=== PATIENT | male | born 1990 | race Caucasian/White ===

== ENCOUNTER 2016-12-23 21:04 | Inpatient (IN) | payer MEDICARE, MEDICAID ==
--- NOTE | 2016-12-23 21:34 | ED ---
General Adult HPI - General Chief complaint: Psychiatric Symptoms Stated complaint: Petition-Mental Health Time Seen by Provider: 12/23/16 21:05 Source: patient, RN notes reviewed Mode of arrival: ambulatory Limitations: no limitations - History of Present Illness Initial comments: Is a 26-year-old male with past medical history significant for schizophrenia. Today he was threatening to kill a distribution center assistant so he was petition to come into the emergency department. The ballet teacher brought him in thought the patient was 29 seen in another facility earlier today and did receive a shot. He is not sure what facility is not sure what kind of medication the patient received. Patient states he is not trying to kill anybody and does not want Any pain. Patient states he denies saying any of that. Patient denies wanting to harm himself. Patient denies any drinking or drug use. Patient denies any physical complaints today. Patient denies headache patient denies numbness weakness. Patient denies chest pain palpitations difficulty breathing or shortness of breath. Patient denies any abdominal pain patient denies nausea vomiting or diarrhea. Patient denies any recent injury or trauma. - Related Data Home Medications Medication Instructions Recorded Confirmed Paliperidone IM [Invega Sustenna] 234 mg IM Q30D 12/23/16 12/23/16 cloNIDine HCL [Clonidine HCl] 0.1 mg PO DIRECTED 12/23/16 12/23/16 Allergies Allergy/AdvReac Type Severity Reaction Status Date / Time No Known Allergies Allergy Unverified 12/23/16 21:43 Review of Systems ROS Statement: Those systems with pertinent positive or pertinent negative responses have been documented in the HPI. ROS Other: All systems not noted in ROS Statement are negative. Past Medical History Past Medical History: No Reported History History of Any Multi-Drug Resistant Organisms: None Reported Past Surgical History: No Surgical Hx Reported Past Psychological History: Schizophrenia Smoking Status: Current every day smoker Past Alcohol Use History: None Reported Past Drug Use History: None Reported General Exam - General Exam Comments Initial Comments: GENERAL: Patient is well-developed and well-nourished. Patient is nontoxic and well- hydrated and is in no acute distress. ENT: Neck is soft and supple. No significant lymphadenopathy is noted. Oropharynx is clear. Moist mucous membranes. EYES: The sclera were anicteric and conjunctiva were pink and moist. Extraocular movements were intact and pupils were equal round and reactive to light. Eyelids were unremarkable. PULMONARY: Unlabored respirations. Good breath sounds bilaterally. No audible rales rhonchi or wheezing was noted. CARDIOVASCULAR: There is a regular rate and rhythm without any murmurs gallops or rubs. ABDOMEN: Soft and nontender with normal bowel sounds. No palpable organomegaly was noted. There is no palpable pulsatile mass. SKIN: Skin is clear with no lesions or rashes and otherwise unremarkable. NEUROLOGIC: Patient is alert and oriented x3. Cranial nerves II through XII are grossly intact. Motor and sensory are also intact. Normal speech, volume and content. Symmetrical smile. MUSCULOSKELETAL: Normal extremities with adequate strength and full range of motion. No lower extremity swelling or edema. No calf tenderness. LYMPHATICS: No significant lymphadenopathy is noted PSYCHIATRIC: Patient denies homicidal or suicidal ideations. Limitations: no limitations Course Vital Signs 12/23/16 21:11 Temperature 97.7 F Pulse Rate 78 Respiratory 20 Rate Blood Pressure 122/68 O2 Sat by Pulse 98 Oximetry Medical Decision Making - Medical Decision Making [facility] came and evaluated the patient determined that he needed to be admitted. I filled out a clinical certification - Lab Data Lab Results 12/23/16 Range/Units 22:07 Urine Opiates Screen Not Detected (NotDetected) Ur Oxycodone Screen Not Detected (NotDetected) Urine Methadone Screen Not Detected (NotDetected) Ur Propoxyphene Screen Not Detected (NotDetected) Ur Barbiturates Screen Not Detected (NotDetected) U Tricyclic Antidepress Not Detected (NotDetected) Ur Phencyclidine Scrn Not Detected (NotDetected) Ur Amphetamines Screen Not Detected (NotDetected) U Methamphetamines Scrn Not Detected (NotDetected) U Benzodiazepines Scrn Not Detected (NotDetected) Urine Cocaine Screen Not Detected (NotDetected) U Marijuana (THC) Screen Not Detected (NotDetected) Disposition Clinical Impression: Psychosis Disposition: ADMITTED IP TO THIS [facility] Time of Disposition: 23:20
[2016-12-24] MEDS ORDERED: ZIPRASIDONE 20 MG VIAL IM PRN (03:45)
[2016-12-24] MEDS ORDERED: ACETAMINOPHEN TAB 325 MG TAB PO PRN (03:45)
[2016-12-24] MEDS ORDERED: MAGNESIUM HYDROXIDE 2,400 MG/10 ML CUP PO PRN (03:45)
[2016-12-24] MEDS ORDERED: MAG HYDROX/AL HYDROX/SIMETH 30 ML CUP PO PRN (03:45)
[2016-12-24] MEDS ORDERED: LORazepam 1 MG TAB PO PRN (03:56)
[2016-12-24 04:31] VITALS: BMI 27.3
[2016-12-24] MEDS: NICOTINE 14MG/24HR PATCH TRANSDERM SCH (08:57)
--- NOTE | 2016-12-24 11:32 | P.HP ---
Psychiatric H&P - . H&P Date: 12/24/16 History & Physical: IDENTIFYING DATA: Mr. Marmolejo is a 26-year-old male who has a history of a schizophrenia.. HISTORY OF PRESENT ILLNESS: He presented to the psychiatric unit involuntarily. One of the staff from [facility] completed a Petition for Mental health Treatment. The Petition red: When he presented to group he was disheveled and unkempt, with dirty clothes and wet/ greasy hair. ... "I'm going to kill the china and silverware salesperson, he is fucking crazy". Staff said "no one will get hurt." "Yes they will, I'm going to kill you now and everyone at your office." I reviewed information from the [facility] agency and interviewed Mr. Marmolejo. I left a message to speak with his mother Sakina Maromlejo. Benoit minimize the circumstances that led to this admission. He denied having threatened the china and silverware salesperson or staff at [facility]. He alleged that staff misinterpreted his words. He talked about being angry at the china and silverware salesperson because of demands placed on him by "mental health court". He alleged that he meets with china and silverware salesperson every 2 weeks and "has to" attend group therapy at [facility]. He does not like attending the group therapy sessions. He also talked about transportation to the [facility]. I had difficulty understanding his meaning but he appeared to be allege that he does not require transportation and could walk to the [facility]. She denied having thoughts of harm towards a the mental health court china and silverware salesperson of staff at [facility]. He denied feeling frightened or suspicious of the staff at [facility] or at this hospital. He denied experiencing auditory or visual hallucinations. He denied experiencing thought disturbances such as ideas reference, thought broadcasting, thought insertion or thought withdrawal. PAST PSYCHIATRIC HISTORY: He denied prior psychiatric hospitalizations. He understands that he is receiving treatment at [facility] for schizophrenia. He contests the diagnosis. He began some receiving mental treatment when he was14 years old while living in [place]. I reviewed the progress note from his 12/20/2016 medication review appointment. The clinician noted that he is not attending group therapy regularly. He was "heard by some of the other participants talking under his breath in a threatening way making other people feel uncomfortable. ... The last time he was in court, he left before seeing the china and silverware salesperson. He paces in court and seems to have difficulty staying in the room." The clinician recommended clonidine 0.1 mg before groups and mental health court to reduce anxiety and restlessness. His diagnoses include schizophrenia and cannabis use disorder. His current psychotropic medications include Invega Sustenna 234 mg monthly and clonidine 0.1 mg once a day before groups and mental health court. PAST MEDICAL HISTORY: He denied history of major medical problems. ALLERGIES: No known ALLERGIES. SUBSTANCE USE HISTORY: He denied use of drugs or alcohol. His urine drug screen was negative for drugs of abuse and his BAT result was 0.0. Tobacco use: He smokes approximately 1 pack cigarettes per day FAMILY PSYCHIATRIC/SUBSTANCE USE HISTORY: He is unaware of family history of illness. LEGAL HISTORY: He has been on probation since February 2016 for attempted motor vehicle-unlawful use-joyriding and malicious destruction of personal property. According to the information from [facility] court docket his sentence of 365 days at the [facility] was suspended upon completion of [address] health court. The terms and conditions of his probation included attendance of all [facility] hearings, maintain contact with [facility] campus security officer/catalytic case operator, residing in housing approved by [facility], no violent, assaultive or disorderly behavior, take all medications as prescribed, compliant with the [facility] treatment plan, etc. SOCIAL HISTORY: His born in [place] to an intact family. His family moved to [place] when he was 4 years old. He has 2 siblings. He stated both his sister and brother are in the and stationed overseas. His father in 2010. He and his mother return to [place] in 2011. He graduated high school. He has not held gainful employment. He receives Social Security disability. He lives with his mother in [facility]. MENTAL STATUS EXAM: He presented as a disheveled appearing 26-year-old Filipino male who appeared suspicious and angry. He made eye contact and appeared to attend to interview. He had no distinguishing features or prominent physical abnormalities. He had an angry facial expression. He was alert and oriented to person, place and time. He showed no abnormality of psychomotor activity. He had no abnormal movements. His gait was slow but steady. His speech was spontaneous with decreased rate, rhythm and volume. He had no articulation difficulties. His affect was angry but he displayed no episodes of emotional dyscontrol. He denied suicidal ideation or wishes. He denied thoughts of harm towards the china and silverware salesperson or staff at the [facility] agency. He is angry with the china and silverware salesperson and [facility] staff because the mandates of his probation. He denied depressive cognitions such as hopelessness, helplessness and worthlessness. He ruminated about probation and demands placed by [facility] health Court. He appears suspicious and guarded but did not express ideas reference or clear paranoid ideation. His thinking was very concrete. His associations were coherent. He did not demonstrate clang associations, perseveration, neologisms or blocking. He denied hallucinations but appeared to be internally preoccupied. Global impression of intellect is average to below. He has no insight or understanding of his mental illness or need for mental health treatment. STRENGTHS: Good physical health, supportive family, stable housing, stable income. WEAKNESSES: Severe and persistent mental illness, poor insight or understanding of need for mental health treatment. IMPRESSION: He is his 26-year-old male who has a history of schizophrenia. He presented to unit involuntarily after threatening the china and silverware salesperson at mental health court and staff at [facility]. He is denying that he made the threats and alleging that staff at [facility] misinterpreted his words. He is angry and suspicious. He is denied psychotic symptoms but at times appears to be internally preoccupied as though he is responding to internal stimuli. He should best be treated on an inpatient basis with a combination of psychopharmacology and multimodal therapy. PRINCIPLE DIAGNOSIS: Schizophrenia chronic paranoid type subacute, legal problems RECOMMENDATION: Continue inpatient psychiatric hospitalization due to the homicidal threats, paranoia and poor self-care. Completed the second clinical certificate and proceed with involuntary hospitalization. Suicide precautions with 15 minute checks. Consult medicine service for initial physical exam and medical history. Continue Invega 234 mg every 4 weeks. Augment the Invega injections with oral Invega beginning with 3 mg daily and titrating according to clinical effect and tolerance. His level of paranoia does not decrease with the oral dose of Invega, consider augmentation with a due to antipsychotic such as haloperidol or a mood stabilizer such as Depakote or Lamictal. Encourage participation in therapeutic groups and activities as tolerated. Evaluate clinical status and response to treatment on a daily basis. Allergies Allergy/AdvReac Type Severity Reaction Status Date / Time No Known Allergies Allergy Unverified 12/24/16 04:32 Vital Signs Temp 97.4 F L 12/24/16 04:23 Pulse 66 12/24/16 04:23 Resp 15 12/24/16 04:23 BP 119/78 12/24/16 04:23 Pulse Ox 100 12/24/16 00:03 Intake & Output 12/23/16 12/24/16 12/24/16 18:59 06:59 18:59 Weight 86.6 kg Laboratory Last Values Urine Opiates Screen Not Detected (NotDetected) 12/23/16 22:07 Ur Oxycodone Screen Not Detected (NotDetected) 12/23/16 22:07 Urine Methadone Screen Not Detected (NotDetected) 12/23/16 22:07 Ur Propoxyphene Screen Not Detected (NotDetected) 12/23/16 22:07 Ur Barbiturates Screen Not Detected (NotDetected) 12/23/16 22:07 U Tricyclic Antidepress Not Detected (NotDetected) 12/23/16 22:07 Ur Phencyclidine Scrn Not Detected (NotDetected) 12/23/16 22:07 Ur Amphetamines Screen Not Detected (NotDetected) 12/23/16 22:07 U Methamphetamines Scrn Not Detected (NotDetected) 12/23/16 22:07 U Benzodiazepines Scrn Not Detected (NotDetected) 12/23/16 22:07 Urine Cocaine Screen Not Detected (NotDetected) 12/23/16 22:07 U Marijuana (THC) Screen Not Detected (NotDetected) 12/23/16 22:07 12/24/16 07:56 12/24/16 08:52 12/24/16 11:14
--- NOTE | 2016-12-24 13:01 | P.CONS ---
History of Present Illness - Reason for Consult Consult date: 12/24/16 Medical management - History of Present Illness This is a 26-year-old male. He does not have a primary care physician. He has a past medical history for schizophrenia and tobacco use and dependence. Patient denies making any threats. He does admit to history of schizophrenia and was recently placed on clonidine a couple days ago. He follows with Kaitlynn Dunne every 3 weeks and also attends group therapy. He states he does not have a counselor. He apparently was threatening to kill a district loss prevention manager so he was petitioned to come into [facility] emergency center by police for evaluation. Patient has been admitted to the mental health unit. Urine drug screen was negative. Review of Systems All systems: negative Constitutional: Denies chills, Denies fever Eyes: denies blurred vision, denies pain Ears, nose, mouth and throat: Denies headache, Denies sore throat Cardiovascular: Denies chest pain, Denies shortness of breath Respiratory: Denies cough Gastrointestinal: Denies abdominal pain, Denies diarrhea, Denies nausea, Denies vomiting Musculoskeletal: Denies myalgias Integumentary: Denies pruritus, Denies rash Neurological: Denies numbness, Denies weakness Psychiatric: Reports irritability, Denies anxiety, Denies depression Endocrine: Denies fatigue, Denies weight change Past Medical History Past Medical History: No Reported History History of Any Multi-Drug Resistant Organisms: None Reported Past Surgical History: No Surgical Hx Reported Past Psychological History: Schizophrenia Smoking Status: Current every day smoker Past Alcohol Use History: None Reported Additional Past Alcohol Use History / Comment(s): Patient is a smoker of one pack per day for greater than 10 years. He denies any medical marijuana, marijuana, street drug use. He denies any alcohol use. He is single and does not have any children. Past Drug Use History: None Reported - Past Family History Father Additional Family Medical History / Comment(s): Father at age 53 from emphysema. Mother Additional Family Medical History / Comment(s): Mother is alive in her 50s with no major medical problems. Brother(s) Additional Family Medical History / Comment(s): Patient has 1 brother and 1 sister with no major medical problems. Medications and Allergies Home Medications Medication Instructions Recorded Confirmed Type Paliperidone IM [Invega Sustenna] 234 mg IM Q30D 12/23/16 12/24/16 History cloNIDine HCL [Clonidine HCl] 0.1 mg PO DIRECTED 12/23/16 12/24/16 History Allergies Allergy/AdvReac Type Severity Reaction Status Date / Time No Known Allergies Allergy Unverified 12/24/16 04:32 Physical Exam Vitals: Vital Signs Temp Pulse Pulse Resp BP BP Pulse Ox 12/24/16 04:23 97.4 F L 66 15 119/78 12/24/16 01:09 97.4 F L 66 16 119/78 12/24/16 00:03 84 18 117/69 100 Intake and Output 12/23/16 12/24/16 12/24/16 22:59 06:59 14:59 Other: Weight 86.6 kg Gen: This is a 26-year-old male. He is cooperative and appears to be in no acute distress. HEENT: Head is atraumatic, normocephalic. Pupils equal, round. Sclerae is anicteric. NECK: Supple. No JVD. No lymphadenopathy. No thyromegaly. LUNGS: Clear to auscultation. No wheezes or rhonchi. No intercostal retractions. HEART: Regular rate and rhythm. No murmur. ABDOMEN: Soft. Bowel sounds are present. No masses. No tenderness. EXTREMITIES: No pedal edema. No calf tenderness. NEUROLOGICAL: Patient is awake, alert and oriented x3. Cranial nerves 2 through 12 are grossly intact. Assessment and Plan Plan: 1. Schizophrenia. Patient admitted to the mental health unit. Continue current plan of care. 2. Tobacco use and dependence. Continue nicotine patch. Impression and plan of care have been directed as dictated by the signing physician. Faustina Ragsdale nurse practitioner acting as scribe for signing physician. Time with Patient: Greater than 30
[2016-12-24 15:54] LABS: Appearance,Urine Cloudy (Clear); Bilirubin,Urine Negative (Negative); Calcium Oxalate Crystals,Urine Many /hpf; Glucose,Urine (UA) Negative (Negative); Ketones,Urine Negative (Negative); Leukocyte Esterase,Urine Negative (Negative); Mucus,Urine Occasional /hpf; Nitrite,Urine Negative (Negative); Particle Count 16800; Protein,Urine Negative (Negative); RBC,Urine 1 /hpf (0-5); Specific Gravity,Urine 1.011 (1.001-1.035); UA Billing (MACRO vs. MICRO) MICRO
[2016-12-25 08:32] LABS: Basophils % (A) 1 %; CH 30.8; CHCM 32.3; Eosinophils # (A) 0.2 k/uL (0-0.7); Eosinophils % (A) 4 %; HCT 52.6 % (39.0-53.0); HDW 2.17; HGB 17.2 gm/dL (13.0-17.5); Luc # (Auto) 0.19; Luc % (Auto) 3; Lymphocytes % (A) 32 %; MCH 31.2 pg (25.0-35.0); MCHC 32.6 g/dL (31.0-37.0); MCV 95.8 fL (80.0-100.0); Mean Platelet Volume 7.1; Monocytes # (A) 0.5 k/uL (0-1.0); Monocytes % (A) 7 %; Neutrophils # (A) 3.5 k/uL (1.3-7.7); Neutrophils % (A) 54 %; RBC 5.49 m/uL (4.30-5.90); RDW 12.6 % (11.5-15.5); WBC 6.5 k/uL (3.8-10.6); WBC (Perox) 6.78
[2016-12-25 08:48] LABS: ALT 23 U/L (21-72); AST 15 U/L (17-59); Alkaline Phosphatase 90 U/L (38-126); Anion Gap 13 mmol/L; Blood Urea Nitrogen 14 mg/dL (9-20); Calcium 9.9 mg/dL (8.4-10.2); Carbon Dioxide 27 mmol/L (22-30); Chloride 106 mmol/L (98-107); Glucose 85 mg/dL (74-99); Non-African American GFR(MDRD) >60 (>60 ml/min/1.73 sqM); Potassium 4.5 mmol/L (3.5-5.1); Sodium 146 mmol/L (137-145); Total Bilirubin 1.2 mg/dL (0.2-1.3); Total Protein 7.9 g/dL (6.3-8.2)
[2016-12-25] MEDS: PALIPERIDONE 3 MG TAB.ER.24 PO SCH (08:53)
[2016-12-25] MEDS: NICOTINE 14MG/24HR PATCH TRANSDERM SCH (08:54)
--- NOTE | 2016-12-25 15:58 | P.PN ---
Progress Note - Text Interval history: The patient's is found in his room he follows me to an interview room. I did review Dr. Adorno's psychiatric evaluation. The patient has a known history of schizophrenia. He was brought in after making threatening statements of violence towards others. The patient denies any recollection of making those statements. He states he wants to be discharged. He has been isolating in his room area he has been compliant with medication so far. He has been on and [employer] and this has been supplemented with an oral dose of invega. Mental status exam: The patient is alert he is disheveled he is dressed in a T- shirt and sweatpants. He has a staring eye contact with no change in affect which appears flat. He initiates no conversation he provides brief answers to questions asked. He is cooperative but not particularly pleasant. He seated calmly without any agitated behavior there is no verbal or physical aggressiveness demonstrated. Insight and judgment impaired. It's fairly evident that he is minimizing symptoms to facilitate a discharge. He is oriented to person place month day and year. No evidence of abnormal involuntary movements. Plan: The patient will continue on his current medications we will consider titrating the Invega further. He is encouraged to participate in the milieu. We will monitor for safety. Vital signs reviewed.
[2016-12-26] MEDS: PALIPERIDONE 3 MG TAB.ER.24 PO SCH (10:18)
[2016-12-26] MEDS: NICOTINE 14MG/24HR PATCH TRANSDERM SCH (10:23)
--- NOTE | 2016-12-26 12:55 | P.PN ---
Progress Note - Text Interval history: The patient is found in his room he follows me to an interview room. He reports that he slept last night. Staff report that he eats approximately every other meal. He did eat breakfast this morning. He does tend to isolate in his room. He reports more recently a feeling of dizziness. Vital signs reviewed. He does continue to ask when he'll be discharged. No reports of any aggressive behavior. He has no questions or concerns regarding his medications. Mental status exam: The patient is alert he has a disheveled appearance he is dressed in the same clothing is yesterday. He offers no spontaneous speech. He provides brief answers. He is not particularly engaged in the interview. In fact he verbalizes he would rather go brush his teeth then continue speaking. He reports no auditory or visual hallucinations he is reporting no specific delusions. Obviously he could be underreporting to facilitate a discharge. Insight and judgment limited. He demonstrates no verbal or physical aggressiveness in session. Upon ending the session he does demonstrate odd smiling and laughter. No observed abnormal involuntary movements. Plan: The patient will continue on his current psychotropic medications. We will continue to monitor for safety he is encouraged to more fully participate in the milieu. Dr. Adorno will resume care of this patient starting tomorrow.
[2016-12-27] MEDS: NICOTINE 14MG/24HR PATCH TRANSDERM SCH (09:20)
[2016-12-27] MEDS: PALIPERIDONE 3 MG TAB.ER.24 PO SCH (09:20)
--- NOTE | 2016-12-27 15:27 | P.PN ---
Progress Note - Text SUBJECTIVE: I reviewed the medical record, interviewed Mr. Marmolejo and discussed his treatment and treatment plan during team meeting. He was preoccupied about discharge. He asked when he would be discharged and how long to be in the hospital. He denied the need for hospitalization and minimizes circumstances that led to this hospitalization. I explained that he came to the hospital involuntary because [facility] completed a Petition. He initially alleged that he was unaware of the court hearing regarding this hospitalization but later admitted that he has an appointment with an commercial real estate attorney tomorrow. He denied psychotic symptoms such as auditory or visual hallucinations, ideas reference, thought insertion, thought broadcasting or thought control. He denied feeling paranoid or suspicious and did not express and organize paranoid or delusional belief during our interview. He denied side effects to the current dose of Invega. OBJECTIVE: He presented as a disheveled and unkempt 26-year-old male. He was pleasant on approach but did not maintain eye contact. He had a flat angry facial expression. He showed slight psychomotor retardation but no abnormal movements. His speech was not spontaneous and had decreased rate, rhythm and volume. His affect was blunted but irritable. He denied suicidal ideation or wishes. He denied homicidal ideation. He appeared suspicious and guarded. His thinking was concrete and associations were not fully coherent and logical. He denied hallucinations but appeared to be responding to internal stimuli. ASSESSMENT: He appears to be severely mentally ill and minimally change from admission. He continues to require inpatient psychiatric treatment due to the severity of his psychosis, paranoia and lack of insight or understanding of her psychiatric illness. He would be a candidate for the treatment with antipsychotic clozapine except for the history of noncompliance and the need for long-acting injectable antipsychotic medications. He will probably require treatment with 2 antipsychotics due to the severity and persistence of his psychotic symptoms. PLAN: Continue Invega 3 mg daily (in addition to Invega Sustenna 234 mg monthly) , begin a second antipsychotic after his probate hearing, assault precautions pns with 15 minute checks, continue lorazepam 1 mg by mouth every 8 hours when necessary for agitation in addition to ziprasidone 20 mg IM twice a day when necessary for psychosis. Probate hearing is scheduled for December 31 at 9 AM. Encourage participation in therapeutic groups and activities as tolerated. Evaluate clinical status response to treatment on a daily basis.
[2016-12-28 06:15] VITALS: RESP 16
[2016-12-28] MEDS: PALIPERIDONE 3 MG TAB.ER.24 PO SCH (09:00)
[2016-12-28] MEDS: NICOTINE 14MG/24HR PATCH TRANSDERM SCH (09:00)
--- NOTE | 2016-12-28 14:11 | P.PN ---
Progress Note - Text SUBJECTIVE: I reviewed the medical record, interviewed Mr. Marmolejo and discuss his treatment and treatment plan during team meeting. He remains preoccupied with discharge and repeatedly asked me when he would be discharged. We talked about the Petition and involuntary hospitalization process. I encouraged him to agree to a deferral explaining that an alternate treatment order would not change his treatment plan since he is already mandated for outpatient mental health treatment by the mental health court. He denied other problems or concerns. He continues denied experiencing psychotic symptoms such as auditory or visual hallucinations, ideas reference, thought insertion, thought broadcasting or thought control. He denies side effects to current dose of Invega. OBJECTIVE: He presented as a restless syndrome disheveled appearing 26-year- old male. He would not sit still for the interview but paced hallway. He made intermittent eye contact and attended to her. To attend to interview. He had a distressed and angry facial expression. He was restless but showed no abnormal movements. His speech was not spontaneous. His affect affect was blunted and irritable. He denied suicidal ideation or wishes. He denied homicidal ideation. He continues denied that he had threatened the mental health court corrections counselor and treatment providers at [facility]. He did not express ideas reference. He appears guarded and suspicious but did not express paranoid ideation or delusional beliefs. His thinking is very concrete but his associations were coherent. His social worker clinical spoke with his aunt who described his home life. He lives with his mother who is also chronically and severely mentally ill. He is not interested and placement and plans to return to live with his mother. He is attending some of the therapeutic groups and activities. Therapy staff reported that he appears more engaged and has demonstrated more affective expression. ASSESSMENT: He is severely mentally ill and appears mildly improve from admission. He appears to have some benefit from the 3 mg dose of Invega and may not require the addition of a second antipsychotic at this time. PLAN: Continue inpatient psychiatric hospitalization pending the probate hearing. Continue Invega 3 mg daily as well as Invega Sustenna 234 mg every 4 weeks. Encourage participation in therapeutic groups and activities. Evaluate clinical status response to treatment daily basis. If he defers the probate hearing then consider discharge later this week.
[2016-12-29 06:44] VITALS: BP 106/60; PULSE 83; TEMP 97.7
[2016-12-29] MEDS: NICOTINE 14MG/24HR PATCH TRANSDERM SCH (08:11)
[2016-12-29] MEDS: PALIPERIDONE 3 MG TAB.ER.24 PO SCH (08:14)
--- NOTE | 2016-12-29 13:52 | P.PN ---
Progress Note - Text SUBJECTIVE: I reviewed the medical record, interviewed Mr. Marmolejo and discuss treatment and treatment plan during team meeting. As usual, his only concern was discharge. He still remains concerned about "mental court" and demands that he had attend a weekly group at [facility]. OBJECTIVE: He presented as a somewhat disheveled unkept 26-year-old male with a flat affect. He made intermittent eye contact. He had psychomotor retardation but no abnormal movements. His speech was not spontaneous. It had decreased rate, rhythm and volume. His affect was flat. He denied suicidal ideation or homicidal ideation. He denied psychotic symptoms such as auditory or visual hallucinations, ideas reference, thought insertion, thought broadcasting or thought control. He appears guarded and suspicious but did not express paranoid thoughts or ideation. He did not appear to responding to internal stimuli during our interview. He met with his collections attorney yesterday, deferred the probate hearing and stipulated to the involuntary treatment order. Social work spoke with his mother. His mother initially thought she could arrange for a friend to drive him home when she could not make the necessary arrangements she requested we discharge him up and take the bus. ASSESSMENT: He appears moderately mentally and is moderately improved from admission. He is less irritable and guarded but continued show prominent negative symptoms. PLAN: Discharge home today with [facility] follow-up. Continue InvegaSustenna 234 mg IM monthly and Invega oral 3 mg daily.
--- NOTE | 2016-12-29 13:54 | P.DS ---
Providers Date of admission: 12/23/16 23:56 Attending physician: Zaire Adorno MD Consults: 12/24/16 03:45 Consult Physician Routine Consulting Provider: Zaire Bain Reason/Comments: medical management Do you want consulting provider notified?: Yes, Notify in am Primary care physician: Stated None - Discharge Diagnosis(es) (1) Paranoid type schizophrenia, chronic state with acute exacerbation Current Visit: Yes Status: Chronic Priority: High (2) Homicidal ideation Current Visit: Yes Status: Acute Priority: Medium Hospital Course: Mr. Marmolejo is a 26-year-old male who has a history of a schizophrenia. He presented to the psychiatric unit involuntarily. One of the staff from [facility] completed a Petition for Mental health Treatment. The Petition red: "When he presented to group he was disheveled and unkempt, with dirty clothes and wet/greasy hair. ... "I'm going to kill the garbage worker, he is fucking crazy". Staff said "no one will get hurt." "Yes they will, I'm going to kill you now and everyone at your office." I reviewed information from the [facility] agency and interviewed Mr. Marmolejo. I left a message to speak with his mother Sakina Marmolejo. Benoit minimize the circumstances that led to this admission. He denied having threatened the garbage worker or staff at [facility]. He alleged that staff misinterpreted his words. He talked about being angry at the garbage worker because of demands placed on him by "mental health court". He alleged that he meets with garbage worker every 2 weeks and "has to" attend group therapy at [facility]. He does not like attending the group therapy sessions. He also talked about transportation to the [facility]. I had difficulty understanding his meaning but he appeared to be allege that he does not require transportation and could walk to the [facility]. She denied having thoughts of harm towards a the mental health court garbage worker of staff at [facility]. He denied feeling frightened or suspicious of the staff at [facility] or at this hospital. He denied experiencing auditory or visual hallucinations. He denied experiencing thought disturbances such as ideas reference, thought broadcasting, thought insertion or thought withdrawal. He denied prior psychiatric hospitalizations. He understands that he is receiving treatment at [facility] for schizophrenia. He contests the diagnosis. He began some receiving mental treatment when he was14 years old while living in [place]. I reviewed the progress note from his 12/20/2016 medication review appointment. The clinician noted that he is not attending group therapy regularly. He was "heard by some of the other participants talking under his breath in a threatening way making other people feel uncomfortable. ... The last time he was in court, he left before seeing the garbage worker. He paces in court and seems to have difficulty staying in the room." The clinician recommended clonidine 0.1 mg before groups and mental health court to reduce anxiety and restlessness. His diagnoses include schizophrenia and cannabis use disorder. His current psychotropic medications include Invega Sustenna 234 mg monthly and clonidine 0.1 mg once a day before groups and mental health court. We admitted him to the psychiatric unit under care of this chief writer. We provided a biopsychosocial assessment. The [employer] consultant completed the initial physical exam and medical history. The [employer] consultant diagnosed schizophrenia tobacco use and dependence. We prescribed Invega 3 mg daily in addition to the monthly injections of Invega Sustenna 234 mg. He considered the prescription of a second antipsychotic given his suboptimal response to the normal dose of Invega Sustenna. However, he became less paranoid and more engaged in therapeutic groups to activities with the 3 mg dose of Invega. shell worker spoke with his aunt who confirmed that his mother has a history of a severe and chronic mental illness in addition to a substance use problem. We would have consider him a candidate for clozapine with the exception of history of poor compliance. We submitted a Petition and supporting documents to probate court for involuntary hospitalization. He met with his staff attorney and deferred the court hearing and stipulated to the involuntary treatment order. He is compliant with oral dose of Invega. He posed no management problem and required no use of by mouth or IM medications for behavioral dyscontrol. He continued to maintain that he did not threaten to garbage worker or treatment staff at [facility]. At the time of discharge she was less paranoid and continued to show signs and symptoms of chronic schizophrenia including marked negative symptoms. Patient Condition at Discharge: Stable Plan - Discharge Summary New Discharge Prescriptions: Nicotine 14Mg/24Hr Patch [Habitrol] 1 patch TRANSDERM DAILY #14 patch Paliperidone [Invega] 3 mg PO DAILY 30 Days Discharge Medication List Paliperidone IM [Invega Sustenna] 234 mg IM Q30D 12/23/16 [History] cloNIDine HCL [Clonidine HCl] 0.1 mg PO DIRECTED 12/23/16 [History] Nicotine 14Mg/24Hr Patch [Habitrol] 1 patch TRANSDERM DAILY #14 patch 12/29/16 [ Rx] Paliperidone [Invega] 3 mg PO DAILY 30 Days 12/29/16 [Rx] Follow up Appointment(s)/Referral(s): [facility] [Outside] - 01/03/17 2:00 pm (01/03 @ 2:00 Kaela 01/17 @ 1:30 Kaitlynn Dunne 01/20 @ 11:30 injection) None,Stated [Primary Care Provider] - 1-2 days Patient Instructions/Handouts: How to Stop Smoking (DC), Brief Psychotic Disorder (DC) Activity/Diet/Wound Care/Special Instructions: No alcohol or street drugs. Take medications as prescribed. Notify the crisis line or your care provider if symtpoms worsen. Crisis line no. . Regular diet. Activity as tolerated. Discharge Disposition: HOME SELF-CARE
== END 2016-12-29 14:39 | disposition home or self-care (01) | DRG 885 ==
LOC: EC 21:04 → 3MHU 23:56
PROVIDERS: ADMIT Psychiatry & Neurology Psychiatry; ATTEND Psychiatry & Neurology Psychiatry
DX: F20.0 Paranoid schizophrenia (principal); R45.850 Homicidal ideations; F12.90 Cannabis use, unspecified, uncomplicated; R42 Dizziness and giddiness; F41.9 Anxiety disorder, unspecified; F17.210 Nicotine dependence, cigarettes, uncomplicated; Z79.899 Other long term (current) drug therapy; Z82.5 Family history of asthma and other chronic lower respiratory diseases; Z81.8 Family history of other mental and behavioral disorders; Z91.19 Patient's noncompliance with other medical treatment and regimen; Z81.4 Family history of other substance abuse and dependence; Z65.3 Problems related to other legal circumstances
CPT/HCPCS: 80053; 80306; 81001; 82075; 84443; 85025; 99285

== ENCOUNTER 2019-10-12 12:49 | Inpatient (IN) | payer MEDICARE, MEDICAID ==
--- NOTE | 2019-10-12 13:03 | ED ---
General Adult HPI - General Stated complaint: EPS eval Time Seen by Provider: 10/12/19 12:49 Source: patient, police, EMS, RN notes reviewed, old records reviewed Limitations: altered mental status - History of Present Illness Initial comments: This is a 29-year-old male who has a legal guardian. According to the police that escorted into the emergency department he made some statements that he wanted to harm somebody and he was elected to kill somebody. Patient currently denies this patient also told police he wanted to hurt himself however patient currently denies this as well. Patient is very poor historian however when you asked the patient in any given question he often doesn't answers and just babbles about unrelated topics and sometimes doesn't make any sense at all. Patient denies any physical complaints today. I am told that the patient's guardian is petitioning him. Patient has a history of schizophrenia according to the police. - Related Data Home Medications Medication Instructions Recorded Confirmed fluPHENAZine DECANOATE [Prolixin 37.5 mg IM Q21D 10/12/19 10/12/19 Decanoate] Allergies Allergy/AdvReac Type Severity Reaction Status Date / Time No Known Allergies Allergy Verified 11/25/17 16:12 Review of Systems ROS Statement: Those systems with pertinent positive or pertinent negative responses have been documented in the HPI. ROS Other: All systems not noted in ROS Statement are negative. Past Medical History Past Medical History: No Reported History History of Any Multi-Drug Resistant Organisms: None Reported Past Surgical History: No Surgical Hx Reported Past Anesthesia/Blood Transfusion Reactions: No Reported Reaction Past Psychological History: Schizophrenia Smoking Status: Current every day smoker Past Alcohol Use History: None Reported Additional Past Alcohol Use History / Comment(s): Patient is a smoker of one pack per day for greater than 10 years. He denies any medical marijuana, marijuana, street drug use. He denies any alcohol use. He is single and does not have any children. Past Drug Use History: None Reported - Past Family History Father Additional Family Medical History / Comment(s): Father at age 53 from emphysema. Mother Additional Family Medical History / Comment(s): Mother is alive in her 50s with no major medical problems. Brother(s) Additional Family Medical History / Comment(s): Patient has 1 brother and 1 sister with no major medical problems. General Exam - General Exam Comments Initial Comments: GENERAL: Patient is well-developed and well-nourished. Patient is nontoxic and well- hydrated and is in no acute distress. ENT: Neck is soft and supple. No significant lymphadenopathy is noted. Oropharynx is clear. Moist mucous membranes. Neck has full range of motion without eliciting any pain. EYES: The sclera were anicteric and conjunctiva were pink and moist. Extraocular movements were intact and pupils were equal round and reactive to light. Eyelids were unremarkable. PULMONARY: Unlabored respirations. Good breath sounds bilaterally. No audible rales rhonchi or wheezing was noted. CARDIOVASCULAR: There is a regular rate and rhythm without any murmurs gallops or rubs. ABDOMEN: Soft and nontender with normal bowel sounds. SKIN: Skin is clear with no lesions or rashes and otherwise unremarkable. NEUROLOGIC: Patient is alert and oriented 2. Cranial nerves II through XII are grossly intact. Motor and sensory are also intact. Normal speech, volume and content. Symmetrical smile. MUSCULOSKELETAL: Normal extremities with adequate strength and full range of motion. LYMPHATICS: No significant lymphadenopathy is noted PSYCHIATRIC: Patient often is not making sense that is babbling nonsense but occasionally does answer questions accurately especially. Repeat them multiple times. Patient denies any suicidal homicidal ideations currently Course Vital Signs 10/12/19 12:54 Temperature 98.3 F Pulse Rate 83 Respiratory 16 Rate Blood Pressure 142/75 O2 Sat by Pulse 95 Oximetry Medical Decision Making - Lab Data Lab Results 10/12/19 Range/Units 14:36 Urine Opiates Screen Not Detected (NotDetected) Ur Oxycodone Screen Not Detected (NotDetected) Urine Methadone Screen Not Detected (NotDetected) Ur Propoxyphene Screen Not Detected (NotDetected) Ur Barbiturates Screen Not Detected (NotDetected) U Tricyclic Antidepress Not Detected (NotDetected) Ur Phencyclidine Scrn Not Detected (NotDetected) Ur Amphetamines Screen Not Detected (NotDetected) U Methamphetamines Scrn Not Detected (NotDetected) U Benzodiazepines Scrn Not Detected (NotDetected) Urine Cocaine Screen Not Detected (NotDetected) U Marijuana (THC) Screen Not Detected (NotDetected) Disposition Clinical Impression: Acute psychosis, Schizophrenia Disposition: ADMITTED IP TO THIS HOSP Referrals: Roverto Corona MD [Primary Care Provider] - 1-2 days Time of Disposition: 15:40
[2019-10-12 15:12] LABS: Phencyclidine Screen,Urine Not Detected (NotDetected); Urn Cannabinoid Scrn Not Detected (NotDetected)
[2019-10-12 15:13] LABS: Amphetamine Screen,Urine Not Detected (NotDetected); Barbiturate Screen,Urine Not Detected (NotDetected); Benzodiazepines Screen,Urine Not Detected (NotDetected); Cocaine Screen,Urine Not Detected (NotDetected); Methadone Screen, Urine Not Detected (NotDetected); Opiate Screen,Urine Not Detected (NotDetected); Oxycodone Screen, Urine Not Detected (NotDetected); Tricyclic Antidepressant,Urine Not Detected (NotDetected)
[2019-10-12] MEDS ORDERED: MAGNESIUM HYDROXIDE 2,400 MG/10 ML CUP PO PRN (16:06)
[2019-10-12] MEDS ORDERED: MAG HYDROX/AL HYDROX/SIMETH 30 ML CUP PO PRN (16:06)
[2019-10-12] MEDS ORDERED: ACETAMINOPHEN TAB 325 MG TAB PO PRN (16:06)
--- NOTE | 2019-10-12 21:15 | P.CONS ---
History of Present Illness - Reason for Consult Consult date: 10/12/19 - History of Present Illness Patient is a 29-year-old male with a PMH of schizophrenia who presented to the ED with homicidal ideation. The patient was subsequently admitted to the mental health unit where he was seen at the bedside. The patient noted that he feels "okay" and gave one-word answers to most questions. The patient denied any active homicidal or suicidal ideation. He denied any active complaints as well. He denied chest pain, shortness of breath, nausea, vomiting, abdominal pain, fever, chills, or cough. The patient denied any illicit substance use. Review of Systems Pertinent positives and negatives as discussed in HPI, a complete review of systems was performed and all other systems are negative. Past Medical History Past Medical History: No Reported History History of Any Multi-Drug Resistant Organisms: None Reported Past Surgical History: No Surgical Hx Reported Past Anesthesia/Blood Transfusion Reactions: No Reported Reaction Past Psychological History: Schizophrenia Smoking Status: Current every day smoker Past Alcohol Use History: None Reported Additional Past Alcohol Use History / Comment(s): Patient is a smoker of one pack per day for greater than 10 years. He denies any medical marijuana, marijuana, street drug use. He denies any alcohol use. He is single and does not have any children. Past Drug Use History: None Reported - Past Family History Father Additional Family Medical History / Comment(s): Father at age 53 from emphysema. Mother Additional Family Medical History / Comment(s): Mother is alive in her 50s with no major medical problems. Brother(s) Additional Family Medical History / Comment(s): Patient has 1 brother and 1 sister with no major medical problems. Medications and Allergies Home Medications Medication Instructions Recorded Confirmed Type fluPHENAZine DECANOATE [Prolixin 37.5 mg IM Q21D 10/12/19 10/12/19 History Decanoate] Allergies Allergy/AdvReac Type Severity Reaction Status Date / Time No Known Allergies Allergy Verified 10/12/19 17:57 Physical Exam Vitals: Vital Signs Temp Pulse Pulse Resp BP BP Pulse Ox 10/12/19 16:46 98.0 F 66 16 116/68 100 10/12/19 16:22 98.3 F 83 16 142/75 95 10/12/19 12:54 98.3 F 83 16 142/75 95 Intake and Output 10/12/19 10/12/19 10/12/19 06:59 14:59 22:59 Other: Weight 104.326 kg 86.353 kg General: Disheveled male, non toxic, no distress, appears at stated age, normal weight Derm: no unusual rashes/lesions no unusual ecchymoses, warm, dry Head: atraumatic, normocephalic, symmetric Eyes: EOMI, no lid lag, anicteric sclera, pupils equal round reactive to light ENT: Nose and ears atraumatic, no thrush, no pharyngeal erythema Neck: No thyromegaly, no cervical lymphadenopathy, trachea midline, supple Mouth: no lip lesion, mucus membranes moist Cardiovascular: S1S2 reg, no murmur, positive posterior tibial pulse bilateral, no edema, capillary refill less than 2 seconds Lungs: CTA bilateral, no rhonchi, no rales , no accessory muscle use Abdominal: soft, nontender to palpation, no guarding, no appreciable organomegaly, normal bowel sounds Ext: no gross muscle atrophy, muscle strength 5 out of 5 in all 4 extremities grossly, no contractures, Neuro: CN II-XI grossly intact, light touch intact all 4 extremities, finger to nose within normal limits, Psych: Alert, oriented, flat affect Assessment and Plan Plan: Schizophrenia, homicidal ideation -As per psychiatry -Currently denying any active homicidal or suicidal ideation Thank you for allowing us to participate in the care of this patient. We will follow peripherally. Do not hesitate to contact us with questions. Someone can be reached from the [facility] hospitalist group at all hours of the day at [phone].
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
[2019-10-13] MEDS: DIVALPROEX ER 250 MG TAB.ER.24H PO SCH ×2 (13:24→20:01)
[2019-10-13] MEDS: LORazepam 1 MG TAB PO PRN (20:01)
[2019-10-14 09:20] LABS: ALT 10 U/L (4-49); AST 18 U/L (17-59); African American GFR (CKD) >90 (>60 ml/min/1.73 sqM); Albumin 4.2 g/dL (3.5-5.0); Alkaline Phosphatase 104 U/L (38-126); Anion Gap 7 mmol/L; Blood Urea Nitrogen 14 mg/dL (9-20); Calcium 9.4 mg/dL (8.4-10.2); Carbon Dioxide 27 mmol/L (22-30); Chloride 109 mmol/L (98-107); Cholesterol 173 mg/dL (<200); Glucose 97 mg/dL (74-99); HDL Cholesterol 35 mg/dL (40-60); LDL Cholesterol,Calculated 113 mg/dL (0-99); Non-African American GFR(CKD) >90 (>60 ml/min/1.73 sqM); Potassium 4.4 mmol/L (3.5-5.1); Sodium 143 mmol/L (137-145); Total Bilirubin 0.8 mg/dL (0.2-1.3); Total Protein 7.2 g/dL (6.3-8.2); Triglycerides 127 mg/dL (<150)
[2019-10-14] MEDS: DIVALPROEX ER 250 MG TAB.ER.24H PO SCH ×2 (10:32→19:44)
--- NOTE | 2019-10-14 12:24 | P.PN ---
Progress Note - Text Progress Note Date: 10/14/19 Subjective: The patient has been seen today as follow-up, chart reviewed, case discussed with the treatment team. Patient slept about 6 hours last night. Patient has not been going to groups and other unit activities. Patient reports fair appetite. Patient was seen in his room, he's been isolating and has minimal interaction with others. Patient sounds tense when he speaks but he denies feeling depressed, hopeless, or suicidal. He denies feeling agitated or anger problem but he presented angry. He reported his mood is "good". The patient is compliant with his medications and denies any adverse reactions. The patient denies any manic symptoms including sustained period of time with elevated or irritable mood, impulsive or irrational behavior, inflated self- esteem, or absence need to sleep due to increases goal-directed activities. The patient denies any auditory or visual hallucinations. Also the patient denies any paranoid ideation. Objective: Vitals has been reviewed. Mental status examination; Appearance: Appears stated age, partially disheveled, not-well groomed, average body built, and no specific features. Gait/ posture: Patient was lying in bed. Attitude and Behavior: guarded, not fully cooperative, intermittent eye contact during course of interview. Motor Activity: Normal psychomotor activity. Speech: Not spontaneous, delayed response, decreased rate, rhythm, and articulation. normal volume. not pressured. Mood: "irritable" Affect: Flat. Thought process: Impoverished. Association: Not circumstantial, not tangential. Thought content: denies delusions, presented guarded, denies suicidal thoughts, denies homicidal thoughts, denies intentions, or plans. Perception: Denies auditory or visual hallucinations, but appears internally preoccupied. Alertness: No impairment. Concentration: Impaired Orientation: Fully oriented to time, person, place, and situation Insight regarding psychiatric condition: fair, understands need for further treatmetn and medication adjustment. Judgment regarding daily activities and social situation: fair Impulse control: Limited Assessment: Schizophrenia. Plan: Continue the patient inpatient for safety. Patient is still meets criteria for inpatient hospitalization as he continued to present paranoid and needs further stabilization on medications Continue the patient under 15 minutes safe check for safety. The patient will also be provided with individual therapy, group therapy, substance abuse counseling, gain insight, and coping skills. Consider medical consultation if any acute medical issue arise. Medications: Continue Prolixin injection 37.5 mg IM every 21 days with the next injection on 10/16/19. Continue Depakote 250 mg twice daily to help with the mood stabilization and agitation. Discussed with nursing to notify the guardian about patient signed voluntary papers, and to obtain guardian consent for psychiatric medications. Labs: Obtain CMP, TSH. Reviewed liver function within normal limits, no CBC obtained Keep monitoring Depakote level. The patient will be assessed on daily basis for his depression, suicidal ideation, and will be discharged back to his outpatient mental health provider upon stabilization. EXPECTED LENGTH OF STAY: 4-6 days.
[2019-10-14 15:34] LABS: Basophils % (A) 1 %; Eosinophils # (A) 0.3 k/uL (0-0.7); Eosinophils % (A) 4 %; HCT 52.1 % (39.0-53.0); HGB 16.9 gm/dL (13.0-17.5); Lymphocytes # (A) 2.9 k/uL (1.0-4.8); Lymphocytes % (A) 38 %; MCH 31.1 pg (25.0-35.0); MCHC 32.5 g/dL (31.0-37.0); MCV 95.8 fL (80.0-100.0); Monocytes # (A) 0.4 k/uL (0-1.0); Monocytes % (A) 5 %; Neutrophils # (A) 3.8 k/uL (1.3-7.7); Neutrophils % (A) 50 %; Platelet Count 225 k/uL (150-450); RBC 5.44 m/uL (4.30-5.90); RDW 12.6 % (11.5-15.5); WBC 7.6 k/uL (3.8-10.6)
[2019-10-14] MEDS: LORazepam 1 MG TAB PO PRN (19:44)
[2019-10-15] MEDS: ZIPRASIDONE 20 MG VIAL IM PRN (00:36)
[2019-10-15] MEDS: DIVALPROEX ER 250 MG TAB.ER.24H PO SCH (10:06)
--- NOTE | 2019-10-15 12:48 | P.PN ---
Progress Note - Text Progress Note Date: 10/15/19 Interval History: Patient was seen wandering the halls and was anxious to talk to the script writer and directable and agreeable to speak in the office. Patient explained some of the circumstances behind him being admitted to the hospital. Patient claims that he did not threaten anybody and spoke about a particular female who lives at his nursing home. Patient was disorganized and tangential/circumstantial in his thought process. Patient has marginal hygiene and grooming is wearing street clothing. Patient was preoccupied with discharge and continues to have poor insight. He spoke about his guardian who is a public guardian and claims that he wants his guardianship switch to his mother. Patient states that he had poor sleep last night and received Ativan and Geodon however does not describe what the reason for his agitation was yesterday. Patient was somewhat cooperative and agreeable to take Seroquel at night for paranoia. Patient described believing that the TV at night was sending him messages and also spoke about "bad vibes" from the [employer] tree on the unit. At this time patient denies any suicidal or homical ideations, intent or plan. Patient denies any auditory, visual hallucinations. Patient denies any side effects from the medications and has been compliant with meds. Patient was noted by staff to be sexually inappropriate yesterday with women on the unit with some remarks that he said. Mental Status Exam: General Appearance: Patient appears to be stated age is alert, attempts to cooperate and somewhat directable. Marginal hygiene and grooming, intense eye contact. Behavior: Patient is calmly seated without any agitated behavior. Speech: Patient's speech is fluent and nonpressured. Mood/Affect: Mood is improving mildly, affect is congruent and wanted. Suicidality/Homicidality: Patient denies having any suicidal or homicidal ideation intent or plan. Perceptions: Patient denies any auditory or visual hallucinations. Though content/process: Patient is disorganized and tangential/circumstantial in his thought processes. Significant paranoia especially at night time. Memory and concentration: AOX3, grossly intact for the purposes of this session Judgment and insight: Poor Assessment Schizophrenia Plan: -Patient continues to meet criteria for inpatient psychiatric admission for symptom stabilization and safety. Patient has signed adult voluntary form and medication consent and was placed in patient's chart. -Medications: Switch Depakote ER to 500 mg daily for mood stabilization and agitation. Added Seroquel 100 mg daily at bedtime for paranoia/insomnia. Continue with Prolixin injection 37.5 mg IM every 21 days with next injection dose due on 10/16/2019. -When necessary Geodon and Ativan for agitation/aggression. -NRT - not need this patient does not smoke. -Encouraged group participation. -SW on board for discharge planning. Patient has a public guardian and resides at a nursing home.
[2019-10-15] MEDS ORDERED: QUEtiapine 100 MG TAB PO SCH (21:00)
[2019-10-15] MEDS: LORazepam 1 MG TAB PO PRN (21:26)
[2019-10-16] MEDS ORDERED: DIVALPROEX ER 500 MG TAB.ER.24H PO SCH (09:00)
[2019-10-16] MEDS ORDERED: fluPHENAZine DECANOATE 25 MG/ML 5ML MDV IM SCH (12:00)
[2019-10-16] MEDS ORDERED: fluPHENAZine DECANOATE 25 MG/ML 5ML MDV IM ONE (12:02)
--- NOTE | 2019-10-16 12:12 | P.PN ---
Progress Note - Text Progress Note Date: 10/16/19 Interval History: Patient was seen sleeping in his bed and was directable and agreeable to speak in the office. Patient was initially calm and cooperative and had poverty of content/speech. Patient denied any overnight complaints and stated that he slept through the night. He also states that he took the medications last night which make him feel sleepy. Patient denied going to groups and participating. As the conversation progressed patient became more tangential/illogical and rambled about his guardian. Patient had disorganized thoughts and accused his guardian of wanting to "kill people" and "she can get her way she wants to". Patient became more aggressive and irritable when speaking about his guardian and rephrase questions back to filing writer asking him what he would do. Patient claims that he did not threaten anybody and was demanding discharge. Patient was preoccupied with discharge during the conversation however was agreeable to stay until his medications are corrected. Patient is agreeable to take the long-acting Prolixin shot today. At this time patient denies any suicidal or homical ideations, intent or plan. Patient denies any auditory, visual hallucinations. Patient denies any side effects from the medications and has been compliant with meds. Mental Status Exam: General Appearance: Patient appears to be stated age is alert, attempts to cooperate however becomes hostile/irritable. Marginal hygiene and grooming, intense eye contact. Behavior: Patient is seated without any agitated behavior. Irritable/hostile. Speech: Patient's speech is fluent and nonpressured. Mood/Affect: Mood is improving mildly, affect is congruent and irritable at times. Suicidality/Homicidality: Patient denies having any suicidal or homicidal ideation intent or plan. Perceptions: Patient denies any auditory or visual hallucinations. Though content/process: Patient is disorganized and tangential/circumstantial in his thought processes. Significant paranoia and was preoccupied with his guardian and discharge. Memory and concentration: AOX3, grossly intact for the purposes of this session Judgment and insight: Poor Assessment Schizophrenia Plan: -Patient continues to meet criteria for inpatient psychiatric admission for symptom stabilization and safety. Patient has signed adult voluntary form and medication consent and was placed in patient's chart. -Medications: Increased Depakote ER to 750 mg nightly for mood stabilization and agitation. Decreased Seroquel 75 mg daily at bedtime for paranoia/insomnia. Continue with Prolixin injection 37.5 mg IM every 21 days with next injection dose to be given today. -When necessary Geodon and Ativan for agitation/aggression. -NRT - not need this patient does not smoke. -Encouraged group participation. -SW on board for discharge planning. Patient has a public guardian and resides at a room and board and according to guardian, patient is allowed back when he is clinically stable.
[2019-10-16] MEDS ORDERED: QUEtiapine 25 MG TAB PO SCH (21:00)
[2019-10-16] MEDS ORDERED: DIVALPROEX ER 250 MG TAB.ER.24H PO SCH (21:00)
[2019-10-16] MEDS ORDERED: WATER FOR INJECTION, STERILE 10 ML IV ONE (23:47)
[2019-10-16] MEDS ORDERED: ZIPRASIDONE 20 MG VIAL IM ONE (23:47)
[2019-10-16] MEDS: ZIPRASIDONE 20 MG VIAL IM PRN (23:48)
--- NOTE | 2019-10-17 12:32 | P.PN ---
Progress Note - Text Progress Note Date: 10/17/19 Interval History: Patient was seen participating in group and was agreeable to speak in the offi ce. Patient was calm and cooperative today and was more engaged with software writer during conversation. Patient denied any overnight complaints. He stated that he needed a Geodon injection last night to "fall asleep" however nursing report claimed that patient was agitated last night however patient denies this. Patient claims that he did not fall asleep until late in the night. Patient states that he has been trying to go to some groups "only the ones I like". As the conversation progressed patient became more tangential/illogical and rambled about his guardian and about him being "schizo". Patient continues to be disorganized in his thoughts and was illogical and bizarre at times. He spoke about "everybody having a mental illness" and asked software writer several questions about what his mental illness was. Patient was continued to be focused on discharge and was rambling throughout most of the interview. He continues to have limited insight and judgment however was directable behaviorally. Patient states that he took the Prolixin long-acting injection yesterday and he tolerated well. At this time patient denies any suicidal or homical ideations, intent or plan. Patient denies any auditory, visual hallucinations. Patient denies any side effects from the medications and has been compliant with meds. Mental Status Exam: General Appearance: Patient appears to be stated age is alert, attempts to cooperate. Marginal hygiene and grooming, intense eye contact. Behavior: Patient is seated without any agitated behavior. Irritable at times. Speech: Patient's speech is fluent and nonpressured. Mood/Affect: Mood is improving mildly, affect is congruent and constricted. Suicidality/Homicidality: Patient denies having any suicidal or homicidal ideation intent or plan. Perceptions: Patient denies any auditory or visual hallucinations. Though content/process: Patient is disorganized and tangential/circumstantial in his thought processes. Frequent rambling and focused on discharge. Memory and concentration: AOX3, grossly intact for the purposes of this session Judgment and insight: Poor, mildly improving Assessment Schizophrenia Plan: -Patient continues to meet criteria for inpatient psychiatric admission for symptom stabilization and safety. Patient has signed adult voluntary form and medication consent and was placed in patient's chart. -Medications: Increased Depakote ER to 100 mg nightly for mood stabilization and agitation. Increased Seroquel 100 mg daily at bedtime for paranoia/insomnia. Continue with Prolixin injection 37.5 mg IM every 21 days with next injection dose to be given today. The scheduling of the Prolixin may need to be increased to be more frequent, i.e. every 14 days. -When necessary Geodon and Ativan for agitation/aggression. -NRT - not need this patient does not smoke. -Encouraged group participation. -SW on board for discharge planning. Patient has a public guardian and resides at a room and board and according to guardian, patient is allowed back when he is clinically stable.
[2019-10-17] MEDS: DIVALPROEX ER 500 MG TAB.ER.24H PO SCH (21:30)
[2019-10-17] MEDS: QUEtiapine 100 MG TAB PO SCH (21:30)
--- NOTE | 2019-10-18 11:10 | P.PN ---
Progress Note - Text Progress Note Date: 10/18/19 Interval History: Patient was seen participating in group and was agreeable to speak in the off ce. Patient was calm and cooperative today and was engaged with junior underwriter during conversation. Patient denied any overnight complaints and claims that his mood is "good". Patient claims that he slept to the night however does not know how long. He states that the Seroquel is helping him with sleep and his mood. Patient continues to be disorganized and illogical in his thought process however is directable and behaviorally more appropriate. Patient states that he showered 3 times since being on the unit however continues to wear the same clothes. Patient spoke about receiving messages from the TV last night. He also spoke about his mother and became irritable about how she treated him in the past. Patient states that he has been trying to go to some groups and participate. Staff claims that patient has been behaviorally improving however continues to have disorganized thoughts. Patient again was focused on discharge and was rambling at times during the interview. He continues to have limited insight and judgment. At this time patient denies any suicidal or homical ideations, intent or plan. Patient denies any auditory, visual hallucinations. Patient denies any side effects from the medications and has been compliant with meds. Mental Status Exam: General Appearance: Patient appears to be stated age is alert, attempts to cooperate. Marginal hygiene and grooming, intense eye contact. Behavior: Patient is seated without any agitated behavior. Irritable at times. Speech: Patient's speech is fluent and nonpressured. Mood/Affect: Mood is improving mildly, affect is congruent and constricted. Suicidality/Homicidality: Patient denies having any suicidal or homicidal ideation intent or plan. Perceptions: Patient denies any auditory or visual hallucinations. Though content/process: Patient is disorganized and tangential/circumstantial in his thought processes. Frequent rambling and focused on discharge. Memory and concentration: AOX3, grossly intact for the purposes of this session Judgment and insight: Poor, mildly improving Assessment Schizophrenia Plan: -Patient continues to meet criteria for inpatient psychiatric admission for symptom stabilization and safety. Patient has signed adult voluntary form and medication consent and was placed in patient's chart. -Medications: Continue with Depakote ER to 100 mg nightly for mood stabilization and agitation. Continue with Seroquel 100 mg daily at bedtime for paranoia/insomnia. Added PO Prolixin to supplement long-acting injection, started 3 mg twice a day for psychosis. Continue with Prolixin injection 37.5 mg IM every 21 days, last injection given on 10/16/2019. The scheduling of the Prolixin may need to be increased to be more frequent, i.e. every 14 days. -When necessary Geodon and Ativan for agitation/aggression. -NRT - not need this patient does not smoke. -Encouraged group participation. - on board for discharge planning. Patient has a public guardian and resides at a room and board and according to guardian, patient is allowed back when he is clinically stable. As per [facility] shoe parts caser liaison who has been working with patient for years claims that patient is clinically stabilizing and approaching his baseline. Likely discharge in 2-3 days.
[2019-10-18] MEDS: DIVALPROEX ER 500 MG TAB.ER.24H PO SCH (20:19)
[2019-10-18] MEDS: QUEtiapine 100 MG TAB PO SCH (20:19)
--- NOTE | 2019-10-19 08:46 | P.PN ---
Progress Note - Text Progress Note Date: 10/19/19 Interval History: Patient was seen after eating breakfast and was agreeable to speak in the offi ce. Patient was calm and cooperative today initially and was engaged with fiction and nonfiction writer prose during conversation. No overnight complaints and he states that he slept through the night. He states that he is "just waking up" and was drinking coffee while speaking pressure. Patient claims that his mood is "alright" and denies any depressive symptoms. As conversation progressed patient continues to be disorganized and illogical in his thought process however is directable and behaviorally more appropriate. Patient displays significant thought disorder and his thought content loss process. Patient states that he has been going to groups and try to participate. Patient spoke about his father "going through this 92 times" referring to hospitalizations and then began speaking negatively towards women using multiple words including "whores" however was not able to describe who he was referring to specifically. Staff claims that patient has been behaviorally improving however continues to have disorganized thoughts which appears to be patient's baseline. Patient again was focused on discharge and was rather upset that he was not being discharged today and needs to stay on the unit over the weekend. He continues to have limited insight and judgment. At this time patient denies any suicidal or homical ideations, intent or plan. Patient denies any auditory, visual hallucinations. Patient denies any side effects from the medications and has been compliant with meds. Mental Status Exam: General Appearance: Patient appears to be stated age is alert, attempts to cooperate. Marginal hygiene and grooming, fair eye contact. Behavior: Patient is seated without any agitated behavior. Irritable at times however is directable. Speech: Patient's speech is fluent and nonpressured. Mood/Affect: Mood is improving mildly, affect is congruent and constricted. Suicidality/Homicidality: Patient denies having any suicidal or homicidal ideation intent or plan. Perceptions: Patient denies any auditory or visual hallucinations. Though content/process: Patient is chronically disorganized and tangential/circumstantial in his thought processes. Focused on discharge & negative remarks towards women. Memory and concentration: AOX3, grossly intact for the purposes of this session Judgment and insight: Poor, mildly improving Assessment Schizophrenia Plan: -Patient continues to meet criteria for inpatient psychiatric admission for symptom stabilization and safety. Patient has signed adult voluntary form and medication consent and was placed in patient's chart. -Medications: Continue with Depakote ER to 100 mg nightly for mood stabilization and agitation. Continue with Seroquel 100 mg daily at bedtime for paranoia/insomnia. Increase PO Prolixin to supplement long-acting injection, 5 mg twice a day for psychosis. Continue with Prolixin injection 37.5 mg IM every 21 days, last injection given on 10/16/2019. The scheduling of the Prolixin-D may need to be increased to be more frequent, i.e. every 14 days. -When necessary Geodon and Ativan for agitation/aggression. -NRT - not need this patient does not smoke. -Encouraged group participation. -SW on board for discharge planning. Patient has a public guardian and resides at a room and board and according to guardian, patient is allowed back when he is clinically stable. As per [facility] home health care case manager liaison who has been working with patient for years claims that patient is approaching his baseline and clinically stabilizing as patient has a chronic severe thought disorder. Likely discharge early next week.
[2019-10-19 10:52] VITALS: BMI 27.6
[2019-10-19] MEDS: DIVALPROEX ER 500 MG TAB.ER.24H PO SCH (20:51)
[2019-10-19] MEDS: QUEtiapine 100 MG TAB PO SCH (20:52)
--- NOTE | 2019-10-20 14:44 | P.PN ---
Subjective Progress Note Date: 10/20/19 The patient seen and chart reviewed. The patient reports doing all right. He reports fair sleep and appetite. On the patient appears to be very guarded and his speech is limited to short answers. The patient showed some psychomotor agitation and restlessness during the interview. He had staring eye contact. The patient denies any auditory or visual hallucinations but appears to be preoccupied and responding to internal cues. Patient denies any active suicidal or homicidal ideations at this time. The patient reports compliance with the medications and denies any side effects from the medications at this time. Objective - Vital Signs Vital signs: Vital Signs Temp 98.1 F 10/19/19 06:36 Pulse 60 10/19/19 06:36 Resp 17 10/19/19 06:36 BP 104/51 10/19/19 06:36 Pulse Ox 99 10/19/19 06:36 Intake & Output 10/19/19 10/20/19 10/20/19 18:59 06:59 18:59 Weight 87.5 kg - Exam Mental Status Exam: General Appearance: Patient appears to be stated age is alert, attempts to cooperate. Marginal hygiene and grooming, fair eye contact. Behavior: Patient is seated without any agitated behavior. Irritable at times however is directable. Speech: Patient's speech is fluent and nonpressured. Mood/Affect: Mood is improving mildly, affect is congruent and constricted. Suicidality/Homicidality: Patient denies having any suicidal or homicidal ideation intent or plan. Perceptions: Patient denies any auditory or visual hallucinations. Though content/process: Patient is chronically disorganized and tangential/circumstantial in his thought processes. Focused on discharge & negative remarks towards women. Memory and concentration: AOX3, grossly intact for the purposes of this session Judgment and insight: Poor, mildly improving - Labs CBC & Chem 7: 10/14/19 08:25 10/14/19 08:25 Assessment and Plan Assessment: Assessment Schizophrenia Plan: Plan: -Patient continues to meet criteria for inpatient psychiatric admission for symptom stabilization and safety. Patient has signed adult voluntary form and medication consent and was placed in patient's chart. -Medications: Continue with Depakote ER to 1000 mg nightly for mood stabilization and salas tation. Continue with Seroquel 100 mg daily at bedtime for paranoia/insomnia. Continue PO Prolixin to supplement long-acting injection, 5 mg twice a day for psychosis. Continue with Prolixin injection 37.5 mg IM every 21 days, last injection given on 10/16/2019. -When necessary Geodon and Ativan for agitation/aggression. -NRT - not need this patient does not smoke. -Encouraged group participation. -SW on board for discharge planning. Patient has a public guardian and resides at a room and board and according to guardian, patient is allowed back when he is clinically stable.
[2019-10-20] MEDS: QUEtiapine 100 MG TAB PO SCH (20:56)
[2019-10-20] MEDS: DIVALPROEX ER 500 MG TAB.ER.24H PO SCH (20:56)
[2019-10-20] MEDS: LORazepam 1 MG TAB PO PRN (20:56)
--- NOTE | 2019-10-21 13:07 | P.PN ---
Subjective Progress Note Date: 10/21/19 The patient seen and chart reviewed. The patient reports doing okay. He reports fair sleep and appetite. He denies any crying spells or panic attacks. He remained somewhat guarded on the unit. His his speech was limited to short answers. He shows no psychomotor agitation or retardation during the interview. The patient appears to be preoccupied but denies any auditory or visual hallucinations. The patient denies any suicidal or homicidal ideations. The patient denies any side effects on the medications at this time. Objective - Vital Signs Vital signs: Vital Signs Temp 98.1 F 10/19/19 06:36 Pulse 60 10/19/19 06:36 Resp 17 10/19/19 06:36 BP 104/51 10/19/19 06:36 Pulse Ox 99 10/19/19 06:36 Intake & Output 10/20/19 10/21/19 10/21/19 18:59 06:59 18:59 Weight 89.4 kg - Exam Mental Status Exam: General Appearance: Patient appears to be stated age is alert, attempts to cooperate. Marginal hygiene and grooming, fair eye contact. Behavior: Patient is seated without any agitated behavior. Guarded Speech: Patient's speech is monotonous and limited to short answers Mood/Affect: Mood is improving mildly, affect is congruent and constricted. Suicidality/Homicidality: Patient denies having any suicidal or homicidal ideation intent or plan. Perceptions: Patient denies any auditory or visual hallucinations. Though content/process: Patient is chronically disorganized and tangential/circumstantial in his thought processes. Focused on discharge & negative remarks towards women. Memory and concentration: AOX3, grossly intact for the purposes of this session Judgment and insight: Poor, mildly improving - Labs CBC & Chem 7: 10/14/19 08:25 10/14/19 08:25 Assessment and Plan Assessment: Assessment Schizophrenia Plan: Plan: -Patient continues to meet criteria for inpatient psychiatric admission for symptom stabilization and safety. Patient has signed adult voluntary form and medication consent and was placed in patient's chart. -Medications: Continue with Depakote ER to 1000 mg nightly for mood stabilization and agitation. Continue with Seroquel 100 mg daily at bedtime for paranoia/insomnia. Continue PO Prolixin to supplement long-acting injection, 5 mg twice a day for psychosis. Continue with Prolixin injection 37.5 mg IM every 21 days, last injection given on 10/16/2019. -When necessary Geodon and Ativan for agitation/aggression. -NRT - not need this patient does not smoke. -Encouraged group participation. -SW on board for discharge planning. Patient has a public guardian and resides at a room and board and according to guardian, patient is allowed back when he is clinically stable.
[2019-10-21] MEDS: DIVALPROEX ER 500 MG TAB.ER.24H PO SCH (21:03)
[2019-10-21] MEDS: QUEtiapine 100 MG TAB PO SCH (21:03)
--- NOTE | 2019-10-22 12:14 | P.PN ---
Progress Note - Text Progress Note Date: 10/22/19 Interval History: Patient was seen laying/sleeping in his bed and was agreeable to speak in the office. Patient was calm and cooperative today during the interview and was engaged with technical publications writer during conversation. Patient appeared to be somewhat lethargic this morning and states that she was sleeping through most of the weekend. When asked about groups patient states that he has not been coming to many groups over the weekend as his energy level is low. Patient was not rambling today and was less delusional. She was more cooperative and not hostile with technical publications writer. He denied any complaints and was continued to be focused on discharge. Patient's thought process seemed to be more logical and goal oriented however continues to have poverty of thought which is likely his baseline. He continues to have limited insight and judgment which appears to be his baseline. At this time patient denies any suicidal or homical ideations, intent or plan. Patient denies any auditory, visual hallucinations. Patient denies any side effects from the medications and has been compliant with meds. Mental Status Exam: General Appearance: Patient appears to be stated age is alert, attempts to cooperate. Marginal hygiene and grooming, proving eye contact. Behavior: Patient is seated without any agitated behavior. Less irritable today. Appears to be lethargic. No tremors or abnormal movements noted. Speech: Patient's speech is fluent and nonpressured. Mood/Affect: Mood is improving mildly, affect is congruent and constricted. Suicidality/Homicidality: Patient denies having any suicidal or homicidal ideation intent or plan. Perceptions: Patient denies any auditory or visual hallucinations. Though content/process: Patient is rambling less and is more goal oriented and his thought process. Patient continues to have chronic poverty of thought. Somewhat focused on discharge today. Memory and concentration: AOX3, grossly intact for the purposes of this session Judgment and insight: Poor, mildly improving Assessment Schizophrenia Plan: -Patient continues to meet criteria for inpatient psychiatric admission for symptom stabilization and safety. Patient has signed adult voluntary form and medication consent and was placed in patient's chart. -Medications: Continue with Depakote ER to 100 mg nightly for mood stabilization and agitation. Decreased Seroquel 50 mg daily at bedtime for paranoia/insomnia. Continue with PO Prolixin to supplement long-acting injection, 5 mg twice a day for psychosis. Continue with Prolixin injection 37.5 mg IM every 21 days, last injection given on 10/16/2019. The scheduling of the Prolixin-D may need to be increased to be more frequent, i.e. every 14 days. -When necessary Geodon and Ativan for agitation/aggression. -NRT - not need this patient does not smoke. -Encouraged group participation. -SW on board for discharge planning. Patient has a public guardian and resides at a room and board and according to guardian, patient is allowed back when he is clinically stable. As per [facility] embedded case manager liaison who has been working with patient for years claims that patient is almost at his baseline and has been clinically stabilizing and appears to be much less paranoid and delusional. Likely discharge tomorrow back to room and board.
[2019-10-22] MEDS: DIVALPROEX ER 500 MG TAB.ER.24H PO SCH (20:43)
[2019-10-22] MEDS ORDERED: QUEtiapine 50 MG TAB PO SCH (21:00)
[2019-10-23 07:00] VITALS: TEMP 98
[2019-10-23] MEDS ORDERED: PROPRANOLOL 20 MG TAB PO STA (09:48)
[2019-10-23 10:25] VITALS: BP 126/58; PULSE 63; RESP 16
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
== END 2019-10-23 13:01 | disposition home or self-care (01) | DRG 885 ==
LOC: EEVIPCON 12:49 → EC 12:49 → 3MHU 15:51
PROVIDERS: ADMIT Psychiatry & Neurology Psychiatry; ATTEND Psychiatry & Neurology Psychiatry
DX: F20.9 Schizophrenia, unspecified (principal); G47.00 Insomnia, unspecified; F17.210 Nicotine dependence, cigarettes, uncomplicated; Z79.899 Other long term (current) drug therapy; Z81.8 Family history of other mental and behavioral disorders; Z82.5 Family history of asthma and other chronic lower respiratory diseases; Z91.19 Patient's noncompliance with other medical treatment and regimen
CPT/HCPCS: 80053; 80061; 80306; 82075; 83036; 84443; 85025; 99285

== ENCOUNTER 2019-11-16 01:51 | Emergency (ER) | payer MEDICARE, OTHER ==
[2019-11-16 01:59] VITALS: TEMP 98
[2019-11-16 03:49] LABS: Basophils % (A) 1 %; Eosinophils # (A) 0.3 k/uL (0-0.7); Eosinophils % (A) 4 %; HCT 48.1 % (39.0-53.0); HGB 16.2 gm/dL (13.0-17.5); Lymphocytes # (A) 2.1 k/uL (1.0-4.8); Lymphocytes % (A) 27 %; MCH 31.8 pg (25.0-35.0); MCHC 33.8 g/dL (31.0-37.0); Mean Platelet Volume 7.4; Monocytes # (A) 0.5 k/uL (0-1.0); Monocytes % (A) 6 %; Neutrophils # (A) 4.8 k/uL (1.3-7.7); Neutrophils % (A) 62 %; Platelet Count 199 k/uL (150-450); RBC 5.12 m/uL (4.30-5.90); RDW 13.6 % (11.5-15.5); WBC 7.8 k/uL (3.8-10.6)
[2019-11-16 03:51] LABS: ALT 12 U/L (4-49); AST 19 U/L (17-59); African American GFR (CKD) >90 (>60 ml/min/1.73 sqM); Albumin 4.1 g/dL (3.5-5.0); Alcohol <10 mg/dL; Alkaline Phosphatase 92 U/L (38-126); Anion Gap 7 mmol/L; Blood Urea Nitrogen 13 mg/dL (9-20); Carbon Dioxide 23 mmol/L (22-30); Chloride 111 mmol/L (98-107); Glucose 83 mg/dL (74-99); Non-African American GFR(CKD) >90 (>60 ml/min/1.73 sqM); Potassium 4.4 mmol/L (3.5-5.1); Sodium 141 mmol/L (137-145); Total Bilirubin 0.5 mg/dL (0.2-1.3); Total Protein 7.2 g/dL (6.3-8.2)
[2019-11-16 04:03] LABS: Amphetamine Screen,Urine Not Detected (NotDetected); Barbiturate Screen,Urine Not Detected (NotDetected); Benzodiazepines Screen,Urine Not Detected (NotDetected); Cocaine Screen,Urine Not Detected (NotDetected); Methadone Screen, Urine Not Detected (NotDetected); Opiate Screen,Urine Not Detected (NotDetected); Oxycodone Screen, Urine Not Detected (NotDetected); Phencyclidine Screen,Urine Not Detected (NotDetected); Tricyclic Antidepressant,Urine Not Detected (NotDetected); Urn Cannabinoid Scrn Not Detected (NotDetected)
--- NOTE | 2019-11-16 04:21 | ED ---
Psych HPI - General Chief Complaint: Psychiatric Symptoms Stated Complaint: Suicidal Ideation Time Seen by Provider: 11/16/19 01:56 Source: patient Mode of arrival: ambulatory - History of Present Illness Initial Comments: Benoit 29-year-old male with a history of paranoid schizophrenia with recent admission to the hospital patient reports that since discharge she is not on any of his medications he's not certain who is supposed to give him his medications. He states that he needs help and is feeling suicidal. - Related Data Previous Rx's Medication Instructions Recorded Divalproex ER [Depakote ER] 1,000 mg PO HS 28 Days tab.er.24h 10/23/19 Propranolol [Inderal] 20 mg PO DAILY PRN #10 tab 10/23/19 QUEtiapine [SEROquel] 50 mg PO HS 28 Days tab 10/23/19 fluPHENAZine DECANOATE [Prolixin 37.5 mg IM Q14D #1 ml 10/23/19 Decanoate] fluPHENAZine [Prolixin 1MG] 4 mg PO BID 7 Days tablet 10/23/19 Allergies Allergy/AdvReac Type Severity Reaction Status Date / Time No Known Allergies Allergy Verified 11/16/19 01:59 Review of Systems ROS Statement: Those systems with pertinent positive or pertinent negative responses have been documented in the HPI. ROS Other: All systems not noted in ROS Statement are negative. Past Medical History Past Medical History: No Reported History History of Any Multi-Drug Resistant Organisms: None Reported Past Surgical History: No Surgical Hx Reported Past Anesthesia/Blood Transfusion Reactions: No Reported Reaction Past Psychological History: Schizophrenia Smoking Status: Current every day smoker Past Alcohol Use History: Rare Past Drug Use History: None Reported - Past Family History Father Additional Family Medical History / Comment(s): Father at age 53 from emphysema. Mother Additional Family Medical History / Comment(s): Mother is alive in her 50s with no major medical problems. Brother(s) Additional Family Medical History / Comment(s): Patient has 1 brother and 1 sister with no major medical problems. General Exam - General Exam Comments Initial Comments: Physical Exam GENERAL: Patient is well-developed and well-nourished. Appears agitated and rocking back and forth on the bed HENT: Normocephalic, Atraumatic. EYES: PERRL, EOMI PULMONARY: Unlabored respirations. CARDIOVASCULAR: RRR Warm and well perfused extremities ABDOMEN: Non-distended SKIN: No rashes or bruising : Deferred NEUROLOGIC: Alert and oriented Pressured speech Normal gait MUSCULOSKELETAL: Moving all extremities with no apparent injury PSYCHIATRIC: Agitated, paranoid, suicidal Limitations: no limitations Course Vital Signs 11/16/19 01:56 Temperature 98 F Pulse Rate 79 Respiratory 20 Rate Blood Pressure 111/65 O2 Sat by Pulse 98 Oximetry Medical Decision Making - Medical Decision Making Patient was seen and evaluated history was obtained from the patient and review of medical record This is a patient with a history of paranoid schizophrenia and frequent ho spitalizations, was recently hospitalized earlier this month but has not had any medication since discharge and is feeling agitated Patient's alcohol is negative he is medically cleared for evaluation by emergency psychiatric services. Patient was evaluated by emergency psychiatric services who were able to confirm that the patient has gotten all of his prescribed medications he also received his long-acting injection on the and is scheduled to have another injection on Tuesday, patient is established with an [facility] who can follow up with patient later today. At this time patient was willing to safety plan as he was not actively suicidal and had no plan and was comfortable with plan for discharge. - Lab Data Result diagrams: 11/16/19 03:30 11/16/19 03:30 Lab Results 11/16/19 11/16/19 11/16/19 Range/Units 03:30 03:30 03:30 WBC 7.8 (3.8-10.6) k/uL RBC 5.12 (4.30-5.90) m/uL Hgb 16.2 (13.0-17.5) gm/dL Hct 48.1 (39.0-53.0) % MCV 94.0 (80.0-100.0) fL MCH 31.8 (25.0-35.0) pg MCHC 33.8 (31.0-37.0) g/dL RDW 13.6 (11.5-15.5) % Plt Count 199 (150-450) k/uL Neutrophils % 62 % Lymphocytes % 27 % Monocytes % 6 % Eosinophils % 4 % Basophils % 1 % Neutrophils # 4.8 (1.3-7.7) k/uL Lymphocytes # 2.1 (1.0-4.8) k/uL Monocytes # 0.5 (0-1.0) k/uL Eosinophils # 0.3 (0-0.7) k/uL Basophils # 0.0 (0-0.2) k/uL Sodium 141 (137-145) mmol/L Potassium 4.4 (3.5-5.1) mmol/L Chloride 111 H (98-107) mmol/L Carbon Dioxide 23 (22-30) mmol/L Anion Gap 7 mmol/L BUN 13 (9-20) mg/dL Creatinine 0.65 L (0.66-1.25) mg/dL Est GFR (CKD-EPI)AfAm >90 (>60 ml/min/1.73 sqM) Est GFR (CKD-EPI)NonAf >90 (>60 ml/min/1.73 sqM) Glucose 83 (74-99) mg/dL Calcium 9.0 (8.4-10.2) mg/dL Total Bilirubin 0.5 (0.2-1.3) mg/dL AST 19 (17-59) U/L ALT 12 (4-49) U/L Alkaline Phosphatase 92 (38-126) U/L Total Protein 7.2 (6.3-8.2) g/dL Albumin 4.1 (3.5-5.0) g/dL Urine Opiates Screen Not Detected (NotDetected) Ur Oxycodone Screen Not Detected (NotDetected) Urine Methadone Screen Not Detected (NotDetected) Ur Propoxyphene Screen Not Detected (NotDetected) Ur Barbiturates Screen Not Detected (NotDetected) U Tricyclic Antidepress Not Detected (NotDetected) Ur Phencyclidine Scrn Not Detected (NotDetected) Ur Amphetamines Screen Not Detected (NotDetected) U Methamphetamines Scrn Not Detected (NotDetected) U Benzodiazepines Scrn Not Detected (NotDetected) Urine Cocaine Screen Not Detected (NotDetected) U Marijuana (THC) Screen Not Detected (NotDetected) Serum Alcohol <10 mg/dL Disposition Clinical Impression: Chronic schizophrenia Disposition: HOME SELF-CARE Condition: Stable Additional Instructions: Follow up with [facility] Is patient prescribed a controlled substance at d/c from ED?: No Referrals: Roverto Corona MD [Primary Care Provider] - 1-2 days
[2019-11-16 06:28] VITALS: BP 137/69; PULSE 84; RESP 18
== END 2019-11-16 06:26 | disposition home or self-care (01) ==
LOC: EC 01:51
DX: F20.0 Paranoid schizophrenia (principal); R45.851 Suicidal ideations; F17.200 Nicotine dependence, unspecified, uncomplicated
CPT/HCPCS: 82075; 36415; 80053; 85025; 80306; 99285; G0480; 80320

== ENCOUNTER 2019-11-20 03:25 | Inpatient (IN) | payer MEDICARE, MEDICAID ==
--- NOTE | 2019-11-20 03:53 | ED ---
Psych HPI - General Chief Complaint: Psychiatric Symptoms Stated Complaint: mental health Time Seen by Provider: 11/20/19 03:36 Source: EMS Mode of arrival: EMS - History of Present Illness MD Complaint: feels depressed -: unknown Associated Psychiatric Symptoms: auditory hallucinations Quality: getting worse Improves With: none - Related Data Previous Rx's Medication Instructions Recorded Divalproex ER [Depakote ER] 1,000 mg PO HS 28 Days tab.er.24h 10/23/19 Propranolol [Inderal] 20 mg PO DAILY PRN #10 tab 10/23/19 QUEtiapine [SEROquel] 50 mg PO HS 28 Days tab 10/23/19 fluPHENAZine DECANOATE [Prolixin 37.5 mg IM Q14D #1 ml 10/23/19 Decanoate] fluPHENAZine [Prolixin 1MG] 4 mg PO BID 7 Days tablet 10/23/19 Allergies Allergy/AdvReac Type Severity Reaction Status Date / Time No Known Allergies Allergy Verified 11/16/19 01:59 Review of Systems ROS Statement: Those systems with pertinent positive or pertinent negative responses have been documented in the HPI. ROS Other: All systems not noted in ROS Statement are negative. Constitutional: Denies: fever Respiratory: Denies: cough, dyspnea Cardiovascular: Denies: chest pain, palpitations Gastrointestinal: Denies: abdominal pain, vomiting, diarrhea Genitourinary: Denies: dysuria, hematuria Musculoskeletal: Denies: back pain Skin: Denies: rash Neurological: Denies: headache, weakness, numbness Psychiatric: Reports: auditory hallucinations Past Medical History Past Medical History: No Reported History History of Any Multi-Drug Resistant Organisms: None Reported Past Surgical History: No Surgical Hx Reported Past Anesthesia/Blood Transfusion Reactions: No Reported Reaction Past Psychological History: Schizophrenia Smoking Status: Current every day smoker Past Alcohol Use History: Rare Past Drug Use History: None Reported - Past Family History Father Additional Family Medical History / Comment(s): Father at age 53 from emphysema. Mother Additional Family Medical History / Comment(s): Mother is alive in her 50s with no major medical problems. Brother(s) Additional Family Medical History / Comment(s): Patient has 1 brother and 1 sister with no major medical problems. General Exam Limitations: no limitations General appearance: alert, anxious Head exam: Present: atraumatic, normocephalic Eye exam: Present: normal appearance, PERRL, EOMI. Absent: scleral icterus, conjunctival injection ENT exam: Present: normal oropharynx Respiratory exam: Present: normal lung sounds bilaterally. Absent: respiratory distress, wheezes, rales, rhonchi, stridor Cardiovascular Exam: Present: regular rate, normal rhythm, normal heart sounds. Absent: systolic murmur, diastolic murmur, rubs, gallop GI/Abdominal exam: Present: soft. Absent: distended, tenderness, guarding, rebound, rigid, mass Extremities exam: Present: normal inspection, normal capillary refill. Absent: pedal edema, calf tenderness Back exam: Present: normal inspection. Absent: CVA tenderness (R), CVA tenderness (L) Neurological exam: Present: alert Skin exam: Present: warm, dry, intact, normal color. Absent: rash Course Vital Signs 11/20/19 03:28 Temperature 98.4 F Pulse Rate 104 H Respiratory 18 Rate Blood Pressure 120/56 O2 Sat by Pulse 100 Oximetry Disposition Clinical Impression: Acute psychosis Disposition: ADMITTED IP TO THIS HOSP Condition: Fair Is patient prescribed a controlled substance at d/c from ED?: No Referrals: None,Stated [Primary Care Provider] - 1-2 days
[2019-11-20] MEDS ORDERED: ACETAMINOPHEN TAB 325 MG TAB PO PRN (06:30)
[2019-11-20] MEDS ORDERED: MAG HYDROX/AL HYDROX/SIMETH 30 ML CUP PO PRN (06:30)
[2019-11-20] MEDS ORDERED: MAGNESIUM HYDROXIDE 2,400 MG/10 ML CUP PO PRN (06:30)
[2019-11-20] MEDS ORDERED: LORazepam 1 MG TAB PO PRN (06:30)
[2019-11-20] MEDS ORDERED: ZIPRASIDONE 20 MG VIAL IM PRN (09:00)
--- NOTE | 2019-11-20 11:36 | P.HP ---
Psychiatric H&P - . H&P Date: 11/20/19 History & Physical: Allergies Allergy/AdvReac Type Severity Reaction Status Date / Time No Known Allergies Allergy Verified 11/20/19 08:36 Vital Signs Temp 98.2 F 11/20/19 07:08 Pulse 82 11/20/19 07:08 Resp 18 11/20/19 07:08 BP 113/87 11/20/19 07:08 Pulse Ox 94 L 11/20/19 07:08 Intake & Output 11/19/19 11/20/19 11/20/19 18:59 06:59 18:59 Weight 90.718 kg 89.556 kg 11/20/19 10:41 IDENTIFYING DATA: Patient is a 29-year-old male with a chronic history of schizophrenia who lives in a senior care is unemployed on SSD. HPI: Patient presented to the hospital with complaints of auditory hallucinations, psychotic and bizarre behaviors. Patient was petitioned by the nurse who stated patient has "bizarre staring, mouthing words to self", "paranoid, laughing inappropriately". Patient was recently discharged from the mental health unit on on by mouth Prolixin, Seroquel and Depakote and propranolol for akathisia. Patient received a Prolixin-D injection of 37.5 mg and was due to have it 2 weeks after discharge and every 14 days however patient was switched back to q21 days at [facility]. Patient was seen by health underwriter in his room and had his head covered by his blankets and appeared to be confused and difficult to redirect and did not recognize health underwriter. Patient was hesitant to get out of bed and speak with health underwriter. Patient claims that the medication was "acting up on me". He claims that he was "feeling strange" on it. Patient had poverty of content and poverty of speech. He was bizarre in his thoughts and behaviors. Patient had a foul odor and poor hygiene. He was responding to internal stimuli and was mildly paranoid during interview. Patient denies any suicidal or homicidal ideations intent or plan. At this time patient denies any auditory or visual hallucinations. Patient denies any flight of ideas racing thoughts and increased in goal directed behavior. Patient admits to using cigarettes daily however denies any other recreational drug use. PAST PSYCHIATRIC HISTORY: Patient has a history of chronic schizophrenia, has had multiple psychiatric hospitalizations with the last one being in October 2019. Patient has also been on multiple different antipsychotics including Seroquel, Prolixin D 37.5 mg every 14 days. Denies any history of suicide attempts. Patient has a guardian and is receiving treatment at [facility]. PMH:denies ALLERGIES: as per EMR CHEMICAL DEPENDENCY HISTORY: Patient denies any other alcohol or recreational drug use. Patient admits to regular cigarette use. FAMILY PSYCHIATRIC/SUBSTANCE USE HISTORY: Patient's mother has a diagnosis of schizophrenia. SOCIAL HISTORY: Patient was born in [place] and raised by his parents in [place]. Patient's father in 2010 and patient used to live with his mother until he moved to a senior care. MENTAL STATUS EXAM: General Appearance: Patient appears to be stated age is alert, difficult to redirect, guarded with poor odor and hygiene and appears to be disheveled in a hospital gown. Behavior: Patient is calmly seated without any agitated behavior. Somewhat paranoid. Speech: Patient's speech is fluent and nonpressured. Mood/Affect: Patient reports their mood is "okay", affect is congruent and blunted Suicidality/Homicidality: Patient denies having any suicidal or homicidal ideation intent or plan. Perceptions: Patient denies any auditory or visual hallucinations. Though content/process: Poverty of thought/content. Disorganized thoughts. Memory and concentration: AOX3, grossly intact for the purposes of this session. Can spell "WORLD" backwards Judgment and insight: poor STRENGTHS/WEAKNESSES: strength is that patient is resilient, weaknesses that patient is noncompliant with medications and has poor insight. INTELLECT: Below average IMPRESSIONS: Schizophrenia PLAN: -Patient is admitted under involuntary status to MHU for stabilization of psychiatric symptoms and safety. 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 Medication consent is placed in patient's chart. -Medications : Will start patient on haloperidol 2.5 mg twice a day for psychosis. The plan will be to transition patient onto long-acting Haldol Decanoate prior to discharge. -Ativan and Geodon PRN for agitation/aggression -Patient was informed of the risks, benefits and side effects of the medication and patient verbally consented to taking the medications. Patient signed med consent form and was placed in chart. -Internal Medicine consult to perform medical evaluation and physical. -NRT -Nicorette gum. - on board for discharge planning. Encourage patient to participate in groups to work on coping skills. Once patient is psychiatrically stabilized will be discharged back to his senior care. [facility] to complete act team consult as patient has been noncompliant with treatment and repeated hospitalizations. 11/20/19 10:48 11/20/19 11:30
[2019-11-20] MEDS: HALOPERIDOL 5 MG TAB PO SCH ×2 (13:15→21:58)
--- NOTE | 2019-11-20 18:18 | P.HPMEDMHU ---
History of Present Illness H&P Date: 11/20/19 Chief Complaint: hallucinations Patient is a 29-year-old male with known schizophrenia who is admitted to the mental health unit secondary to auditory hallucinations and bizarre behaviors. Patient seen and examined. He only answers questions with one-word answers. He refuses to sit down during my examination. He is very abrasive. He denies any recent cough, cold, fever, flu, nausea, vomiting, diarrhea, or dysuria. Review of Systems Pertinent positives and negatives as discussed in HPI, a complete review of systems was performed and all other systems are negative. Past Medical History Past Medical History: No Reported History History of Any Multi-Drug Resistant Organisms: None Reported Past Surgical History: No Surgical Hx Reported Past Anesthesia/Blood Transfusion Reactions: No Reported Reaction Smoking Status: Current every day smoker - Past Family History Father Additional Family Medical History / Comment(s): Father at age 53 from emphysema. Mother Additional Family Medical History / Comment(s): Mother is alive in her 50s with no major medical problems. Brother(s) Additional Family Medical History / Comment(s): Patient has 1 brother and 1 sister with no major medical problems. Medications and Allergies Home Medications Medication Instructions Recorded Confirmed Type Divalproex ER [Depakote ER] 1,000 mg PO HS 28 Days tab.er.24h 10/23/19 Rx Propranolol [Inderal] 20 mg PO DAILY PRN #10 tab 10/23/19 Rx QUEtiapine [SEROquel] 50 mg PO HS 28 Days tab 10/23/19 Rx fluPHENAZine DECANOATE [Prolixin 37.5 mg IM Q14D #1 ml 10/23/19 Rx Decanoate] fluPHENAZine [Prolixin 1MG] 4 mg PO BID 7 Days tablet 10/23/19 Rx Allergies Allergy/AdvReac Type Severity Reaction Status Date / Time No Known Allergies Allergy Verified 11/20/19 08:36 Physical Exam Osteopathic Statement: *. No significant issues noted on an osteopathic structural exam other than those noted in the History and Physical/Consult. Vitals: Vital Signs Temp Pulse Pulse Resp BP BP Pulse Ox 11/20/19 07:08 98.2 F 82 18 113/87 94 L 11/20/19 06:38 78 99 11/20/19 03:28 98.4 F 104 H 18 120/56 100 Intake and Output 11/20/19 11/20/19 11/20/19 06:59 14:59 22:59 Other: Weight 90.718 kg 89.556 kg General: non toxic, no distress, appears at stated age, normal weight Derm: no unusual rashes/lesions no unusual ecchymoses, warm, dry Head: atraumatic, normocephalic, symmetric Eyes: EOMI, no lid lag, anicteric sclera, pupils equal round reactive to light ENT: Nose and ears atraumatic, no thrush, no pharyngeal erythema Neck: No thyromegaly, no cervical lymphadenopathy, trachea midline, supple Mouth: no lip lesion, mucus membranes moist Cardiovascular: S1S2 reg, no murmur, positive posterior tibial pulse bilateral, no edema, capillary refill less than 2 seconds Lungs: CTA bilateral, no rhonchi, no rales , no accessory muscle use Abdominal: soft, nontender to palpation, no guarding, no appreciable organomegaly, normal bowel sounds Ext: no gross muscle atrophy, no contractures, Neuro: CN II-XI grossly intact, light touch intact, up and ambulating without difficulty Psych: Alert, oriented, appropriate affect Cranial Nerve Examination - Cranial Nerves Cranial Nerve II- Optic: Intact Cranial Nerve III- Oculomotor: Intact Cranial Nerve IV- Trochlear: Intact Cranial Nerve V- Trigeminal: Intact Cranial Nerve - Abducens: Intact Cranial Nerve VII- Facial: Intact Cranial Nerve VIII- Auditory: Intact Cranial Nerve IX- Glossopharyngeal: Intact Cranial Nerve X- Vagus: Intact Cranial Nerve XI- Accessory: Intact Cranial Nerve XII- Hypoglossal: Intact Thrombosis Risk Factor Assmnt - DVT/VTE Prophylaxis DVT/VTE Prophylaxis: Low risk, early ambulation encouraged - Choose All That Apply Any of the Below Risk Factors Present?: No Other Risk Factors: No Other congenital or acquired thrombophilia - If yes, enter type in comment: No Thrombosis Risk Factor Assessment Level: Very Low Risk Assessment and Plan Assessment: Tobacco abuse -Cessation -Nicotine replacement Schizophrenia -Your psych management Thank you for allowing us to participate in the care of this pleasant patient. Do not hesitate to contact us with questions. Someone can be reached from the [facility] hospitalist group all hours of the day at [phone] or via [employer].
[2019-11-21 09:19] LABS: Basophils # (A) 0.1 k/uL (0-0.2); Basophils % (A) 1 %; Eosinophils # (A) 0.3 k/uL (0-0.7); Eosinophils % (A) 5 %; HGB 15.4 gm/dL (13.0-17.5); Lymphocytes # (A) 2.5 k/uL (1.0-4.8); Lymphocytes % (A) 40 %; MCH 30.4 pg (25.0-35.0); MCV 95.1 fL (80.0-100.0); Mean Platelet Volume 7.3; Monocytes # (A) 0.3 k/uL (0-1.0); Monocytes % (A) 5 %; Neutrophils # (A) 2.9 k/uL (1.3-7.7); Neutrophils % (A) 48 %; Platelet Count 241 k/uL (150-450); RBC 5.05 m/uL (4.30-5.90); RDW 13.6 % (11.5-15.5); WBC 6.1 k/uL (3.8-10.6)
[2019-11-21 09:39] LABS: ALT 11 U/L (4-49); AST 17 U/L (17-59); African American GFR (CKD) >90 (>60 ml/min/1.73 sqM); Albumin 3.6 g/dL (3.5-5.0); Alkaline Phosphatase 82 U/L (38-126); Anion Gap 5 mmol/L; Bilirubin, Delta 0.2 mg/dL (0.0-0.2); Bilirubin,Unconjugated 0.4 mg/dL (0.0-1.1); Blood Urea Nitrogen 14 mg/dL (9-20); Carbon Dioxide 26 mmol/L (22-30); Chloride 112 mmol/L (98-107); Cholesterol 154 mg/dL (<200); Glucose 137 mg/dL (74-99); HDL Cholesterol 32 mg/dL (40-60); LDL Cholesterol,Calculated 100 mg/dL (0-99); Non-African American GFR(CKD) >90 (>60 ml/min/1.73 sqM); Potassium 4.1 mmol/L (3.5-5.1); Sodium 143 mmol/L (137-145); Total Bilirubin 0.6 mg/dL (0.2-1.3); Total Protein 6.4 g/dL (6.3-8.2); Triglycerides 109 mg/dL (<150)
[2019-11-21] MEDS: HALOPERIDOL 5 MG TAB PO SCH (10:14)
[2019-11-21 10:44] VITALS: BMI 28.3
--- NOTE | 2019-11-21 11:36 | P.PN ---
Progress Note - Text Progress Note Date: 11/21/19 Interval History: Patient was seen lying down in his bed this morning and refused to get out of bed and speak with service writer. Patient appeared to be just waking up from his sleep. He states that he offers no overnight complaints and asked for a when necessary last night to go to sleep. Patient continues to have poverty of content/speech however patient was directable during interview. He states that he is taking his medications and denies any side effects at this time. He claims that he did get up and walk around however is declining to do so at this time and also declining going to groups. He states that he is getting up for meals. At this time patient denies any suicidal or homical ideations, intent or plan. Patient denies any auditory, visual hallucinations. Patient denies any depression and states that his mood is "fine". Mental Status Exam: General Appearance: Patient appears to be stated age is alert, more directable today, guarded with poor odor and hygiene. Behavior: Patient is calmly laying in his bed without any agitated behavior. Speech: Patient's speech is fluent and nonpressured. Mood/Affect: Patient reports their mood is "fine", affect is congruent and blunted Suicidality/Homicidality: Patient denies having any suicidal or homicidal ideation intent or plan. Perceptions: Patient denies any auditory or visual hallucinations. Though content/process: Poverty of thought/content. Disorganized thoughts, which are mildly improving. Guarded. Memory and concentration: AOX3, grossly intact for the purposes of this session Judgment and insight: poor, mildly improving Assessment Schizophrenia Plan: -Patient continues to meet criteria for inpatient psychiatric admission for symptom stabilization and safety. 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 Medication consent is placed in patient's chart. -Medications: Will increase haloperidol 2.5 mg daily + 5mg nightly for psychosis. Will increase dose as needed. The plan will be to transition patient onto long-acting Haldol Decanoate prior to discharge. -When necessary Geodon and Ativan for agitation/aggression. -NRT -Nicorette gum -SW on board for discharge planning. Encouraged patient to participate in groups to work on coping skills. Once patient is psychiatrically stabilized will be [facility] back to his former [facility]. [facility] to complete ACT team consult as patient has been noncompliant with treatment and repeated hospitalizations.
[2019-11-21 17:13] LABS: Hemoglobin A1C 4.8 % (4.0-6.0)
[2019-11-21] MEDS ORDERED: MELATONIN 3 MG TABLET PO SCH (21:00)
[2019-11-21] MEDS ORDERED: HALOPERIDOL 5 MG TAB PO SCH (21:00)
[2019-11-22] MEDS: HALOPERIDOL 5 MG TAB PO SCH ×2 (09:38→21:16)
--- NOTE | 2019-11-22 10:05 | P.PN ---
Progress Note - Text Progress Note Date: 11/22/19 Interval History: Patient was seen lying down in his bed this morning and was agreeable to get out of bed and speak with engineering technical writer in the office. Patient appeared to be more awake today however continues to be preoccupied with signing himself out AMA. He states that he slept a little bit better last night however claims that he did have some "shaking" and appears to be moving his legs back and forth. He states that he barely notices the movements however is agreeable to take Cogentin for possible EPS. He states that he offers no overnight complaints. Patient continues to have poverty of content/speech however patient was directable during interview. He states that he is taking his medications. And feels it is helping him. He claims that he did get up and walk around earlier however continues to have a poor odor and has denied showering. Patient continues to state that he has not gone to groups. He states that he is getting up for meals. At this time patient denies any suicidal or homical ideations, intent or plan. Patient denies any auditory, visual hallucinations. Patient denies any depression and states that his mood is "fine". Mental Status Exam: General Appearance: Patient appears to be stated age is alert, more directable today, guarded with poor odor and hygiene. Behavior: Patient is calmly laying in his bed without any agitated behavior. Shaking his legs mildly back and forth. Speech: Patient's speech is fluent and nonpressured. Mood/Affect: Patient reports their mood is "fine", affect is congruent and blunted Suicidality/Homicidality: Patient denies having any suicidal or homicidal ideation intent or plan. Perceptions: Patient denies any auditory or visual hallucinations. Though content/process: Poverty of thought/content. Disorganized thoughts, which are mildly improving. Guarded. Memory and concentration: AOX3, grossly intact for the purposes of this session Judgment and insight: poor, mildly improving Assessment Schizophrenia Plan: -Patient continues to meet criteria for inpatient psychiatric admission for symptom stabilization and safety. Medication consent is placed in patient's chart. Patient is currently under involuntary status and will have a court date on 11/28/2019 and also deferral date on 11/23/2019. -Medications: Will increase haloperidol 2.5 mg daily + 7mg nightly for psychosis. Will increase dose as needed. The plan will be to transition patient onto long-acting Haldol Decanoate prior to discharge. Added Cogentin 1 mg twice a day for EPS prophylaxis. Will increase melatonin to 10 mg daily at bedtime for sleep. -When necessary Geodon and Ativan for agitation/aggression. -NRT -Nicorette gum -SW on board for discharge planning. Encouraged patient to participate in groups to work on coping skills. Once patient is psychiatrically stabilized will be discharged back to his former detention. [facility] to complete ACT team consult as patient has been noncompliant with treatment and repeated hospitalizations.
[2019-11-22] MEDS: BENZTROPINE MESYLATE 1 MG TAB PO SCH ×2 (10:06→21:15)
[2019-11-22] MEDS ORDERED: HALOPERIDOL 2 MG TAB PO SCH (21:00)
[2019-11-22] MEDS: MELATONIN 5 MG TABLET PO SCH (21:15)
[2019-11-23] MEDS: HALOPERIDOL 5 MG TAB PO SCH ×2 (09:07→21:17)
[2019-11-23] MEDS: BENZTROPINE MESYLATE 1 MG TAB PO SCH ×2 (09:07→21:17)
--- NOTE | 2019-11-23 11:41 | P.PN ---
Progress Note - Text Progress Note Date: 11/23/19 Interval History: Patient was seen wandering the hallways this morning and was agreeable to get out of bed and speak with personal lines underwriter in the office. Patient appeared to be more cooperative and directable during conversation and denied any overnight complaints. He states that he slept "better" however did not elaborate much on yesterday evening. He states that he does not want to go to any more groups and continues to be focused on discharge. Patient was more logical and goal oriented during the conversation. Patient claims that the Cogentin has been helping the "shaking in his legs" and appears to be moving his legs back and forth at times however patient states that he is not distressed by it. He states that he barely notices the movements. He states that he offers no complaints at this time and continues to have poverty of content/speech. He states that he is taking his medications and feels it is helping him "stay calm and not angry" and thanked personal lines underwriter for starting him on Haldol. Patient states that he did shower yesterday and this morning. At this time patient denies any suicidal or homical ideations, intent or plan. Patient denies any auditory, visual hallucinations. Patient denies any depression and states that his mood is "good". Mental Status Exam: General Appearance: Patient appears to be stated age is alert, more directable today, guarded with improving/hygiene. Behavior: Patient is calmly laying in his bed without any agitated behavior. Shaking his legs mildly back and forth which is improving. Speech: Patient's speech is fluent and nonpressured. Mood/Affect: Patient reports their mood is "good", affect is congruent and constricted Suicidality/Homicidality: Patient denies having any suicidal or homicidal ideation intent or plan. Perceptions: Patient denies any auditory or visual hallucinations. Though content/process: Poverty of thought/content. More organized thoughts, which are mildly improving Memory and concentration: AOX3, grossly intact for the purposes of this session Judgment and insight: poor, mildly improving Assessment Schizophrenia Plan: -Patient continues to meet criteria for inpatient psychiatric admission for symptom stabilization and safety. Medication consent is placed in patient's chart. Patient is currently under involuntary status and will have a court date on 11/28/2019 and also deferral date on 11/23/2019. -Medications: Will decrease haloperidol 7mg nightly for psychosis and this is said to be decreased once again to 5 mg daily at bedtime on Tuesday. Patient to receive his first dose of Haldol Decanoate 100 mg IM injection today and will be due for his next 50 mg IM injection on Tuesday prior to discharge. Continue with Cogentin 1 mg twice a day for EPS prophylaxis. Continue with melatonin to 10 mg daily at bedtime for sleep. -When necessary Geodon and Ativan for agitation/aggression. -NRT -Nicorette gum - on board for discharge planning. Encouraged patient to participate in groups to work on coping skills. [facility] to complete ACT team consult as patient has been noncompliant with treatment and repeated hospitalizations. Patient will likely be discharged on Tuesday after receiving his last dose of Haldol D.
[2019-11-23] MEDS ORDERED: HALOPERIDOL DECANOATE 100 MG/ML 1 ML VIAL IM ONE (12:00)
[2019-11-23] MEDS ORDERED: HALOPERIDOL 2 MG TAB PO SCH (21:00)
[2019-11-23] MEDS: MELATONIN 5 MG TABLET PO SCH (21:17)
[2019-11-23] MEDS: HALOPERIDOL 2 MG TAB PO SCH (21:17)
[2019-11-24] MEDS: BENZTROPINE MESYLATE 1 MG TAB PO SCH ×2 (08:58→20:58)
--- NOTE | 2019-11-24 14:17 | P.PN ---
Progress Note - Text Progress Note Date: 11/24/19 Clinical Problems: Schizophrenia Interim history: I reviewed the record and interviewed the patient. He was without complaint and his only concern was discharge. He denied side effects to his to Haldol. He denied experiencing auditory or visual hallucinations, ideas reference and thought insertion. He infrequently attends therapeutic groups and activities. He slept 4 hours last night. He is frequently seen pace the unit. He has little interaction with staff or peers. Mental status exam: He presented as a casually dressed angry and internally preoccupied 29-year-old male. He made eye contact but appeared to have difficulty concentrating and attending to the interview. He was guarded and suspicious. Showed poverty of speech and poverty of content. His thinking was concrete. He did not appear to be responding to internal stimuli. Assessment: He has seriously mentally ill and moderately improve from admission. Plan: Continue current treatment plan including Haldol 7 mg at bedtime, Cogentin 1 mg twice a day, melatonin 10 mg at bedtime and Haldol decanoate injections tue.
[2019-11-24] MEDS: HALOPERIDOL 5 MG TAB PO SCH (20:56)
[2019-11-24] MEDS: HALOPERIDOL 2 MG TAB PO SCH (20:58)
[2019-11-24] MEDS: MELATONIN 5 MG TABLET PO SCH (20:59)
[2019-11-25] MEDS: BENZTROPINE MESYLATE 1 MG TAB PO SCH ×2 (09:38→22:13)
--- NOTE | 2019-11-25 16:50 | P.PN ---
Progress Note - Text Progress Note Date: 11/25/19 Interim history: I reviewed the record and interviewed the patient. He was without complaint and his only concern was discharge. He denied side effects to his to Haldol. He denied experiencing auditory or visual hallucinations, ideas reference and thought insertion. He infrequently attends therapeutic groups and activities. He slept 5 hours last night. He is frequently seen pace the unit. He has little interaction with staff or peers. Mental status exam: He presented as a casually dressed angry and internally preoccupied 29-year-old male. He made eye contact but appeared to have difficulty concentrating and attending to the interview. He was guarded and suspicious. Showed poverty of speech and poverty of content. His thinking was concrete. He appears internally preoccupied but denies auditory hallucinations. Assessment: He has seriously mentally ill and moderately improve from admission. Plan: Continue current treatment plan including Haldol 7 mg at bedtime, Cogentin 1 mg twice a day, melatonin 10 mg at bedtime and Haldol decanoate injections monthly.
[2019-11-25] MEDS: HALOPERIDOL 2 MG TAB PO SCH (22:12)
[2019-11-25] MEDS: MELATONIN 5 MG TABLET PO SCH (22:12)
[2019-11-25] MEDS: HALOPERIDOL 5 MG TAB PO SCH (22:12)
[2019-11-26] MEDS ORDERED: HALOPERIDOL DECANOATE 50 MG/ML 1 ML VIAL IM ONE (09:00)
[2019-11-26] MEDS: BENZTROPINE MESYLATE 1 MG TAB PO SCH (09:12)
[2019-11-26 11:15] VITALS: BP 117/63; PULSE 66; RESP 20; TEMP 98.5
--- NOTE | 2019-11-26 13:20 | DS ---
DISCHARGE SUMMARY DATE OF SERVICE: 11/26/2019 DATE OF ADMISSION: 11/20/2019 DATE OF DISCHARGE: 11/26/2019. ADMISSION AND DISCHARGE DIAGNOSIS: Schizophrenia. HISTORY OF PRESENTING ILLNESS: The patient is a 29-year-old male. He is identified as having a chronic history of schizophrenia. He lives in a alf. He presented to the hospital with complaints of increasing auditory hallucinations and bizarre behavior. He was petitioned due to inability to appropriately engage in any evaluation. He was noted to have bizarre staring. He was mouthing words to himself. He showed paranoid symptoms. He had behaviors such as laughing inappropriately. He was recently admitted from 10/12/2019 to 10/23/2019 due to aggressive behavior at his [facility]. He was making statements of being "elected to kill somebody." One note from the September admission included on the petition that the patient was "verbally aggressive, screaming, and he was threatening to slit roommate's throat in his sleep." He had disorganized behavior, delusions. He was discharged on Depakote 1000 mg at bedtime, Prolixin 4 mg twice a day, Prolixin Decanoate 37.5 mg q.[address]. [address] Trujillo admission note, the patient was due for a Prolixin injection 14 days after his hospitalization, though the [facility] switched him to a 21 day schedule. It is not clear whether or not he received that injection. The patient was not able to engage appropriately in conversation. He barely he spoke, when he did it was noted that his thoughts were bizarre. He had poor self-care. He made no indications on admission that he had thoughts of harm to self or others. There was no indication of alcohol or drug use. It is noteworthy that a urine drug screen was not obtained. He was admitted for further evaluation. PAST MEDICAL HISTORY, REVIEW OF SYSTEMS, AND PHYSICAL EXAM: As per medical consultation of Dr. Cuenca. COURSE OF HOSPITALIZATION: The patient was admitted for comprehensive medical, psychiatric and psychosocial evaluation. We engaged the patient in individual and group therapeutic activities. On admission, the patient was started on Haldol oral 2.5 mg twice a day. The dose was titrated up. Early on in his hospitalization, the patient was quite withdrawn in his manner. He spoke very little in his interactions with staff and with his physician. He did not attend groups. He had complaints of "shaking" and did show restless legs. He was started on Cogentin for EPS symptoms. On 11/20, the received Haldol Decanoate 100 mg IM with the plan of receiving an an additional 50 mg IM dose on the . Generally, the patient progressed fairly well. He began attending some groups though did not attend others. He did not seem to have significant complaints regarding EPS symptoms. He was cooperative with care. He was able to engage in discussions related to discharge planning. On the , he received Haldol Decanoate 50 mg IM. CONDITION AT DISCHARGE: Patient was stable. His mood was improved. He had significant reduction in psychotic symptoms. His behavior was organized and appropriate. He voiced no thoughts of harm to self or others. RECOMMENDATIONS AND FOLLOWUP: The patient is discharged to home. He resides in a alf. Discharge medications include: 1. Haldol 5 mg at bedtime. 2. Cogentin 1 mg twice a day. 3. He will be started on a regular protocol for Haldol Decanoate. I was informed by [facility] liaison that he would be seen by Dr. Ennis within 7 days of discharge. He will continue other services through [facility]. MMSATNAML / IJN: [id number] /
== END 2019-11-26 12:48 | disposition home or self-care (01) | DRG 885 ==
LOC: EC 03:25 → 3MHU 06:29
PROVIDERS: ADMIT Psychiatry & Neurology Psychiatry; ATTEND Psychiatry & Neurology Psychiatry
DX: F20.9 Schizophrenia, unspecified (principal); Z91.128 Patient's intentional underdosing of medication regimen for other reason; F17.210 Nicotine dependence, cigarettes, uncomplicated; G25.81 Restless legs syndrome; T50.906A Underdosing of unspecified drugs, medicaments and biological substances, initial encounter; Z71.6 Tobacco abuse counseling; Z79.899 Other long term (current) drug therapy; Y63.6 Underdosing and nonadministration of necessary drug, medicament or biological substance; Z82.5 Family history of asthma and other chronic lower respiratory diseases; Z81.8 Family history of other mental and behavioral disorders
CPT/HCPCS: 80053; 80061; 82075; 82248; 83036; 84443; 85025; 99285

== ENCOUNTER 2021-02-23 17:30 | Emergency (ER) | payer MEDICARE, OTHER ==
[2021-02-23 17:45] VITALS: BP 126/74; PULSE 97; RESP 18; TEMP 97.8
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
[2021-02-23 19:49] LABS: Amphetamine Screen,Urine Not Detected (NotDetected); Barbiturate Screen,Urine Not Detected (NotDetected); Benzodiazepines Screen,Urine Not Detected (NotDetected); Cocaine Screen,Urine Not Detected (NotDetected); Methadone Screen, Urine Not Detected (NotDetected); Opiate Screen,Urine Not Detected (NotDetected); Oxycodone Screen, Urine Not Detected (NotDetected); Phencyclidine Screen,Urine Not Detected (NotDetected); Tricyclic Antidepressant,Urine Not Detected (NotDetected); Urn Cannabinoid Scrn Not Detected (NotDetected)
== END 2021-02-23 23:13 | disposition home or self-care (01) ==
LOC: EC 17:30
DX: F20.89 Other schizophrenia (principal); F17.200 Nicotine dependence, unspecified, uncomplicated
CPT/HCPCS: 80306; 99283

== ENCOUNTER 2022-10-30 12:33 | Inpatient (IN) | payer MEDICARE, MEDICAID ==
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
[2022-10-30 18:32] LABS: Basophils # (A) 0.1 k/uL (0-0.2); Basophils % (A) 1 %; Eosinophils # (A) 0.3 k/uL (0-0.7); Eosinophils % (A) 3 %; HCT 48.7 % (39.0-53.0); HGB 15.9 gm/dL (13.0-17.5); Lymphocytes # (A) 2.1 k/uL (1.0-4.8); Lymphocytes % (A) 19 %; MCH 30.2 pg (25.0-35.0); MCHC 32.7 g/dL (31.0-37.0); MCV 92.6 fL (80.0-100.0); Mean Platelet Volume 6.9; Monocytes # (A) 0.5 k/uL (0-1.0); Monocytes % (A) 4 %; Neutrophils # (A) 7.9 k/uL (1.3-7.7); Neutrophils % (A) 72 %; Platelet Count 265 k/uL (150-450); RBC 5.26 m/uL (4.30-5.90); RDW 13.1 % (11.5-15.5)
[2022-10-30 18:46] LABS: Amphetamine Screen,Urine Not Detected (NotDetected); Barbiturate Screen,Urine Not Detected (NotDetected); Benzodiazepines Screen,Urine Not Detected (NotDetected); Cocaine Screen,Urine Not Detected (NotDetected); Methadone Screen, Urine Not Detected (NotDetected); Opiate Screen,Urine Not Detected (NotDetected); Oxycodone Screen, Urine Not Detected (NotDetected); Phencyclidine Screen,Urine Not Detected (NotDetected); Tricyclic Antidepressant,Urine Not Detected (NotDetected); Urn Cannabinoid Scrn Not Detected (NotDetected)
[2022-10-30] MEDS ORDERED: MAGNESIUM HYDROXIDE 2,400 MG/10 ML CUP PO PRN (19:57)
[2022-10-30] MEDS ORDERED: ACETAMINOPHEN TAB 325 MG TAB PO PRN (19:57)
[2022-10-30] MEDS ORDERED: LORazepam 1 MG TAB PO PRN (19:57)
[2022-10-30] MEDS ORDERED: MAG HYDROX/AL HYDROX/SIMETH 30 ML CUP PO PRN (19:57)
[2022-10-30] MEDS ORDERED: HALOPERIDOL LACTATE 5 MG/ML 1 ML VIAL IM PRN (19:57)
[2022-10-30] MEDS: NICOTINE 14MG/24HR PATCH TRANSDERM SCH (21:52)
[2022-10-30] MEDS: cloZAPine 100 MG TAB PO SCH (21:52)
[2022-10-30] MEDS ORDERED: haloperidoL 5 MG TAB PO PRN (22:16)
[2022-10-30] MEDS ORDERED: LORazepam 2 MG/ML INJ IM PRN (22:16)
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
[2022-10-31] MEDS: NICOTINE 14MG/24HR PATCH TRANSDERM SCH (09:26)
[2022-10-31 17:02] LABS: ALT 74 U/L (4-49); AST 27 U/L (17-59); African American GFR (CKD) >90 (>60 ml/min/1.73 sqM); Alkaline Phosphatase 109 U/L (38-126); Anion Gap 7 mmol/L; Blood Urea Nitrogen 16 mg/dL (9-20); Calcium 8.8 mg/dL (8.4-10.2); Carbon Dioxide 24 mmol/L (22-30); Chloride 110 mmol/L (98-107); Glucose 86 mg/dL (74-99); Non-African American GFR(CKD) >90 (>60 ml/min/1.73 sqM); Potassium 4.5 mmol/L (3.5-5.1); Sodium 141 mmol/L (137-145); Total Bilirubin 0.7 mg/dL (0.2-1.3)
--- NOTE | 2022-10-31 18:21 | P.HP ---
Psychiatric H&P - . H&P Date: 10/31/22 History & Physical: Allergies Allergy/AdvReac Type Severity Reaction Status Date / Time No Known Allergies Allergy Verified 10/30/22 12:40 Vital Signs Temp 97.3 F L 10/30/22 21:01 Pulse 84 10/30/22 21:01 Resp 20 10/30/22 21:01 BP 135/110 10/30/22 21:01 Pulse Ox 98 10/30/22 17:00 FiO2 Intake & Output 10/30/22 10/31/22 10/31/22 18:59 06:59 18:59 Weight 101.605 kg 101.605 kg Laboratory Last Values WBC 11.0 k/uL (3.8-10.6) H 10/30/22 18:12 RBC 5.26 m/uL (4.30-5.90) 10/30/22 18:12 Hgb 15.9 gm/dL (13.0-17.5) 10/30/22 18:12 Hct 48.7 % (39.0-53.0) 10/30/22 18:12 MCV 92.6 fL (80.0-100.0) 10/30/22 18:12 MCH 30.2 pg (25.0-35.0) 10/30/22 18:12 MCHC 32.7 g/dL (31.0-37.0) 10/30/22 18:12 RDW 13.1 % (11.5-15.5) 10/30/22 18:12 Plt Count 265 k/uL (150-450) 10/30/22 18:12 MPV 6.9 10/30/22 18:12 Neutrophils % 72 % 10/30/22 18:12 Lymphocytes % 19 % 10/30/22 18:12 Monocytes % 4 % 10/30/22 18:12 Eosinophils % 3 % 10/30/22 18:12 Basophils % 1 % 10/30/22 18:12 Neutrophils # 7.9 k/uL (1.3-7.7) H 10/30/22 18:12 Lymphocytes # 2.1 k/uL (1.0-4.8) 10/30/22 18:12 Monocytes # 0.5 k/uL (0-1.0) 10/30/22 18:12 Eosinophils # 0.3 k/uL (0-0.7) 10/30/22 18:12 Basophils # 0.1 k/uL (0-0.2) 10/30/22 18:12 Sodium 141 mmol/L (137-145) 10/31/22 16:28 Potassium 4.5 mmol/L (3.5-5.1) 10/31/22 16:28 Chloride 110 mmol/L (98-107) H 10/31/22 16:28 Carbon Dioxide 24 mmol/L (22-30) 10/31/22 16:28 Anion Gap 7 mmol/L 10/31/22 16:28 BUN 16 mg/dL (9-20) 10/31/22 16:28 Creatinine 0.86 mg/dL (0.66-1.25) 10/31/22 16:28 Est GFR (CKD-EPI)AfAm >90 (>60 ml/min/1.73 sqM) 10/31/22 16:28 Est GFR (CKD-EPI)NonAf >90 (>60 ml/min/1.73 sqM) 10/31/22 16:28 Glucose 86 mg/dL (74-99) 10/31/22 16:28 Calcium 8.8 mg/dL (8.4-10.2) 10/31/22 16:28 Total Bilirubin 0.7 mg/dL (0.2-1.3) 10/31/22 16:28 AST 27 U/L (17-59) 10/31/22 16:28 ALT 74 U/L (4-49) H 10/31/22 16:28 Alkaline Phosphatase 109 U/L (38-126) 10/31/22 16:28 Total Protein 7.0 g/dL (6.3-8.2) 10/31/22 16:28 Albumin 4.0 g/dL (3.5-5.0) 10/31/22 16:28 TSH 0.420 mIU/L (0.465-4.680) L 10/31/22 16:28 Urine Opiates Screen Not Detected (NotDetected) 10/30/22 18:10 Ur Oxycodone Screen Not Detected (NotDetected) 10/30/22 18:10 Urine Methadone Screen Not Detected (NotDetected) 10/30/22 18:10 Ur Propoxyphene Screen Not Detected (NotDetected) 10/30/22 18:10 Ur Barbiturates Screen Not Detected (NotDetected) 10/30/22 18:10 U Tricyclic Antidepress Not Detected (NotDetected) 10/30/22 18:10 Ur Phencyclidine Scrn Not Detected (NotDetected) 10/30/22 18:10 Ur Amphetamines Screen Not Detected (NotDetected) 10/30/22 18:10 U Methamphetamines Scrn Not Detected (NotDetected) 10/30/22 18:10 U Benzodiazepines Scrn Not Detected (NotDetected) 10/30/22 18:10 Urine Cocaine Screen Not Detected (NotDetected) 10/30/22 18:10 U Marijuana (THC) Screen Not Detected (NotDetected) 10/30/22 18:10 Coronavirus (PCR) Not Detected (Not Detectd) 10/30/22 18:12 10/31/22 17:56 identifying data; he was referred to EMR For admisison : I was notified by triage ER psychiatrc nurse on Oct 30 regarding the unusual context of his admisison. Data from [facility] was not available at the time of condcuting Psychiatric evalauton and hence the H/P was preliminary: no collateral information from his parents or from [facility] was avaiable. 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 Chief complaint: I don't know ... I am fearful for my safety HPI: His data would have to be corroborated through [facility] and his family. He did ot indicate his diagnosis was schizohrenia. He later on became more comfortable with the interview and talked more feely how the [facility] visisted him q2 weekly as he did not have regular modes of transportation for clinic visit. His parents have a single vehicle. He has been lviing in his parents' house for quie some time 5-8 years. He saw no persistent intense conflicts with his parents contrary to the admisison complaint. In ER, there was an entry that he believed his parents were trying or had plots of killing him. He was highly fearful for his safety . When he was insterviewed early on Oct 31 2022, he did not speak much about his family. He was highy guarded and preferred not to elaborate furtehr on what lead him to be admitted to the ER. He did not talk much about the prodroaml schizophrenia symptoms nor his index psychotic episode. I gather he may have psychiaric admissioins to [place] psychiatric hospitals and centers; i have no avenue to review the psychiatric history for the H/P. He later on stated he was on clozapien 300 mg po for 8 years. He did not state what Rxs he may have tried on before. He did not comment on negative and posiitive symptms of schizophrenia . He did not state whether he developed EPS while he was on FGA/SGA before he was switched on clozapine. He did not state he was on Luvox as adjunct therapy. Regarding his depressive and negative symptoms he had few friends. He apparently has lost insterst in his usual activities riding bike He may not have any employment history. I inquired whether he may have missed dosage of clozapien. He would not elaborate ; his parents may not have the pill counting. His [facility] case workers may have better idea of his adherence to psychotropic Rxs. Past psychiatric history : hd did not have hisotry of suicidal or hmoicidal history. psychiatric admissions were not avaial Pas substance use history; He may have nicotine dependence which he did not confirm. Negative urine toxicology did not rule out whether he did use cannabis. He later agreed that he used cannabis somewhat sporadiclaly later on he dismissed his history Past MEd History: No significant med. or neurological history. TD tardive dyskinesia uncertain MSE: He was relatively uncooperative and excused himself afer 10 minutes of encouner. He exhibited intermittent fidgetting and rockin mvoement of his torso but no TD-like dyskienstic symptms. No parkinsonian gait. Speech. Slow with pauses and low volume . He exhibited poverty of conent of speech. no aphasia. Affect: guarded and blunsted constrctied range. Paranoid ideas of reference was evident. Delusion have to be further explored. He denied any suicidal or homocidal ideation towards anyone. He denied any hallucinatons. Cog; he was dist ractaible with short attention span, insight judgment absenst Diagnosis: Schizaffective disorder relapse. 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 rule out TBI. Substance use disorder cannot be ruled out even with negative urine sceen as illicit drugs can evade routine testing at ER managment : Clozapine withdrawal psychosis may be the likely explanation as he may not have missed a few dosage of clozapine Clozapine level to be ordered to rule out rapid metabolizers contacat CMS to validate his history. contact his family to corrorboate his parnaoia. Team meeting on Anastasiya crook clarify the issue. Resumr Rx. monitor his alcohol craing.
[2022-10-31] MEDS: cloZAPine 100 MG TAB PO SCH (21:01)
[2022-10-31 22:19] LABS: Chol/HDL Ratio 6.08 Ratio; LDL Cholesterol,Calculated 140.9 mg/dL (0.0-131.0)
[2022-11-01 07:15] LABS: Clozapine (Clozaril) 31 ng/mL (200-700); Norclozapine 37 ng/mL (200-700)
--- NOTE | 2022-11-01 11:04 | P.PN ---
Progress Note - Text Progress Note Date: 11/01/22 Interval History: Patient was seen resting in bed and was directable and agreeable to speak with grant writer in his room. Currently, the patient is not reporting any suicidal or homicidal ideation, intention, and/or plan. He does report that he feels depressed however is vague regarding symptoms of depression. He does not elaborate. He reports he is sleeping and eating well. He continues to endorse the delusional belief that his parents are going to try and kill him. However, the patient is unable to identify any evidence or reason as to why he believes this. The patient reports his medications are "not working." When asked how his medications helped him in the past, the patient is unable to answer. Clozaril level noted to be 31 (L) and norcozlapine level 37 (L). Suspect nonadherence with treatment. Mental Status Exam: General Appearance: Patient appears to be stated age is alert, directable, and cooperative. Behavior: Patient is calmly seated without any agitated behavior. Speech: Patient's speech is fluent and nonpressured. Monotone and nonspontaneous. Mood/Affect: Mood is "depressed." Affect is flat. Suicidality/Homicidality: Patient denies having any suicidal or homicidal ideation, intention, and/or plan. Perceptions: Patient denies any visual hallucinations and denies any auditory hallucinations Though content/process: [place] and vague. Delusional belief his parents are trying to kill him. Memory and concentration: AOX3, grossly intact for the purposes of this session Judgment and insight: Poor Vital Signs Temp 97.8 F 11/01/22 10:53 Pulse 121 H 11/01/22 10:53 Resp 16 11/01/22 10:53 BP 135/91 11/01/22 10:53 Pulse Ox 95 11/01/22 10:53 FiO2 Laboratory Results - Last 24 Hours 10/30/22 10/31/22 10/31/22 21:21 16:28 16:28 Sodium 141 Potassium 4.5 Chloride 110 H Carbon Dioxide 24 Anion Gap 7 BUN 16 Creatinine 0.86 Est GFR (CKD-EPI)AfAm >90 Est GFR (CKD-EPI)NonAf >[address] Glu mg/dL 103 Hemoglobin A1c 5.2 Calcium 8.8 Total Bilirubin 0.7 AST 27 ALT 74 H Alkaline Phosphatase 109 Total Protein 7.0 Albumin 4.0 Triglycerides 131.00 Cholesterol 200.00 LDL Cholesterol, Calc 140.9 H VLDL Cholesterol, Calc 26.20 HDL Cholesterol 32.90 L Cholesterol/HDL Ratio 6.08 TSH 0.420 L Clozapine 31 L Norclozapine 37 L Assessment Schizophrenia Plan: -Patient continues to meet criteria for inpatient psychiatric admission for symptom stabilization and safety. Patient has signed adult voluntary form and medication consent and was placed in patient's chart. -Medications: Continue Clozaril 300 mg by mouth at bedtime with plans to further titrate this medication Prolixin decanoate 50 mg IM is due on 11/03/22. Continue Luvox 50 mg by mouth daily for depression/anxiety/Clozaril -When necessary Ativan and Haldol for agitation/aggression. -SW on board for discharge planning. Encouraged the patient to participate in milieu.
[2022-11-01] MEDS: cloZAPine 100 MG TAB PO SCH (22:53)
--- NOTE | 2022-11-02 12:37 | P.PN ---
Progress Note - Text Progress Note Date: 11/02/22 Interval History: Patient was seen resting in bed and was directable and agreeable to speak with life insurance underwriter in his room. Currently, the patient is not reporting any suicidal or homicidal ideation, intention, and/or plan. Patient denies any auditory or visual hallucinations. He reports no paranoia or other delusions. He has been adherent with his medications and is not reporting any significant side effects. He denies any chest pain, SOB, or palpitations. He has been eating and sleeping well. He remains primarily isolative to himself in his room. Mental Status Exam: General Appearance: Patient appears to be stated age is alert, directable, and cooperative. Behavior: Patient is calmly seated without any agitated behavior. Speech: Patient's speech is fluent and nonpressured. Monotone and nonspontaneous. Mood/Affect: Mood is "I'm okay." Affect is blunted. Suicidality/Homicidality: Patient denies having any suicidal or homicidal ideation, intention, and/or plan. Perceptions: Patient denies any visual hallucinations and denies any auditory hallucinations Though content/process: [place]. Poverty of thought. Memory and concentration: AOX3, grossly intact for the purposes of this session Judgment and insight: Poor Vital Signs Temp 97.8 F 11/01/22 10:53 Pulse 121 H 11/01/22 10:53 Resp 16 11/01/22 10:53 BP 135/91 11/01/22 10:53 Pulse Ox 95 11/01/22 10:53 FiO2 Assessment Schizophrenia Plan: -Patient continues to meet criteria for inpatient psychiatric admission for symptom stabilization and safety. Patient has signed adult voluntary form and medication consent and was placed in patient's chart. -Medications: Continue Clozaril 300 mg by mouth at bedtime with plans to further titrate this medication pending levels. We will check clozapine level tomorrow. Prolixin decanoate 50 mg IM is due tomorrow. Continue Luvox 50 mg by mouth daily for depression/anxiety/Clozaril -When necessary Ativan and Haldol for agitation/aggression. -SW on board for discharge planning. Encouraged the patient to participate in milieu.
[2022-11-02] MEDS: cloZAPine 100 MG TAB PO SCH (22:40)
[2022-11-03] MEDS ORDERED: fluPHENAZine DECANOATE 25 MG/ML 5ML MDV IM ONE (11:00)
[2022-11-03] MEDS ORDERED: cloZAPine 25 MG TAB PO STA (11:44)
--- NOTE | 2022-11-03 11:47 | P.PN ---
Progress Note - Text Progress Note Date: 11/03/22 Interval History: Patient was seen resting in bed and was directable and agreeable to speak with film writer in his room. Currently, the patient is not reporting any issues or concerns however he has been refusing his Clozaril for the last 2 nights. When inquiring about why he has been refusing medication, the patient states that "I do not know I refused the medications." He was encouraged to take his Clozaril as directed. He was also informed that he is due for his Prolixin Decanoate 50 mg IM today. He expresses understanding. He is currently not reporting any suicidal or homicidal ideation, intention, and/or plan. He reports no auditory or visual hallucinations. He is currently denying any overt paranoia or other delusions. Mental Status Exam: General Appearance: Patient appears to be stated age is alert, directable, and cooperative. Behavior: Patient is calmly seated without any agitated behavior. Speech: Patient's speech is fluent and nonpressured. Monotone and nonspontaneous. Mood/Affect: Mood is "I'm okay." Affect is flat Suicidality/Homicidality: Patient denies having any suicidal or homicidal ideation, intention, and/or plan. Perceptions: Patient denies any visual hallucinations and denies any auditory hallucinations Though content/process: [place]. Poverty of thought. Memory and concentration: AOX3, grossly intact for the purposes of this session Judgment and insight: Poor Vital Signs Temp 97.8 F 11/01/22 10:53 Pulse 121 H 11/01/22 10:53 Resp 16 11/01/22 10:53 BP 135/91 11/01/22 10:53 Pulse Ox 95 11/01/22 10:53 FiO2 Assessment Schizophrenia Plan: -Patient continues to meet criteria for inpatient psychiatric admission for symptom stabilization and safety. Patient has signed adult voluntary form and medication consent and was placed in patient's chart. -Medications: Patient has been refusing Clozaril. We will restart Clozaril at 50 mg by mouth daily today. Should the patient continued to refuse Clozaril, we will petition and certify the patient in order to ensure medication adherence. We will administer Prolixin decanoate 50 mg IM today. Continue Luvox 50 mg by mouth daily for depression/anxiety/Clozaril -When necessary Ativan and Haldol for agitation/aggression. -SW on board for discharge planning. Encouraged the patient to participate in milieu.
[2022-11-04] MEDS ORDERED: cloZAPine 25 MG TAB PO SCH (09:00)
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
[2022-11-05] MEDS ORDERED: cloZAPine 100 MG TAB PO SCH (09:00)
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
[2022-11-05 12:32] LABS: Basophils % (A) 1 %; Eosinophils # (A) 0.3 k/uL (0-0.7); Eosinophils % (A) 4 %; HCT 47.7 % (39.0-53.0); HGB 15.5 gm/dL (13.0-17.5); Lymphocytes # (A) 1.6 k/uL (1.0-4.8); Lymphocytes % (A) 26 %; MCH 30.2 pg (25.0-35.0); MCHC 32.4 g/dL (31.0-37.0); MCV 93.1 fL (80.0-100.0); Mean Platelet Volume 7.5; Monocytes # (A) 0.4 k/uL (0-1.0); Monocytes % (A) 6 %; Neutrophils # (A) 3.9 k/uL (1.3-7.7); Neutrophils % (A) 62 %; Platelet Count 252 k/uL (150-450); RBC 5.12 m/uL (4.30-5.90); RDW 12.9 % (11.5-15.5); WBC 6.3 k/uL (3.8-10.6)
[2022-11-06 06:30] VITALS: RESP 16
[2022-11-06] MEDS: cloZAPine 100 MG TAB PO SCH (09:32)
[2022-11-06] MEDS: cloZAPine 25 MG TAB PO SCH (09:32)
--- NOTE | 2022-11-06 16:23 | P.PN ---
Progress Note - Text Progress Note Date: 11/06/22 Interval history: Patient was seen sitting on his bed and appeared to be isolating to his room. He appears withdrawn, guarded and terse on assessment. He has not been attending groups and states he doesn't want to. He reports good sleep and appetite, and states his mood is "fine" but objectively appears down. At this time patient denies any suicidal or homicidal ideation, intent or plan. Denies any auditory or visual hallucinations. Patient denies any side effects from the medications and has been compliant with meds. He states he just wants to go home. Vital signs reviewed and are stable. Labs reviewed and most recent CBC completed on 10/2022 with normal ANC of 3.9. Mental status exam: General Appearance: Patient appears to be stated age, dressed in dark colored casual attire, sitting on his bed. Behavior: No agitated behavior. He appears withdrawn, guarded, terse and isolative. Speech: Patient's speech is fluent, non-pressured, monotone. Mood/Affect: Mood is "fine", affect is down, blunted. Suicidality/Homicidality: Patient denies having any suicidal or homicidal ideation intent or plan. Perceptions: Patient denies any auditory or visual hallucinations. Though content/process: There is no evidence of any delusional thought content and thought process appears concrete and focused on going home Memory and concentration: AOX3, grossly intact for the purposes of this session Judgment and insight: improving mildly Assessment/Plan: Continue with current diagnosis. Patient continues to meet criteria for inpatient psychiatric admission for symptom stabilization and safety. Patient will be maintained on current psychotropic medication regimen. Monitor for medication compliance and for any psychotropic medication side effects. Will continue to monitor ongoing response to treatment. Encouraged participation in milieu.
[2022-11-07 06:34] VITALS: TEMP 97.7
[2022-11-07] MEDS: cloZAPine 25 MG TAB PO SCH (09:22)
[2022-11-07] MEDS: cloZAPine 100 MG TAB PO SCH (09:22)
--- NOTE | 2022-11-07 21:49 | P.PN ---
Progress Note - Text Progress Note Date: 11/07/22 Interval history: Patient was seen walking in the hallway, keeping to himself. He is passively engaged in assessment and appears disheveled, guarded and withdrawn. He appears withdrawn, guarded and terse on assessment. He has not been attending groups and mostly isolates to his room. He reports good mood, sleep and appetite, but objectively appears somewhat irritable. At this time, patient denies any suicidal or homicidal ideation, intent or plan. Denies any auditory or visual hallucinations. No overt delusional thoughts expressed to me today. Patient denies any side effects from the medications and has been compliant with meds. He states he just wants to go home. Vital signs reviewed and are stable. Mental status exam: General Appearance: Patient appears to be stated age, dressed in dark colored casual attire, disheveled. Behavior: No agitated behavior. He appears withdrawn, guarded, and isolative. Speech: Patient's speech is fluent, non-pressured, monotone. Mood/Affect: Mood is improving mildly, affect is blunted. Suicidality/Homicidality: Patient denies having any suicidal or homicidal ideation intent or plan. Perceptions: Patient denies any auditory or visual hallucinations. Though content/process: There is no evidence of any delusional thought content and thought process appears concrete and focused on going home Memory and concentration: AOX3, grossly intact for the purposes of this session Judgment and insight: improving mildly Assessment/Plan: Continue with current diagnosis. Patient continues to meet criteria for inpatient psychiatric admission for symptom stabilization and safety. Patient will be maintained on current psychotropic medication regimen. Monitor for medication compliance and for any psychotropic medication side effects. Will continue to monitor ongoing response to treatment. Encouraged participation in milieu.
[2022-11-08 06:38] VITALS: BP 128/67; PULSE 72
[2022-11-08] MEDS: cloZAPine 100 MG TAB PO SCH (09:06)
[2022-11-08] MEDS: cloZAPine 25 MG TAB PO SCH (09:06)
--- NOTE | 2022-11-08 11:19 | P.PN ---
Progress Note - Text Progress Note Date: 11/08/22 Interval History: Patient was seen resting in bed and was directable and agreeable to speak with internal communications writer in the office. The patient is currently not reporting any suicidal or homicidal ideation, intention, and/or plan. He reports no auditory or visual hallucinations. He denies any paranoia or other delusions. He continues to express a desire for discharge. He was informed we are working closely with [facility] to faciliate his discharge and are awaiting placement. As per [facility] likely Tuesday. He expresses understanding. He has been adherent with his medications and reports no side effects. He denies any issues regarding sleep or appetite. Mental Status Exam: General Appearance: Patient appears to be stated age is alert, directable, and cooperative. Behavior: Patient is calmly seated without any agitated behavior. Poor eye contact. Speech: Patient's speech is fluent and nonpressured. Monotone and nonspontaneous. Mood/Affect: Mood is "okay." Affect is flat and at times irritable. Suicidality/Homicidality: Patient denies having any suicidal or homicidal ideation, intention, and/or plan. Perceptions: Patient denies any visual hallucinations and denies any auditory hallucinations Though content/process: [place]. Poverty of thought. Memory and concentration: AOX3, grossly intact for the purposes of this session Judgment and insight: Poor Vital Signs Temp 97.7 F 11/08/22 06:37 Pulse 72 11/08/22 06:37 Resp 16 11/08/22 06:37 BP 128/67 11/08/22 06:37 Pulse Ox 99 11/08/22 06:37 FiO2 Intake & Output 11/07/22 11/08/22 11/08/22 18:59 06:59 18:59 Weight 99.9 kg Assessment Schizophrenia Plan: -Patient continues to meet criteria for inpatient psychiatric admission for symptom stabilization and safety. Patient has signed adult voluntary form and medication consent and was placed in patient's chart. -Medications: Continue Clozaril 125 mg daily for schizophrenia. ANC reviewed 11/05/2022- WNL. Prolixin decanoate 50 mg IM administered 11/04/2022. Next dose due on 11/11/19. Continue Luvox 50 mg by mouth daily for depression/anxiety/Clozaril -When necessary Ativan and Haldol for agitation/aggression. -SW on board for discharge planning. Encouraged the patient to participate in milieu.
[2022-11-09] MEDS: cloZAPine 100 MG TAB PO SCH (09:00)
[2022-11-09] MEDS: cloZAPine 25 MG TAB PO SCH (09:00)
--- NOTE | 2022-11-09 10:59 | P.PN ---
Progress Note - Text Progress Note Date: 11/09/22 Interval History: Patient was seen resting in bed and was directable and agreeable to speak with development writer in his room. The patient continues to not reporting any suicidal or homicidal ideation, intention, and/or plan. He reports no auditory or visual hallucinations. He denies any paranoia or other delusions. He continues to express a desire for discharge. Patient reports no medical issues or concerns. He denies any chest pain, shortness of breath, or EPS symptoms. He has been adhernet with his medications and expresses no side effects. He reports no issues regarding sleep or appetite. He is focused on discharge. Mental Status Exam: General Appearance: Patient appears to be stated age is alert, directable, and cooperative. Behavior: Patient is calmly seated without any agitated behavior. Poor eye contact. Speech: Patient's speech is fluent and nonpressured. Monotone and no nspontaneous. Mood/Affect: Mood is "I'm ready to go." Affect is flat. Suicidality/Homicidality: Patient denies having any suicidal or homicidal ideation, intention, and/or plan. Perceptions: Patient denies any visual hallucinations and denies any auditory hallucinations Though content/process: [place]. Goal-oriented. Memory and concentration: AOX3, grossly intact for the purposes of this session Judgment and insight: Poor Vital Signs Temp 97.7 F 11/08/22 06:37 Pulse 72 11/08/22 06:37 Resp 16 11/08/22 06:37 BP 128/67 11/08/22 06:37 Pulse Ox 99 11/08/22 06:37 FiO2 Assessment Schizophrenia Plan: -Patient continues to meet criteria for inpatient psychiatric admission for symptom stabilization and safety. Patient has signed adult voluntary form and medication consent and was placed in patient's chart. -Medications: Continue Clozaril 125 mg daily for schizophrenia. ANC reviewed 11/05/2022- WNL. Clozapine level ordered. Prolixin decanoate 50 mg IM administered 11/04/2022. Next dose due on 11/11/2022. Continue Luvox 50 mg by mouth daily for depression/anxiety/Clozaril -When necessary Ativan and Haldol for agitation/aggression. -SW on board for discharge planning. Encouraged the patient to participate in milieu.
[2022-11-10 07:37] LABS: Basophils % (A) 1 %; Eosinophils # (A) 0.3 k/uL (0-0.7); Eosinophils % (A) 5 %; HCT 49.5 % (39.0-53.0); Lymphocytes # (A) 1.9 k/uL (1.0-4.8); Lymphocytes % (A) 31 %; MCH 30.5 pg (25.0-35.0); MCHC 32.3 g/dL (31.0-37.0); MCV 94.4 fL (80.0-100.0); Mean Platelet Volume 7.3; Monocytes # (A) 0.6 k/uL (0-1.0); Monocytes % (A) 10 %; Neutrophils # (A) 3.2 k/uL (1.3-7.7); Neutrophils % (A) 52 %; Platelet Count 258 k/uL (150-450); RBC 5.24 m/uL (4.30-5.90); RDW 12.7 % (11.5-15.5); WBC 6.1 k/uL (3.8-10.6)
[2022-11-10] MEDS: cloZAPine 100 MG TAB PO SCH (08:55)
[2022-11-10] MEDS: cloZAPine 25 MG TAB PO SCH (08:55)
[2022-11-10] MEDS ORDERED: fluPHENAZine DECANOATE 25 MG/ML 5ML MDV IM ONE (09:46)
[2022-11-10 09:51] LABS: Clozapine (Clozaril) 257 ng/mL (200-700); Norclozapine 75 ng/mL (200-700)
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
== END 2022-11-10 14:58 | disposition home or self-care (01) | DRG 885 ==
LOC: EC 12:33 → 3MHU 19:54 → OBSVTOIN 19:54
PROVIDERS: ADMIT Psychiatry & Neurology Psychiatry; ATTEND Psychiatry & Neurology Psychiatry
DX: F20.0 Paranoid schizophrenia (principal); F17.210 Nicotine dependence, cigarettes, uncomplicated; F32.A Depression, unspecified; Z79.899 Other long term (current) drug therapy; D72.829 Elevated white blood cell count, unspecified; Z28.310 Unvaccinated for COVID-19; Z28.21 Immunization not carried out because of patient refusal; Z91.198 Patient's noncompliance with other medical treatment and regimen for other reason; Z71.89 Other specified counseling
CPT/HCPCS: 36415; 80053; 80061; 80159; 80306; 82075; 83036; 84443; 85025; 87635; 93005; 99285

== ENCOUNTER 2023-02-15 10:10 | Day surgery (SDC) | payer MEDICARE, OTHER ==
[~2023-02-15 10:10] MED LIST: LACTATED RINGERS 1,000 ML IV SCH
[2023-02-15 10:39] VITALS: TEMP 97.5
[2023-02-15] MEDS ORDERED: fentaNYL (PF) 50 MCG/ML 2 ML AMP ONE (10:48)
[2023-02-15] MEDS ORDERED: PROPOFOL 10 MG/ML 20 ML VIAL IV ONE (10:48)
[2023-02-15] MEDS ORDERED: LIDOCAINE 2% INJ 20 MG/ML (2 ML VIAL) ONE (10:48)
[2023-02-15] MEDS ORDERED: MIDAZOLAM 2 MG/2 ML VIAL ONE (10:48)
--- NOTE | 2023-02-15 10:51 | P.GSHP ---
History of Present Illness H&P Date: 02/15/23 Chief Complaint: GERD 32-year-old female here for upper endoscopy. EGD performed 2 months ago. Patient was noted to have severe esophagitis at that time. He was started on antiacid therapy. Here for repeat evaluation Past Medical History Past Medical History: GERD/Reflux Additional Past Medical History / Comment(s): healing stomach ulcer, takes propranolol for tremors related to side effects from some of his meds History of Any Multi-Drug Resistant Organisms: None Reported Past Surgical History: No Surgical Hx Reported Additional Past Surgical History / Comment(s): EGD in Nov. Past Anesthesia/Blood Transfusion Reactions: No Reported Reaction Smoking Status: Current every day smoker - Past Family History Father Additional Family Medical History / Comment(s): Father at age 53 from emphysema. Mother Additional Family Medical History / Comment(s): Mother is alive in her 50s with no major medical problems. Brother(s) Family Medical History: No Reported History Additional Family Medical History / Comment(s): Patient has 1 brother and 1 sister with no major medical problems. Medications and Allergies Home Medications Medication Instructions Recorded Confirmed Type fluvoxaMINE [Luvox] 50 mg PO DAILY 30 Days #30 tab 12/01/22 02/15/23 Rx Glycopyrrolate [Robinul Forte] 2 mg PO 1800 02/09/23 02/15/23 History LORazepam [Ativan] 0.5 mg PO TID 02/09/23 02/15/23 History Mirtazapine [Remeron] 15 mg PO HS 02/09/23 02/15/23 History Pantoprazole [Protonix] 40 mg PO DAILY 02/09/23 02/15/23 History Propranolol [Inderal] 20 mg PO TID 02/09/23 02/15/23 History cloZAPine [Clozaril] 300 mg PO HS 02/09/23 02/15/23 History Allergies Allergy/AdvReac Type Severity Reaction Status Date / Time No Known Allergies Allergy Verified 02/15/23 10:32 Surgical - Exam Vital Signs Temp Pulse Resp BP Pulse Ox 97.5 F L 87 18 131/75 95 02/15/23 10:33 02/15/23 10:33 02/15/23 10:33 02/15/23 10:33 02/15/23 10:33 Physical exam: General: Well-developed, well-nourished HEENT: Normocephalic, sclerae nonicteric Abdomen: Nontender, nondistended Extremities: No edema Neuro: Alert and oriented Assessment and Plan (1) GERD (gastroesophageal reflux disease) Narrative/Plan: Will proceed with EGD at this time. Current Visit: Yes Status: Acute Code(s): K21.9 - GASTRO-ESOPHAGEAL REFLUX DISEASE WITHOUT ESOPHAGITIS SNOMED Code(s): 623033302
--- NOTE | 2023-02-15 11:00 | P.PCN ---
Date of Procedure: 02/15/23 Procedure(s) Performed: Preoperative Dx: Esophagitis Postoperative Dx: Mild gastritis, mild distal esophagitis Procedure: EGD with Bx Anesthesia: Sedation Endoscopist: Dr. Stuart Specimens: Antrum, esophagus Endoscopic Procedure: The patient was on the endoscopy table in the left decubitus position. The Olympus gastroscope was inserted into the oropharynx and passed under direct visualization to the region of the third portion of the duodenum. From that point the scope was slowly withdrawn inspecting all surfaces carefully. There were no neoplastic inflammatory or polypoid lesions throughout the duodenum. The pylorus was widely patent. The stomach was carefully inspected. There was mild gastritis present. A biopsy of the antrum took place to rule out H. pylori. Retroflexion revealed a normal hiatus. The esophagus was then carefully examined. There was significant improvement in the previously noted severe esophagitis. Now there were only 2-3 linear erosions measuring 2 cm in length. These were non-circumferential. The remainder the esophagus appear normal. There was no evidence of stricture formation. The patient was then taken to the recovery room in stable condition per anesthesia guidelines. Recommendations: Await biopsy results. Continue antiacid therapy.
[2023-02-15 11:04] VITALS: RESP 16
[2023-02-15 11:18] VITALS: BP 113/76; PULSE 88
== END 2023-02-15 11:35 | disposition home or self-care (01) ==
LOC: ORWHC2ENDO 10:10
PROVIDERS: ATTEND Surgery
DX: K29.50 Unspecified chronic gastritis without bleeding (principal); K31.9 Disease of stomach and duodenum, unspecified; K21.00 Gastro-esophageal reflux disease with esophagitis, without bleeding; F17.200 Nicotine dependence, unspecified, uncomplicated; Z79.899 Other long term (current) drug therapy
CPT/HCPCS: 88305; 43239; J2250; J3010; J2704; J2001

== ENCOUNTER 2023-02-17 08:38 | Emergency (ER) | payer MEDICARE, OTHER ==
[2023-02-17 08:55] VITALS: RESP 18; TEMP 98.1
[2023-02-17] MEDS ORDERED: ONDANSETRON 4 MG/2 ML VIAL IVP STA (09:05)
[2023-02-17] MEDS ORDERED: SODIUM CHLORIDE 0.9% 2,000 ML IV STA (09:05)
[2023-02-17 09:34] LABS: Basophils % (A) 0 %; Eosinophils # (A) 0.4 k/uL (0-0.7); Eosinophils % (A) 4 %; HCT 52.3 % (39.0-53.0); Lymphocytes # (A) 1.6 k/uL (1.0-4.8); Lymphocytes % (A) 18 %; MCH 30.1 pg (25.0-35.0); MCHC 32.5 g/dL (31.0-37.0); MCV 92.5 fL (80.0-100.0); Monocytes # (A) 0.5 k/uL (0-1.0); Monocytes % (A) 5 %; Neutrophils # (A) 6.2 k/uL (1.3-7.7); Neutrophils % (A) 70 %; Platelet Count 243 k/uL (150-450); RBC 5.65 m/uL (4.30-5.90); RDW 13.6 % (11.5-15.5); WBC 8.7 k/uL (3.8-10.6)
[2023-02-17 09:43] LABS: ALT 30 U/L (4-49); AST 25 U/L (17-59); African American GFR (CKD) >90 (>60 ml/min/1.73 sqM); Albumin 4.1 g/dL (3.5-5.0); Alkaline Phosphatase 96 U/L (38-126); Amylase 51 U/L (30-110); Anion Gap 10 mmol/L; Blood Urea Nitrogen 15 mg/dL (9-20); Calcium 8.9 mg/dL (8.4-10.2); Carbon Dioxide 24 mmol/L (22-30); Chloride 108 mmol/L (98-107); Glucose 108 mg/dL (74-99); Lipase 71 U/L (23-300); Non-African American GFR(CKD) >90 (>60 ml/min/1.73 sqM); Potassium 4.5 mmol/L (3.5-5.1); Sodium 142 mmol/L (137-145); Total Bilirubin 0.5 mg/dL (0.2-1.3); Total Protein 7.4 g/dL (6.3-8.2)
--- NOTE | 2023-02-17 09:44 | XR ---
EXAMINATION TYPE: XR KUB DATE OF EXAM: 02/17/2023 9:31 AM INDICATION: Patient age:Male; 32 years old; Reason for study: abdominal pain; COMPARISON: None. TECHNIQUE: One radiographic view of the abdomen was obtained. FINDINGS: Large stool burden throughout the colon. The bowel gas pattern is nonspecific without dilat ed loops of small or large bowel. There is no evidence for organomegaly or pneumoperitoneum. The oss eous structures are intact. No abnormal calcifications are present. Fecal material and gas are demon strated throughout the colon and rectum. IMPRESSION: Large stool burden, Nonspecific bowel gas pattern without radiographic evidence for acute process.
--- NOTE | 2023-02-17 10:02 | ED ---
General Adult HPI - General Chief complaint: Nausea/Vomiting/Diarrhea Stated complaint: vomiting Time Seen by Provider: 02/17/23 08:56 Source: patient, RN notes reviewed, old records reviewed, Caregiver Mode of arrival: EMS Limitations: no limitations - History of Present Illness Initial comments: 32-year-old male presents emergency Department chief complaint of nausea vomiting. Patient had EGD 2 days ago for GERD. Patient states that he's had some intermittent nausea vomiting patient is brought in by caregiver from [facility] home. Patient does not localize abdominal pains had some mild abdominal cramping. Patient has no dysuria no hematuria no other associated symptoms - Related Data Home Medications Medication Instructions Recorded Confirmed Glycopyrrolate [Robinul Forte] 2 mg PO 1800 02/09/23 02/15/23 LORazepam [Ativan] 0.5 mg PO TID 02/09/23 02/15/23 Mirtazapine [Remeron] 15 mg PO HS 02/09/23 02/15/23 Pantoprazole [Protonix] 40 mg PO DAILY 02/09/23 02/15/23 Propranolol [Inderal] 20 mg PO TID 02/09/23 02/15/23 cloZAPine [Clozaril] 300 mg PO HS 02/09/23 02/15/23 Previous Rx's Medication Instructions Recorded fluvoxaMINE [Luvox] 50 mg PO DAILY 30 Days #30 tab 12/01/22 Ondansetron Odt [Zofran Odt] 4 mg PO Q8HR PRN #10 tab 02/17/23 Allergies Allergy/AdvReac Type Severity Reaction Status Date / Time No Known Allergies Allergy Verified 02/17/23 08:54 Review of Systems ROS Statement: Those systems with pertinent positive or pertinent negative responses have been documented in the HPI. ROS Other: All systems not noted in ROS Statement are negative. Past Medical History Past Medical History: GERD/Reflux Additional Past Medical History / Comment(s): healing stomach ulcer, takes pr opranolol for tremors related to side effects from some of his meds History of Any Multi-Drug Resistant Organisms: None Reported Past Surgical History: No Surgical Hx Reported Additional Past Surgical History / Comment(s): EGD in Nov. Past Anesthesia/Blood Transfusion Reactions: No Reported Reaction Past Psychological History: Anxiety, Schizophrenia Smoking Status: Current every day smoker Past Alcohol Use History: None Reported Past Drug Use History: None Reported - Past Family History Father Additional Family Medical History / Comment(s): Father at age 53 from emphysema. Mother Additional Family Medical History / Comment(s): Mother is alive in her 50s with no major medical problems. Brother(s) Family Medical History: No Reported History Additional Family Medical History / Comment(s): Patient has 1 brother and 1 sister with no major medical problems. General Exam Limitations: no limitations General appearance: alert, in no apparent distress Head exam: Present: atraumatic, normocephalic, normal inspection Eye exam: Present: normal appearance, PERRL, EOMI. Absent: scleral icterus, conjunctival injection, periorbital swelling ENT exam: Present: normal exam, normal oropharynx, mucous membranes moist Neck exam: Present: normal inspection, full ROM. Absent: tenderness, meningismus, lymphadenopathy Respiratory exam: Present: normal lung sounds bilaterally. Absent: respiratory distress, wheezes, rales, rhonchi, stridor Cardiovascular Exam: Present: regular rate, normal rhythm, normal heart sounds. Absent: systolic murmur, diastolic murmur, rubs, gallop, clicks GI/Abdominal exam: Present: soft, normal bowel sounds. Absent: distended, tenderness, guarding, rebound, rigid Neurological exam: Present: alert Course Vital Signs 02/17/23 08:51 Temperature 98.1 F Pulse Rate 91 Respiratory 18 Rate Blood Pressure 122/85 O2 Sat by Pulse 96 Oximetry Medical Decision Making - Medical Decision Making Was pt. sent in by a medical professional or institution (, PA, FIELD OPERATIONS FARM MANAGER, urgent care, hospital, or detention...) When possible be specific @ -No Did you speak to anyone other than the patient for history (EMS, parent, family, police, friend...)? What history was obtained from this source @ -[facility] caregiver who provided recent history Did you review nursing and triage notes (agree or disagree)? Why? @ -I reviewed and agree with nursing and triage notes Were old charts reviewed (outside hosp., previous admission, EMS record, old EKG, old radiological studies, urgent care reports/EKG's, detention records)? Report findings @ -Reviewed past after x-rays and recent EGD study Differential Diagnosis (chest pain, altered mental status, abdominal pain women, abdominal pain men, vaginal bleeding, weakness, fever, dyspnea, syncope, headache, dizziness, GI bleed, back pain, seizure, CVA, palpatations, mental health, musculoskeletal)? @ -Differential Abdominal Pain Men: Appendicitis, cholecystitis, diverticulosis, ischemic bowel, pancreatitis, hepatitis, UTI, gastroenteritis, AAA, incarcerated hernia, bowel obstruction, constipation, inflammatory bowel, hepatitis, peptic ulcer disease, splenic infarction, perforated viscus, testicular torsion, this is not meant to be an all-inclusive listble EKG interpreted by me (3pts min.). @ -None X-rays interpreted by me (1pt min.). @ -KUB showing large stool burden CT interpreted by me (1pt min.). @ -None done U/S interpreted by me (1pt. min.). @ -None done What testing was considered but not performed or refused? (CT, X-rays, U/S, labs)? Why? @ -None What meds were considered but not given or refused? Why? @ -None Did you discuss the management of the patient with other professionals (professionals i.e. , PA, FIELD OPERATIONS FARM MANAGER, lab, RT, psych nurse, social science professor, unit reactor operator, teacher, executive officer, correctional counselor/case manager)? Give summary @ -No Was smoking cessation discussed for >3mins.? @ -No Was critical care preformed (if so, how long)? @ -No Were there social determinants of health that impacted care today? How? (Homelessness, low income, unemployed, alcoholism, drug addiction, transportation, low edu. Level, literacy, decrease access to med. care, nursing home, rehab)? @ -No Was there de-escalation of care discussed even if they declined (Discuss DNR or withdrawal of care, Hospice)? DNR status @ -No What co-morbidities impacted this encounter? (DM, HTN, Smoking, COPD, CAD, Canc er, CVA, ARF, Chemo, Hep., AIDS, mental health diagnosis, sleep apnea, morbid obesity)? @ -None Was patient admitted / discharged? Hospital course, mention meds given and route, prescriptions, significant lab abnormalities, going to OR and other pertinent info. @ -Discharged patient's x-ray shows moderate stool burden patient advised take stool softener laxative patient discharged with antiemetics laboratory studies unremarkable. Undiagnosed new problem with uncertain prognosis? @ -No Drug Therapy requiring intensive monitoring for toxicity (Heparin, Nitro, Insulin, Cardizem)? @ -No Were any procedures done? @ -No Diagnosis/symptom? @ -Nausea vomiting, constipation Acute, or Chronic, or Acute on Chronic? @ -Acute Uncomplicated (without systemic symptoms) or Complicated (systemic symptoms)? @ -Uncomplicated Side effects of treatment? @ -No Exacerbation, Progression, or Severe Exacerbation? @ -No Poses a threat to life or bodily function? How? (Chest pain, USA, LA, pneumonia, PE, COPD, DKA, ARF, appy, cholecystitis, CVA, Diverticulitis, Homicidal, Suicidal, threat to staff... and all critical care pts) @ -[No] - Lab Data Result diagrams: 02/17/23 09:17 02/17/23 09:17 Lab Results 02/17/23 02/17/23 Range/Units 09:17 09:17 WBC 8.7 (3.8-10.6) k/uL RBC 5.65 (4.30-5.90) m/uL Hgb 17.0 (13.0-17.5) gm/dL Hct 52.3 (39.0-53.0) % MCV 92.5 (80.0-100.0) fL MCH 30.1 (25.0-35.0) pg MCHC 32.5 (31.0-37.0) g/dL RDW 13.6 (11.5-15.5) % Plt Count 243 (150-450) k/uL MPV 7.0 Neutrophils % 70 % Lymphocytes % 18 % Monocytes % 5 % Eosinophils % 4 % Basophils % 0 % Neutrophils # 6.2 (1.3-7.7) k/uL Lymphocytes # 1.6 (1.0-4.8) k/uL Monocytes # 0.5 (0-1.0) k/uL Eosinophils # 0.4 (0-0.7) k/uL Basophils # 0.0 (0-0.2) k/uL Sodium 142 (137-145) mmol/L Potassium 4.5 (3.5-5.1) mmol/L Chloride 108 H (98-107) mmol/L Carbon Dioxide 24 (22-30) mmol/L Anion Gap 10 mmol/L BUN 15 (9-20) mg/dL Creatinine 0.63 L (0.66-1.25) mg/dL Est GFR (CKD-EPI)AfAm >90 (>60 ml/min/1.73 sqM) Est GFR (CKD-EPI)NonAf >90 (>60 ml/min/1.73 sqM) Glucose 108 H (74-99) mg/dL Calcium 8.9 (8.4-10.2) mg/dL Total Bilirubin 0.5 (0.2-1.3) mg/dL AST 25 (17-59) U/L ALT 30 (4-49) U/L Alkaline Phosphatase 96 (38-126) U/L Total Protein 7.4 (6.3-8.2) g/dL Albumin 4.1 (3.5-5.0) g/dL Amylase 51 (30-110) U/L Lipase 71 (23-300) U/L Disposition Clinical Impression: Nausea & vomiting, Constipation Disposition: HOME SELF-CARE Condition: Stable Instructions (If sedation given, give patient instructions): Acute Nausea and Vomiting (ED) Additional Instructions: Take [id number] stool softener laxative as directed. Please return to the Emergency Department if symptoms worsen or any other concerns. Prescriptions: Ondansetron Odt [Zofran Odt] 4 mg PO Q8HR PRN #10 tab PRN Reason: Nausea Is patient prescribed a controlled substance at d/c from ED?: No Referrals: Megan Bishop MD [Primary Care Provider] - 1-2 days Time of Disposition: 10:01
[2023-02-17 10:20] VITALS: BP 114/82; PULSE 82
== END 2023-02-17 10:20 | disposition home or self-care (01) ==
LOC: EC 08:38
DX: R11.2 Nausea with vomiting, unspecified (principal); K59.00 Constipation, unspecified; K21.9 Gastro-esophageal reflux disease without esophagitis; F41.9 Anxiety disorder, unspecified; F17.200 Nicotine dependence, unspecified, uncomplicated; Z79.899 Other long term (current) drug therapy
CPT/HCPCS: 36415; 80053; 82150; 83690; 85025; 74018; 99284; 96374; 96361; J2405

== ENCOUNTER 2024-01-19 14:30 | Inpatient (IN) | payer MEDICARE, MEDICAID ==
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
[2024-01-19 17:05] LABS: Amphetamine Screen,Urine Not Detected (NotDetected); Barbiturate Screen,Urine Not Detected (NotDetected); Benzodiazepines Screen,Urine Detected (NotDetected); Cocaine Screen,Urine Not Detected (NotDetected); Methadone Screen, Urine Not Detected (NotDetected); Opiate Screen,Urine Not Detected (NotDetected); Oxycodone Screen, Urine Not Detected (NotDetected); Phencyclidine Screen,Urine Not Detected (NotDetected); Tricyclic Antidepressant,Urine Detected (NotDetected); Urn Cannabinoid Scrn Not Detected (NotDetected)
[2024-01-19 19:37] LABS: HCT 49.1 % (39.0-53.0); HGB 15.8 gm/dL (13.0-17.5); MCH 30.3 pg (25.0-35.0); MCHC 32.3 g/dL (31.0-37.0); MCV 93.9 fL (80.0-100.0); Platelet Count 225 k/uL (150-450); RBC 5.22 m/uL (4.30-5.90); RDW 13.2 % (11.5-15.5); WBC 10.7 k/uL (3.8-10.6)
[2024-01-19 19:48] LABS: ALT 20 U/L (4-49); AST 19 U/L (17-59); African American GFR (CKD) >90 (>60 ml/min/1.73 sqM); Albumin 3.9 g/dL (3.5-5.0); Alkaline Phosphatase 96 U/L (38-126); Anion Gap 5 mmol/L; Blood Urea Nitrogen 13 mg/dL (9-20); Carbon Dioxide 22 mmol/L (22-30); Chloride 113 mmol/L (98-107); Glucose 98 mg/dL (74-99); Non-African American GFR(CKD) >90 (>60 ml/min/1.73 sqM); Potassium 4.4 mmol/L (3.5-5.1); Sodium 140 mmol/L (137-145); Total Bilirubin 0.4 mg/dL (0.2-1.3); Total Protein 6.9 g/dL (6.3-8.2)
[2024-01-20] MEDS ORDERED: HALOPERIDOL LACTATE 5 MG/ML 1 ML VIAL IM PRN (14:55)
[2024-01-20] MEDS ORDERED: MAG HYDROX/AL HYDROX/SIMETH 355 ML BOTTLE PO PRN (14:55)
[2024-01-20] MEDS ORDERED: LORazepam 1 MG TAB PO PRN (14:55)
[2024-01-20] MEDS ORDERED: LORazepam 2 MG/ML INJ IM PRN (14:55)
[2024-01-20] MEDS ORDERED: IBUPROFEN 600 MG TAB PO PRN (14:55)
[2024-01-20] MEDS ORDERED: haloperidoL 5 MG TAB PO PRN (14:55)
--- NOTE | 2024-01-20 18:57 | P.MDCNMH ---
History of Present Illness H&P Date: 01/20/24 Chief Complaint: Medical evaluation 33-year-old man with obesity class I, alcohol abuse, schizophrenia presented for mental health evaluation. Patient is not a reliable historian, does not seem to want to participate in interview today. However, overall he has no complaints at this time. From review of previous records, it appears the patient does have a history of alcohol abuse, the patient tells me he has not been drinking much recently. His review of systems was attempted but unreliable due to participation in interview Gen: In NAD, non-toxic HEENT: normocephalic, atraumatic, hearing acuity is intant, mucous membranes moist CVS: perfusing all extremities well, no pitting edema, Respiratory: symmetric chest expansion, no accessory muscle use, GI: soft, NTTP, ND, : no suprapubic tenderness, no CVA tenderness MSK/Derm: no rashes, cyanosis Neuro: CN II-XII intact, no motor weakness, Psych: uncooperative, narrow mood, judgment and insight is impaired Assessment/plan: Alcohol abuse Ongoing cessation counseling Thiamine, folate, multivitamin Obesity, class I Outpatient weight loss referral Schizophrenia Care per primary team Patient is full code Past Medical History Past Medical History: GERD/Reflux Additional Past Medical History / Comment(s): healing stomach ulcer, takes propranolol for tremors related to side effects from some of his meds History of Any Multi-Drug Resistant Organisms: None Reported Past Surgical History: No Surgical Hx Reported Additional Past Surgical History / Comment(s): EGD in Nov. Past Anesthesia/Blood Transfusion Reactions: No Reported Reaction Past Psychological History: Anxiety, Schizophrenia Additional Psychological History / Comment(s): recent discharge from [facility] [place] 11/10/22 Smoking Status: Current every day smoker Past Alcohol Use History: None Reported Additional Past Alcohol Use History / Comment(s): Patient is a smoker of one pack per day for greater than 10 years. He denies marijuana, street drug use. no alcohol use currently Past Drug Use History: None Reported - Past Family History Father Additional Family Medical History / Comment(s): Father at age 53 from emphysema. Mother Additional Family Medical History / Comment(s): Mother is alive in her 50s with no major medical problems. Brother(s) Family Medical History: No Reported History Additional Family Medical History / Comment(s): Patient has 1 brother and 1 sister with no major medical problems. Medications and Allergies Home Medications Medication Instructions Recorded Confirmed Type Glycopyrrolate [Robinul Forte] 2 mg PO HS@209902/09/23 01/19/24 History LORazepam [Ativan] 0.5 mg PO TID@0800,1500,2100 02/09/23 01/19/24 History Mirtazapine [Remeron] 15 mg PO HS@209902/09/23 01/19/24 History Pantoprazole [Protonix] 40 mg PO DAILY@0800 02/09/23 01/19/24 History cloZAPine [Clozaril] 200 mg PO HS@209902/09/23 01/19/24 History fluvoxaMINE [Luvox] 50 mg PO DAILY@0800 01/19/24 01/19/24 History Allergies Allergy/AdvReac Type Severity Reaction Status Date / Time No Known Allergies Allergy Verified 01/19/24 17:25 Physical Exam Osteopathic Statement: *. No significant issues noted on an osteopathic structural exam other than those noted in the History and Physical/Consult. Vitals: Vital Signs Temp Pulse Pulse Resp BP BP Pulse Ox 01/20/24 15:26 86 16 148/86 98 01/20/24 15:20 97.1 F L 76 16 124/65 96 01/20/24 14:00 85 20 140/68 98 01/20/24 09:00 68 16 110/58 98 01/20/24 06:45 75 18 105/64 01/19/24 22:28 73 18 127/72 98 Intake and Output 01/20/24 01/20/24 01/20/24 06:59 14:59 22:59 Other: Weight 108.04 kg Cranial Nerve Examination - Cranial Nerves Cranial Nerve II- Optic: Intact Cranial Nerve III- Oculomotor: Intact Cranial Nerve IV- Trochlear: Intact Cranial Nerve V- Trigeminal: Intact Cranial Nerve - Abducens: Intact Cranial Nerve VII- Facial: Intact Cranial Nerve VIII- Auditory: Intact Cranial Nerve IX- Glossopharyngeal: Intact Cranial Nerve X- Vagus: Intact Cranial Nerve XI- Accessory: Intact Cranial Nerve XII- Hypoglossal: Intact Results CBC & Chem 7: 01/19/24 19:20 01/19/24 19:20 Labs: Abnormal Lab Results - Last 24 Hours (Table) 01/19/24 01/19/24 Range/Units 19:20 19:20 WBC 10.7 H (3.8-10.6) k/uL Chloride 113 H (98-107) mmol/L
[2024-01-20] MEDS: MIRTAZAPINE 15 MG TAB PO SCH (21:51)
[2024-01-20] MEDS: GLYCOPYRROLATE 1 MG TAB PO SCH (21:51)
[2024-01-20] MEDS: cloZAPine 100 MG TAB PO SCH (21:51)
[2024-01-21] MEDS: PANTOPRAZOLE 40 MG TABLET PO SCH (09:05)
[2024-01-21] MEDS: NICOTINE 14MG/24HR PATCH TRANSDERM SCH (09:05)
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
[2024-01-21 10:50] LABS: ALT 23 U/L (4-49); AST 22 U/L (17-59); Albumin 3.8 g/dL (3.5-5.0); Alkaline Phosphatase 100 U/L (38-126); Bilirubin, Delta 0.3 mg/dL (0.0-0.2); Bilirubin,Unconjugated 0.4 mg/dL (0.0-1.1); Total Bilirubin 0.7 mg/dL (0.2-1.3); Total Protein 6.8 g/dL (6.3-8.2)
[2024-01-21 22:43] LABS: Chol/HDL Ratio 6.72 Ratio; LDL Cholesterol,Calculated 114.9 mg/dL (0.0-131.0)
--- NOTE | 2024-01-22 10:04 | P.PN ---
Progress Note - Text Progress Note Date: 01/22/24 Interval history: Patient was seen laying in bed today and was awoken by abstract writer and was directable and agreeable to speak with abstract writer. Patient continues to be fairly concrete, appears to be mildly less irritable than yesterday. Denying any depression or anxiety. Did not have any overnight complaints. He states that he has not showered yet, has been eating fairly. He was not endorsing any delusions or paranoia today. Claims that he slept fairly last night with no issues. At this time patient denies any suicidal or homicidal ideations intent or plan. Denies any Auditory or visual hallucinations. Patient denies any side effects from the medications and has been compliant with meds. Mental status exam: General Appearance: Patient appears to be mildly overweight, short hair, stated age is alert, directable, and attempts to be cooperative. Behavior: No agitated behavior. Patient is calm and directable, fairly concrete Speech: Patient's speech is fluent and nonpressured. [place]. Mood/Affect: Mood is improving mildly, affect is congruent and constricted. Suicidality/Homicidality: Patient denies having any suicidal or homicidal ideation intent or plan. Perceptions: Patient denies any auditory or visual hallucinations. Though content/process: There is no evidence of any delusional thought content. Fairly concrete, poor historian. Memory and concentration: AOX3, grossly intact for the purposes of this session Judgment and insight: Chronically poor Assessment/Plan: Continue with current diagnosis. Patient continues to meet criteria for inpatient psychiatric admission for symptom stabilization and safety. Patient will be maintained on current psychotropic medication regimen. Monitor for medication compliance and for any psychotropic medication side effects. Will continue to monitor ongoing response to treatment. Encouraged participation in milieu.
--- NOTE | 2024-01-23 12:13 | P.PN ---
Progress Note - Text Progress Note Date: 01/23/24 Interval History: Patient was seen in his room, and was directable and agreeable to speak with bond writer in the office. Patient states that he is ok today. He is secluding to his room, coming out for meals. Patient was fairly concrete. Irritability improving. He offers no complaints, other than he feels he is sleeping too much. At this time patient denies any suicidal or homicidal ideations, intent or plan. Patient denies any auditory, visual hallucinations and denies any paranoia or delusions. Patient denies any side effects from the medications and has been compliant with meds. 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 MENTAL STATUS EXAM: General Appearance: Patient appears to be stated age, fair hygiene and grooming. Behavior: Patient is seated without any agitated behavior. Guarded, vague and evasive Speech: Patient's speech is fluent and non-pressured. [place] Mood/Affect: Patient reports their mood is "ok", affect is congruent and constricted. Suicidality/Homicidality: Patient denies having any homicidal ideation intent or plan. Denies any suicidal ideation, intent or plan. Perceptions: Patient denies any visual hallucinations and denies any auditory hallucinations. Though content/process: [place], evasive. Superficial. Poor historian, improving mildly Memory and concentration: Alert and oriented to person, hospital, year Judgment and insight: poor chronically, improving mildly IMPRESSIONS: Schizophrenia Cannabis use disorder, by history Nicotine dependence PLAN: -Patient is admitted under involuntary status to MHU for stabilization of psychiatric symptoms and safety. Patient has not signed adult voluntary form and medication consent -Medications: Clozapine 200 mg qhs for mood stabilization/psychosis, will attempt to gather further information about dose of Prolixin decanaote. Luvox 50 mg daily for depression/anxiety. Remeron 15 mg nightly for mood/insomnia. Trazodone 100 mg nightly as needed for sleep Add Depakote 500mg PO qhs for mood stabilization -Ativan and Haldol PRN for agitation/aggression -NRT - nicotine patch -SW on board for discharge planning. Encourage patient to participate in groups to work on coping skills. System Development Manager completed a second certificate, will fax to certificates and petition to court for involuntary admission. Currently awaiting deferral and court hearing date. [facility] checking with [facility] to see if patient is allowed back on discharge.
[2024-01-23] MEDS: SENNOSIDES-DOCUSATE SODIUM 1 EACH TAB PO SCH (12:50)
[2024-01-23] MEDS: DIVALPROEX ER 500 MG TAB.ER.24H PO SCH (20:48)
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
[2024-01-26 08:37] LABS: Basophils % (A) 1 %; Eosinophils # (A) 0.3 k/uL (0-0.7); Eosinophils % (A) 7 %; HCT 50.1 % (39.0-53.0); HGB 16.2 gm/dL (13.0-17.5); Lymphocytes # (A) 1.8 k/uL (1.0-4.8); Lymphocytes % (A) 40 %; MCH 30.5 pg (25.0-35.0); MCHC 32.4 g/dL (31.0-37.0); MCV 94.2 fL (80.0-100.0); Mean Platelet Volume 7.1; Monocytes # (A) 0.3 k/uL (0-1.0); Monocytes % (A) 7 %; Neutrophils # (A) 1.9 k/uL (1.3-7.7); Neutrophils % (A) 42 %; Platelet Count 207 k/uL (150-450); RBC 5.32 m/uL (4.30-5.90); RDW 12.6 % (11.5-15.5); WBC 4.5 k/uL (3.8-10.6)
--- NOTE | 2024-01-26 10:21 | P.PN ---
Progress Note - Text Progress Note Date: 01/26/24 Interval History: Patient was seen in his room, and was directable and agreeable to speak with kendal pablo at the bedside. Patient states that he is ok today. He is secluding to his room, coming out for meals. Patient stated that he is sleeping well and his appetite is good. Patient was fairly concrete. Angular Developer told patient we are working with [facility] and his guardian to find a solution, and placement. At this time patient denies any suicidal or homicidal ideations, intent or plan. Patient denies any auditory, visual hallucinations and denies any paranoia or delusions. Patient denies any side effects from the medications and has been compliant with meds. MENTAL STATUS EXAM: General Appearance: Patient appears to be stated age, fair hygiene and grooming. Behavior: Patient is seated without any agitated behavior. Guarded, vague and evasive, mildly improving Speech: Patient's speech is fluent and non-pressured. [place], mildly improving Mood/Affect: Patient reports their mood is "ok", affect is congruent and constricted. Suicidality/Homicidality: Patient denies having any homicidal ideation intent or plan. Denies any suicidal ideation, intent or plan. Perceptions: Patient denies any visual hallucinations and denies any auditory hallucinations. Though content/process: [place], evasive. Superficial. Poor historian, improving mildly Memory and concentration: Alert and oriented to person, hospital, year Judgment and insight: poor chronically, improving mildly IMPRESSIONS: Schizophrenia Cannabis use disorder, by history Nicotine dependence PLAN: -Patient is admitted under involuntary status to MHU for stabilization of psychiatric symptoms and safety. Patient has not signed adult voluntary form and medication consent. -Medications: Clozapine 200 mg qhs for mood stabilization/psychosis. Luvox 50 mg daily for depression/anxiety. Remeron 15 mg nightly for mood/insomnia. Trazodone 100 mg nightly as needed for sleep, Depakote 500mg PO qhs for mood stabilization -Ativan and Haldol PRN for agitation/aggression -NRT - nicotine patch - on board for discharge planning. Encourage patient to participate in groups to work on coping skills. Patient received a mental health court order on 01/24. Patient apparently is not allowed back at [facility] or any other indicated housing in the area, social service agency director will touch base with [facility] and also patient's guardian to look at out of County placement options.
--- NOTE | 2024-01-27 18:07 | P.PN ---
Progress Note - Text Progress Note Date: 01/27/24 Interval history: Patient was seen isolating to his room. He appears withdrawn and guarded. He states he has not showered in 5+ days and is malodorous. He has not been attending groups. He appears to minimize his symptoms and focus on discharge. He states "I just want to get out of here." At this time patient denies any suicidal or homicidal ideations intent or plan. He denies auditory or visual hallucinations, but appears to be attending to internal stimuli at times. Brian perez denies any side effects from the medications and has been compliant with meds. Mental status exam: General Appearance: Patient appears to be stated age. He has not showered in 5 days and is malodorous. Behavior: No agitated behavior. Patient is withdrawn, isolates to his room in the dark. Speech: Patient's speech is fluent and non-pressured. Mood/Affect: Mood is "fine", affect is blunt and constricted. Suicidality/Homicidality: Patient denies having any suicidal or homicidal ideation intent or plan. Perceptions: Patient denies any auditory or visual hallucinations, but there is concern he is attending to internal stimuli. Though content/process: There is no overt evidence of any delusional thought content and thought process is concrete. Memory and concentration: AOX3, grossly intact for the purposes of this session Judgment and insight: chronically poor Assessment/Plan: Continue with current diagnosis. Patient continues to meet criteria for inpatient psychiatric admission for symptom stabilization and safety. Increase Clozapine from 200 mg QHS to 50 mg QAM/200 mg QHS for psychosis/mood. Monitor for medication compliance and for any psychotropic medication side e ffects. Will continue to monitor ongoing response to treatment. Encouraged participation in milieu.
[2024-01-28] MEDS: cloZAPine 25 MG TAB PO SCH (08:52)
[2024-01-28] MEDS: traZODone HCL 50 MG TAB PO PRN (20:57)
[2024-01-29] MEDS: cloZAPine 25 MG TAB PO SCH (08:39)
--- NOTE | 2024-01-29 21:04 | P.PN ---
Progress Note - Text Progress Note Date: 01/28/24 Interval history: Patient was seen isolating to his room again today, does not engage with peers. He has not showered, is malodorous, there is a strong odor in his room. He appears withdrawn and guarded, however thoughts appear more spontaneous with less thought blocking. He appears to minimize his symptoms and focus on discharge, continues to express his desire to "I just want to get out of here." At this time patient denies any suicidal or homicidal ideation, intent or plan. He denies auditory or visual hallucinations, but appears to be attending to internal stimuli at times. Patient denies any side effects from the medications and has been compliant with meds. Mental status exam: General Appearance: Patient appears to be stated age. Not showered, is malodorous, there is a strong odor in the room. Behavior: No agitated behavior. Patient is withdrawn, isolates to his room. Speech: Patient's speech is fluent and non-pressured. Mood/Affect: Mood is "fine", affect is blunt and constricted. Suicidality/Homicidality: Patient denies having any suicidal or homicidal ideation intent or plan. Perceptions: Patient denies any auditory or visual hallucinations, but there is concern he is attending to internal stimuli. Though content/process: There is no overt evidence of any delusional thought content and thought process is concrete. Memory and concentration: AOX3, grossly intact for the purposes of this session Judgment and insight: chronically poor Assessment/Plan: Continue with current diagnosis. Patient continues to meet criteria for inpatient psychiatric admission for symptom stabilization and safety. Increase Clozapine from 50 mg QAM/200 mg QHS to 75 mg QAM/200 mg QHS for psychosis/mood. Monitor for medication compliance and for any psychotropic medication side effects. Will continue to monitor ongoing response to treatment. Encouraged participation in milieu.
--- NOTE | 2024-01-29 22:03 | P.PN ---
Progress Note - Text Progress Note Date: 01/29/24 Interval history: Patient was seen isolating to his room again today but this time with lights on instead on in the dark. He does not engage with peers, keeps to himself. He states he showered yesterday, however he is malodorous, there is a strong odor in his room. He appears guarded still; thoughts appear more spontaneous with minimal thought blocking. He denies depressed mood. He continues to focus on discharge, continues to express his desire to "I just want to get out of here." At this time patient denies any suicidal or homicidal ideation, intent or plan. He denies auditory or visual hallucinations, but appears to be attending to internal stimuli at times. Patient denies any side effects from the medications, denies drowsiness or constipation, and has been compliant with meds. Mental status exam: General Appearance: Patient appears to be stated age. Malodorous, there is a strong odor in the room. Behavior: No agitated behavior. Patient is withdrawn, isolates to his room. Speech: Patient's speech is fluent and non-pressured. Mood/Affect: Mood is "fine", affect is blunt and constricted. Suicidality/Homicidality: Patient denies having any suicidal or homicidal ideation intent or plan. Perceptions: Patient denies any auditory or visual hallucinations, but there is concern he is attending to internal stimuli. Though content/process: There is no overt evidence of any delusional thought content and thought process is concrete. Memory and concentration: AOX3, grossly intact for the purposes of this session Judgment and insight: chronically poor Assessment/Plan: Continue with current diagnosis. [facility]. Increase Clozapine from 75 mg QAM/200 mg QHS to 100 mg QAM/200 mg QHS for psychosis/mood. Monitor for medication compliance and for any psychotropic medication side effects. Will continue to monitor ongoing response to treatment. Encouraged participation in milieu.
[2024-01-30] MEDS: cloZAPine 100 MG TAB PO SCH (08:18)
--- NOTE | 2024-01-30 21:38 | P.PN ---
Progress Note - Text Progress Note Date: 01/30/24 Interval history: Patient was seen isolating to his room again today, is sitting up in bed with lights on and door open. He does not engage with peers, keeps to himself. He states he showered yesterday and changed his bedsheets. He appears to be improving since adding and increasing the morning dose of Clozapine. He does not appear to be attending to internal stimuli today and no thought blocking observed. He denies depressed mood. He continues to focus on discharge, cont inues to express his desire to "I just want to get out of here." At this time patient denies any suicidal or homicidal ideation, intent or plan. He denies auditory or visual hallucinations. Patient denies any side effects from the medications, denies drowsiness or constipation, and has been compliant with meds. Mental status exam: General Appearance: Patient appears to be stated age. Malodorous, there is a strong odor in the room. Behavior: No agitated behavior. Patient is withdrawn, isolates to his room. Speech: Patient's speech is fluent and non-pressured. Mood/Affect: Mood is "fine", affect is blunt and constricted. Suicidality/Homicidality: Patient denies having any suicidal or homicidal ideation intent or plan. Perceptions: Patient denies any auditory or visual hallucinations, but there is concern he is attending to internal stimuli. Though content/process: There is no overt evidence of any delusional thought content and thought process is concrete. Memory and concentration: AOX3, grossly intact for the purposes of this session Judgment and insight: chronically poor Assessment/Plan: Continue with current diagnosis. Patient continues to meet criteria for inpatient psychiatric admission for symptom stabilization and safety. Continue Clozapine 100 mg QAM/200 mg QHS for psychosis/mood. He will need a Clozapine level checked as an outpatient. Weekly CBCs while in the hospital. Monitor for medication compliance and for any psychotropic medication side effects. Will continue to monitor ongoing response to treatment. Encouraged participation in milieu.
[2024-01-31 10:57] VITALS: BMI 33.5
[2024-01-31] MEDS: DOCUSATE 100 MG CAP PO SCH (11:37)
--- NOTE | 2024-01-31 12:38 | P.PN ---
Progress Note - Text Progress Note Date: 01/31/24 Interval History: Patient was seen in his room, and was directable and agreeable to speak with kendal pablo at the bedside. Patient states that he is ok today. He is secluding to his room, coming out for meals. Patient stated that he is sleeping well and his appetite is good. Patient was fairly concrete. Stripper Shovel Operator told patient we are working with [facility] and his guardian to find a solution, and placement. Patient has not had a bowel movement in more than 1 week, sba underwriter will order an abdominal xray, and a stool softener. Patient offers no other complaints. At this time patient denies any suicidal or homicidal ideations, intent or plan. Patient denies any auditory, visual hallucinations and denies any paranoia or delusions. Patient denies any side effects from the medications and has been compliant with meds. MENTAL STATUS EXAM: General Appearance: Patient appears to be stated age, fair hygiene and grooming. Behavior: Patient is seated without any agitated behavior. Guarded, vague and evasive, mildly improving Speech: Patient's speech is fluent and non-pressured. [place], mildly improvin g Mood/Affect: Patient reports their mood is "ok", affect is congruent and constricted. Suicidality/Homicidality: Patient denies having any homicidal ideation intent or plan. Denies any suicidal ideation, intent or plan. Perceptions: Patient denies any visual hallucinations and denies any auditory hallucinations. Though content/process: [place], evasive. Superficial. improving mildly Memory and concentration: Alert and oriented to person, hospital, year Judgment and insight: poor chronically, improving mildly IMPRESSIONS: Schizophrenia Cannabis use disorder, by history Nicotine dependence PLAN: -Patient is admitted under involuntary status to MHU for stabilization of psychiatric symptoms and safety. Patient has not signed adult voluntary form and medication consent. -Medications: Clozapine 200 mg qhs for mood stabilization/psychosis. Decrease the daily dose of Clozapine to 50mg daily with plan to titrate this dose off. add colace 100mg po BID, for constipation. Luvox 50 mg daily for depression/anxiety. Remeron 15 mg nightly for mood/insomnia. Trazodone 100 mg nightly as needed for sleep, Depakote 500mg PO qhs for mood stabilization -Ordered abdominal x-ray for constipation associated likely with clozapine -Ativan and Haldol PRN for agitation/aggression -NRT - nicotine patch - on board for discharge planning. Encourage patient to participate in groups to work on coping skills. Patient received a mental health court order on 01/24. Patient apparently is not allowed back at [facility] or any other indicated housing in the area, social professionals will touch base with [facility] and also patient's guardian to look at out of County placement options.
--- NOTE | 2024-01-31 13:31 | XR ---
EXAMINATION TYPE: XR abdomen 2V DATE OF EXAM: 01/31/2024 COMPARISON: 02/17/2023 INDICATION: Constipation TECHNIQUE: Abdomen is examined in the supine and upright views. FINDINGS: There is a normal bowel gas pattern. No free air is evident. No suspicious differential air-fluid lev els are evident. No mass effect is evident. There is some moderate fecal retention throughout the col on. Psoas margins are normal. No organomegaly is present. No mass effect is evident. No radiopaque foreign bodies are identified. IMPRESSION: 1. Moderate fecal retention without changes to suggest obstruction
[2024-02-01] MEDS: SENNOSIDES-DOCUSATE SODIUM 1 EACH TAB PO SCH (08:55)
[2024-02-01] MEDS: cloZAPine 25 MG TAB PO SCH (08:57)
[2024-02-01 09:41] LABS: Basophils % (A) 1 %; Eosinophils # (A) 0.3 k/uL (0-0.7); Eosinophils % (A) 5 %; HCT 48.3 % (39.0-53.0); HGB 15.7 gm/dL (13.0-17.5); Lymphocytes # (A) 1.5 k/uL (1.0-4.8); Lymphocytes % (A) 27 %; MCH 30.6 pg (25.0-35.0); MCHC 32.5 g/dL (31.0-37.0); Mean Platelet Volume 7.7; Monocytes # (A) 0.4 k/uL (0-1.0); Monocytes % (A) 8 %; Neutrophils # (A) 3.3 k/uL (1.3-7.7); Neutrophils % (A) 59 %; Platelet Count 207 k/uL (150-450); RBC 5.14 m/uL (4.30-5.90); RDW 12.8 % (11.5-15.5); WBC 5.6 k/uL (3.8-10.6)
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
[2024-02-01] MEDS: MAGNESIUM HYDROXIDE 2,400 MG/30 ML CUP PO PRN (11:29)
[2024-02-02] MEDS: cloZAPine 25 MG TAB PO ONE (09:03)
--- NOTE | 2024-02-02 09:34 | P.PN ---
Progress Note - Text Progress Note Date: 02/02/24 Interval History: Patient was seen in his room, and was directable and agreeable to speak with kendal pablo. Patient continues to mainly keep to himself on the unit and stay in his room. He continues to be fairly concrete. He states that he is doing well today, denies any overnight complaints. States that he is taking his medications not reporting any side effects. He continues to state that he does have some constipation. Patient stated that he is sleeping well and his appetite is good. Patient was fairly concrete. Continues to be fairly concrete. Encouraged patient to drink more fluids, and prune juice to produce a bowel movement. Patient offers no other complaints. At this time patient denies any suicidal or homicidal ideations, intent or plan. Patient denies any auditory, visual hallucinations and denies any paranoia or delusions. Patient denies any side effects from the medications and has been compliant with meds. MENTAL STATUS EXAM: General Appearance: Patient appears to be stated age, fair hygiene and grooming. Behavior: Patient is seated without any agitated behavior. Guarded, mildly improving Speech: Patient's speech is fluent and non-pressured. [place], mildly improving Mood/Affect: Patient reports their mood is "ok", affect is congruent and constricted. Suicidality/Homicidality: Patient denies having any homicidal ideation intent or plan. Denies any suicidal ideation, intent or plan. Perceptions: Patient denies any visual hallucinations and denies any auditory hallucinations. Though content/process: [place], evasive. Superficial. improving mildly Memory and concentration: Alert and oriented to person, hospital, year Judgment and insight: poor chronically, improving mildly IMPRESSIONS: Schizophrenia Cannabis use disorder, by history Nicotine dependence PLAN: -Patient is admitted under involuntary status to MHU for stabilization of psych iatric symptoms and safety. Patient has not signed adult voluntary form and medication consent. -Medications : Clozapine 200 mg qhs for mood stabilization/psychosis. colace 100mg po BID, for constipation. Luvox 50 mg daily for depression/anxiety. Remeron 15 mg nightly for mood/insomnia. Trazodone 100 mg nightly as needed for sleep, Depakote 500mg PO qhs for mood stabilization -Ativan and Haldol PRN for agitation/aggression -NRT - nicotine patch -SW on board for discharge planning. Encourage patient to participate in groups to work on coping skills. Patient received a mental health court order on 01/24. Patient apparently is not allowed back at [facility] or any other indicated housing in the area, hospice social worker will touch base with [facility] and also patient's guardian to look at out of County placement options.
--- NOTE | 2024-02-03 11:09 | P.PN ---
Progress Note - Text Progress Note Date: 02/03/24 Interval History: Patient was seen in his room, and was directable and agreeable to speak with kendal pablo. Patient states that he is ok today. Continues to be fairly concrete. Patient states that he still has not had a bowel movement. Encouraged patient to drink more fluids, and prune juice to produce a bowel movement. Patient encouraged to shower, as the patient stated he has only showered once or twice since he has been here. Patient also stated he spoke with his protective services case worker from [facility] yesterday about placement. Bottling Line Attendant explained to the patient we are collaborating with his guardian and [facility] to find placement for him. Patient offers no other complaints. At this time patient denies any suicidal or homicidal ideations, intent or plan. Patient denies any auditory, visual hallucinations and denies any paranoia or delusions. Patient denies any side effects from the medications and has been compliant with meds. MENTAL STATUS EXAM: General Appearance: Patient appears to be stated age, fair hygiene and grooming. Behavior: Patient is seated without any agitated behavior. Guarded, mildly i mproving Speech: Patient's speech is fluent and non-pressured. [place], mildly improving Mood/Affect: Patient reports their mood is "ok", affect is congruent and constricted. Suicidality/Homicidality: Patient denies having any homicidal ideation intent or plan. Denies any suicidal ideation, intent or plan. Perceptions: Patient denies any visual hallucinations and denies any auditory hallucinations. Though content/process: [place], evasive. Superficial. improving mildly Memory and concentration: Alert and oriented to person, hospital, year Judgment and insight: poor chronically, improving mildly IMPRESSIONS: Schizophrenia Cannabis use disorder, by history Nicotine dependence PLAN: -Patient is admitted under involuntary status to MHU for stabilization of psychiatric symptoms and safety. Patient has not signed adult voluntary form and medication consent. -Medications : Clozapine 200 mg qhs for mood stabilization/psychosis. Senokot po BID, for constipation. Added bisacodyl 5 mg daily for constipation. Luvox 50 mg daily for depression/anxiety. Remeron 15 mg nightly for mood/insomnia. Trazodone 100 mg nightly as needed for sleep, Depakote 500mg PO qhs for mood stabilization -Ativan and Haldol PRN for agitation/aggression -NRT - nicotine patch -SW on board for discharge planning. Encourage patient to participate in groups to work on coping skills. Patient received a mental health court order on 01/24. Patient apparently is not allowed back at [facility] or any other indicated housing in the area, social economist will touch base with [facility] and also patient's guardian to look at out of County placement options. awaiting shoe parts caser at [facility] to submit [place] housing application.
[2024-02-03] MEDS: bisacodyL 5 MG TABLET.DR PO SCH (12:30)
[2024-02-03] MEDS: SENNOSIDES-DOCUSATE SODIUM 1 EACH TAB PO SCH (21:41)
--- NOTE | 2024-02-04 11:16 | P.PN ---
Subjective Progress Note Date: 02/04/24 Principal diagnosis: IMPRESSIONS: Schizophrenia Cannabis use disorder, by history Nicotine dependence Interval History: Patient was seen in his room, and was directable and agreeable to speak with advertising copywriter I refused to come down to the office so I could look him up on his comput er and was somewhat vague as to what he was taking but he basically did not want to talk and he did not complain of side effects when I asked him.. Patient states that he is ok today. Continues to be fairly concrete. Patient encouraged to shower, there is definitely a strong body odor when I entered the room. At this time patient denies any suicidal or homicidal ideations, intent or plan. Patient denies any auditory, visual hallucinations and denies any paranoia or delusions. Patient denies any side effects from the medications and has been compliant with meds. MENTAL STATUS EXAM: General Appearance: Patient appears to be stated age, fair hygiene and grooming. Behavior: Patient is seated without any agitated behavior. Guarded, mildly improving Speech: Patient's speech is fluent and non-pressured. [place], mildly improving Mood/Affect: Patient reports their mood is "ok", he seems slightly irritated about having to see me or answer any questions and did not want to put out any effort. Suicidality/Homicidality: Patient denies having any homicidal ideation intent or plan. Denies any suicidal ideation, intent or plan. Perceptions: Patient denies any visual hallucinations and denies any auditory hallucinations. Though content/process: [place], content is fairly empty evasive. Superficial. Memory and concentration: Alert and oriented to person, hospital, year Judgment and insight: poor chronically, IMPRESSIONS: Schizophrenia Cannabis use disorder, by history Nicotine dependence PLAN: No change in medications -Patient is admitted under involuntary status to MHU for stabilization of psychiatric symptoms and safety. Patient has not signed adult voluntary form and medication consent. -Medications : Clozapine 200 mg qhs for mood stabilization/psychosis. Senokot po BID, for constipation. Added bisacodyl 5 mg daily for constipation. Luvox 50 mg daily for depression/anxiety. Remeron 15 mg nightly for mood/insomnia. Trazodone 100 mg nightly as needed for sleep, Depakote 500mg PO qhs for mood stabilization -Ativan and Haldol PRN for agitation/aggression -NRT - nicotine patch -SW on board for discharge planning. Encourage patient to participate in groups to work on coping skills. Patient received a mental health court order on 01/24. Patient apparently is not allowed back at [facility] or any other indicated housing in the area, social service coordinator will touch base with [facility] and also patient's guardian to look at out of County placement options. awaiting employment case manager at [facility] to submit [place] housing application. Objective - Vital Signs Vital signs: Vital Signs Temp 97.5 F L 02/04/24 06:21 Pulse 80 02/04/24 06:21 Resp 16 02/04/24 06:21 BP 136/82 02/04/24 06:21 Pulse Ox 92 L 02/03/24 09:24 FiO2 - Labs CBC & Chem 7: 02/01/24 08:53 01/19/24 19:20
--- NOTE | 2024-02-05 13:28 | P.PN ---
Subjective Progress Note Date: 02/05/24 Principal diagnosis: IMPRESSIONS: Schizophrenia Cannabis use disorder, by history Nicotine dependence Interval History: Patient was seen in his room, and was directable and agreeable to speak with singer songwriter but refused to come down to the office he was somewhat vague as to what h mitzi was taking but he basically did not want to talk and he did not complain of side effects when I asked him. "I'm fine".. Continues to be fairly concrete At this time patient denies any suicidal or homicidal ideations, intent or plan. Patient denies any auditory, visual hallucinations and denies any paranoia or delusions. Patient denies any side effects from the medications and has been compliant with meds. MENTAL STATUS EXAM: Flat affect poor eye contact General Appearance: Patient appears to be stated age, fair hygiene and grooming. Behavior: Patient is seated without any agitated behavior. Guarded, mildly improving Speech: Patient's speech is fluent and non-pressured. [place], mildly improving Mood/Affect: Patient reports their mood is "ok", he seems slightly irritated about having to see me or answer any questions and did not want to put out any effort. Suicidality/Homicidality: Patient denies having any homicidal ideation intent or plan. Denies any suicidal ideation, intent or plan. Perceptions: Patient denies any visual hallucinations and denies any auditory hallucinations. Though content/process: [place], content is fairly empty evasive. Superficial. Memory and concentration: Alert and oriented to person, hospital, year Judgment and insight: poor chronically, IMPRESSIONS: Schizophrenia Cannabis use disorder, by history Nicotine dependence PLAN: No change in medications -Patient is admitted under involuntary status to MHU for stabilization of psychiatric symptoms and safety. Patient has not signed adult voluntary form and medication consent. -Medications : Clozapine 200 mg qhs for mood stabilization/psychosis. Senokot po BID, for constipation. Added bisacodyl 5 mg daily for constipation. Luvox 50 mg daily for depression/anxiety. Remeron 15 mg nightly for mood/insomnia. Trazodone 100 mg nightly as needed for sleep, Depakote 500mg PO qhs for mood stabilization -Ativan and Haldol PRN for agitation/aggression -NRT - nicotine patch -SW on board for discharge planning. Encourage patient to participate in groups to work on coping skills. Patient received a mental health court order on 01/24. Patient apparently is not allowed back at [facility] or any other indicated housing in the area, protective services social worker will touch base with [facility] and also patient's guardian to look at out of County placement options. awaiting rifle case repairer at [facility] to submit [place] housing application. Objective - Vital Signs Vital signs: Vital Signs Temp 97.5 F L 02/04/24 06:21 Pulse 72 02/05/24 06:45 Resp 16 02/04/24 06:21 BP 124/79 02/05/24 06:45 Pulse Ox 92 L 02/03/24 09:24 FiO2 - Labs CBC & Chem 7: 02/01/24 08:53 01/19/24 19:20
[2024-02-06 10:00] LABS: Appearance,Urine Cloudy (Clear); Bilirubin,Urine Negative (Negative); Blood,Urine Negative (Negative); Color,Urine Yellow; Glucose,Urine (UA) Negative (Negative); Ketones,Urine Negative (Negative); Leukocyte Esterase,Urine Negative (Negative); Mucus,Urine Many /hpf; Nitrite,Urine Negative (Negative); Protein,Urine 1+ (Negative); Specific Gravity,Urine 1.037 (1.001-1.035); Squamous Epithelial Cell,Urine 1 /hpf (0-4); WBC,Urine 1 /hpf (0-5)
--- NOTE | 2024-02-06 10:32 | P.PN ---
Progress Note - Text Progress Note Date: 02/06/24 Interval History: Patient was seen in his room, and was directable and agreeable to speak with kendal pablo at the bedside. Patient states that he is "good". Continues to be fairly concrete . Patient continues to state that he has not had a bowel movement. Patient did shower Tuesday. Patient is eating all meals, and states his appetite is good. Patient claims to be sleeping well at night. He still secludes himself to his room, and is not seen out on the unit, or in any groups. Encouraged patient to attend groups. At this time patient denies any suicidal or homicidal ideations, intent or plan. Patient denies any auditory, visual hallucinations and denies any paranoia or delusions. Patient denies any side effects from the medications and has been compliant with meds. MENTAL STATUS EXAM: General Appearance: Patient appears to be stated age, fair hygiene and grooming. Flat affect poor eye contact Behavior: Patient is seated without any agitated behavior. Guarded, mildly improving Speech: Patient's speech is fluent and non-pressured. [place], mildly improving Mood/Affect: Patient reports their mood is "ok", affect is congruent. Suicidality/Homicidality: Patient denies having any homicidal ideation intent or plan. Denies any suicidal ideation, intent or plan. Perceptions: Patient denies any visual hallucinations and denies any auditory hallucinations. Though content/process: [place], content is fairly empty evasive. Superficial. Memory and concentration: Alert and oriented to person, hospital, year Judgment and insight: poor chronically, IMPRESSIONS: Schizophrenia Cannabis use disorder, by history Nicotine dependence PLAN: No change in medications -Patient is admitted under involuntary status to MHU for stabilization of psychiatric symptoms and safety. Patient has not signed adult voluntary form and medication consent. -Medications : Clozapine 200 mg qhs for mood stabilization/psychosis. Senokot po BID, for constipation. bisacodyl 5 mg daily for constipation. Luvox 50 mg daily for depression/anxiety. Remeron 15 mg nightly for mood/insomnia. Trazodone 100 mg nightly as needed for sleep, Depakote 500mg PO qhs for mood stabilization -Ativan and Haldol PRN for agitation/aggression -NRT - nicotine patch -SW on board for discharge planning. Encourage patient to participate in groups to work on coping skills. Patient received a mental health court order on 01/24. Patient apparently is not allowed back at [facility] or any other indicated housing in the area, social services manager will touch base with [facility] and also patient's guardian to look at out of County placement options. awaiting rehabilitation caseworker at [facility] to submit [place] housing application.
--- NOTE | 2024-02-07 09:56 | P.PN ---
Progress Note - Text Progress Note Date: 02/07/24 Interval History: Patient was seen in his room, and was directable and agreeable to speak with kendal pablo at the bedside. Patient continues to have a flat affect continues to isolate in his room. Patient continues to state that he has not had a bowel movement. Patient is eating all meals, and states his appetite is good. Patient claims to be sleeping well at night. not going to groups. Encouraged patient to attend groups and continue showering. At this time patient denies any suicidal or homicidal ideations, intent or plan. Patient denies any auditory, visual hallucinations and denies any paranoia or delusions. Patient denies any side effects from the medications and has been compliant with meds. MENTAL STATUS EXAM: General Appearance: Patient appears to be stated age, fair hygiene and grooming. Flat affect poor eye contact Behavior: Patient is seated without any agitated behavior. Guarded, mildly improving Speech: Patient's speech is fluent and non-pressured. [place], mildly improving Mood/Affect: Patient reports their mood is "ok", affect is congruent. Suicidality/Homicidality: Patient denies having any homicidal ideation intent or plan. Denies any suicidal ideation, intent or plan. Perceptions: Patient denies any visual hallucinations and denies any auditory hallucinations. Though content/process: [place], content is fairly empty evasive. Superficial. Memory and concentration: Alert and oriented to person, hospital, year Judgment and insight: poor chronically, improving mildly IMPRESSIONS: Schizophrenia Cannabis use disorder, by history Nicotine dependence PLAN: No change in medications -Patient is admitted under involuntary status to MHU for stabilization of psychiatric symptoms and safety. Patient has not signed adult voluntary form and medication consent. -Medications : Clozapine 200 mg qhs for mood stabilization/psychosis. Senokot po BID, for constipation. bisacodyl 5 mg daily for constipation. Luvox 50 mg daily for depression/anxiety. Remeron 15 mg nightly for mood/insomnia. Trazodone 100 mg nightly as needed for sleep, Depakote 500mg PO qhs for mood stabilization -Ativan and Haldol PRN for agitation/aggression -NRT - nicotine patch -SW on board for discharge planning. Encourage patient to participate in groups to work on coping skills. Patient received a mental health court order on 01/24. Patient apparently is not allowed back at [facility] or any other indicated housing in the area, social media assistant will touch base with [facility] and also patient's guardian to look at out of County placement options. awaiting briefcase sewer at [facility] to submit [place] housing application. Also waiting on apartment maintenance worker to investigate if patient will be a fci hold due to assault charges from incident at the [facility].
--- NOTE | 2024-02-08 09:47 | P.PN ---
Progress Note - Text Progress Note Date: 02/08/24 Interval History: Patient was seen in his room, and was directable and agreeable to speak with kendal pablo at the bedside. Patient continues to have a flat affect and continues to isolate in his room. Patient is eating all meals, and states his appetite is good. Patient claims to be sleeping well at night. not going to groups. Encouraged patient to attend groups and continue showering. Event Designer spoke with patient about working with [facility] and his guardian to find placement for him. Social work is also looking into options. At this time patient denies any suicidal or homicidal ideations, intent or plan. Patient denies any auditory, visual hallucinations and denies any paranoia or delusions. Patient denies any side effects from the medications and has been compliant with meds. MENTAL STATUS EXAM: General Appearance: Patient appears to be stated age, fair hygiene and grooming. Flat affect poor eye contact Behavior: Patient is seated without any agitated behavior. Guarded, mildly improving Speech: Patient's speech is fluent and non-pressured. [place], mildly improving Mood/Affect: Patient reports their mood is "ok", affect is congruent. Suicidality/Homicidality: Patient denies having any homicidal ideation intent or plan. Denies any suicidal ideation, intent or plan. Perceptions: Patient denies any visual hallucinations and denies any auditory hallucinations. Though content/process: [place], content is fairly empty evasive. Superficial. Memory and concentration: Alert and oriented to person, hospital, year Judgment and insight: poor chronically, improving mildly IMPRESSIONS: Schizophrenia Cannabis use disorder, by history Nicotine dependence PLAN: No change in medications -Patient is admitted under involuntary status to MHU for stabilization of psychiatric symptoms and safety. Patient has not signed adult voluntary form and medication consent. -Medications : Clozapine 200 mg qhs for mood stabilization/psychosis. Senokot po BID, for constipation. bisacodyl 5 mg daily for constipation. Luvox 50 mg daily for depression/anxiety. Remeron 15 mg nightly for mood/insomnia. Trazodone 100 mg nightly as needed for sleep, Depakote 500mg PO qhs for mood stabilization -Ativan and Haldol PRN for agitation/aggression -NRT - nicotine patch -SW on board for discharge planning. Encourage patient to participate in groups to work on coping skills. Patient received a mental health court order on 01/24. Patient apparently is not allowed back at [facility] or any other indicated housing in the area, social service director will touch base with [facility] and also patient's guardian to look at out of County placement options. awaiting behavioral health case manager at [facility] to submit [place] housing application. Also waiting on medical case worker to investigate if patient will be a fci hold due to assault charges from incident at the assisted.
[2024-02-08 11:30] LABS: Basophils % (A) 1 %; Eosinophils # (A) 0.3 k/uL (0-0.7); Eosinophils % (A) 5 %; HCT 51.6 % (39.0-53.0); HGB 16.6 gm/dL (13.0-17.5); Lymphocytes # (A) 1.8 k/uL (1.0-4.8); Lymphocytes % (A) 31 %; MCHC 32.1 g/dL (31.0-37.0); MCV 93.5 fL (80.0-100.0); Mean Platelet Volume 7.7; Monocytes # (A) 0.2 k/uL (0-1.0); Monocytes % (A) 4 %; Neutrophils # (A) 3.4 k/uL (1.3-7.7); Neutrophils % (A) 58 %; Platelet Count 236 k/uL (150-450); RBC 5.52 m/uL (4.30-5.90); RDW 12.7 % (11.5-15.5); WBC 5.8 k/uL (3.8-10.6)
--- NOTE | 2024-02-09 11:04 | P.PN ---
Progress Note - Text Progress Note Date: 02/09/24 Interval History: Patient was seen in his room, and was directable and agreeable to speak with kendal pablo at the bedside. Patient states that he is doing ok. Patient continues to be concrete, and having a flat affect. Patient continues to isolate to his room, coming out only for meals and medication. He is not attending groups, and has not attended any groups since admission. Log Roller informed patient that we are waiting for H and guardian to coordinate his discharge. At this time patient denies any suicidal or homicidal ideations, intent or plan. Patient denies any auditory, visual hallucinations and denies any paranoia or delusions. Patient denies any side effects from the medications and has been compliant with meds. MENTAL STATUS EXAM: General Appearance: Patient appears to be stated age, fair hygiene and grooming. Flat affect poor eye contact Behavior: Patient is seated without any agitated behavior. Guarded, mildly improving Speech: Patient's speech is fluent and non-pressured. [place], mildly improving Mood/Affect: Patient reports their mood is "ok", affect is congruent and flat Suicidality/Homicidality: Patient denies having any homicidal ideation intent or plan. Denies any suicidal ideation, intent or plan. Perceptions: Patient denies any visual hallucinations and denies any auditory hallucinations. Though content/process: [place], content is fairly empty evasive. Superficial. Memory and concentration: Alert and oriented to person, hospital, year Judgment and insight: poor chronically, improving mildly IMPRESSIONS: Schizophrenia Cannabis use disorder, by history Nicotine dependence PLAN: No change in medications -Patient is admitted under involuntary status to MHU for stabilization of psychiatric symptoms and safety. Patient has not signed adult voluntary form and medication consent. -Medications : Clozapine 200 mg qhs for mood stabilization/psychosis. Senokot po BID, for constipation. bisacodyl 5 mg daily for constipation. Luvox 50 mg daily for depression/anxiety. Remeron 15 mg nightly for mood/insomnia. Trazodone 100 mg nightly as needed for sleep, Depakote 500mg PO qhs for mood stabilization -Ativan and Haldol PRN for agitation/aggression -NRT - nicotine patch - on board for discharge planning. Encourage patient to participate in groups to work on coping skills. Patient received a mental health court order on 4/10. Patient apparently is not allowed back at [facility] or any other indicated housing in the area, social work program coordinator will touch base with [facility] and also patient's guardian to look at out of County placement options. awaiting embedded case manager at [facility] to submit [place] housing application. Also waiting on court worker to investi gate if patient will be a assisted hold due to assault charges from incident at the [facility]. now [facility] and [facility] would like to get patient into a single apartment to live alone as they feel he would probably do better living on his own.
[2024-02-10] MEDS: ACETAMINOPHEN TAB 325 MG TAB PO PRN (09:32)
[2024-02-10 09:39] VITALS: RESP 18
--- NOTE | 2024-02-10 10:09 | P.PN ---
Progress Note - Text Progress Note Date: 02/10/24 Interval History: Patient was seen in his room, and was directable and agreeable to speak with kendal pablo at the bedside. Patient apparently has been spiking fevers overnight and this morning, blood was taken and patient will be tested for flu and COVID. Patient was seen laying in bed, he denied any complaints although he did state that he was feeling "dizzy". He appeared to be mildly more lethargic today. He continues to be isolate to his room, coming out only for meals and medication. He is not attending groups, and has not attended any groups since admission. At this time patient denies any suicidal or homicidal ideations, intent or plan. Patient denies any auditory, visual hallucinations and denies any paranoia or delusions. Patient denies any side effects from the medications and has been compliant with meds. MENTAL STATUS EXAM: General Appearance: Patient appears to be stated age, fair hygiene and grooming. Flat affect poor eye contact Behavior: Patient is seated without any agitated behavior. Guarded, mildly improving Speech: Patient's speech is fluent and non-pressured. [place], mildly improving Mood/Affect: Patient reports their mood is "ok", affect is congruent and flat Suicidality/Homicidality: Patient denies having any homicidal ideation intent or plan. Denies any suicidal ideation, intent or plan. Perceptions: Patient denies any visual hallucinations and denies any auditory hallucinations. Though content/process: [place], content is fairly empty evasive. Superficial. Memory and concentration: Alert and oriented to person, hospital, year Judgment and insight: poor chronically, improving mildly IMPRESSIONS: Schizophrenia Cannabis use disorder, by history Nicotine dependence PLAN: No change in medications -Patient is admitted under involuntary status to MHU for stabilization of psychiatric symptoms and safety. Patient has not signed adult voluntary form and medication consent. -Medications : Clozapine 200 mg qhs for mood stabilization/psychosis. Senokot po BID, for constipation. bisacodyl 5 mg daily for constipation. Luvox 50 mg daily for depression/anxiety. Remeron 15 mg nightly for mood/insomnia. Trazodone 100 mg nightly as needed for sleep, Depakote 500mg PO qhs for mood stabilization -Ativan and Haldol PRN for agitation/aggression -NRT - nicotine patch -SW on board for discharge planning. Encourage patient to participate in groups to work on coping skills. Patient received a mental health court order on 01/24. Patient apparently is not allowed back at [facility] or any other indicated housing in the area, social media campaign manager will touch base with [facility] and also patient's guardian to look at out of County placement options. waiting on tie up worker to investigate if patient will be a care home hold due to assault charges [facility]. now guardian and [facility] would like to get patient into a single apartment to live alone as they feel he would probably do better living on his own.
[2024-02-10 11:49] LABS: Basophils % (A) 0 %; Eosinophils # (A) 0.1 k/uL (0-0.7); Eosinophils % (A) 1 %; HCT 48.9 % (39.0-53.0); HGB 15.5 gm/dL (13.0-17.5); Lymphocytes # (A) 0.5 k/uL (1.0-4.8); Lymphocytes % (A) 7 %; MCH 29.5 pg (25.0-35.0); MCHC 31.8 g/dL (31.0-37.0); MCV 92.9 fL (80.0-100.0); Mean Platelet Volume 7.3; Monocytes # (A) 0.4 k/uL (0-1.0); Monocytes % (A) 6 %; Neutrophils # (A) 5.6 k/uL (1.3-7.7); Neutrophils % (A) 84 %; Platelet Count 184 k/uL (150-450); RBC 5.26 m/uL (4.30-5.90); RDW 12.3 % (11.5-15.5); WBC 6.6 k/uL (3.8-10.6)
--- NOTE | 2024-02-10 13:45 | XR ---
EXAMINATION TYPE: XR chest 1V portable DATE OF EXAM: 02/10/2024 Comparison: 12/22/2022 Clinical History: 33-year-old male with fever Findings: Heart normal size. Diffuse interstitial density and more patchy right basilar opacity. No pleural eff usion. Impression: Interstitial opacities along with focal patchy right basilar opacity. Correlate for pneumonia includi ng atypical pneumonias.
[2024-02-10] MEDS: AZITHROMYCIN 500 MG TAB PO SCH (14:56)
[2024-02-10 17:43] VITALS: BP 98/64; PULSE 113; TEMP 100.3
--- NOTE | 2024-02-10 18:12 | P.PN ---
Subjective Progress Note Date: 02/10/24 33 year old M with PMH of obesity, alcohol abuse, schziophrenia was initially admitted to MHU on 01/19. I received a page from nursing reporting patient had a fever. Patient reports a fever that started this morning. He reports chills. He reports a dry cough. He reports feeling lightheaded with changes in position. He denies any nausea or vomiting, palpitations, chest pain, changes in urination or bowel habits. He reports smoking 1 pack of cigarettes daily. His workup currently consists of the following: Tmax 102.9. BP 98/64 Hr 113, 95% on RA. CBC lymphocyte count of 0.5. Flu, RSV, COVID negative. CXR done shows interstitial opacities with foca patchy right basilar opacity. We have decided to admit the patient from the MHU to the medical floor for treatment of sepsis related to community acquired pneumonia. General: non toxic, no distress, appears at stated age Derm: warm, dry Head: atraumatic, normocephalic, symmetric Eyes: EOMI, no lid lag, anicteric sclera Mouth: no lip lesion, mucus membranes moist Cardiovascular: S1S2 tachy, no murmur Lungs: Clear to auscultation BS bilateral, no rhonchi, no rales , no accessory muscle use Ext: no gross muscle atrophy, no edema, no contractures Neuro: No focal neurologic deficits. Psych: Alert, oriented, appropriate affect Based on my assessment of this patient, this patient meets a high complexity level of care. Sepsis related to community acquired PNA: Start Rocephin 1g IV QD and Azithromycin 500 mg PO QD. Obtain sputum and blood cultures. Obtain procalcitonin. Obtain Legionella Ag. Telemetry monitoring. Start NS at 75 cc/rh. Obtain EKG to check QTc. History of alcohol abuse: No signs of active withdrawal Smoker: Nicotine patch 14 mg/ 24h QD. Schizophrenia: Colzapine 200 mg PO QHS. Depakote 500 mg PO QHS. Fluvoxamine 50 mg PO QD. Remron 15 mg PO QHS. Ativan PRN for anxiety or agitation. Trazadone 100 mg PO QHS PRN. Obesity: Advised structured weight loss program. CODE STATUS: FULL CODE DVT Prophylaxis: Lovenox GI Prophylaxis: Protonix Designated medical POA if patient is not able to make medical decisions for the mselves: I have reviewed the following inside solar sales consultant notes: Psych note. I have reviewed the results of the following tests: As above. I have ordered the following tests: As above. I have discussed the care of this patient with the following independent historian: RN in the MHU. I have independently interpreted the following test below: CXR. I have discussed the management of this patient with the following physician: Objective - Vital Signs Vital signs: Vital Signs Temp 100.3 F H 02/10/24 17:27 Pulse 113 H 02/10/24 17:27 Resp 18 02/10/24 17:27 BP 98/64 02/10/24 17:27 Pulse Ox 95 02/10/24 17:27 FiO2 - Labs CBC & Chem 7: 02/10/24 11:14 01/19/24 19:20 Labs: Abnormal Lab Results - Last 24 Hours (Table) 02/10/24 Range/Units 11:14 Lymphocytes # 0.5 L (1.0-4.8) k/uL
== END 2024-02-10 19:47 | disposition short-term general hospital (02) | DRG 885 ==
LOC: EC 14:30 → 3MHU 01-20 14:52
PROVIDERS: ADMIT Psychiatry & Neurology Psychiatry; ATTEND Psychiatry & Neurology Psychiatry
DX: F20.9 Schizophrenia, unspecified (principal); A41.9 Sepsis, unspecified organism; J18.9 Pneumonia, unspecified organism; E66.9 Obesity, unspecified; F17.210 Nicotine dependence, cigarettes, uncomplicated; Z68.33 Body mass index [BMI] 33.0-33.9, adult; Z20.822 Contact with and (suspected) exposure to COVID-19; Z71.3 Dietary counseling and surveillance; Z28.21 Immunization not carried out because of patient refusal; Z71.41 Alcohol abuse counseling and surveillance of alcoholic; K21.9 Gastro-esophageal reflux disease without esophagitis; R25.1 Tremor, unspecified; Z87.11 Personal history of peptic ulcer disease; R45.1 Restlessness and agitation; K59.00 Constipation, unspecified; Z79.899 Other long term (current) drug therapy; Z81.8 Family history of other mental and behavioral disorders
CPT/HCPCS: 36415; 71045; 74019; 80053; 80061; 80076; 80306; 81001; 82075; 83036; 84443; 85025; 85027; 87635; 87636; 99285

== ENCOUNTER 2024-02-10 18:41 | Inpatient (IN) | payer MEDICARE, OTHER ==
[2024-02-10] MEDS ORDERED: ONDANSETRON 4 MG/2 ML VIAL IVP PRN (19:06)
[2024-02-10] MEDS ORDERED: LORazepam 2 MG/ML INJ IV PRN (19:06)
[2024-02-10] MEDS ORDERED: NALOXONE 0.4 MG/ML 1 ML VIAL IV PRN (19:06)
--- NOTE | 2024-02-10 19:06 | P.HPIM ---
History of Present Illness H&P Date: 02/10/24 33 year old M with PMH of obesity, alcohol abuse, schziophrenia was initially admitted to [facility]HU on 01/19. I received a page from nursing reporting patient had a fever. Patient reports a fever that started this morning. He reports chills. He reports a dry cough. He reports feeling lightheaded with changes in position. He denies any nausea or vomiting, palpitations, chest pain, changes in urination or bowel habits. He reports smoking 1 pack of cigarettes daily. His workup currently consists of the following: Tmax 102.9. BP 98/64 Hr 113, 95% on RA. CBC lymphocyte count of 0.5. Flu, RSV, COVID negative. CXR done shows interstitial opacities with foca patchy right basilar opacity. We have decided to admit the patient from the MHU to the medical floor for treatment of sepsis related to community acquired pneumonia. General: non toxic, no distress, appears at stated age Derm: warm, dry Head: atraumatic, normocephalic, symmetric Eyes: EOMI, no lid lag, anicteric sclera Mouth: no lip lesion, mucus membranes moist Cardiovascular: S1S2 tachy, no murmur Lungs: Clear to auscultation BS bilateral, no rhonchi, no rales , no accessory muscle use Ext: no gross muscle atrophy, no edema, no contractures Neuro: No focal neurologic deficits. Psych: Alert, oriented, appropriate affect Based on my assessment of this patient, this patient meets a high complexity level of care. Sepsis related to community acquired PNA: Start Rocephin 1g IV QD and Azithromycin 500 mg PO QD. Obtain sputum and blood cultures. Obtain procalcitonin. Obtain Legionella Ag. Telemetry monitoring. Start NS at 75 cc/rh. Obtain EKG to check QTc. History of alcohol abuse: No signs of active withdrawal Smoker: Nicotine patch 14 mg/ 24h QD. Schizophrenia: Colzapine 200 mg PO QHS. Depakote 500 mg PO QHS. Fluvoxamine 50 mg PO QD. Remron 15 mg PO QHS. Ativan PRN for anxiety or agitation. Trazadone 100 mg PO QHS PRN. Obesity: Advised structured weight loss program. CODE STATUS: FULL CODE DVT Prophylaxis: Lovenox GI Prophylaxis: Protonix Designated medical POA if patient is not able to make medical decisions for themselves: I have reviewed the following platform consultant notes: Psych note. I have reviewed the results of the following tests: As above. I have ordered the following tests: As above. I have discussed the care of this patient with the following independent historian: NINA in the MHU. I have independently interpreted the following test below: CXR. I have discussed the management of this patient with the following physician: Past Medical History Past Medical History: GERD/Reflux Additional Past Medical History / Comment(s): healing stomach ulcer, takes propranolol for tremors related to side effects from some of his meds History of Any Multi-Drug Resistant Organisms: None Reported Past Surgical History: No Surgical Hx Reported Additional Past Surgical History / Comment(s): EGD in Nov. Past Anesthesia/Blood Transfusion Reactions: No Reported Reaction Past Psychological History: Anxiety, Schizophrenia Smoking Status: Current every day smoker Past Alcohol Use History: None Reported Past Drug Use History: None Reported - Past Family History Father Additional Family Medical History / Comment(s): Father at age 53 from emphysema. Mother Additional Family Medical History / Comment(s): Mother is alive in her 50s with no major medical problems. Brother(s) Family Medical History: No Reported History Additional Family Medical History / Comment(s): Patient has 1 brother [address] with no major medical problems. Medications and Allergies Home Medications Medication Instructions Recorded Confirmed Type Glycopyrrolate [Robinul Forte] 2 mg PO HS@209902/09/23 01/19/24 History LORazepam [Ativan] 0.5 mg PO TID@0800,1500,209902/09/23 01/19/24 History Mirtazapine [Remeron] 15 mg PO HS@209902/09/23 01/19/24 History Pantoprazole [Protonix] 40 mg PO DAILY@79902/09/23 01/19/24 History cloZAPine [Clozaril] 200 mg PO HS@209902/09/23 01/19/24 History fluvoxaMINE [Luvox] 50 mg PO DAILY@79901/19/24 01/19/24 History Allergies Allergy/AdvReac Type Severity Reaction Status Date / Time No Known Allergies Allergy Verified 01/19/24 17:25
[2024-02-10] MEDS ORDERED: PNEUMONIA PROTOCOL UTILIZED 1 EACH MISC PO PRN (19:08)
[2024-02-10] MEDS ORDERED: ALBUTEROL NEBULIZED 2.5 MG/3 ML INHALATION PRN (19:08)
[2024-02-10] MEDS ORDERED: traZODone HCL 100 MG TAB PO PRN (20:10)
[2024-02-10] MEDS ORDERED: bisacodyL 5 MG TABLET.DR PO PRN (20:10)
[2024-02-10] MEDS: DIVALPROEX ER 500 MG TAB.ER.24H PO SCH (21:54)
[2024-02-10] MEDS: MIRTAZAPINE 15 MG TAB PO SCH (21:54)
[2024-02-10] MEDS: GLYCOPYRROLATE 1 MG TAB PO SCH (21:54)
[2024-02-10] MEDS: SENNOSIDES 8.6 MG TAB PO SCH (21:55)
[2024-02-10] MEDS: SODIUM CHLORIDE 0.9% 1,000 ML IV SCH (21:56)
[2024-02-10] MEDS: cloZAPine 100 MG TAB PO SCH (22:38)
[2024-02-11 07:54] LABS: Basophils % (A) 1 %; Eosinophils % (A) 1 %; HCT 46.9 % (39.0-53.0); HGB 15.2 gm/dL (13.0-17.5); Lymphocytes # (A) 1.1 k/uL (1.0-4.8); Lymphocytes % (A) 22 %; MCH 30.3 pg (25.0-35.0); MCHC 32.3 g/dL (31.0-37.0); MCV 93.7 fL (80.0-100.0); Mean Platelet Volume 8.9; Monocytes # (A) 0.6 k/uL (0-1.0); Monocytes % (A) 12 %; Neutrophils # (A) 3.1 k/uL (1.3-7.7); Neutrophils % (A) 63 %; Platelet Count 157 k/uL (150-450); RBC 5.01 m/uL (4.30-5.90); RDW 12.6 % (11.5-15.5)
[2024-02-11 08:17] LABS: ALT 28 U/L (4-49); AST 25 U/L (17-59); African American GFR (CKD) >90 (>60 ml/min/1.73 sqM); Albumin 3.4 g/dL (3.5-5.0); Alkaline Phosphatase 89 U/L (38-126); Anion Gap 7 mmol/L; Blood Urea Nitrogen 11 mg/dL (9-20); Calcium 8.2 mg/dL (8.4-10.2); Carbon Dioxide 21 mmol/L (22-30); Chloride 110 mmol/L (98-107); Glucose 87 mg/dL (74-99); Magnesium 1.8 mg/dL (1.6-2.3); Non-African American GFR(CKD) >90 (>60 ml/min/1.73 sqM); Potassium 4.4 mmol/L (3.5-5.1); Sodium 138 mmol/L (137-145); Total Bilirubin 0.4 mg/dL (0.2-1.3); Total Protein 6.4 g/dL (6.3-8.2)
[2024-02-11] MEDS: ENOXAPARIN 40 MG/0.4 ML SYRINGE SQ SCH (09:06)
[2024-02-11] MEDS: NICOTINE 14MG/24HR PATCH TRANSDERM SCH (09:06)
[2024-02-11] MEDS: AZITHROMYCIN 500 MG TAB PO SCH (09:06)
[2024-02-11] MEDS: PANTOPRAZOLE 40 MG TABLET PO SCH (09:06)
[2024-02-11] MEDS: ACETAMINOPHEN TAB 325 MG TAB PO PRN (12:32)
--- NOTE | 2024-02-11 12:39 | P.PN ---
Subjective Progress Note Date: 02/11/24 33 year old M with PMH of obesity, alcohol abuse, schziophrenia was initially admitted to MHU on 01/19. I received a page from nursing reporting patient had a fever. Patient reports a fever that started this morning. He reports chills. He reports a dry cough. He reports feeling lightheaded with changes in position. He denies any nausea or vomiting, palpitations, chest pain, changes in urination or bowel habits. He reports smoking 1 pack of cigarettes daily. His workup currently consists of the following: Tmax 102.9. BP 98/64 Hr 113, 95% on RA. CBC lymphocyte count of 0.5. Flu, RSV, COVID negative. CXR done shows interstitial opacities with focal patchy right basilar opacity. Infection control recommended admitting the patient from the MHU to the medical floor for treatment of sepsis related to community acquired pneumonia. Started on Rocephin and Azithromycin. 02/10 Patient was seen and examined. Doing well. No complaints. Sitter at bedside. 95% on RA. HR in the 90s. CBC unremarkable. CMP Cl 110, bicarb 21, Ca 8.2. Mag 1.8. Lactic acid 1.7. EKG shows QTc 375. General: non toxic, no distress, appears at stated age Derm: warm, dry Head: atraumatic, normocephalic, symmetric Eyes: EOMI, no lid lag, anicteric sclera Mouth: no lip lesion, mucus membranes moist Cardiovascular: S1S2 tachy, no murmur Lungs: Clear to auscultation BS bilateral, no rhonchi, no rales , no accessory muscle use Ext: no gross muscle atrophy, no edema, no contractures Neuro: No focal neurologic deficits. Psych: Alert, oriented, Flat affect Based on my assessment of this patient, this patient meets a high complexity level of care. Sepsis related to community acquired PNA: Rocephin 1g IV QD and Azithromycin 500 mg PO QD (D2). Obtain sputum and blood cultures. Obtain Legionella Ag. Telemetry monitoring. NS at 75 cc/rh. History of alcohol abuse: No signs of active withdrawal Smoker: Nicotine patch 14 mg/ 24h QD. Schizophrenia: Colzapine 200 mg PO QHS. Depakote 500 mg PO QHS. Fluvoxamine 50 mg PO QD. Remron 15 mg PO QHS. Ativan PRN for anxiety or agitation. Trazadone 100 mg PO QHS PRN. Obesity: Advised structured weight loss program. CODE STATUS: FULL CODE DVT Prophylaxis: Lovenox GI Prophylaxis: Protonix Designated medical POA if patient is not able to make medical decisions for themselves: I have reviewed the following crm consultant notes: I have reviewed the results of the following tests: CBC, CMP, Mag, Lactic acid. I have ordered the following tests: BCx, Sputum Cx, Legionella pending. I have discussed the care of this patient with the following independent historian: I have independently interpreted the following test below: EKG I have discussed the management of this patient with the following physician: Objective - Vital Signs Vital signs: Vital Signs Temp 98.7 F 02/11/24 04:00 Pulse 91 02/11/24 04:00 Resp 18 02/11/24 04:00 BP 100/58 02/11/24 04:00 Pulse Ox 95 02/11/24 04:00 FiO2 Intake & Output 02/10/24 02/11/24 02/11/24 18:59 06:59 18:59 Weight 105 kg Other: Voiding Method Toilet Urinal # Voids 0 - Labs CBC & Chem 7: 02/11/24 07:04 02/11/24 07:04 Labs: Abnormal Lab Results - Last 24 Hours (Table) 02/11/24 Range/Units 07:04 Chloride 110 H (98-107) mmol/L Carbon Dioxide 21 L (22-30) mmol/L Calcium 8.2 L (8.4-10.2) mg/dL Albumin 3.4 L (3.5-5.0) g/dL
--- NOTE | 2024-02-11 14:08 | P.CN ---
Psychiatric Consult - . Consult date: 02/11/24 Consult:: 02/11/24 14:02 Active Medications Generic Name Dose Route Start Last Admin Trade Name Freq PRN Reason Stop Dose Admin Acetaminophen 650 mg 02/10/24 19:06 02/11/24 12:32 Acetaminophen Tab 325 Mg Tab PO 650 mg Q6HR PRN Administration Mild Pain or Fever > 100.5 Albuterol Sulfate 2.5 mg 02/10/24 19:08 Albuterol Nebulized 2.5 Mg/3 Ml INHALATION RT-Q4H PRN Shortness Of Breath Or Wheezing Azithromycin 500 mg 02/11/24 09:00 02/11/24 09:06 Azithromycin 500 Mg Tab PO 02/12/24 09:01 500 mg DAILY JANNA Administration Protocol Bisacodyl 5 mg 02/10/24 20:10 Bisacodyl 5 Mg Tablet.Dr PO DAILY PRN Constipation Clozapine 200 mg 02/10/24 21:00 02/10/24 22:38 Clozapine 100 Mg Tab PO 02/15/24 23:00 200 mg HS@2100 JANNA Administration Divalproex Sodium 500 mg 02/10/24 21:00 02/10/24 21:54 Divalproex Er 500 Mg Tab.Er.24h PO 500 mg HS JANNA Administration Enoxaparin Sodium 40 mg 02/11/24 09:00 02/11/24 09:06 Enoxaparin 40 Mg/0.4 Ml Syringe SQ 40 mg DAILY JANNA Administration Fluvoxamine Maleate 50 mg 02/11/24 08:00 02/11/24 12:32 Fluvoxamine 50 Mg Tab PO 50 mg DAILY@0800 JANNA Administration Glycopyrrolate 2 mg 02/10/24 21:00 02/10/24 21:54 Glycopyrrolate 1 Mg Tab PO 2 mg HS JANNA Administration Sodium Chloride 1,000 mls @ 75 mls/hr 02/10/24 19:15 02/11/24 12:33 Saline 0.9% IV 75 mls/hr .[id number] JANNA Administration Ceftriaxone Sodium 2 gm/ 50 mls @ 100 mls/hr 02/10/24 20:00 02/10/24 21:56 Sodium Chloride IVPB 02/13/24 20:29 100 mls/hr Q24H JANNA Administration Protocol Lorazepam 0.5 mg 02/10/24 19:06 Lorazepam 2 Mg/Ml Inj IV Q6HR PRN Anxiety Mirtazapine 15 mg 02/10/24 21:00 02/10/24 21:54 Mirtazapine 15 Mg Tab PO 15 mg HS@2100 JANNA Administration Miscellaneous Information 1 each 02/10/24 19:08 Pneumonia Protocol Utilized 1 Each Misc PO ONCE PRN Per Protocol Naloxone HCl 0.2 mg 02/10/24 19:06 Naloxone 0.4 Mg/Ml 1 Ml Vial IV Q2M PRN Opioid Reversal Nicotine 1 patch 02/11/24 09:00 02/11/24 09:06 Nicotine 14mg/24hr Patch TRANSDERM 1 patch DAILY JANNA Administration Ondansetron HCl 4 mg 02/10/24 19:06 Ondansetron 4 Mg/2 Ml Vial IVP Q8HR PRN Nausea And Vomiting Pantoprazole Sodium 40 mg 02/11/24 08:00 02/11/24 09:06 Pantoprazole 40 Mg Tablet PO 40 mg DAILY@0800 JANNA Administration Senna 8.6 mg 02/10/24 21:00 02/11/24 09:06 Sennosides 8.6 Mg Tab PO 8.6 mg BID JANNA Administration Trazodone HCl 100 mg 02/10/24 20:10 Trazodone Hcl 100 Mg Tab PO HS PRN Insomnia 02/11/24 14:02 this is a psychiatric assessment on Benoit Marmolejo who is a 33-year-old male Patient carries a diagnosis of schizophrenia chronic undifferentiated type and follows up with local mental health services Patient is currently hospitalized with pneumonia No clear reason was given for this consultation patient is on multiple psychotropic medications and states that he is doing well Patient stated that he lives independently and is currently on disability He denies any auditory or visual hallucinations He denies any suicidal or homicidal ideations He admits that he does drink but did not feel that he drinks too much He did not give any other specifics Patient denies any other substance use He denies any other issues or concerns or that he needs any other special psychiatric help He says that he plans to follow-up with the medical services as previously planned Past history personal social history: Patient remains very vague and superficial patient usually questions ; 'what' on every question but then response appropriately however his responses are brief p atient is alert and oriented he denies any other issues or concerns at this time He states that he is currently on disability and lives by himself He says that he does have family members but did not elaborate he denies any substance use but does admit that he drinks some Mental status examination: reveals a middle-aged male who currently appears in no acute physical distress Patient is alert and oriented to place and person Affect at this time remains flat Patient's responses were at times abrupt where he usually questions with "what' but then seems to understand the question and its unclear if this is related to his hearing Patient denies any suicidal or homicidal ideations Thought processes are concrete but goal directed Patient denies any auditory or visual hallucinations He denies any suicidal or homicidal ideations Taking remains concrete Patient denies any intention of harming himself or others Formal and operational judgment and insight remains fair Diagnostic impression: Schizophrenia chronic undifferentiated type rule out alcohol use disorder unspecified formulation and plan The patient at this time carries a diagnoses of schizophrenia his appears to be compliant with his treatment and medications Patient is also declining any problems with alcohol although he does admit that he drinks some Patient did not elaborate but if there is a concern with alcohol abuse would recommend pursuing further treatment information with mental health services very already goes for his psychotropic medications No other psychiatric intervention appears to be necessary at this time Psychiatry will sign off at this time and was requested again Thank you very much for Ana Rosa for patient to contact me if any further questions Jorge Ken M.D.
--- NOTE | 2024-02-12 13:21 | P.PN ---
Progress Note - Text Progress Note Date: 02/12/24 The patient was seen for follow-up Patient patient was laying comfortably in bed and seemed to be in no acute distress Patient's responses were abrupt monosyllabic and superficial Patient continues to stare at this curriculum writer and volunteered little information When asked if he had problems at his halfway patient admitted an affirmative but did not elaborate When patient was informed that we will try to provide an appropriate placement for him at that until then we will have to bring him back to the psychiatric unit patient said yes Patient did not ask any other questions and comes across as rather simple and very concrete He did not express any concern or feelings of frustration or anger Mental status examination reveals a middle-aged male who currently appears in no acute physical distress Patient however comes across as very simple and concrete Patient was laying in his bed expressionless Responses were impoverished with monosyllabic responses Patient denies any auditory or visual alternations affect remains flat patient's formal and operational judgment and insight remains concrete and simple. 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 Plan: With the patient's limitation in his ability to take care of himself and his basic needs without support and supervision patient is very likely to decompensate Although patient is doing well at this time it is elevated with the support system and now that the patient does not have an option to go back to his halfway and since no other place is available we have recommended the patient to be brought back to the psychiatric unit for support supervision as well as to avoid any relapse and for patient's safety and continuation of care without which she would decompensate Thank you very much for your kind referral and will please feel free to contact me if you have any further questions Jorge Ken MD
--- NOTE | 2024-02-12 15:14 | P.PN ---
Subjective Progress Note Date: 02/12/24 (delayed charting seen at 1045) Patient is a 33-year-old male with history of GERD, stomach ulcer, and schizophrenia who was transferred from the mental health unit due to fevers and pneumonia. On arrival to the medical floor he was afebrile. Initial laboratory analysis was unremarkable. He was started on Rocephin and Zithromax. Blood cultures were obtained. Legionella urine antigen came back negative. Patient seen and examined at bedside. He has no complaints currently. He denies any chest pain or shortness of breath. He denies any significant cough. Vital signs reviewed General: Nontoxic, no distress, appears at stated age Cardiovascular: S1S2 reg, no murmur Lungs: CTA bilateral, no rhonchi, no rales, no accessory muscle use Abdominal: Soft, nontender to palpation, no guarding Ext: No gross muscle atrophy, no edema b/l lower extremities, no contractures Neuro: CN II-XI grossly intact, no focal neuro deficits Psych: Alert, oriented, appropriate affect Assessment/Plan: Community-acquired pneumonia -Zithromax 500 mg day #3 -Rocephin 2 gram IVPB daily day #3 Nicotine use -Nicotine 14 mcg patch daily Schizophrenia - psych recs reviewed and will return to [facility] at discharge. Imaging: None new Data Review: None new DVT prophylaxis: Lovenox Anticipated discharge date: Once afebrile for [address]: [facility] unit This dictation was prepared using [employer] voice recognition software. Though every attempt is made to correct errors during dictation some may still exist. Objective - Vital Signs Vital signs: Vital Signs Temp 99.5 F 02/12/24 11:14 Pulse 87 02/12/24 11:14 Resp 15 02/12/24 11:14 BP 99/65 02/12/24 11:14 Pulse Ox 94 L 02/12/24 11:14 FiO2 Intake & Output 02/11/24 02/12/24 02/12/24 18:59 06:59 18:59 Intake Total 700 Output Total 450 Balance 700 -450 Intake: Intake, IV Titration 700 Amount Sodium Chloride 0.9% 1, 600 000 ml @ 75 mls/hr IV . [id number] [facility] Rx#:[id number] cefTRIAXone 2 gm In 100 Sodium Chloride 0.9% 50 ml @ 100 mls/hr IVPB Q24H [facility] Rx#:[id number] Output: Urine 450 Other: Voiding Method Toilet Toilet Toilet Urinal Urinal Urinal # Voids 2 - Labs CBC & Chem 7: 02/11/24 07:04 02/11/24 07:04 Labs: Microbiology - Last 24 Hours (Table) 02/10/24 20:43 Blood Culture - Preliminary Blood
--- NOTE | 2024-02-13 11:29 | P.DS ---
Providers Date of admission: 02/10/24 19:26 Expected date of discharge: 02/13/24 Attending physician: Vicki Guevara MD Consults: 02/10/24 19:07 Consult Physician Routine Consulting Provider: Domingo Trujillo Consult Reason/Comments: Psyc Do you want consulting provider notified?: Yes Primary care physician: Stated None Hospital Course: Discharge Diagnosis: Community-acquired pneumonia Nicotine use Schizophrenia Hospital Course: Patient is a 33-year-old male with history of GERD, stomach ulcer, and schizophrenia who [facility] due to fevers and pneumonia. On arrival to the medical floor he was afebrile. Initial laboratory analysis was unremarkable. He was started on Rocephin and Zithromax. Blood cu ltures were obtained. Legionella urine antigen came back negative. He continued to do well. He was afebrile for over 24 hours. He was determined stable to go back to [facility]. Follow-up: Patient will start cefdinir this evening 300 mg every 12 hours for an additional 4 doses to complete his treatment for community-acquired pneumonia. He already completed his Zithromax. He should follow-up with her primary care provider after discharge from [facility]. Patient seen and examined at bedside. Feeling better. Breathing better. Cough is getting better. Vital signs reviewed and stable. General: Nontoxic, no distress, appears at stated age Cardiovascular: S1S2 reg, no murmur, positive posterior tibial pulse bilateral, Lungs: Decreased breath sounds bilateral, no rhonchi, no rales, no accessory muscle use Abdominal: Soft, nontender to palpation, no guarding, no appreciable organomegaly Ext: No gross muscle atrophy, no edema b/l lower extremities, no contractures Neuro: CN II-XI grossly intact, no focal neuro deficits Psych: Alert, oriented, flat affect, withdrawn A total of 32 minutes of time were spent preparing this complex discharge summary. Patient was discharged on 02/13/24. This dictation was prepared using [employer] ([employer]) voice recognition software. Though every attempt is made to correct errors during dictation some may still exist. Plan - Discharge Summary Discharge Rx Participant: No New Discharge Prescriptions: New Divalproex ER [Depakote ER] 500 mg PO HS tab traZODone HCL [Desyrel] 100 mg PO HS PRN tab PRN Reason: Insomnia Cefdinir [Omnicef] 300 mg PO Q12HR #4 capsule Nicotine 14Mg/24Hr Patch [Habitrol] 1 patch TRANSDERM DAILY patch Albuterol Nebulized [Ventolin Nebulized] 2.5 mg INHALATION RT-Q4H PRN ml PRN Reason: Shortness Of Breath Or Wheezing Continue LORazepam [Ativan] 0.5 mg PO TID@0800,1500,2100 fluvoxaMINE [Luvox] 50 mg PO DAILY@0800 Pantoprazole [Protonix] 40 mg PO DAILY@0800 cloZAPine [Clozaril] 200 mg PO HS@2099 Mirtazapine [Remeron] 15 mg PO HS@2099 Glycopyrrolate [Robinul Forte] 2 mg PO HS@2100 Discharge Medication List Glycopyrrolate [Robinul Forte] 2 mg PO HS@209902/09/23 [History] LORazepam [Ativan] 0.5 mg PO TID@0800,1500,209902/09/23 [History] Mirtazapine [Remeron] 15 mg PO HS@209902/09/23 [History] Pantoprazole [Protonix] 40 mg PO DAILY@0800 02/09/23 [History] cloZAPine [Clozaril] 200 mg PO HS@209902/09/23 [History] fluvoxaMINE [Luvox] 50 mg PO DAILY@0800 01/19/24 [History] Albuterol Nebulized [Ventolin Nebulized] 2.5 mg INHALATION RT-Q4H PRN ml 02/13/24 [Rx] Cefdinir [Omnicef] 300 mg PO Q12HR #4 capsule 02/13/24 [Rx] Divalproex ER [Depakote ER] 500 mg PO HS tab 02/13/24 [Rx] Nicotine 14Mg/24Hr Patch [Habitrol] 1 patch TRANSDERM DAILY patch 02/13/24 [Rx] traZODone HCL [Desyrel] 100 mg PO HS PRN tab 02/13/24 [Rx] Activity/Diet/Wound Care/Special Instructions: Activity: As tolerated Diet: Regular Special Instructions: Follow-up with PCP after discharge from mental health. Start Cefdinir this evening to complete 4 additional doses. Discharge Disposition: TRANSFER TO PSYCH HOSP/UNIT
--- NOTE | 2024-02-14 16:49 | P.PN ---
Subjective Progress Note Date: 02/14/24 (delayed charting seen at 1015) Patient is a 33-year-old male with history of GERD, stomach ulcer, and schizophrenia who was transferred from the mental health unit due to fevers and pneumonia. On mental health he tested negative for RSV/Flu A/B/COIVD-19. On arrival to the medical floor he was afebrile. Initial laboratory analysis was unremarkable. He was started on Rocephin and Zithromax. Blood cultures were obtained. Legionella urine antigen came back negative. He had one fever on the morning of 02/12/24. Patient tested positive for COVID when repeat testing was done on the evening of 02/12 as they were getting ready to take him to [facility]. [facility] continues to work on an appropriate discharge plan. Patient seen and examined at bedside. Doing well, no complaints, wants to be discharged. Vital signs reviewed General: Nontoxic, no distress, appears at stated age Cardiovascular: S1S2 reg, no murmur Lungs: CTA bilateral, no rhonchi, no rales, no accessory muscle use Abdominal: Soft, nontender to palpation, no guarding Ext: No gross muscle atrophy, no edema b/l lower extremities, no contractures Neuro: CN II-XI grossly intact, no focal neuro deficits Psych: Alert, oriented, appropriate affect Assessment/Plan: COVID-19 Pneumonia - stop ABX - no indication for steroids or paxlovid Nicotine use -Nicotine 14 mcg patch daily Schizophrenia - psych recs reviewed and will return to [facility] at discharge. Imaging: None new Data Review: None new DVT prophylaxis: Lovenox Anticipated discharge date: ? Anticipated discharge place: ? This dictation was prepared using [employer] voice recognition software. Though every attempt is made to correct errors during dictation some may still exist. Objective - Vital Signs Vital signs: Vital Signs Temp 98 F 02/14/24 12:10 Pulse 70 02/14/24 12:10 Resp 18 02/14/24 12:10 BP 105/71 02/14/24 12:10 Pulse Ox 94 L 02/14/24 12:10 FiO2 Intake & Output 02/13/24 02/14/24 02/14/24 18:59 06:59 18:59 Intake Total 1440 118 Balance 1440 118 Intake: Oral 1440 118 Other: Voiding Method Toilet Toilet Toilet # Voids 2 1 2 - Labs CBC & Chem 7: 02/11/24 07:04 02/11/24 07:04 Labs: Abnormal Lab Results - Last 24 Hours (Table) 02/13/24 Range/Units 21:36 SARS-CoV-2 (PCR) Detected A (Not Detectd) Microbiology - Last 24 Hours (Table) 02/10/24 20:43 Blood Culture - Preliminary Blood
[2024-02-15 09:52] VITALS: BP 113/71; PULSE 65; RESP 17; TEMP 98.3
[2024-02-15 10:49] LABS: HCT 46.8 % (39.0-53.0); HGB 15.2 gm/dL (13.0-17.5); MCH 29.8 pg (25.0-35.0); MCHC 32.5 g/dL (31.0-37.0); MCV 91.5 fL (80.0-100.0); Mean Platelet Volume 7.7; Platelet Count 174 k/uL (150-450); RBC 5.12 m/uL (4.30-5.90); RDW 12.3 % (11.5-15.5); WBC 3.2 k/uL (3.8-10.6)
--- NOTE | 2024-02-15 11:14 | P.DS ---
Providers Date of admission: 02/10/24 19:26 Expected date of discharge: 02/15/24 Attending physician: Vicki Guevara MD Consults: 02/10/24 19:07 Consult Physician Routine Consulting Provider: Domingo Trujillo Consult Reason/Comments: Psyc Do you want consulting provider notified?: Yes Primary care physician: Stated None Hospital Course: Discharge Diagnosis: COVID-19 Pneumonia Nicotine use GERD Schizophrenia Hospital Course: Patient is a 33-year-old male with history of GERD, stomach ulcer, and schizophrenia who was transferred from the mental health unit due to fevers and pneumonia. On mental health he tested negative for RSV/Flu A/B/COIVD-19. On arrival to the medical floor he was afebrile. Initial laboratory analysis was unremarkable. He was started on Rocephin and Zithromax. Blood cultures were obtained. Legionella urine antigen came back negative. He had one fever on the morning of 02/12/24. Patient tested positive for COVID when repeat testing was done on the evening of 02/12 as they were getting ready to take him to mental health. Mental health continues to work on an appropriate discharge plan. He is of isolation and should not wear a mask around others for the next 5 days. [facility] made arrangements for patient to be discharged home with his mother. Follow-up: I have completed his Protonix and albuterol prescriptions. Dr. Trujillo of psychiatry will complete the remainder of his medications. He should follow- up with [facility] mental health services as well as [facility] clinic. Patient seen and examined at bedside. No complaints. No additional shortness of breath or coughing. Vital signs reviewed and stable. General: Nontoxic, no distress, appears at stated age Cardiovascular: S1S2 reg, no murmur, positive posterior tibial pulse bilateral, Lungs: CTA bilateral, no rhonchi, no rales, no accessory muscle use Abdominal: Soft, nontender to palpation, no guarding, no appreciable org anomegaly Ext: No gross muscle atrophy, no edema b/l lower extremities, no contractures Neuro: CN II-XI grossly intact, no focal neuro deficits Psych: Alert, oriented, blunted affect A total of 35 minutes of time were spent preparing this complex discharge summary. Patient was discharged on 02/15/24. This dictation was prepared using [employer] voice recognition software. Though every attempt is made to correct errors during dictation some may still exist. Patient Condition at Discharge: Stable Plan - Discharge Summary Discharge Rx Participant: No New Discharge Prescriptions: New Pantoprazole [Protonix] 40 mg PO DAILY@0800 #30 tab Divalproex ER [Depakote ER] 500 mg PO DAILY 14 Days #14 tab Nicotine 14Mg/24Hr Patch [Habitrol] 1 patch TRANSDERM DAILY patch Albuterol Nebulized [Ventolin Nebulized] 2.5 mg INHALATION RT-Q4H PRN #1 inh PRN Reason: Shortness Of Breath Or Wheezing traZODone HCL 100 mg PO HS 14 Days #14 tablet Continue LORazepam [Ativan] 0.5 mg PO TID@0800,1500,2099 Mirtazapine [Remeron] 15 mg PO HS@2099 14 Days #14 tab Glycopyrrolate [Robinul Forte] 2 mg PO HS@2099 cloZAPine [Clozaril] 200 mg PO HS@2099 14 Days #28 tab fluvoxaMINE [Luvox] 50 mg PO DAILY@0800 14 Days #14 tab Discontinued Pantoprazole [Protonix] 40 mg PO DAILY@0800 Discharge Medication List Glycopyrrolate [Robinul Forte] 2 mg PO HS@209902/09/23 [History] LORazepam [Ativan] 0.5 mg PO TID@0800,1500,209902/09/23 [History] Nicotine 14Mg/24Hr Patch [Habitrol] 1 patch TRANSDERM DAILY patch 02/13/24 [Rx] Albuterol Nebulized [Ventolin Nebulized] 2.5 mg INHALATION RT-Q4H PRN #1 inh 02/15/24 [Rx] Divalproex ER [Depakote ER] 500 mg PO DAILY 14 Days #14 tab 02/15/24 [Rx] Mirtazapine [Remeron] 15 mg PO HS@2099 14 Days #14 tab 02/15/24 [Rx] Pantoprazole [Protonix] 40 mg PO DAILY@0800 #30 tab 02/15/24 [Rx] cloZAPine [Clozaril] 200 mg PO HS@2100 14 Days #28 tab 02/15/24 [Rx] fluvoxaMINE [Luvox] 50 mg PO DAILY@0800 14 Days #14 tab 02/15/24 [Rx] traZODone HCL 100 mg PO HS 14 Days #14 tablet 02/15/24 [Rx] Follow up Appointment(s)/Referral(s): [facility] [Outside] - 02/15/24 12:00 pm (Kevon Farmer ) [facility] [NON-STAFF] - 1 Week Patient Instructions/Handouts: COVID-19 (Coronavirus Disease 2019) (DC) Activity/Diet/Wound Care/Special Instructions: Activity: As tolerated Diet: Regular Special Instructions: Follow-up with primary care provider Discharge Disposition: HOME SELF-CARE
[2024-02-15 11:36] VITALS: BMI 33.2
[2024-02-15 11:40] LABS: Eosinophils # (M) 0.45 k/uL (0-0.7); Lymphocytes # (M) 1.57 k/uL (1.0-4.8); Neutrophils # (M) 1.09 k/uL (1.3-7.7); Neutrophils % (M) 34 %; Nucleated Red Blood Cells 0 /100 WBC (0-0); Total Cells Counted 100
--- NOTE | 2024-02-15 14:18 | CDI ---
Documentation Clarification Form Date: 02/15/2024 01:48:33 PM From: Diana Corrales RN CCDS Phone: [phone] Admit Date: 02/10/2024 07:26:00 PM Patient Name: Benoit Marmolejo Visit Number: [id number] Discharge Date: ATTENTION: The Clinical Documentation Specialists (CDI) and [facility] Coding Staff appreciate your assistance in clarifying documentation. Please respond to the clarification below the line at the bottom and electronically sign. The CDI & [facility] Coding staff will review the response and follow-up if needed. Please note: Queries are made part of the Legal Health Record. If you have any questions, please contact the author of this message via ITS. Dr. Sammie Cuenca Sepsis is documented 02/09 H&P and 02/10 Medicine note which may lack sufficient clinical evidence/support in the medical record. Additional clarification is requested. History/Risk Factors: 33-year-old male presented as a transfer from [facility] for a fever, chills and dry cough. Medical history Schizophrenia, Obesity and current every day smoker. 02/09, H&P. Clinical Indicators: 02/09, VSS: B/P 124/60; HR 94; Temp 98.3 F Oral; RR 18; SpO2 97% room air 02/10, Labs: Wbc 5.0; Neutrophils 3.1 02/12, SARS: Detected A 02/13, Medicine note: was transferred from the mental health unit due to fevers and pneumonia.On mental health he tested negative for RSV/Flu A/B/COIVD-19.On arrival to the medical floor he was afebrile.Initial laboratory analysis was unremarkable.He was started on Rocephin and Zithromax.Blood cultures were obtained.Legionella urine antigen came back negative.He had one fever on the morning of 02/12/24.Patient tested positive for COVID when repeat testing was done on the evening of 02/12 as they were getting ready to take him to [facility]. Treatment: 02/09 02/12 Ceftriaxone IVPB Q24H; 02/10 02/11 Zithromax 500mg po Daily x 2 doses; 02/09 0.9NS 75cc/hr After work up and study, please clarify which diagnosis is most appropriate? [ x ] Sepsis ruled out [ ] Sepsis treated prophylactically [ ] Sepsis is a valid diagnosis as evidence by the following: (Please add rationale): [ ] Other, please specify [ ] Unable to determine (Template Last Reviewed: October 2023) MTDD
--- NOTE | 2024-02-17 12:06 | CDI ---
Documentation Clarification Form Date: 02/17/2024 11:57:27 AM From: Fozia Aguirre Admit Date: 02/10/2024 07:26:00 PM Patient Name: Benoit Marmolejo Visit Number: [id number] Discharge Date: 02/15/2024 03:35:00 PM ATTENTION: The Clinical Documentation Specialists (CDI) and [facility] Coding Staff appreciate your assistance in clarifying documentation. Please respond to the clarification below the line at the bottom and electronically sign. The CDI & [facility] Coding staff will review the response and follow-up if needed. Please note: Queries are made part of the Legal Health Record. If you have any questions, please contact the author of this message via ITS. Dr. Vicki Guevara Patient tested positive for Covid on 02/12, which extended his stay. For each diagnosis, documentation must be clear to determine if the condition was present at the time of the patients inpatient admission or developed during the hospital stay. Additional clarification regarding Covid 19 is requested. History/Risk Factors: Fever, pneumonia, schizophrenia. Was just in MHU. Clinical Indicators: Positive Covid test on 02/12 Treatment: Rocephin and Zithromax Definition of Present on Admission (POA): A diagnosis present at the time the order for admission to inpatient status was written. Please clarify if Covid 19 was POA [ ] Y = Yes, the condition was present at the time of the order for inpatient admission. [ ] N = No, the condition was not present at the time of the order for inpatient admission. [ x ] W = Clinically undetermined if the condition was present at the time of the order for inpatient admission. MTDD
== END 2024-02-15 15:35 | disposition home or self-care (01) | DRG 193 ==
LOC: 3SCARD 19:26
PROVIDERS: ADMIT Family Medicine; ATTEND Family Medicine
PROC: 8E0ZXY6 Isolation (ICD-10-PCS; principal; 2024-02-13)
DX: J18.9 Pneumonia, unspecified organism (principal); J12.82 Pneumonia due to coronavirus disease 2019; U07.1 COVID-19; F20.5 Residual schizophrenia; Z59.00 Homelessness unspecified; E66.9 Obesity, unspecified; Z68.33 Body mass index [BMI] 33.0-33.9, adult; F17.210 Nicotine dependence, cigarettes, uncomplicated; G47.00 Insomnia, unspecified; K21.9 Gastro-esophageal reflux disease without esophagitis; Z87.11 Personal history of peptic ulcer disease; K59.00 Constipation, unspecified; Z79.899 Other long term (current) drug therapy
CPT/HCPCS: 80053; 83605; 83735; 85025; 87040; 87449; 87635

== ENCOUNTER 2024-02-25 23:46 | Inpatient (IN) | payer MEDICARE, MEDICAID ==
--- NOTE | 2024-02-26 00:54 | ED ---
General Adult HPI - General Chief complaint: Psychiatric Symptoms Stated complaint: Psychiatric Issues Time Seen by Provider: 02/26/24 00:05 Source: patient, EMS, RN notes reviewed, old records reviewed Mode of arrival: EMS Limitations: physical limitation - History of Present Illness Initial comments: 33-year-old male presenting for mental health evaluation. Patient brought in by paramedics after police were called for bizarre behavior. The patient is not clear and exactly why he is here. He does deny suicidal ideation. He denies physical complaints. He is stating that his mother is not his mother and making some bizarre sexual comments. - Related Data Home Medications Medication Instructions Recorded Confirmed Glycopyrrolate [Robinul Forte] 2 mg PO HS@2100 02/09/23 02/10/24 LORazepam [Ativan] 0.5 mg PO TID@0800,1500,2100 02/09/23 02/10/24 Previous Rx's Medication Instructions Recorded Nicotine 14Mg/24Hr Patch [Habitrol] 1 patch TRANSDERM DAILY patch 02/13/24 Albuterol Nebulized [Ventolin 2.5 mg INHALATION RT-Q4H PRN #1 inh 02/15/24 Nebulized] Divalproex ER [Depakote ER] 500 mg PO DAILY 14 Days #14 tab 02/15/24 Mirtazapine [Remeron] 15 mg PO HS@2100 14 Days #14 tab 02/15/24 Pantoprazole [Protonix] 40 mg PO DAILY@0800 #30 tab 02/15/24 cloZAPine [Clozaril] 200 mg PO HS@2100 14 Days #28 tab 02/15/24 fluvoxaMINE [Luvox] 50 mg PO DAILY@0800 14 Days #14 tab 02/15/24 traZODone HCL 100 mg PO HS 14 Days #14 tablet 02/15/24 Allergies Allergy/AdvReac Type Severity Reaction Status Date / Time No Known Allergies Allergy Verified 02/26/24 00:11 Review of Systems ROS Statement: Those systems with pertinent positive or pertinent negative responses have been documented in the HPI. ROS Other: All systems not noted in ROS Statement are negative. Past Medical History Past Medical History: GERD/Reflux Additional Past Medical History / Comment(s): healing stomach ulcer, takes propranolol for tremors related to side effects from some of his meds History of Any Multi-Drug Resistant Organisms: None Reported Past Surgical History: No Surgical Hx Reported Additional Past Surgical History / Comment(s): EGD in Nov. Past Anesthesia/Blood Transfusion Reactions: No Reported Reaction Past Psychological History: Anxiety, Schizophrenia Smoking Status: Current every day smoker Past Alcohol Use History: None Reported Past Drug Use History: None Reported - Past Family History Father Additional Family Medical History / Comment(s): Father at age 53 from emphysema. Mother Additional Family Medical History / Comment(s): Mother is alive in her 50s with no major medical problems. Brother(s) Family Medical History: No Reported History Additional Family Medical History / Comment(s): Patient has 1 brother and 1 sister with no major medical problems. General Exam General appearance: alert, in no apparent distress Head exam: Present: atraumatic, normocephalic Eye exam: Present: normal appearance, PERRL ENT exam: Present: normal exam Neck exam: Present: normal inspection. Absent: tenderness Respiratory exam: Present: normal lung sounds bilaterally. Absent: respiratory distress, wheezes Cardiovascular Exam: Present: regular rate, normal rhythm GI/Abdominal exam: Present: soft. Absent: distended, tenderness, guarding Neurological exam: Present: alert. Absent: motor sensory deficit Psychiatric exam: Present: flat affect, other (Paranoid, delusional) Skin exam: Present: warm, dry, intact, normal color Course Vital Signs 02/26/24 00:06 Temperature 98.1 F Pulse Rate 112 H Respiratory 18 Rate Blood Pressure 141/91 O2 Sat by Pulse 97 Oximetry - Reevaluation(s) Reevaluation #1: 02/26/24 00:53 Cleared for EPS evaluation Medical Decision Making - Medical Decision Making Was pt. sent in by a medical professional or institution (, PA, RN ACCESS, urgent care, hospital, or senior living...) When possible be specific @ -No Did you speak to anyone other than the patient for history (EMS, parent, family, police, friend...)? What history was obtained from this source @ -No Did you review nursing and triage notes (agree or disagree)? Why? @ -I reviewed and agree with nursing and triage notes Were old charts reviewed (outside hosp., previous admission, EMS record, old EKG, old radiological studies, urgent care reports/EKG's, senior living records)? Report findings @ -No old charts were reviewed Differential Mental Health Depression, anxiety, bipolar, psychosis, schizophrenia, borderline personality, situational depression, adjustment disorder, behavioral disorder, brain tumor, malingering, substance abuse, encephalopathy, medication reaction, dementia, hypothyroidism, degenerative neurologic disorder, lupus.... This is not meant to be all-inclusive list EKG interpreted by me (3pts min.). @ -As above X-rays interpreted by me (1pt min.). @ -None done CT interpreted by me (1pt min.). @ -None done U/S interpreted by me (1pt. min.). @ -None done What testing was considered but not performed or refused? (CT, X-rays, U/S, labs)? Why? @ -None What meds were considered but not given or refused? Why? @ -None Did you discuss the management of the patient with other professionals (professionals i.e. , PA, RN ACCESS, lab, RT, psych nurse, vp digital marketing social media and crm, taker out, teacher, parcel post officer, case resolution specialist)? Give summary @ -No Was smoking cessation discussed for >3mins.? @ -No Was critical care preformed (if so, how long)? @ -No Were there social determinants of health that impacted care today? How? (Homelessness, low income, unemployed, alcoholism, drug addiction, transportation, low edu. Level, literacy, decrease access to med. care, long term, rehab)? @ -No Was there de-escalation of care discussed even if they declined (Discuss DNR or withdrawal of care, Hospice)? DNR status @ -No What co-morbidities impacted this encounter? (DM, HTN, Smoking, COPD, CAD, Cancer, CVA, ARF, Chemo, Hep., AIDS, mental health diagnosis, sleep apnea, morbid obesity)? @ -None Was patient admitted / discharged? Hospital course, mention meds given and route, prescriptions, significant lab abnormalities, going to OR and other pertinent info. @Medically cleared for EPS evaluation. Evaluated by EPS and will be admitted for psychiatric evaluation and treatment. - Lab Data Lab Results 02/26/24 Range/Units 00:27 Urine Opiates Screen Not Detected (NotDetected) Ur Oxycodone Screen Not Detected (NotDetected) Urine Methadone Screen Not Detected (NotDetected) Ur Barbiturates Screen Not Detected (NotDetected) U Tricyclic Antidepress Not Detected (NotDetected) Ur Phencyclidine Scrn Not Detected (NotDetected) Ur Amphetamines Screen Not Detected (NotDetected) U Methamphetamines Scrn Not Detected (NotDetected) U Benzodiazepines Scrn Not Detected (NotDetected) Urine Cocaine Screen Not Detected (NotDetected) U Marijuana (THC) Screen Not Detected (NotDetected) Disposition Clinical Impression: Psychosis, Schizophrenia Disposition: ADMITTED IP TO THIS HOSP Condition: Stable Is patient prescribed a controlled substance at d/c from ED?: No Referrals: None,Stated [Primary Care Provider] - 1-2 days Time of Disposition: 02:08
[2024-02-26 01:19] LABS: Amphetamine Screen,Urine Not Detected (NotDetected); Barbiturate Screen,Urine Not Detected (NotDetected); Benzodiazepines Screen,Urine Not Detected (NotDetected); Cocaine Screen,Urine Not Detected (NotDetected); Methadone Screen, Urine Not Detected (NotDetected); Opiate Screen,Urine Not Detected (NotDetected); Oxycodone Screen, Urine Not Detected (NotDetected); Phencyclidine Screen,Urine Not Detected (NotDetected); Tricyclic Antidepressant,Urine Not Detected (NotDetected); Urn Cannabinoid Scrn Not Detected (NotDetected)
[2024-02-26] MEDS ORDERED: IBUPROFEN 600 MG TAB PO PRN (04:01)
[2024-02-26] MEDS ORDERED: haloperidoL 5 MG TAB PO PRN (04:01)
[2024-02-26] MEDS ORDERED: LORazepam 1 MG TAB PO PRN (04:01)
[2024-02-26] MEDS ORDERED: LORazepam 2 MG/ML INJ IM PRN (04:01)
[2024-02-26] MEDS ORDERED: HALOPERIDOL LACTATE 5 MG/ML 1 ML VIAL IM PRN (04:01)
[2024-02-26] MEDS ORDERED: MAGNESIUM HYDROXIDE 2,400 MG/30 ML CUP PO PRN (04:01)
[2024-02-26] MEDS ORDERED: ACETAMINOPHEN TAB 325 MG TAB PO PRN (04:01)
[2024-02-26 07:50] LABS: Appearance,Urine Clear (Clear); Bilirubin,Urine Negative (Negative); Blood,Urine Negative (Negative); Color,Urine Light Yellow; Glucose,Urine (UA) Negative (Negative); Ketones,Urine Trace (Negative); Leukocyte Esterase,Urine Small (Negative); Mucus,Urine Many /hpf; Nitrite,Urine Negative (Negative); Protein,Urine Negative (Negative); RBC,Urine 1 /hpf (0-5); Specific Gravity,Urine 1.009 (1.001-1.035); Urobilinogen,Urine <2.0 mg/dL (<2.0); WBC,Urine 3 /hpf (0-5)
[2024-02-26] MEDS ORDERED: MAG HYDROX/AL HYDROX/SIMETH 355 ML BOTTLE PO PRN (08:00)
[2024-02-26] MEDS: NICOTINE 21MG/24HR PATCH TRANSDERM SCH (08:02)
[2024-02-26 08:56] LABS: Basophils # (A) 0.1 k/uL (0-0.2); Basophils % (A) 1 %; Eosinophils # (A) 0.4 k/uL (0-0.7); Eosinophils % (A) 4 %; HCT 49.3 % (39.0-53.0); HGB 15.6 gm/dL (13.0-17.5); Lymphocytes # (A) 1.9 k/uL (1.0-4.8); Lymphocytes % (A) 22 %; MCH 29.8 pg (25.0-35.0); MCHC 31.6 g/dL (31.0-37.0); MCV 94.3 fL (80.0-100.0); Mean Platelet Volume 7.3; Monocytes # (A) 0.6 k/uL (0-1.0); Monocytes % (A) 8 %; Neutrophils # (A) 5.4 k/uL (1.3-7.7); Neutrophils % (A) 64 %; Platelet Count 267 k/uL (150-450); RBC 5.22 m/uL (4.30-5.90); WBC 8.5 k/uL (3.8-10.6)
[2024-02-26 08:57] LABS: ALT 24 U/L (4-49); AST 18 U/L (17-59); African American GFR (CKD) >90 (>60 ml/min/1.73 sqM); Albumin 3.6 g/dL (3.5-5.0); Alkaline Phosphatase 88 U/L (38-126); Anion Gap 6 mmol/L; Blood Urea Nitrogen 11 mg/dL (9-20); Calcium 8.9 mg/dL (8.4-10.2); Carbon Dioxide 27 mmol/L (22-30); Chloride 110 mmol/L (98-107); Glucose 101 mg/dL (74-99); Non-African American GFR(CKD) >90 (>60 ml/min/1.73 sqM); Potassium 4.1 mmol/L (3.5-5.1); Sodium 143 mmol/L (137-145); Total Bilirubin 0.3 mg/dL (0.2-1.3); Total Protein 6.5 g/dL (6.3-8.2)
[2024-02-26] MEDS ORDERED: ALBUTEROL NEBULIZED 2.5 MG/3 ML INHALATION PRN (11:05)
[2024-02-26] MEDS: DIVALPROEX ER 500 MG TAB.ER.24H PO SCH (11:37)
[2024-02-26] MEDS: LORazepam 0.5 MG TAB PO SCH (11:38)
--- NOTE | 2024-02-26 12:35 | P.HP ---
Psychiatric H&P - . H&P Date: 02/26/24 History & Physical: Allergies Allergy/AdvReac Type Severity Reaction Status Date / Time No Known Allergies Allergy Verified 02/26/24 00:11 Vital Signs Temp 97.8 F 02/26/24 05:05 Pulse 118 H 02/26/24 05:05 Resp 18 02/26/24 05:05 BP 124/77 02/26/24 05:05 Pulse Ox 96 02/26/24 05:05 FiO2 Intake & Output 02/25/24 02/26/24 02/26/24 18:59 06:59 18:59 Weight 104.411 kg Laboratory Last Values WBC 8.5 k/uL (3.8-10.6) 02/26/24 08:00 RBC 5.22 m/uL (4.30-5.90) 02/26/24 08:00 Hgb 15.6 gm/dL (13.0-17.5) 02/26/24 08:00 Hct 49.3 % (39.0-53.0) 02/26/24 08:00 MCV 94.3 fL (80.0-100.0) 02/26/24 08:00 MCH 29.8 pg (25.0-35.0) 02/26/24 08:00 MCHC 31.6 g/dL (31.0-37.0) 02/26/24 08:00 RDW 13.0 % (11.5-15.5) 02/26/24 08:00 Plt Count 267 k/uL (150-450) 02/26/24 08:00 MPV 7.3 02/26/24 08:00 Neutrophils % 64 % 02/26/24 08:00 Lymphocytes % 22 % 02/26/24 08:00 Monocytes % 8 % 02/26/24 08:00 Eosinophils % 4 % 02/26/24 08:00 Basophils % 1 % 02/26/24 08:00 Neutrophils # 5.4 k/uL (1.3-7.7) 02/26/24 08:00 Lymphocytes # 1.9 k/uL (1.0-4.8) 02/26/24 08:00 Monocytes # 0.6 k/uL (0-1.0) 02/26/24 08:00 Eosinophils # 0.4 k/uL (0-0.7) 02/26/24 08:00 Basophils # 0.1 k/uL (0-0.2) 02/26/24 08:00 Sodium 143 mmol/L (137-145) 02/26/24 08:00 Potassium 4.1 mmol/L (3.5-5.1) 02/26/24 08:00 Chloride 110 mmol/L (98-107) H 02/26/24 08:00 Carbon Dioxide 27 mmol/L (22-30) 02/26/24 08:00 Anion Gap 6 mmol/L 02/26/24 08:00 BUN 11 mg/dL (9-20) 02/26/24 08:00 Creatinine 0.87 mg/dL (0.66-1.25) 02/26/24 08:00 Est GFR (CKD-EPI)AfAm >90 (>60 ml/min/1.73 sqM) 02/26/24 08:00 Est GFR (CKD-EPI)NonAf >90 (>60 ml/min/1.73 sqM) 02/26/24 08:00 Glucose 101 mg/dL (74-99) H 02/26/24 08:00 Calcium 8.9 mg/dL (8.4-10.2) 02/26/24 08:00 Total Bilirubin 0.3 mg/dL (0.2-1.3) 02/26/24 08:00 AST 18 U/L (17-59) 02/26/24 08:00 ALT 24 U/L (4-49) 02/26/24 08:00 Alkaline Phosphatase 88 U/L (38-126) 02/26/24 08:00 Total Protein 6.5 g/dL (6.3-8.2) 02/26/24 08:00 Albumin 3.6 g/dL (3.5-5.0) 02/26/24 08:00 Urine Color Light Yellow 02/26/24 00:27 Urine Appearance Clear (Clear) 02/26/24 00:27 Urine pH 6.0 (5.0-8.0) 02/26/24 00:27 Ur Specific [place] 1.009 (1.001-1.035) 02/26/24 00:27 Urine Protein Negative (Negative) 02/26/24 00:27 Urine Glucose (UA) Negative (Negative) 02/26/24 00: Urine Ketones Trace (Negative) H 02/26/24 00: Urine Blood Negative (Negative) 02/26/24: Urine Nitrite Negative (Negative) 02/26/24: Urine Bilirubin Negative (Negative) 02/26/24: Urine Urobilinogen <2.0 mg/dL (<2.0) 02/26/24: Ur Leukocyte Esterase Small (Negative) H 02/26/24: Urine RBC 1 /hpf (0-5) 02/26/24: Urine WBC 3 /hpf (0-5) 02/26/24: Urine Mucus Many /hpf (None) H 02/26/24: Urine Opiates Screen Not Detected (NotDetected) 02/26/24 00: Ur Oxycodone Screen Not Detected (NotDetected) 02/26/24 00: Urine Methadone Screen Not Detected (NotDetected) 02/26/24 00: Ur Barbiturates Screen Not Detected (NotDetected) 02/26/24 00:27 U Tricyclic Antidepress Not Detected (NotDetected) 02/26/24 00:27 Ur Phencyclidine Scrn Not Detected (NotDetected) 02/26/24 00:27 Ur Amphetamines Screen Not Detected (NotDetected) 02/26/24 00:27 U Methamphetamines Scrn Not Detected (NotDetected) 02/26/24 00:27 U Benzodiazepines Scrn Not Detected (NotDetected) 02/26/24 00:27 Urine Cocaine Screen Not Detected (NotDetected) 02/26/24 00:27 U Marijuana (THC) Screen Not Detected (NotDetected) 02/26/24 00:27 SARS-CoV-2 (PCR) Not Detected (Not Detectd) 02/26/24 02:44 02/26/24 12:31 this is a psychiatric assessment on Gabino Marmolejo is a 33-year-old male Patient is a very poor historian and is unable to give much any information When seen today patient was laying in bed He stated that he was brought here by the police he states that he wants to have a diagnosis He says that he has to find his mother patient then made some comments which were inaudible Patient then stated that he was too tired to talk anymore Patient made disorganized statements which are unrelated to any questions asked Further assessment could not be completed due to patient's disorganized thought processes as well as wanted to be left alone Past history personal socially history could not be collected at this time due to above-mentioned reasons and due to acute psychosis mental status examination: Reveals a young male who looks much older for his age Patient is sleeping at this time and was easily arousable but seems to be preoccupied Affect at this time remains flat Speech was appropriate Thought processes remained disorganized with looseness of associations Formal and operational judgment and insight are poor Patient has poor concentration and attention span Patient is unable to answer any specific questions about orientation but appears to be aware that he is in the hospital Problem-solving skills are impaired Diagnostic impression: Schizophrenia chronic undifferentiated type Plan: Plan: The patient will be hospitalized on the unit for further evaluation and treatment Therapy will be focused on providing supportive care improving his coping abilities with a multimodal treatment Patient will also participate in on the garcia activities individual milieu group OT RT PT and pharmacotherapy Approximately length of stay would be 7-10 days Will continue his current home medications card services specialist will be involved for appropriate discharge planning Jorge Ken M.D. Active Medications Generic Name Dose Route Start Last Admin Trade Name Freq PRN Reason Stop Dose Admin Acetaminophen 650 mg 02/26/24 04:01 Acetaminophen Tab 325 Mg Tab PO Q4HR PRN Mild Pain (Scale 1 to 3) Al Hydroxide/Mg Hydroxide 30 ml 02/26/24 08:00 Mag Hydrox/Al Hydrox/Simeth 355 Ml Bottle PO Q4HR PRN GI Upset Albuterol Sulfate 2.5 mg 02/26/24 11:05 Albuterol Nebulized 2.5 Mg/3 Ml INHALATION RT-Q4H PRN Shortness Of Breath Or Wheezing Clozapine 200 mg 02/26/24 21:00 Clozapine 100 Mg Tab PO 02/29/24 23:00 HS@2100 JANNA Divalproex Sodium 500 mg 02/26/24 11:15 02/26/24 11:37 Divalproex Er 500 Mg Tab.Er.24h PO 500 mg DAILY JANNA Administration Fluvoxamine Maleate 50 mg 02/27/24 08:00 Fluvoxamine 50 Mg Tab PO DAILY@0800 JANNA Glycopyrrolate 2 mg 02/26/24 21:00 Glycopyrrolate 1 Mg Tab PO HS@2100 JANNA Haloperidol 5 mg 02/26/24 04:01 Haloperidol 5 Mg Tab PO Q6HR PRN Agitation Haloperidol Lactate 5 mg 02/26/24 04:01 Haloperidol Lactate 5 Mg/Ml 1 Ml Vial IM Q6HR PRN Severe Agitation Ibuprofen 600 mg 02/26/24 04:01 Ibuprofen 600 Mg Tab PO Q6HR PRN Moderate Pain (Scale 4 to 6) Lorazepam 1 mg 02/26/24 04:01 Lorazepam 1 Mg Tab PO Q6HR PRN Anxiety Lorazepam 1 mg 02/26/24 04:01 Lorazepam 2 Mg/Ml Inj IM Q6HR PRN Severe Agitation Lorazepam 0.5 mg 02/26/24 15:00 02/26/24 11:38 Lorazepam 0.5 Mg Tab PO 0.5 mg TID@0800,1500,2100 JANNA Administration Magnesium Hydroxide 2,400 mg 02/26/24 04:01 Magnesium Hydroxide 2,400 Mg/30 Ml Cup PO DAILY PRN Constipation Mirtazapine 15 mg 02/26/24 21:00 Mirtazapine 15 Mg Tab PO HS@2100 JANNA Nicotine 1 patch 02/26/24 09:00 02/26/24 08:02 Nicotine 21mg/24hr Patch TRANSDERM 1 patch DAILY JANNA Administration Pantoprazole Sodium 40 mg 02/27/24 08:00 Pantoprazole 40 Mg Tablet PO DAILY@0800 JANNA Trazodone HCl 100 mg 02/26/24 21:00 Trazodone Hcl 100 Mg Tab PO HS [facility]
[2024-02-26] MEDS ORDERED: ALBUTEROL INHALER 60 PUFF/8 GM INHALER (MHU) INHALATION PRN (12:47)
[2024-02-26] MEDS: traZODone HCL 100 MG TAB PO SCH (21:04)
[2024-02-26] MEDS: GLYCOPYRROLATE 1 MG TAB PO SCH (21:04)
[2024-02-26] MEDS: cloZAPine 100 MG TAB PO SCH (21:04)
[2024-02-26] MEDS: MIRTAZAPINE 15 MG TAB PO SCH (21:04)
[2024-02-27] MEDS: PANTOPRAZOLE 40 MG TABLET PO SCH (09:24)
--- NOTE | 2024-02-27 11:00 | P.PN ---
Progress Note - Text Progress Note Date: 02/27/24 Interval History: Patient was seen in the lounge, and was directable and agreeable to speak with chief writer in the bearden. Patient presents with disorganized thoughts. He states he does not know why he came back here, and that he thought he handled the situation the right way. Tangential. Stating that he does not think the person who says they are his mother is his mother. States she was drinking water too fast, and he was smoking cigarettes. Patient is concrete. At this time patient denies any suicidal or homicidal ideations, intent or plan. Patient denies any auditory, visual hallucinations and denies any paranoia or delusions. Patient denies any side effects from the medications and has been compliant with meds. MENTAL STATUS EXAM: General Appearance: Patient appears to be stated age, fair hygiene and grooming. Flat affect poor eye contact Behavior: Patient is seated without any agitated behavior. Guarded Speech: Patient's speech is fluent and non-pressured. [place] Mood/Affect: Patient reports their mood is "ok", affect is congruent and flat Suicidality/Homicidality: Patient denies having any homicidal ideation intent or plan. Denies any suicidal ideation, intent or plan. Perceptions: Patient denies any visual hallucinations and denies any auditory hallucinations. Though content/process: [place], content is fairly evasive. Superficial. disorganized thoughts. Memory and concentration: Alert and oriented to person, hospital, year Judgment and insight: poor chronically IMPRESSIONS: Schizophrenia Cannabis use disorder, by history Nicotine dependence PLAN: No change in medications -Patient is admitted under involuntary status to [facility] for stabilization of psychiatric symptoms and safety. Patient is on a full court order, expiring 07/23/24 -Medications : Clozapine 200 mg qhs for mood stabilization/psychosis. Luvox 50 mg daily for depression/anxiety. Remeron 15 mg nightly for mood/insomnia. Trazodone 100 mg nightly as needed for sleep, Depakote ER 500mg PO qhs for mood stabilization -Ativan and Haldol PRN for agitation/aggression -NRT - nicotine patch -SW on board for discharge planning. Encourage patient to participate in groups to work on coping skills. Patient received a mental health court order on 01/24, expiring 07/23/24.
[2024-02-27 14:36] LABS: Clozapine (Clozaril) 139 ng/mL (200-700); Norclozapine 60 ng/mL (200-700)
--- NOTE | 2024-02-28 02:59 | P.MDCNMH ---
History of Present Illness H&P Date: 02/28/24 Chief Complaint: Medical evaluation 33-year-old male with no significant past medical history coming in for evaluation for bizarre behavior and was brought in by police for evaluation. Patient denies any suicidal ideation however he provides very limited history. He does not participate with answering any questions or elaborating on any details. Patient did not answer regarding drugs or alcohol but he admits to smoking review of systems Unable to obtain patient does not participate on exam Constitutional: No acute distress, looks anxious Eyes: Anicteric sclerae, moist conjunctiva, Pupils equal round reactive to light ENMT: NC/AT Neck: Supple, no masses, or JVD Lungs: Clear to auscultation Clear to percussion Normal respiratory effort, no accessory muscle use Cardiovascular: Heart regular in rate and rhythm, No murmurs, gallops, or rubs No peripheral edema Abdominal: Soft Nontender, no guarding, rebound or rigidity Abdomen moving with respiration Normoactive bowel sounds Psychiatric: Alert and oriented to person, place and time Neuro Muscles Strength 5/5 in all 4 extremities Sensation to light touch grossly present throughout Cranial nerves II-XII grossly intact Past Medical History Past Medical History: GERD/Reflux Additional Past Medical History / Comment(s): healing stomach ulcer, takes propranolol for tremors related to side effects from some of his meds History of Any Multi-Drug Resistant Organisms: None Reported Past Surgical History: No Surgical Hx Reported Additional Past Surgical History / Comment(s): EGD in Nov. Past Anesthesia/Blood Transfusion Reactions: No Reported Reaction Past Psychological History: Anxiety, Schizophrenia Smoking Status: Current every day smoker Past Alcohol Use History: None Reported Additional Past Alcohol Use History / Comment(s): Patient is a smoker of one pack per day for greater than 10 years. He denies marijuana, street drug use. no alcohol use currently Past Drug Use History: None Reported - Past Family History Father Additional Family Medical History / Comment(s): Father at age 53 from emphysema. Mother Additional Family Medical History / Comment(s): Mother is alive in her 50s with no major medical problems. Brother(s) Family Medical History: No Reported History Additional Family Medical History / Comment(s): Patient has 1 brother and 1 sister with no major medical problems. Medications and Allergies Home Medications Medication Instructions Recorded Confirmed Type Glycopyrrolate [Robinul Forte] 2 mg PO HS@209902/09/23 02/26/24 History LORazepam [Ativan] 0.5 mg PO TID@0800,1500,209902/09/23 02/26/24 History Nicotine 14Mg/24Hr Patch [Habitrol] 1 patch TRANSDERM DAILY patch 02/13/24 02/26/24 Rx Albuterol Nebulized [Ventolin 2.5 mg INHALATION RT-Q4H PRN #1 inh 02/15/24 02/26/24 Rx Nebulized] Divalproex ER [Depakote ER] 500 mg PO DAILY 14 Days #14 tab 02/15/24 02/26/24 Rx Mirtazapine [Remeron] 15 mg PO HS@2099 14 Days #14 tab 02/15/24 02/26/24 Rx Pantoprazole [Protonix] 40 mg PO DAILY@0800 #30 tab 02/15/24 02/26/24 Rx cloZAPine [Clozaril] 200 mg PO HS@2099 14 Days #28 tab 02/15/24 02/26/24 Rx fluvoxaMINE [Luvox] 50 mg PO DAILY@0800 14 Days #14 tab 02/15/24 02/26/24 Rx traZODone HCL 100 mg PO HS 14 Days #14 tablet 02/15/24 02/26/24 Rx Allergies Allergy/AdvReac Type Severity Reaction Status Date / Time No Known Allergies Allergy Verified 02/26/24 00:11 Physical Exam Vitals: Vital Signs Temp Pulse Resp BP Pulse Ox 02/27/24 06:00 98.1 F 86 18 112/76 99 Cranial Nerve Examination - Cranial Nerves Cranial Nerve II- Optic: Intact Cranial Nerve III- Oculomotor: Intact Cranial Nerve IV- Trochlear: Intact Cranial Nerve V- Trigeminal: Intact Cranial Nerve - Abducens: Intact Cranial Nerve VII- Facial: Intact Cranial Nerve VIII- Auditory: Intact Cranial Nerve IX- Glossopharyngeal: Intact Cranial Nerve X- Vagus: Intact Cranial Nerve XI- Accessory: Intact Cranial Nerve XII- Hypoglossal: Intact Results CBC & Chem 7: 02/26/24 08:00 02/26/24 08:00 Labs: Abnormal Lab Results - Last 24 Hours (Table) 02/26/24 Range/Units 08:00 Clozapine 139 L (200-700) ng/mL Norclozapine 60 L (200-700) ng/mL Assessment and Plan Assessment: Acute psychosis Management per psych Blood work reviewed showing white count 8.5 hemoglobin 15.6 unremarkable Renal function sodium 143 potassium 4.1 BUN 11 creatinine 0.87 unremarkable Urine analysis unremarkable Patient stable from medical standpoint Thank you for this consultation
--- NOTE | 2024-02-28 11:18 | P.PN ---
Progress Note - Text Progress Note Date: 02/28/24 Interval History: Patient was seen in the lounge, and was directable and agreeable to speak with mortgage or loan underwriter in the bearden. Patient presents more concrete today. He stated that he is ok..Patient states that he slept well last night, and his appetite is good. he was fairly concrete. Patient was inquiring about discharge, stating that he is ready to go home. Qualified Craft Worker Electrician explained to patient he has to be more psychiatrically stable prior to discharge. Patient offered no other complaints or concerns. At this time patient denies any suicidal or homicidal ideations, intent or plan. Patient denies any auditory, visual hallucinations and denies any paranoia or delusions. Patient denies any side effects from the medications and has been compliant with meds. MENTAL STATUS EXAM: General Appearance: Patient appears to be stated age, fair hygiene and grooming. Flat affect poor eye contact Behavior: Patient is seated without any agitated behavior. Guarded Speech: Patient's speech is fluent and non-pressured. [place] Mood/Affect: Patient reports their mood is "ok", affect is congruent and flat Suicidality/Homicidality: Patient denies having any homicidal ideation intent or plan. Denies any suicidal ideation, intent or plan. Perceptions: Patient denies any visual hallucinations and denies any auditory hallucinations. Though content/process: [place], content is fairly evasive. Superficial. disorganized thoughts. Memory and concentration: Alert and oriented to person, hospital, year Judgment and insight: poor chronically IMPRESSIONS: Schizophrenia Cannabis use disorder, by history Nicotine dependence PLAN: -Patient is admitted under involuntary status to MHU for stabilization of psyc hiatric symptoms and safety. Patient is on a full court order, expiring 07/23/24 -Medications : increase Clozapine 250 mg qhs for mood stabilization/psychosis. Luvox 50 mg daily for depression/anxiety. Remeron 15 mg nightly for mood/insomnia. Trazodone 100 mg nightly as needed for sleep, Depakote ER 500mg PO bid for mood stabilization -Ativan and Haldol PRN for agitation/aggression -NRT - nicotine patch -SW on board for discharge planning. Encourage patient to participate in groups to work on coping skills. Patient received a mental health court order on 01/24, expiring 07/23/24. Meeting tomorrow with [facility] coordinator to see about placement for a penitentiary.
[2024-02-28] MEDS: cloZAPine 100 MG TAB PO SCH (21:36)
--- NOTE | 2024-02-29 10:02 | P.PN ---
Progress Note - Text Progress Note Date: 02/29/24 Interval History: Patient was seen in the lounge, and was directable and agreeable to speak with chief writer in the bearden. Patient presents more concrete today. He stated that he is ok. Patient continues to be very concrete. Patient states he wants to go home. Customer Specialist told him that there is a meeting today to discuss discharge for him. Patient states he slept well, and that his appetite is good. he is out of his room and going to some groups. Patient offered no other complaints or concerns. At this time patient denies any suicidal or homicidal ideations, intent or plan. Patient denies any auditory, visual hallucinations and denies any paranoia or delusions. Patient denies any side effects from the medications and has been compliant with meds. MENTAL STATUS EXAM: General Appearance: Patient appears to be stated age, fair hygiene and grooming. Flat affect poor eye contact Behavior: Patient is seated without any agitated behavior. Guarded Speech: Patient's speech is fluent and non-pressured. [place] Mood/Affect: Patient reports their mood is "ok", affect is congruent and flat Suicidality/Homicidality: Patient denies having any homicidal ideation intent or plan. Denies any suicidal ideation, intent or plan. Perceptions: Patient denies any visual hallucinations and denies any auditory hallucinations. Though content/process: [place], content is fairly evasive. Superficial. disorganized thoughts. Memory and concentration: Alert and oriented to person, hospital, year Judgment and insight: poor chronically IMPRESSIONS: Schizophrenia Cannabis use disorder, by history Nicotine dependence PLAN: -Patient is admitted under involuntary status to MHU for stabilization of psych iatric symptoms and safety. Patient is on a full court order, expiring 07/23/24 -Medications : Clozapine 250 mg qhs for mood stabilization/psychosis. Luvox 50 mg daily for depression/anxiety. Remeron 15 mg nightly for mood/insomnia. Trazodone 100 mg nightly as needed for sleep, Depakote ER 500 mg PO bid for mood stabilization -Ativan and Haldol PRN for agitation/aggression -NRT - nicotine patch - on board for discharge planning. Encourage patient to participate in groups to work on coping skills. Patient received a mental health court order on 01/24, expiring 07/23/24. Meeting today with [facility] for discharge planning.
[2024-02-29 13:45] LABS: Basophils # (A) 0.1 k/uL (0-0.2); Basophils % (A) 1 %; Eosinophils # (A) 0.3 k/uL (0-0.7); Eosinophils % (A) 3 %; HCT 46.5 % (39.0-53.0); HGB 15.3 gm/dL (13.0-17.5); Lymphocytes # (A) 1.8 k/uL (1.0-4.8); Lymphocytes % (A) 18 %; MCH 31.1 pg (25.0-35.0); MCHC 32.9 g/dL (31.0-37.0); MCV 94.7 fL (80.0-100.0); Mean Platelet Volume 7.7; Monocytes # (A) 0.6 k/uL (0-1.0); Monocytes % (A) 6 %; Neutrophils % (A) 71 %; Platelet Count 251 k/uL (150-450); RBC 4.91 m/uL (4.30-5.90); RDW 13.3 % (11.5-15.5); WBC 9.9 k/uL (3.8-10.6)
--- NOTE | 2024-03-01 09:45 | P.PN ---
Progress Note - Text Progress Note Date: 03/01/24 Interval History: Patient was seen in the lounge, and was directable and agreeable to speak with narrative writer in the bearden. Patient continues to be fairly concrete at this time. He states that he is doing fairly well, he was rambling a bit this morning, described a panic attack yesterday however did not state what caused the or how long it was for. We spoke about discharge planning, he states that he is okay with going to his mother's house upon discharge with ACT team to follow him daily. He has been more visible on the unit, taking part in some groups. Continues to have fairly poor insight and judgment. Her debility is improving. Continues to be somewhat illogical however improving. Patient offered no other complaints or concerns. At this time patient denies any suicidal or homicidal ideations, intent or plan. Patient denies any auditory, visual hallucinations and denies any paranoia or delusions. Patient denies any side effects from the medications and has been compliant with meds. MENTAL STATUS EXAM: General Appearance: Patient appears to be stated age, fair hygiene and grooming. Flat affect improving eye contact Behavior: Patient is seated without any agitated behavior. Guarded, improving Speech: Patient's speech is fluent and non-pressured. [place], improving Mood/Affect: Patient reports their mood is "ok", affect is congruent and flat Suicidality/Homicidality: Patient denies having any homicidal ideation intent or plan. Denies any suicidal ideation, intent or plan. Perceptions: Patient denies any visual hallucinations and denies any auditory hallucinations. Though content/process: [place], content is fairly evasive. Superficial. disorganized thoughts. Improving mildly Memory and concentration: Alert and oriented to person, hospital, year Judgment and insight: poor chronically, improving mildly IMPRESSIONS: Schizophrenia Cannabis use disorder, by history Nicotine dependence PLAN: -Patient is admitted under involuntary status to MHU for stabilization of psychiatric symptoms and safety. Patient is on a full court order, expiring 07/23/24 -Medications : Clozapine 250 mg qhs for mood stabilization/psychosis. Luvox 50 mg daily for depression/anxiety. Remeron 15 mg nightly for mood/insomnia. Trazodone 100 mg nightly as needed for sleep, Depakote ER 500 mg PO bid for mood stabilization -Ativan and Haldol PRN for agitation/aggression -NRT - nicotine patch -SW on board for discharge planning. Encourage patient to participate in groups to work on coping skills. Patient received a mental health court order on 01/24, expiring 07/23/24. Patient guardian and also social worker psychiatric looking at discharge planning, it was suggested that patient might be able to be discharged to mother's house with ACT team following him daily, will look more into this and plan for a discharge likely early next week on Tuesday.
--- NOTE | 2024-03-02 12:28 | P.PN ---
Progress Note - Text Progress Note Date: 03/02/24 Interval History: Patient was seen in the hallway, and was directable and agreeable to speak with filing writer in the bearden. Patient continues to be fairly concrete at this time. He was fairly focused on discharge today, we spoke about discharge planning and speaking with ACT team and also [facility]. He appears to be mildly irritable this morning however has been pacing the hallways, more visible on the unit. Continues to be fairly concrete, chronically poor insight and judgment. Patient offered no other complaints or concerns. He is denying any depression or anxiety. At this time patient denies any suicidal or homicidal ideations, intent or plan. Patient denies any auditory, visual hallucinations and denies any paranoia or delusions. Patient denies any side effects from the medications and has been compliant with meds. MENTAL STATUS EXAM: General Appearance: Patient appears to be stated age, fair hygiene and grooming. Flat affect improving eye contact Behavior: Patient is seated without any agitated behavior. Guarded, improving Speech: Patient's speech is fluent and non-pressured. [place], improving Mood/Affect: Patient reports their mood is "ok", affect is congruent and flat Suicidality/Homicidality: Patient denies having any homicidal ideation intent or plan. Denies any suicidal ideation, intent or plan. Perceptions: Patient denies any visual hallucinations and denies any auditory hallucinations. Though content/process: [place], content is fairly evasive. Superficial. Improving mildly Memory and concentration: Alert and oriented to person, hospital, year Judgment and insight: poor chronically, improving mildly IMPRESSIONS: Schizophrenia Cannabis use disorder, by history Nicotine dependence PLAN: -Patient is admitted under involuntary status to MHU for stabilization of psychiatric symptoms and safety. Patient is on a full court order, expiring 07/23/24 -Medications : Clozapine 250 mg qhs for mood stabilization/psychosis, consider increasing clozapine if needed/tolerated over the weekend or next week based on patient's condition. Luvox 50 mg daily for depression/anxiety. Remeron 15 mg nightly for mood/insomnia. Trazodone 100 mg nightly as needed for sleep, Depakote ER 500 mg PO bid for mood stabilization -Ativan and Haldol PRN for agitation/aggression -NRT - nicotine patch - on board for discharge planning. Encourage patient to participate in groups to work on coping skills. Patient received a mental health court order on 01/24, expiring 07/23/24. ACT team is denying services to patient, group is declining patient. Will have to coordinate with [facility] and guardian for patient placement next week with meeting as to where patient will go for placement
--- NOTE | 2024-03-03 11:50 | P.PN ---
Subjective Progress Note Date: 03/03/24 Principal diagnosis: IMPRESSIONS: Schizophrenia Cannabis use disorder, by history Nicotine dependence Patient Name: Benoit Marmolejo Date of : 88 Patient Status: Inpatient Attending Provider: Domingo Trujillo Date: 03/03/24 Initialization Date: 03/02/24 08:50 Active Medications Acetaminophen (Acetaminophen Tab 325 Mg Tab) 650 mg PO Q4HR PRN PRN Reason: Mild Pain (Scale 1 to 3) Al Hydroxide/Mg Hydroxide (Mag Hydrox/Al Hydrox/Simeth 355 Ml Bottle) 30 ml PO Q4HR PRN PRN Reason: GI Upset Albuterol Sulfate (Albuterol Inhaler 60 Puff/8 Gm Inhaler ([facility])) 2 puff INHALATION RT-Q4H PRN PRN Reason: Shortness Of Breath Or Wheezin Clozapine (Clozapine 100 Mg Tab) 250 mg PO HS [facility] Stop: 03/07/24 23:00 Last Admin: 03/02/24 20:30 Dose: 250 mg Divalproex Sodium (Divalproex Er 500 Mg Tab.Er.24h) 500 mg PO DAILY [facility] Last Admin: 03/03/24 08:59 Dose: 500 mg Fluvoxamine Maleate (Fluvoxamine 50 Mg Tab) 50 mg PO DAILY@0800 [facility] Last Admin: 03/03/24 08:59 Dose: 50 mg Glycopyrrolate (Glycopyrrolate 1 Mg Tab) 2 mg PO HS@2100 [facility] Last Admin: 03/02/24 20:29 Dose: 2 mg Haloperidol (Haloperidol 5 Mg Tab) 5 mg PO Q6HR PRN PRN Reason: Agitation Haloperidol Lactate (Haloperidol Lactate 5 Mg/Ml 1 Ml Vial) 5 mg IM Q6HR PRN PRN Reason: Severe Agitation Ibuprofen (Ibuprofen 600 Mg Tab) 600 mg PO Q6HR PRN PRN Reason: Moderate Pain (Scale 4 to 6) Lorazepam (Lorazepam 1 Mg Tab) 1 mg PO Q6HR PRN PRN Reason: Anxiety Lorazepam (Lorazepam 2 Mg/Ml Inj) 1 mg IM Q6HR PRN PRN Reason: Severe Agitation Lorazepam (Lorazepam 0.5 Mg Tab) 0.5 mg PO TID@0800,1500,2100 [facility] Last Admin: 03/03/24 08:59 Dose: 0.5 mg Magnesium Hydroxide (Magnesium Hydroxide 2,400 Mg/30 Ml Cup) 2,400 mg PO DAILY PRN PRN Reason: Constipation Mirtazapine (Mirtazapine 15 Mg Tab) 15 mg PO HS@2100 [facility] Last Admin: 03/02/24 20:30 Dose: 15 mg Nicotine (Nicotine 21mg/24hr Patch) 1 patch TRANSDERM DAILY [facility] Last Admin: 03/03/24 08:59 Dose: 1 patch Pantoprazole Sodium (Pantoprazole 40 Mg Tablet) 40 mg PO DAILY@0800 [facility] Last Admin: 03/03/24 08:59 Dose: 40 mg Trazodone HCl (Trazodone Hcl 100 Mg Tab) 100 mg PO HS [facility] Last Admin: 03/02/24 20:30 Dose: 100 mg subjective data: Patient was seen in his room and agreeable to speak with typewriter assembly and parts inspector in the bearden. patient continued to stare this typewriter assembly and parts inspector for a while before responding Patient continues to be fairly concrete at this time. He was fairly focused on discharge today, past when he is being discharged When asked about where he will be going patient said he'll go somewhere speech and remains fragmented easily distracted . MENTAL STATUS EXAM: General Appearance: Patient appears to be stated age, fair hygiene and grooming. Flat affect improving eye contact Behavior: Patient is seated without any agitated behavior. Speech: Patient's speech is fluent and non-pressured. [place], Mood/Affect: Patient reports their mood is "ok", affect is congruent and flat Suicidality/Homicidality: Patient denies having any homicidal ideation intent or plan. Denies any suicidal ideation, intent or plan. Perceptions: Patient denies any visual hallucinations and denies any auditory hallucinations. Though content/process: [place], content is fairly evasive. seem to be distracted easily In complete sentences Memory and concentration: Alert and oriented to person, hospital, year Judgment and insight: poor chronically, IMPRESSIONS: Schizophrenia Cannabis use disorder, by history Nicotine dependence PLAN: patient appears to have shown some improvement since the last time I had seen him last week where he is more open and able to express himself somewhat better although is limited Continues to be fairly concrete, chronically poor insight and judgment. Patient offered no other complaints or concerns. He is denying any depression or anxiety. At this time patient denies any suicidal or homicidal ideations, intent or plan. Patient denies any auditory, visual hallucinations and denies any paranoia or delusions. Patient denies any side effects from the medications and has been compliant with meds. -Patient is admitted under involuntary status to [facility] for stabilization of psychiatric symptoms and safety. Patient is on a full court order, expiring 07/23/24 -Medications : Clozapine 250 mg qhs for mood stabilization/psychosis, will consider increasing clozapine if needed/tolerated over the weekend or next week based on patient's condition. Luvox 50 mg daily for depression/anxiety. Remeron 15 mg nightly for mood/insomnia. Trazodone 100 mg nightly as needed for sleep, Depakote ER 500 mg PO bid for mood stabilization -Ativan and Haldol PRN for agitation/aggression -NRT - nicotine patch - on board for discharge planning. Encourage patient to participate in groups to work on coping skills. Patient received a mental health court order on 01/24, expiring 07/23/24. ACT team is denying services to patient, group is declining patient. Will have to coordinate with [facility] and guardian for patient placement next week with meeting as to where patient will go for placement Objective - Vital Signs Vital signs: Vital Signs Temp 97.5 F L 03/03/24 06:30 Pulse 65 03/03/24 06:30 Resp 18 03/03/24 06:30 BP 105/57 03/03/24 06:30 Pulse Ox 99 02/27/24 06:00 FiO2 - Labs CBC & Chem 7: 02/29/24 12:38 02/26/24 08:00
--- NOTE | 2024-03-04 11:04 | P.PN ---
Subjective Progress Note Date: 03/04/24 Principal diagnosis: IMPRESSIONS: Schizophrenia Cannabis use disorder, by history Nicotine dependence Patient Name: Benoit Marmolejo Date of : 88 Patient Status: Inpatient Attending Provider: Domingo Trujillo Date: 03/04/24 Initialization Date: 03/02/24 08:50 Active Medications Acetaminophen (Acetaminophen Tab 325 Mg Tab) 650 mg PO Q4HR PRN PRN Reason: Mild Pain (Scale 1 to 3) Al Hydroxide/Mg Hydroxide (Mag Hydrox/Al Hydrox/Simeth 355 Ml Bottle) 30 ml PO Q4HR PRN PRN Reason: GI Upset Albuterol Sulfate (Albuterol Inhaler 60 Puff/8 Gm Inhaler (Mhu)) 2 puff INHALATION RT-Q4H PRN PRN Reason: Shortness Of Breath Or Wheezin Clozapine (Clozapine 100 Mg Tab) 250 mg PO HS [facility] Stop: 03/07/24 23:00 Last Admin: 03/02/24 20:30 Dose: 250 mg Divalproex Sodium (Divalproex Er 500 Mg Tab.Er.24h) 500 mg PO DAILY [facility] Last Admin: 03/03/24 08:59 Dose: 500 mg Fluvoxamine Maleate (Fluvoxamine 50 Mg Tab) 50 mg PO DAILY@0800 [facility] Last Admin: 03/03/24 08:59 Dose: 50 mg Glycopyrrolate (Glycopyrrolate 1 Mg Tab) 2 mg PO HS@2100 [facility] Last Admin: 03/02/24 20:29 Dose: 2 mg Haloperidol (Haloperidol 5 Mg Tab) 5 mg PO Q6HR PRN PRN Reason: Agitation Haloperidol Lactate (Haloperidol Lactate 5 Mg/Ml 1 Ml Vial) 5 mg IM Q6HR PRN PRN Reason: Severe Agitation Ibuprofen (Ibuprofen 600 Mg Tab) 600 mg PO Q6HR PRN PRN Reason: Moderate Pain (Scale 4 to 6) Lorazepam (Lorazepam 1 Mg Tab) 1 mg PO Q6HR PRN PRN Reason: Anxiety Lorazepam (Lorazepam 2 Mg/Ml Inj) 1 mg IM Q6HR PRN PRN Reason: Severe Agitation Lorazepam (Lorazepam 0.5 Mg Tab) 0.5 mg PO TID@0800,1500,2100 [facility] Last Admin: 03/03/24 08:59 Dose: 0.5 mg Magnesium Hydroxide (Magnesium Hydroxide 2,400 Mg/30 Ml Cup) 2,400 mg PO DAILY PRN PRN Reason: Constipation Mirtazapine (Mirtazapine 15 Mg Tab) 15 mg PO HS@2100 [facility] Last Admin: 03/02/24 20:30 Dose: 15 mg Nicotine (Nicotine 21mg/24hr Patch) 1 patch TRANSDERM DAILY [facility] Last Admin: 03/03/24 08:59 Dose: 1 patch Pantoprazole Sodium (Pantoprazole 40 Mg Tablet) 40 mg PO DAILY@0800 [facility] Last Admin: 03/03/24 08:59 Dose: 40 mg Trazodone HCl (Trazodone Hcl 100 Mg Tab) 100 mg PO HS [facility] Last Admin: 03/02/24 20:30 Dose: 100 mg subjective data: the patient was walking in the hallway and actually approached this manual writer Patient was asked when he might be able to go home Speech remains telegraphic halting and fragmented Thinking remains very concrete and simple Patient says that he lives with his mother Patient is not oriented any other information and then walked away . MENTAL STATUS EXAM: General Appearance: Patient appears to be stated age, shabbily dressed and groomed. Flat affect improving eye contact Behavior: Patient is walking without any agitated behavior. Speech: Patient's speech is fluent and non-pressured. [place], Mood/Affect: Patient reports their mood is "ok", affect is congruent and flat Suicidality/Homicidality: Patient denies having any homicidal ideation intent or plan. Denies any suicidal ideation, intent or plan. Perceptions: Patient denies any visual hallucinations and denies any auditory duke llucinations. Though content/process: [place], content is fairly evasive. seem to be distracted easily In complete sentences Memory and concentration: Alert and oriented to person, hospital, year Judgment and insight: poor chronically, IMPRESSIONS: Schizophrenia Cannabis use disorder, by history Nicotine dependence PLAN: patient appears to have shown some improvement since the last time I had seen him last week where he is more open and able to express himself somewhat better although is limited Continues to be fairly concrete, chronically poor insight and judgment. Patient offered no other complaints or concerns. He is denying any depression or anxiety. At this time patient denies any suicidal or homicidal ideations, intent or plan. Patient denies any auditory, visual hallucinations and denies any paranoia or delusions. Patient denies any side effects from the medications and has been compliant with meds. -Patient is admitted under involuntary status to [facility] for stabilization of psychiatric symptoms and safety. Patient is on a full court order, expiring 07/23/24 -Medications : Clozapine 250 mg qhs for mood stabilization/psychosis, will consider increasing clozapine if needed/tolerated over the weekend or next week based on patient's condition. Luvox 50 mg daily for depression/anxiety. Remeron 15 mg nightly for mood/insomnia. Trazodone 100 mg nightly as needed for sleep, Depakote ER 500 mg PO bid for mood stabilization -Ativan and Haldol PRN for agitation/aggression -NRT - nicotine patch -SW on board for discharge planning. following information noted in the chart ''Encourage patient to participate in groups to work on coping skills. Patient received a mental health court order on 01/24, expiring 07/23/24. ACT team is denying services to patient, group is declining patient. Will have to coordinate with [facility] and guardian for patient placement next week with meeting as to where patient will go for placement '' Jorge Ken M.D. Objective - Vital Signs Vital signs: Vital Signs Temp 97.5 F L 03/03/24 06:30 Pulse 65 03/03/24 06:30 Resp 18 03/03/24 06:30 BP 105/57 03/03/24 06:30 Pulse Ox 99 02/27/24 06:00 FiO2 - Labs CBC & Chem 7: 02/29/24 12:38 02/26/24 08:00
--- NOTE | 2024-03-05 15:47 | P.PN ---
Progress Note - Text Progress Note Date: 03/05/24 Clinical Problems: Schizophrenia, tobacco use disorder Interim history: Chart reviewed and patient interviewed. He is a 33-year-old single [place] male who has a history of poor treatment response of schizophrenia. The paramedics brought him to the hospital after police called by family due to bizarre behavior. He has been compliant with medications and occasionally participates in therapeutic activities. He spends most of his time alone in bed coming out for meals. His only concern was when he would be discharged. He insisted on me telling him when he could leave. I explained that I am just introducing myself will discuss with the treatment team when we may discharge him and where we would discharge him. According to the social work note the plan will be to discharge him to a fpc. Mental status exam: He presented as a disheveled angry appearing 33-year-old man who walks with a shuffling gait. His clothing was food stained. He had dark circles under his eyes and stared intently. He showed no abnormality of psychomotor activity. Speech was not spontaneous. He did not express suicidal ideation, versus homicidal ideation. No depressive cognitions. He was paranoid and guarded. Possibly responding to internal stimuli. Assessment: He remains psychotic. Plan: Increase clozapine to 300 mg at bedtime. Continue Depakote 500 mg daily, Luvox 50 mg daily, Remeron 15 mg at bedtime and trazodone 100 mg at bedtime. Haldol and/or Ativan IM p.o. as needed for agitation. Encourage participation in therapeutic activities. Coordinate care with treatment team. Evaluate clinical status and daily basis.
[2024-03-05] MEDS: cloZAPine 100 MG TAB PO SCH (21:17)
--- NOTE | 2024-03-06 14:33 | P.PN ---
Progress Note - Text Progress Note Date: 03/06/24 Clinical Problems: Schizophrenia, tobacco use disorder Interim history: I reviewed the medical record, interviewed the patient and discussed the treatment and treatment plan with the treatment team. Patient's only concern was discharge. music worker met with the [facility] liaison as well as his guardian welding equipment sales representative. Social work notes at this time the only appropriate option is to discharge him home with his mother while awaiting completion of application for an [facility] fpc placement. His guardian consented to this plan and asked that [facility] or the patient's mom pick him up from the hospital. [facility] should cussing my to come in for a discharge meeting on at 1230. He spends most of his time in his bed. He seldom comes out other for meals. However, he briefly attends a therapeutic group this morning. His pose no management problems had no episodes of behavioral dyscontrol. Mental status exam: He presented as a disheveled appearing 29-year-old Mac[place] male who made eye contact. He had a tense and unsettling stare. His gait was slow but steady. He had paucity of speech and paucity of content. Affect was flat. No suicidal ideation, wishes homicidal ideation expressed. No apparent depressive cognitions. He did not express clear ideas of reference, suicidal Ideation or delusions. His thinking was very concrete. He denies hallucinations but at times appear to be responding to internal stimuli. Assessment: He has had a best or modest response to clozapine. Plan: Continue clozapine 300 mg at bedtime, augment with Abilify 5 mg daily, continue Depakote 500 mg daily, Luvox 50 mg daily, Ativan 1.5 mg 3 times daily and trazodone at bedtime. Encourage participation in therapeutic activities is much as possible. Evaluate clinical status response. Daily basis. Client plan for discharge on 03/08/24.
[2024-03-07] MEDS: ARIPiprazole 5 MG TAB PO SCH (09:20)
[2024-03-07 09:43] VITALS: RESP 18; TEMP 99.1
--- NOTE | 2024-03-07 12:22 | P.PN ---
Progress Note - Text Progress Note Date: 03/07/24 Clinical Problems: Schizophrenia, tobacco use disorder Interim history: I reviewed the medical record, interviewed the patient and discussed the treatment and treatment plan with the treatment team. "nobody tells me anything." I asked if he spoke with the social worke about the discharge plan. He replied that he didn't but when I explained that plan - that his mother will pick him up tomorrow - he appear to recognize the plan. He continues spends most of his time in his bed. He seldom comes out other than for meals. He has posed no management problems had no episodes of behavioral dyscontrol. No side effects to the increase dose of clozapine and the addition of Abilify. Mental status exam: He presented as a disheveled appearing 29-year-old Maced[place] male who made eye contact. He had a tense and unsettling stare. His gait was slow but steady. He had paucity of speech and paucity of content. Affect remains flat. No suicidal ideation, wishes homicidal ideation expressed. No apparent depressive cognitions. He did not express clear ideas of reference, suicidal Ideation or delusions. His thinking was very concrete. He denies hallucinations but at times appear to be responding to internal stimuli. Assessment: He has had a best or modest response to clozapine. Plan: Continue clozapine 300 mg at bedtime, augment with Abilify 5 mg daily, Luvox 50 mg daily, Ativan 1.5 mg 3 times daily and trazodone at bedtime. discontinue Depakote 500 mg daily. Encourage participation in therapeutic activities is much as possible. Evaluate clinical status response on a daily basis. Client plan for discharge on 03/08/24.
[2024-03-07 13:45] LABS: Basophils % (A) 0 %; Eosinophils # (A) 0.3 k/uL (0-0.7); Eosinophils % (A) 4 %; HCT 50.3 % (39.0-53.0); HGB 16.2 gm/dL (13.0-17.5); Lymphocytes # (A) 1.7 k/uL (1.0-4.8); Lymphocytes % (A) 22 %; MCHC 32.1 g/dL (31.0-37.0); MCV 93.4 fL (80.0-100.0); Mean Platelet Volume 7.3; Monocytes # (A) 0.5 k/uL (0-1.0); Monocytes % (A) 6 %; Neutrophils # (A) 5.1 k/uL (1.3-7.7); Neutrophils % (A) 66 %; Platelet Count 194 k/uL (150-450); RBC 5.38 m/uL (4.30-5.90); RDW 12.9 % (11.5-15.5); WBC 7.7 k/uL (3.8-10.6)
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
[2024-03-08 09:14] VITALS: BP 130/86; PULSE 112
== END 2024-03-08 13:25 | disposition home or self-care (01) | DRG 885 ==
LOC: EC 23:46 → 3MHU 02-26 03:57
PROVIDERS: ADMIT Psychiatry & Neurology Psychiatry; ATTEND Psychiatry & Neurology Psychiatry
DX: F20.5 Residual schizophrenia (principal); F41.0 Panic disorder [episodic paroxysmal anxiety]; K21.9 Gastro-esophageal reflux disease without esophagitis; F12.11 Cannabis abuse, in remission; F17.210 Nicotine dependence, cigarettes, uncomplicated; K59.00 Constipation, unspecified; Z11.52 Encounter for screening for COVID-19; Z79.899 Other long term (current) drug therapy; Z87.11 Personal history of peptic ulcer disease
CPT/HCPCS: 80053; 80159; 80306; 81001; 82075; 85025; 87635; 99285

== ENCOUNTER 2024-06-16 20:34 | Emergency (ER) | payer MEDICARE, MEDICAID ==
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
[2024-06-16] MEDS: LORazepam 2 MG/ML INJ IM STA (22:29)
[2024-06-16 23:13] LABS: Basophils % (A) 0 %; Eosinophils # (A) 0.2 k/uL (0-0.7); Eosinophils % (A) 2 %; HCT 46.5 % (39.0-53.0); HGB 14.9 gm/dL (13.0-17.5); Lymphocytes # (A) 1.2 k/uL (1.0-4.8); Lymphocytes % (A) 14 %; MCH 29.6 pg (25.0-35.0); MCV 92.4 fL (80.0-100.0); Mean Platelet Volume 7.1; Monocytes # (A) 0.5 k/uL (0-1.0); Monocytes % (A) 6 %; Neutrophils # (A) 6.8 k/uL (1.3-7.7); Neutrophils % (A) 77 %; Platelet Count 193 k/uL (150-450); RBC 5.03 m/uL (4.30-5.90); RDW 13.1 % (11.5-15.5); WBC 8.8 k/uL (3.8-10.6)
[2024-06-16 23:23] LABS: ALT 15 U/L (4-49); AST 16 U/L (17-59); African American GFR (CKD) >90 (>60 ml/min/1.73 sqM); Albumin 4.1 g/dL (3.5-5.0); Alcohol <10 mg/dL; Alkaline Phosphatase 105 U/L (38-126); Anion Gap 6 mmol/L; Blood Urea Nitrogen 14 mg/dL (9-20); Calcium 9.4 mg/dL (8.4-10.2); Carbon Dioxide 22 mmol/L (22-30); Chloride 115 mmol/L (98-107); Glucose 97 mg/dL (74-99); Non-African American GFR(CKD) >90 (>60 ml/min/1.73 sqM); Potassium 3.7 mmol/L (3.5-5.1); Sodium 143 mmol/L (137-145); Total Bilirubin 0.6 mg/dL (0.2-1.3); Total Protein 6.7 g/dL (6.3-8.2)
[2024-06-17 03:11] VITALS: RESP 16
[2024-06-17 10:02] LABS: Amphetamine Screen,Urine Not Detected (NotDetected); Barbiturate Screen,Urine Not Detected (NotDetected); Benzodiazepines Screen,Urine Detected (NotDetected); Cocaine Screen,Urine Not Detected (NotDetected); Methadone Screen, Urine Not Detected (NotDetected); Opiate Screen,Urine Detected (NotDetected); Oxycodone Screen, Urine Not Detected (NotDetected); Phencyclidine Screen,Urine Not Detected (NotDetected); Tricyclic Antidepressant,Urine Not Detected (NotDetected); Urn Cannabinoid Scrn Not Detected (NotDetected)
[2024-06-17 11:46] VITALS: BP 118/71; PULSE 89; TEMP 98.6
== END 2024-06-17 11:50 | disposition other institution (70) ==
LOC: EC 20:34
DX: F23 Brief psychotic disorder (principal); F17.200 Nicotine dependence, unspecified, uncomplicated; Z11.52 Encounter for screening for COVID-19
CPT/HCPCS: 36415; 80053; 85025; 80306; 80320; 87636; 99285; 96372; J2060

== ENCOUNTER 2024-07-10 11:45 | Inpatient (IN) | payer MEDICARE, OTHER ==
--- NOTE | 2024-07-10 11:54 | ED ---
Skin/Abscess/FB HPI - General Chief complaint: Skin/Abscess/Foreign Body Stated complaint: Both Hand Infection Time Seen by Provider: 07/10/24 11:52 Source: patient, family, RN notes reviewed Mode of arrival: ambulatory Limitations: no limitations - History of Present Illness Initial comments: 33-year-old male presented to the ER with a chief complaint of bilateral hand infection. Patient sent by Dr. Guzman for evaluation. Mother providing majority of HPI and past medical history. Patient was released from [facility] on 07-04-2024. Yesterday morning patient started to experience swelling and edema to left third digit. Mother states today she started to notice spreading erythema into his hand which brought him to the ER. Mother also reports a pustule to the right second digit. No proximally spreading erythema at that time. No fevers or injuries. No IV drug use. - Related Data Home Medications Medication Instructions Recorded Confirmed ARIPiprazole [Abilify Maintena] 400 mg IM Q28D 07/10/24 07/10/24 OLANZapine [ZyPREXA] 15 mg PO HS 07/10/24 07/10/24 Valproic Acid (As Sodium Salt) 500 mg PO BID 07/10/24 07/10/24 [Valproic Acid] Allergies Allergy/AdvReac Type Severity Reaction Status Date / Time No Known Allergies Allergy Verified 07/10/24 12:12 Review of Systems ROS Statement: Those systems with pertinent positive or pertinent negative responses have been documented in the HPI. ROS Other: All systems not noted in ROS Statement are negative. Past Medical History Past Medical History: GERD/Reflux Additional Past Medical History / Comment(s): healing stomach ulcer, takes propranolol for tremors related to side effects from some of his meds History of Any Multi-Drug Resistant Organisms: None Reported Past Surgical History: No Surgical Hx Reported Additional Past Surgical History / Comment(s): EGD in Nov. Past Anesthesia/Blood Transfusion Reactions: No Reported Reaction Past Psychological History: Anxiety, Schizophrenia Smoking Status: Current every day smoker Past Alcohol Use History: None Reported Past Drug Use History: None Reported - Past Family History Father Additional Family Medical History / Comment(s): Father at age 53 from em physema. Mother Additional Family Medical History / Comment(s): Mother is alive in her 50s with no major medical problems. Brother(s) Family Medical History: No Reported History Additional Family Medical History / Comment(s): Patient has 1 brother and 1 sister with no major medical problems. General Exam - General Exam Comments Initial Comments: Visual Physical Exam Vital signs reviewed General: Well-appearing, nontoxic, no acute distress. Head: Normocephalic, atraumatic Eyes: PERRLA, EOMI ENT: Airway patent Chest: Nonlabored breathing Skin: No visual rash, normal skin tone, erythema to left third digit with proximal spread. There is also erythema to right second digit. Neuro: Alert and oriented 3 Musculoskeletal: No gross abnormalities Limitations: no limitations General appearance: alert, in no apparent distress Respiratory exam: Present: normal lung sounds bilaterally. Absent: respiratory distress, wheezes, rales, rhonchi, stridor Cardiovascular Exam: Present: regular rate, normal rhythm, normal heart sounds. Absent: systolic murmur, diastolic murmur, rubs, gallop, clicks Extremities exam: Present: tenderness, other (2cm centimeter pustule to left third digit in between PIP and DIP joint. There is circumferential erythema and edema with proximally spreading erythema. Limited range of motion due to edema. No drainage. Right second digit has 1 cm pustule surrounding erythema. no drainage) Neurological exam: Present: alert, oriented X3, CN II-XII intact Skin exam: Present: warm, dry, intact, normal color. Absent: rash Course Vital Signs 07/10/24 07/10/24 11:49 13:20 Temperature 98.5 F 98.1 F Pulse Rate 86 81 Respiratory 20 18 Rate Blood Pressure 123/80 125/77 O2 Sat by Pulse 99 99 Oximetry - Reevaluation(s) Reevaluation #1: 07/10/24 14:[address] [facility], Dr. Benson for admission. Medical Decision Making - Medical Decision Making I performed the quick note portion of this chart. Electronically signed by Marlena Sanches PA-C Was pt. sent in by a medical professional or institution (JESSA Al, PATTERN REPAIR PERSON, urgent care, hospital, or senior living...) When possible be specific @ -Patient sent by PCP, Dr. Guzman for evaluation of finger infections. Did you speak to anyone other than the patient for history (EMS, parent, family, police, friend...)? What history was obtained from this source @ -Mother providing HPI and past medical history. Did you review nursing and triage notes (agree or disagree)? Why? @ -I reviewed and agree with nursing and triage notes Were old charts reviewed (outside hosp., previous admission, EMS record, old EKG, old radiological studies, urgent care reports/EKG's, senior living records)? Report findings @ -No old charts were reviewed Differential Diagnosis (chest pain, altered mental status, abdominal pain women, abdominal pain men, vaginal bleeding, weakness, fever, dyspnea, syncope, headache, dizziness, GI bleed, back pain, seizure, CVA, palpatations, mental health, musculoskeletal)? @ -Differential Musculoskeletal: Muscular strain, contusion, ligament sprain, fracture, arthritis, septic arthritis, bursitis, cellulitis, muscle spasm, nerve compression, DVT, arterial occlusion, herpes zoster, electrolyte abnormality, tumor.... This is not meant to be in all inclusive list EKG interpreted by me (3pts min.). @ -None done X-rays interpreted by me (1pt min.). @ -Bilateral hand x-rays negative for acute osseous process. Soft tissue edema to left third digit and right second digit. CT interpreted by me (1pt min.). @ -None done U/S interpreted by me (1pt. min.). @ -None done What testing was considered but not performed or refused? (CT, X-rays, U/S, labs)? Why? @ -None What meds were considered but not given or refused? Why? @ -None Did you discuss the management of the patient with other professionals (professionals i.e. , PA, PATTERN REPAIR PERSON, lab, RT, psych nurse, foster care social worker, rigging helper, teacher, network security officer, case therapist)? Give summary @ -Case discussed with [facility], Dr. Benson for admission Was smoking cessation discussed for >3mins.? @ -No Was critical care preformed (if so, how long)? @ -No Were there social determinants of health that impacted care today? How? (Homelessness, low income, unemployed, alcoholism, drug addiction, transportation, low edu. Level, literacy, decrease access to med. care, alf, rehab)? @ -No Was there de-escalation of care discussed even if they declined (Discuss DNR or withdrawal of care, Hospice)? DNR status @ -No What co-morbidities impacted this encounter? (DM, HTN, Smoking, COPD, CAD, Cancer, CVA, ARF, Chemo, Hep., AIDS, mental health diagnosis, sleep apnea, morbid obesity)? @ -Mental health Was patient admitted / discharged? Hospital course, mention meds given and route, prescriptions, significant lab abnormalities, going to OR and other pertinent info. @ -Admitted. 33-year-old male presented to ER with a chief complaint of bilateral finger infections. Patient sent by PCP. History and physical exam completed. Vitals within normal limits. Patient in no signs of acute distress and nontoxic-appearing. Exam remarkable for bilateral upper extremities are vastly intact. Left third digit is erythematous with a large pustule approximately 2 cm in diameter in between DIP and DIP joint. Circumferential finger erythema and edema with proximally spreading erythema. Right second digit has a 1 cm pustule with surrounding erythema. These are tender to touch. No drainage is present bilaterally. Laboratory studies obtained showing a leukocytosis of 12.1. Otherwise unremarkable. X-rays are negative. Admission considered for IV antibiotics for finger infection/abscess. Case discussed with [facility], Dr. Benson. Blood cultures obtained. Patient started on vancomycin and Zosyn. ID and orthopedics consult. Patient agreeable for admission. Admitted in stable condition for further evaluation and treatment. Case discussed with ED attending Dr. Holden. Undiagnosed new problem with uncertain prognosis? @ -No Drug Therapy requiring intensive monitoring for toxicity (Heparin, Nitro, Insulin, Cardizem)? @ -No Were any procedures done? @ -No Diagnosis/symptom? @ -Abscess versus finger cellulitis Acute, or Chronic, or Acute on Chronic? @ -Acute Uncomplicated (without systemic symptoms) or Complicated (systemic symptoms)? @ -Complicated Side effects of treatment? @ -No Exacerbation, Progression, or Severe Exacerbation? @ -No Poses a threat to life or bodily function? How? (Chest pain, USA, HI, pneumonia, PE, COPD, DKA, ARF, appy, cholecystitis, CVA, Diverticulitis, Homicidal, Suicidal, threat to staff... and all critical care pts) @ -Yes, infection can lead to sepsis which can result in endorgan dysfunction which is life-threatening. - Lab Data Result diagrams: 07/10/24 12:06 07/10/24 12:06 Lab Results 07/10/24 07/10/24 07/10/24 Range/Units 12:06 12:06 12:06 WBC 12.1 H (3.8-10.6) k/uL RBC 4.85 (4.30-5.90) m/uL Hgb 15.0 (13.0-17.5) gm/dL Hct 44.5 (39.0-53.0) % MCV 91.7 (80.0-100.0) fL MCH 30.9 (25.0-35.0) pg MCHC 33.7 (31.0-37.0) g/dL RDW 14.3 (11.5-15.5) % Plt Count 205 (150-450) k/uL MPV 7.9 Neutrophils % 79 % Lymphocytes % 12 % Monocytes % 5 % Eosinophils % 4 % Basophils % 0 % Neutrophils # 9.5 H (1.3-7.7) k/uL Lymphocytes # 1.5 (1.0-4.8) k/uL Monocytes # 0.6 (0-1.0) k/uL Eosinophils # 0.4 (0-0.7) k/uL Basophils # 0.0 (0-0.2) k/uL Sodium 139 (137-145) mmol/L Potassium 4.4 (3.5-5.1) mmol/L Chloride 109 H (98-107) mmol/L Carbon Dioxide 25 (22-30) mmol/L Anion Gap 5 mmol/L BUN 12 (9-20) mg/dL Creatinine 0.56 L (0.66-1.25) mg/dL Est GFR (CKD-EPI)AfAm >90 (>60 ml/min/1.73 sqM) Est GFR (CKD-EPI)NonAf >90 (>60 ml/min/1.73 sqM) Glucose 89 (74-99) mg/dL Plasma Lactic Acid Luigi 0.6 L (0.7-2.0) mmol/L Calcium 9.0 (8.4-10.2) mg/dL Total Bilirubin 0.4 (0.2-1.3) mg/dL AST 15 L (17-59) U/L ALT 10 (4-49) U/L Alkaline Phosphatase 97 (38-126) U/L Total Protein 6.7 (6.3-8.2) g/dL Albumin 3.8 (3.5-5.0) g/dL - Radiology Data Radiology results: report reviewed, image reviewed Disposition Clinical Impression: Finger infection, Abscess Disposition: ADMITTED IP TO THIS HOSP Condition: Stable Referrals: Megan Bishop MD [Primary Care Provider] - 1-2 days Time of Disposition: 14:49
[2024-07-10] MEDS: ACETAMINOPHEN TAB 325 MG TAB PO STA (12:17)
[2024-07-10] MEDS: SODIUM CHLORIDE 0.9% 1,000 ML IV STA (12:26)
[2024-07-10 12:36] LABS: Basophils % (A) 0 %; Eosinophils # (A) 0.4 k/uL (0-0.7); Eosinophils % (A) 4 %; HCT 44.5 % (39.0-53.0); Lymphocytes # (A) 1.5 k/uL (1.0-4.8); Lymphocytes % (A) 12 %; MCH 30.9 pg (25.0-35.0); MCHC 33.7 g/dL (31.0-37.0); MCV 91.7 fL (80.0-100.0); Mean Platelet Volume 7.9; Monocytes # (A) 0.6 k/uL (0-1.0); Monocytes % (A) 5 %; Neutrophils # (A) 9.5 k/uL (1.3-7.7); Neutrophils % (A) 79 %; Platelet Count 205 k/uL (150-450); RBC 4.85 m/uL (4.30-5.90); RDW 14.3 % (11.5-15.5); WBC 12.1 k/uL (3.8-10.6)
[2024-07-10 12:58] LABS: ALT 10 U/L (4-49); AST 15 U/L (17-59); African American GFR (CKD) >90 (>60 ml/min/1.73 sqM); Albumin 3.8 g/dL (3.5-5.0); Alkaline Phosphatase 97 U/L (38-126); Anion Gap 5 mmol/L; Blood Urea Nitrogen 12 mg/dL (9-20); Carbon Dioxide 25 mmol/L (22-30); Chloride 109 mmol/L (98-107); Glucose 89 mg/dL (74-99); Non-African American GFR(CKD) >90 (>60 ml/min/1.73 sqM); Potassium 4.4 mmol/L (3.5-5.1); Sodium 139 mmol/L (137-145); Total Bilirubin 0.4 mg/dL (0.2-1.3); Total Protein 6.7 g/dL (6.3-8.2)
--- NOTE | 2024-07-10 13:36 | XR ---
EXAMINATION TYPE: XR hand limited bilateral DATE OF EXAM: 07/10/2024 CLINICAL HISTORY: 2nd digit infection TECHNIQUE: Frontal, lateral images of the bilateral hands are obtained. COMPARISON: None. FINDINGS: There is no acute fracture/dislocation evident in the hands. The joint spaces appear withi n normal limits. The overlying soft tissue appears unremarkable. IMPRESSION: There is no acute fracture or dislocation in the bilateral hands. [facility], , 07/10/2024 1:34 PM
[2024-07-10] MEDS ORDERED: NALOXONE 0.4 MG/ML 1 ML VIAL IV PRN (14:30)
[2024-07-10] MEDS ORDERED: ACETAMINOPHEN TAB 325 MG TAB PO PRN (14:30)
[2024-07-10] MEDS ORDERED: VANCOMYCIN IV PER PHARMACY 1 EACH MISC MISCELLANE PRN (14:32)
[2024-07-10] MEDS: SODIUM CHLORIDE 0.9% 1,000 ML IV SCH (15:06)
--- NOTE | 2024-07-10 15:46 | P.HPIM ---
History of Present Illness H&P Date: 07/10/24 History of present illness: 33-year-old male patient with past medical history significant for GERD, history of peptic ulcer disease, history of tremors, who was recently released from [facility] on 07/04/2024, presented with pain swelling and edema of left third digit and also infection and wound of right second digit, denied any fever chills or known injuries. Patient is a poor historian, patient reported that he noticed right hand pain and swelling for 2 days, left third digit pain and swelling for 4 days. Patient denied any bug bite or animal bite. Patient is afebrile, heart rate 81, respiratory rate 18, blood pressure 125/77, saturating 99% on room air. WBCs 12.1 with absolute neutrophils 9.5, hemoglobin 15, platelet 205. BMP is unremarkable. X-ray of both hands negative for any acute fracture or dislocation. REVIEW OF SYSTEMS: CONSTITUTIONAL: No fever, no malaise, no fatigue. HEENT: No recent visual problems or hearing problems. Denied any sore throat. CARDIOVASCULAR: No chest pain, orthopnea, PND, no palpitations, no syncope. PULMONARY: No shortness of breath, no cough, no hemoptysis. GASTROINTESTINAL: No diarrhea, no nausea, no vomiting, no abdominal pain. NEUROLOGICAL: No headaches, no weakness, no numbness. HEMATOLOGICAL: Denies any bleeding or petechiae. GENITOURINARY: Denies any burning micturition, frequency, or urgency. MUSCULOSKELETAL/RHEUMATOLOGICAL: Complains of right second digit, left third digit pain and swelling and tenderness. ENDOCRINE: Denies any polyuria or polydipsia. The rest of the 14-point review of systems is negative. PHYSICAL EXAMINATION: GENERAL: The patient is A&O x3, NAD HEENT: EOMI, Sclerae anicteric, Moist Mucous membranes Neck: Supple, Non tender, No JVD PULMONARY: Equal breath souds B/L, No wheezing, No crackles. CARDIOVASCULAR: S1, S2 present. No murmurs, rubs, or gallops. ABDOMEN: Soft, nontender, nondistended, normoactive bowel sounds. No guarding or rebound tenderness. MUSCULOSKELETAL: Tenderness, erythema, warmth, swelling of right second and left third digit. EXTREMITIES: No cyanosis, clubbing, or pedal edema. NEUROLOGICAL: CN 2-12 grossly intact. No FND Assessment and plan: Left third digit abscess Right second digit status: Presented with 4 day history of pain swelling and edema of left third digit and right second digit. Elevated WBCs with elevated ANC X-ray negative for acute process Vancomycin and Rocephin ID consult Hand surgery consult SCD DVT prophylaxis SCD Monitor vital signs and labs Labs and medication were reviewed. Continue same treatment. Further recommendations as per clinical course of the patient Dictation was produced using [employer] dictation software. please excuse any grammatical, word or spelling errors. Past Medical History Past Medical History: GERD/Reflux Additional Past Medical History / Comment(s): healing stomach ulcer, takes propranolol for tremors related to side effects from some of his meds History of Any Multi-Drug Resistant Organisms: None Reported Past Surgical History: No Surgical Hx Reported Additional Past Surgical History / Comment(s): EGD in Nov. Past Anesthesia/Blood Transfusion Reactions: No Reported Reaction Past Psychological History: Anxiety, Schizophrenia Smoking Status: Current every day smoker Past Alcohol Use History: None Reported Past Drug Use History: None Reported - Past Family History Father Additional Family Medical History / Comment(s): Father at age 53 from emphysema. Mother Additional Family Medical History / Comment(s): Mother is alive in her 50s with no major medical problems. Brother(s) Family Medical History: No Reported History Additional Family Medical History / Comment(s): Patient has 1 brother and 1 sister with no major medical problems. Medications and Allergies Home Medications Medication Instructions Recorded Confirmed Type ARIPiprazole [Abilify Maintena] 400 mg IM Q28D 07/10/24 07/10/24 History OLANZapine [ZyPREXA] 15 mg PO HS 07/10/24 07/10/24 History Valproic Acid (As Sodium Salt) 500 mg PO BID 07/10/24 07/10/24 History [Valproic Acid] Allergies Allergy/AdvReac Type Severity Reaction Status Date / Time No Known Allergies Allergy Verified 07/10/24 12:12 Physical Exam Vitals: Vital Signs Temp Pulse Resp BP Pulse Ox 07/10/24 13:20 98.1 F 81 18 125/77 99 07/10/24 11:49 98.5 F 86 20 123/80 99 Intake and Output 07/09/24 07/10/24 07/10/24 22:59 06:59 14:59 Other: Weight 90.718 kg Results CBC & Chem 7: 07/10/24 12:06 07/10/24 12:06 Labs: Abnormal Lab Results - Last 24 Hours (Table) 07/10/24 07/10/24 07/10/24 Range/Units 12:06 12:06 12:06 WBC 12.1 H (3.8-10.6) k/uL Neutrophils # 9.5 H (1.3-7.7) k/uL Chloride 109 H (98-107) mmol/L Creatinine 0.56 L (0.66-1.25) mg/dL Plasma Lactic Acid Luigi 0.6 L (0.7-2.0) mmol/L AST 15 L (17-59) U/L
[2024-07-10] MEDS: PIPERACILLIN-TAZOBACTAM 3.375 GM in SODIUM CHLORIDE 0.9% 100 ML IVPB STA (16:42)
[2024-07-10] MEDS: IBUPROFEN 400 MG TAB PO PRN (16:42)
[2024-07-10] MEDS: VANCOMYCIN 1,500 MG in SODIUM CHLORIDE 0.9% 500 ML 500 ML IVPB STA (18:49)
--- NOTE | 2024-07-10 19:55 | P.CNOR ---
History of Present Illness - [facility] Consult date: 07/10/24 Consult reason: other (Hand infection) History of present illness: Patient is a 33-year-old male who presented to [facility] for evaluation of an infection involving the left third digit and the right second digit. Patient is a poor historian and does have a legal guardian which we will be reaching out to to try and receive a better history. Apparently the patient was just admitted to a previous hospital. What I could get out of the patient, he states he said swelling and redness noted to both fingers over the last few days. Patient was evaluated today in the emergency room, he is resting comfortably in his hospital bed. He notes some minor discomfort to the left third digit and right second digit. Patient denies any previous surgery to the bilateral hands. He denies any wrist pain, elbow pain bilaterally. Patient cannot state he has had any recent trauma to the area. Like stated above I will be contacting the legal guardian to achieve a better history. Review of Systems Constitutional: Reports as per HPI Past Medical History Past Medical History: GERD/Reflux Additional Past Medical History / Comment(s): healing stomach ulcer, takes propranolol for tremors related to side effects from some of his meds History of Any Multi-Drug Resistant Organisms: None Reported Past Surgical History: No Surgical Hx Reported Additional Past Surgical History / Comment(s): EGD in Nov. Past Anesthesia/Blood Transfusion Reactions: No Reported Reaction Past Psychological History: Anxiety, Schizophrenia Smoking Status: Current every day smoker Past Alcohol Use History: None Reported Past Drug Use History: None Reported - Past Family History Father Additional Family Medical History / Comment(s): Father at age 53 from emp hysema. Mother Additional Family Medical History / Comment(s): Mother is alive in her 50s with no major medical problems. Brother(s) Family Medical History: No Reported History Additional Family Medical History / Comment(s): Patient has 1 brother and 1 sister with no major medical problems. Medications and Allergies Home Medications Medication Instructions Recorded Confirmed Type ARIPiprazole [Abilify Maintena] 400 mg IM Q28D 07/10/24 07/10/24 History OLANZapine [ZyPREXA] 15 mg PO HS 07/10/24 07/10/24 History Valproic Acid (As Sodium Salt) 500 mg PO BID 07/10/24 07/10/24 History [Valproic Acid] Allergies Allergy/AdvReac Type Severity Reaction Status Date / Time No Known Allergies Allergy Verified 07/10/24 12:12 Physical Examination Left upper extremity: There is a significant abscess noted to the left third digit more on the radial border of the finger between the PIP and DIP joint, there is significant fluctuance, erythema and swelling to the area. Patient states he can feel me touching on both the volar and dorsal aspect. There are no other areas of erythema, swelling or skin breakdown noted throughout the hand and wrist. Patient demonstrates tenderness with palpation of that area. The radial and ulnar pulse are 2+. The sensory exam of the extremity are intact Right upper extremity: There is a abscess forming on the second digit between the PIP and MCP joint more on the dorsal aspect of that digit. There is purulent material expressed. There is redness, and fluctuance appreciated. There are no other areas of swelling, redness or fluctuance appreciated in the hand. He is able to wiggle all the fingers with no difficulty. Radial and ulnar pulse are 2+. Sensory exam to light touch in that extremity is intact Results - Labs Labs: Abnormal Lab Results - Last 24 Hours (Table) 07/10/24 07/10/24 07/10/24 Range/Units 12:06 12:06 12:06 WBC 12.1 H (3.8-10.6) k/uL Neutrophils # 9.5 H (1.3-7.7) k/uL Chloride 109 H (98-107) mmol/L Creatinine 0.56 L (0.66-1.25) mg/dL Plasma Lactic Acid Luigi 0.6 L (0.7-2.0) mmol/L AST 15 L (17-59) U/L H & H 07/10/24 Range/Units 12:06 Hgb 15.0 (13.0-17.5) gm/dL Hct 44.5 (39.0-53.0) % Result Diagrams: 07/10/24 12:06 07/10/24 12:06 Assessment and Plan Assessment: Right hand second digit abscess Left hand third digit abscess Other medical comorbidities Plan: I was able to discuss the case, this to include physical exam findings and imaging studies my attending Dr. Weems, we are recommending surgery, more specifically an incision and drainage with irrigation and debridement of both abscesses. We would like to proceed with surgery on 07/11/2024 Patient will be made n.p.o. after midnight. I will contact the legal guardian to obtain consent Consent to be obtained prior to procedure Local wound care at this time to the bilateral hands GI DVT prophylaxis, REMY hose/compression stockings while in hospital Internal medicine recommendations appreciated Infectious disease recommendations appreciated Further recommendations to follow Time with Patient: Less than 30
[2024-07-10] MEDS: VALPROIC ACID ORAL SOLN 250 MG/5 ML CUP PO SCH (21:19)
[2024-07-10] MEDS: OLANZapine 7.5 MG TAB PO SCH (21:19)
--- NOTE | 2024-07-10 21:49 | P.CONS ---
History of Present Illness - Reason for Consult Consult date: 07/10/24 Finger abscess Requesting physician: Alida Sanches - Chief Complaint Left middle right index finger swelling and pain x few days - History of Present Illness Patient is a 33-year-old male past medical his significant for reflux peptic ulcer disease anxiety schizophrenia current everyday smoker the patient has been brought into the hospital concerning for left middle and right index finger infection apparently the patient has been evaluated by the PCP subsequent send the hospital patient mention the left middle finger abscess started first he is not very clear how it started that has gradually increased in size becoming more painful patient describes the pain to be sharp moderate to severe intensity without any radiation and did have a similar abscess on the right index finger which is slightly smaller in size no drainage with the symptoms the patient has been evaluated on presentation to the hospital patient was afebrile and no fever have been recorded subsequently patient was not tachycardic hypotensive or hypoxic he did have a white count of 12.1 with a left shift creatinine 0.56 electrolytes has been normal patient did have the hand x-ray no acute fracture or dislocation patient was started on Rocephin and vancomycin infectious was consulted for further management of antibiotic therapy Review of Systems Positive point and negatives has been mentioned in the HPI, complete review of systems was performed and all other systems are negative Past Medical History Past Medical History: GERD/Reflux Additional Past Medical History / Comment(s): healing stomach ulcer, takes propranolol for tremors related to side effects from some of his meds History of Any Multi-Drug Resistant Organisms: None Reported Past Surgical History: No Surgical Hx Reported Additional Past Surgical History / Comment(s): EGD in Nov. Past Anesthesia/Blood Transfusion Reactions: No Reported Reaction Past Psychological History: Anxiety, Schizophrenia Smoking Status: Current every day smoker Past Alcohol Use History: None Reported Past Drug Use History: None Reported - Past Family History Father Additional Family Medical History / Comment(s): Father at age 53 from emphysema. Mother Additional Family Medical History / Comment(s): Mother is alive in her 50s with no major medical problems. Brother(s) Family Medical History: No Reported History Additional Family Medical History / Comment(s): Patient has 1 brother and 1 sister with no major medical problems. Medications and Allergies Home Medications Medication Instructions Recorded Confirmed Type ARIPiprazole [Abilifpatricia Maintena] 400 mg IM Q28D 07/10/24 07/10/24 History OLANZapine [ZyPREXA] 15 mg PO HS 07/10/24 07/10/24 History Valproic Acid (As Sodium Salt) 500 mg PO BID 07/10/24 07/10/24 History [Valproic Acid] Allergies Allergy/AdvReac Type Severity Reaction Status Date / Time No Known Allergies Allergy Verified 07/10/24 12:12 Physical Exam Vitals: Vital Signs Temp Pulse Resp BP Pulse Ox 07/10/24 13:20 98.1 F 81 18 125/77 99 07/10/24 11:49 98.5 F 86 20 123/80 99 Intake and Output 07/09/24 07/10/24 07/10/24 22:59 06:59 14:59 Other: Weight 90.718 kg GENERAL DESCRIPTION: Middle-aged male lying in bed, no distress. No tachypnea or accessory muscle of respiration use. HEENT: Shows Pallor , no scleral icterus. Oral mucous membrane is dry. No phar yngeal erythema or thrush NECK: Trachea central, no thyromegaly. LUNGS: Unlabored breathing. Clear to auscultation anteriorly. No wheeze or crackle. HEART: S1, S2, regular rate and rhythm. No loud murmur ABDOMEN: Soft, no tenderness , guarding or rigidity, no organomegaly EXTREMITIES: Left middle finger did have significant swelling and redness with a similar swelling in his right index finger with no drainage SKIN: No rash, no masses palpable. NEUROLOGICAL: The patient is awake, alert, mood and affect normal. Results CBC & Chem 7: 07/10/24 12:06 07/10/24 12:06 Labs: Abnormal Lab Results - Last 24 Hours (Table) 07/10/24 07/10/24 07/10/24 Range/Units 12:06 12:06 12:06 WBC 12.1 H (3.8-10.6) k/uL Neutrophils # 9.5 H (1.3-7.7) k/uL Chloride 109 H (98-107) mmol/L Creatinine 0.56 L (0.66-1.25) mg/dL Plasma Lactic Acid Luigi 0.6 L (0.7-2.0) mmol/L AST 15 L (17-59) U/L Assessment and Plan (1) Abscess of finger, left Current Visit: Yes Status: Acute Code(s): L02.512 - CUTANEOUS ABSCESS OF LEFT HAND SNOMED Code(s): 65774799941172391 (2) Abscess of finger, right Current Visit: Yes Status: Acute Code(s): L02.511 - CUTANEOUS ABSCESS OF RI GHT HAND SNOMED Code(s): 40746543097262136 Plan: 1patient presenting to the hospital with extensive swelling and redness to the left middle and right index finger likely representing an abscess and will need to cover for the gram-positive skin pamela to be the likely pathogen possibly staph/MRSA 2-await surgical drainage and deep culture for which Ortho has been consulted 3-patient will broadly covered with vancomycin pharmacy to dose and Rocephin pending workup completion We will follow on clinical condition and cultures to further adjust medication if needed Thank you for this consultation we will follow the patient along with you Dictation was produced using [employer] dictation software. please excuse any grammatical, word or spelling errors. Time with Patient: Greater than 30
[2024-07-11] MEDS: VANCOMYCIN 1,500 MG in SODIUM CHLORIDE 0.9% 500 ML 500 ML IVPB SCH (00:06)
[2024-07-11 06:35] LABS: Basophils % (A) 0 %; Eosinophils # (A) 0.3 k/uL (0-0.7); Eosinophils % (A) 4 %; HCT 41.9 % (39.0-53.0); HGB 13.3 gm/dL (13.0-17.5); Hypochromasia Slight; Lymphocytes # (A) 1.6 k/uL (1.0-4.8); Lymphocytes % (A) 20 %; MCH 30.3 pg (25.0-35.0); MCHC 31.8 g/dL (31.0-37.0); MCV 95.2 fL (80.0-100.0); Mean Platelet Volume 7.7; Monocytes # (A) 0.6 k/uL (0-1.0); Monocytes % (A) 7 %; Neutrophils # (A) 5.3 k/uL (1.3-7.7); Neutrophils % (A) 67 %; Platelet Count 198 k/uL (150-450); WBC 7.8 k/uL (3.8-10.6)
[2024-07-11 06:48] LABS: African American GFR (CKD) >90 (>60 ml/min/1.73 sqM); Anion Gap 3 mmol/L; Blood Urea Nitrogen 14 mg/dL (9-20); Calcium 8.1 mg/dL (8.4-10.2); Carbon Dioxide 24 mmol/L (22-30); Chloride 114 mmol/L (98-107); Glucose 82 mg/dL (74-99); Non-African American GFR(CKD) >90 (>60 ml/min/1.73 sqM); Potassium 4.5 mmol/L (3.5-5.1); Sodium 141 mmol/L (137-145)
--- NOTE | 2024-07-11 09:30 | P.PN ---
Subjective History of present illness: 33-year-old male patient with past medical history significant for GERD, history of peptic ulcer disease, history of tremors, who was recently released from [facility] on 07/04/2024, presented with pain swelling and edema of left third digit and also infection and wound of right second digit, denied any fever chills or known injuries. Patient is a poor historian, patient reported that he noticed right hand pain and swelling for 2 days, left third digit pain and swelling for 4 days. Patient denied any bug bite or animal bite. Patient is afebrile, heart rate 81, respiratory rate 18, blood pressure 125/77, saturating 99% on room air. WBCs 12.1 with absolute neutrophils 9.5, hemoglobin 15, platelet 205. BMP is unremarkable. X-ray of both hands negative for any acute fracture or dislocation. 07/11 Patient has infection swelling and tenderness of the left middle finger and to lesser x-ray right index finger No other new complaint Patient is going for I&D today with orthopedic team by 4 PM Continue with antibiotic as per ID team, currently on ceftriaxone and IV vancomycin and normal saline 75 mL/h Patient with no chest pain or dyspnea Patient is an acceptable risk to proceed with this procedure today Review of systems CONSTITUTIONAL: No fever, no malaise, no fatigue. HEENT: No recent visual problems or hearing problems. Denied any sore throat. CARDIOVASCULAR: No orthopnea, PND, no palpitations, no syncope. PULMONARY: No shortness of breath, no cough, no hemoptysis. GASTROINTESTINAL: No diarrhea, no nausea, no vomiting, no abdominal pain. Normoactive bowel sounds. NEUROLOGICAL: No headaches, no weakness, no numbness. HEMATOLOGICAL: Denies any bleeding or petechiae. Active Medications Generic Name Dose Route Start Last Admin Trade Name Freq PRN Reason Stop Dose Admin Acetaminophen 650 mg 07/10/24 14:30 Acetaminophen Tab 325 Mg Tab PO Q6HR PRN Mild Pain or Fever > 100.5 Sodium Chloride 1,000 mls @ 75 mls/hr 07/10/24 14:30 07/11/24 05:24 Saline 0.9% IV Not Given .[id number] JANNA Vancomycin HCl 1,500 mg/ 500 mls @ 167 mls/hr 07/11/24 00:00 07/11/24 08:17 Sodium Chloride IVPB 167 mls/hr Q8HR JANNA Administration Ceftriaxone Sodium 2 gm/ 50 mls @ 100 mls/hr 07/11/24 15:00 Sodium Chloride IVPB Q24H [facility] Protocol Ibuprofen 400 mg 07/10/24 14:30 07/10/24 16:42 Ibuprofen 400 Mg Tab PO 400 mg Q6HR PRN Administration Mild Pain or Fever > 100.5 Naloxone HCl 0.2 mg 07/10/24 14:30 Naloxone 0.4 Mg/Ml 1 Ml Vial IV Q2M PRN Opioid Reversal Olanzapine 15 mg 07/10/24 21:00 07/10/24 21:19 Olanzapine 7.5 Mg Tab PO 15 mg HS JANNA Administration Valproic Acid 500 mg 07/10/24 21:00 07/11/24 08:17 Valproic Acid Oral Soln 250 Mg/5 Ml Cup PO 500 mg BID JANNA Administration Objective - Vital Signs Vital signs: Vital Signs Temp 97.6 F 07/11/24 08:08 Pulse 71 07/11/24 08:08 Resp 16 07/11/24 08:08 BP 120/71 07/11/24 08:08 Pulse Ox 98 07/11/24 08:08 FiO2 Intake & Output 07/10/24 07/11/24 07/11/24 18:59 06:59 18:59 Intake Total 540 1860 Balance 540 1860 Weight 90.718 kg 90.718 kg Intake: Intake, IV Titration 900 Amount Vancomycin 1,500 mg In 500 Sodium Chloride 0.9% 500 ml 500 ml @ 167 mls/hr IVPB ONCE STA Rx#: [id number] Vancomycin 1,500 mg In 400 Sodium Chloride 0.9% 500 ml 500 ml @ 167 mls/hr IVPB Q8HR JANNA Rx#: [id number] Oral 540 960 Other: Voiding Method Toilet # Voids 1 - Exam GENERAL: The patient is alert and oriented x3, not in any acute distress. Well developed, well nourished. HEENT: Pupils are round and equally reacting to light. EOMI. No scleral icterus. No conjunctival pallor. Normocephalic, atraumatic. No pharyngeal erythema. No thyromegaly. CARDIOVASCULAR: S1 and S2 present. No murmurs, rubs, or gallops. PULMONARY: Chest is clear to auscultation, no wheezing , no crackles. ABDOMEN: Soft, nontender, nondistended, normoactive bowel sounds. No palpable organomegaly. -MUSCULOSKELETAL: No joint swelling or deformity. swelling and tenderness of the left middle finger and to lesser x-ray right index finger EXTREMITIES: No cyanosis, clubbing, or pedal edema. NEUROLOGICAL: Gross neurological examination did not reveal any focal deficits. SKIN: No rashes. no petechiae. - Labs CBC & Chem 7: 07/11/24 05:57 07/11/24 05:57 Labs: Abnormal Lab Results - Last 24 Hours (Table) 07/10/24 07/10/24 07/10/24 Range/Units 12:06 12:06 12:06 WBC 12.1 H (3.8-10.6) k/uL Neutrophils # 9.5 H (1.3-7.7) k/uL Chloride 109 H (98-107) mmol/L Creatinine 0.56 L (0.66-1.25) mg/dL Plasma Lactic Acid Luigi 0.6 L (0.7-2.0) mmol/L Calcium (8.4-10.2) mg/dL AST 15 L (17-59) U/L 07/11/24 Range/Units 05:57 WBC (3.8-10.6) k/uL Neutrophils # (1.3-7.7) k/uL Chloride 114 H (98-107) mmol/L Creatinine 0.59 L (0.66-1.25) mg/dL Plasma Lactic Acid Luigi (0.7-2.0) mmol/L Calcium 8.1 L (8.4-10.2) mg/dL AST (17-59) U/L Assessment and Plan Assessment: Finger infection with abscess involving the left middle finger and to lesser degree right index finger Elevated white cell count, leukocytosis Plan: Continue with antibiotic as per ID team, currently ceftriaxone and IV vancomycin Follow-up culture results Patient is an acceptable risk and no contraindication to proceed with I&D of his finger abscess by orthopedic team will follow closely GI and DVT prophylaxis Further recommendation based on clinical course Prognosis is guarded
--- NOTE | 2024-07-11 12:18 | P.PN ---
Subjective Progress Note Date: 07/11/24 Principal diagnosis: Bilateral hand abscess Patient is evaluated at bedside, he is resting comfortably in the observation unit. Discussed with nursing prior to seeing patient, consent has been obtained for surgery later today. No acute changes overnight. Objective - Vital Signs Vital signs: Vital Signs Temp 97.6 F 07/11/24 08:08 Pulse 71 07/11/24 08:08 Resp 16 07/11/24 08:08 BP 120/71 07/11/24 08:08 Pulse Ox 98 07/11/24 08:08 FiO2 Intake & Output 07/10/24 07/11/24 07/11/24 18:59 06:59 18:59 Intake Total 540 1860 Balance 540 1860 Weight 90.718 kg 90.718 kg Intake: Intake, IV Titration 900 Amount Vancomycin 1,500 mg In 500 Sodium Chloride 0.9% 500 ml 500 ml @ 167 mls/hr IVPB ONCE STA Rx#: [id number] Vancomycin 1,500 mg In 400 Sodium Chloride 0.9% 500 ml 500 ml @ 167 mls/hr IVPB Q8HR JANNA Rx#: [id number] Oral 540 960 Other: Voiding Method Toilet Toilet # Voids 1 - Exam Left upper extremity: There is a significant abscess noted to the left third digit more on the radial border of the finger between the PIP and DIP joint, there is significant fluctuance, erythema and swelling to the area. Patient states he can feel me touching on both the volar and dorsal aspect. There are no other areas of eryt trey, swelling or skin breakdown noted throughout the hand and wrist. Patient demonstrates tenderness with palpation of that area. The radial and ulnar pulse are 2+. The sensory exam of the extremity are intact Right upper extremity: There is a abscess forming on the second digit between the PIP and MCP joint more on the dorsal aspect of that digit. There is purulent material expressed. There is redness, and fluctuance appreciated. There are no other areas of swelling, redness or fluctuance appreciated in the hand. He is able to wiggle all the fingers with no difficulty. Radial and ulnar pulse are 2+. Sensory exam to light touch in that extremity is intact - Labs CBC & Chem 7: 07/11/24 05:57 07/11/24 05:57 Labs: Abnormal Lab Results - Last 24 Hours (Table) 07/10/24 07/10/24 07/10/24 Range/Units 12:06 12:06 12:06 WBC 12.1 H (3.8-10.6) k/uL Neutrophils # 9.5 H (1.3-7.7) k/uL Chloride 109 H (98-107) mmol/L Creatinine 0.56 L (0.66-1.25) mg/dL Plasma Lactic Acid Luigi 0.6 L (0.7-2.0) mmol/L Calcium (8.4-10.2) mg/dL AST 15 L (17-59) U/L 07/11/24 Range/Units 05:57 WBC (3.8-10.6) k/uL Neutrophils # (1.3-7.7) k/uL Chloride 114 H (98-107) mmol/L Creatinine 0.59 L (0.66-1.25) mg/dL Plasma Lactic Acid Luigi (0.7-2.0) mmol/L Calcium 8.1 L (8.4-10.2) mg/dL AST (17-59) U/L Microbiology - Last 24 Hours (Table) 07/10/24 12:06 Blood Culture Gram Stain - Preliminary Blood Blood Culture - Preliminary Molecular ID Assessment and Plan Assessment: Right hand second digit abscess Left hand third digit abscess Other medical comorbidities Plan: Surgery scheduled for 07/11/2024 N.p.o. diet Consent to be obtained prior to procedure Local wound care at this time to the bilateral hands GI DVT prophylaxis, REMY hose/compression stockings while in hospital Internal medicine recommendations appreciated Infectious disease recommendations appreciated Further recommendations to follow Time with Patient: Less than 30
[2024-07-11] MEDS: IV FLUID CONTINUATION 1,000 ML IV ONE (15:39)
[2024-07-11] MEDS: LACTATED RINGERS 1,000 ML IV SCH (15:47)
[2024-07-11] MEDS: DEXAMETHASONE SOD PHOSPHATE 4 MG/ML 1 ML VIAL IVP STA (15:48)
[2024-07-11] MEDS: ONDANSETRON 4 MG/2 ML VIAL IVP STA (15:49)
[2024-07-11] MEDS ORDERED: HYDROmorphone (PF) 1 MG/ML ONE (15:55)
[2024-07-11] MEDS ORDERED: MIDAZOLAM 2 MG/2 ML VIAL ONE (15:55)
[2024-07-11] MEDS ORDERED: PROPOFOL 10 MG/ML 20 ML VIAL IV ONE (15:55)
[2024-07-11] MEDS ORDERED: KETOROLAC 15 MG/ML 1 ML VIAL ONE (15:55)
[2024-07-11] MEDS ORDERED: fentaNYL (PF) 50 MCG/ML 2 ML AMP ONE (15:55)
[2024-07-11] MEDS ORDERED: LIDOCAINE 1% INJ 10MG/ML (20 ML MDV) ONE (15:55)
[2024-07-11] MEDS: BUPIVACAINE (PF) 0.5% 30 ML VIAL SQ ONE (16:35)
--- NOTE | 2024-07-11 17:09 | P.PN ---
Subjective Progress Note Date: 07/11/24 Principal diagnosis: Reason for follow-up is right index and left middle finger abscess with MRSA bacteremia Patient is a 33-year-old male past medical his significant for reflux peptic ulcer disease anxiety schizophrenia current everyday smoker the patient has been brought into the hospital concerning for left middle and right index finger infection, patient be diagnosed with bilateral finger abscess, blood cultures came back positive with MRSA. On today's evaluation that is 07/11/2024,the patient remains to be afebrile, patient is on room air not requiring supplemental oxygen and denies any shortness of breath no chest pain or cough.Patient denies having any nausea or vomiting, no abdominal pain and no diarrhea has been reported, still complaining of pain to bilateral and finger but no drainage. Patient white count is down to 7.8, creatinine 0.59 blood culture with MRSA Objective - Vital Signs Vital signs: Vital Signs Temp 97.9 F 07/11/24 14:48 Pulse 64 07/11/24 14:48 Resp 16 07/11/24 14:48 BP 129/75 07/11/24 14:48 Pulse Ox 98 07/11/24 14:48 FiO2 Intake & Output 07/10/24 07/11/24 07/11/24 18:59 06:59 18:59 Intake Total 540 1860 Balance 540 1860 Weight 90.718 kg 90.718 kg Intake: Intake, IV Titration 900 Amount Vancomycin 1,500 mg In 500 Sodium Chloride 0.9% 500 ml 500 ml @ 167 mls/hr IVPB ONCE STA Rx#: [id number] Vancomycin 1,500 mg In 400 Sodium Chloride 0.9% 500 ml 500 ml @ 167 mls/hr IVPB Q8HR [facility] Rx#: [id number] Oral 540 960 Other: Voiding Method Toilet Toilet # Voids 1 - Exam GENERAL DESCRIPTION: Middle-age male lying in bed in no distress RESPIRATORY SYSTEM: Unlabored breathing , decreased breath sounds at bases HEART: S1 S2 regular rate and rhythm , ABDOMEN: Soft , no tenderness EXTREMITIES: Left middle and right index finger with swelling redness no drainage - Labs CBC & Chem 7: 07/11/24 05:57 07/11/24 05:57 Labs: Abnormal Lab Results - Last 24 Hours (Table) 07/11/24 Range/Units 05:57 Chloride 114 H (98-107) mmol/L Creatinine 0.59 L (0.66-1.25) mg/dL Calcium 8.1 L (8.4-10.2) mg/dL Microbiology - Last 24 Hours (Table) 07/10/24 12:06 Blood Culture Gram Stain - Preliminary Blood Blood Culture - Preliminary Molecular ID Assessment and Plan (1) Abscess of finger, left Current Visit: Yes Status: Acute Code(s): L02.512 - CUTANEOUS ABSCESS OF LEFT HAND SNOMED Code(s): 39035604684753450 (2) Abscess of finger, right Current Visit: Yes Status: Acute Code(s): L02.511 - CUTANEOUS ABSCESS OF RIGHT HAND SNOMED Code(s): 65075177848021060 (3) MRSA bacteremia Current Visit: Yes Status: Acute Code(s): R78.81 - BACTEREMIA; B95.62 - METHICILLIN RESIS STAPH INFCT CAUSING DISEASES [facility]SD [facility] SNOMED Code(s): 96210856402255399 Plan: 1patient presenting to the hospital with extensive swelling and redness to the left middle and right index finger likely representing an abscess and will need to cover for the gram-positive skin pamela to be the likely pathogen possibly staph/MRSA 2-await surgical drainage and deep culture scheduled for this afternoon 3-patient with MRSA bacteremia source is likely bilateral finger abscess blood cultures will be document clearance of bacteremia 4we will continue patient on vancomycin however discontinue Rocephin Dictation was produced using [employer] dictation software. please excuse any grammatical, word or spelling errors. Time with Patient: Less than 30
--- NOTE | 2024-07-11 18:49 | P.OP ---
Date of Procedure: 07/11/24 Preoperative Diagnosis: Left middle finger dorsal abscess Left middle finger Flexor tenosynovitis Schizophrenia Complex Medical patient Postoperative Diagnosis: Left middle finger dorsal abscess Left middle finger Flexor tenosynovitis Schizophrenia Complex Medical patient Procedure(s) Performed: -INCISION AND DRAINAGE LEFT MIDDLE FINGER FLEXOR TENOSYNOVITIS -INCISION AND DRANAGE LEFT MIDDLE FINGER DORSAL ABSCESS -IRRIGATION AND DEBRIDEMENT LEFT MIDDLE FINGER ABSCESS USING CURETTE, KINFE, RONGURE AND IRRIGATION SOLUTION [id number] Implants: NONE Anesthesia: GETA Surgeon: Gildardo Weems Estimated Blood Loss (ml): 20 IV fluids (ml): 500 Urine output (ml): 0 Pathology: other (X2 LIEFT MIDDLE FINGER ABSCESS) Condition: stable Disposition: PACU Indications for Procedure: Orthopedic Surgery Risk Review Benoit Marmolejo is a 33-year-old male with history of schizophrenia presenting for evaluation of sudden onset left middle finger pain pain, inability to range of motion left middle finger due to swelling and abscess It was my pleasure to have seen and examined Benoit Marmolejo In our visit today we have had a chance to go over subjective complaints, physical examination findings and treatments including the natural course history without intervention and various interventional options. [Benoit Marmolejo imaging demonstrates soft tissue swelling with no fracture likely abscess left middle finger On physical exam, Benoit Marmolejodemonstrates pain with motion of left middle finger which is NV intact at this time. I have explained to the patient that this fracture needs stabilization. Based on the patients imaging, physical exam, and the rapid progression and disabling nature of her symptoms, at this time I recommend surgery in the form or a: Incision and drainage with irrigation and debridement left middle finger I discussed the risk and benefits of this procedure at length with Benoit Marmolejo and mother. Questions were invited and answered, and the patient wishes to proceed as outlined below. Currently, I am recommendin. Left middle finger incision and drainage with irrigation debridement abscess 2. Review of surgical risks and benefits as well as an educational packet on the proposed surgical procedure. Risks: All surgical procedures come with inherent risks, including those related to positioning, anesthesia, intraoperative findings, and postoperative complications. It is important to understand that surgery does not come with any guarantee of a successful outcome as complications and adverse events are always possible. The patient was given a handout discussing the surgical procedure and risks associated with the intervention, both of which were discussed with the patient. These risks include but are not limited to the following: - Experiencing same, different or even worse symptoms compared to before surgery. - Requiring further surgery or other forms of treatment presently or at some time in the future . - On an extreme but fortunately relatively rare basis severe complication such as blindness, stroke, heart attack, temporary and/or permanent nerve injury, paralysis, coma, or may occur, sometimes without known explanation. - Surgical complications may include but are not limited to risk of infection, fluid accumulation in the surgical dissection site, including a seroma or hematoma, that requires additional surgery, wound drainage, bleeding, new numbness or weakness, vision changes/loss, spinal fluid leakage, non-healing and/or infected incision, headaches, difficulty or inability to swallow, hoarseness, hemopneumothorax, pneumothorax, injury to nerves, spinal cord, blood vessels, lymphatics or other vital organs (i.e., bowel injury, injury to the great vessels); heterotopic bone formation; complications related to the hardware such as screws, rods, including misplaced hardware, device failure, hardware fracture/breakage, or hardware loosening; retained surgical instrumentations or devices and the need for further surgery. - Medical risks of the planned surgery include but are not limited to generalized Infections to the whole body or local areas outside of the surgical site (sepsis), heart attack, bleeding, anaphylaxis, meningitis, seizure, epilepsy, hearing loss, burn munoz, laceration of the head or other areas of the body, bruising, hypersensitivity of the skin, bladder over distension; allergic reaction; shoulder injury related to positioning; fat, blood and air clots to other areas of the body like heart, lungs, brain; failure of internal organs such as lungs, kidneys, liver and excessive bleeding. If blood transfusions are necessary, note that transfusions may cause intolerance reactions such as anaphylaxis or other complex reactions. Despite best efforts, the results of surgery might not heal in terms of bone, soft tissues such as skin, fascia, ligaments, and joints. [facility] has multiple operating rooms with single and overlapping rooms running daily. They currently function under the required guidelines as produced by the [employer] Committee with regards to the overlapping rooms and will continue to comply with changes to this policy as they occur. The requirements include and are complied with as follows: (1) the critical portions of the overlapping rooms will not occur at the same time, (2) the attending physician will be physically present during the critical portions of the procedure and immediately available during the entire case, and (3) a back-up attending is designated should the primary attending not be immediately available. The patient has had a chance to review all the listed information, has been given print outs detailing this information, and has had all his/her questions answered to their satisfaction. It was my pleasure to have seen and examined Benoit Marmolejo. In our visit today we have had a chance to go over my understanding of our patient's current condition, the natural course history without intervention and various interventional options. Questions were invited and answered, and the patient wishes to proceed as outlined above. I have seen and examined the patient for 25 minutes and we have spent more than 50% of the time in repeat and detailed counseling about the patient's condition, its natural course history with out and as much as can be predicted with surgery and re-review of various surgical treatment options. In conclusion, Benoit Marmolejo and mother requested we proceed with the above suggested surgery and are willing to accept risks and limitations of the suggested surgery as nature of the disease process and our best attempts at treatment for the condition. Thank you again for allowing us to be part of your patient's care. Please don't hesitate to contact me if you have any further questions. Signed and authenticated by: Gildardo Armstrong [facility] [address] [place] [id number] Description of Procedure: The patient was seen and examined in the preoperative area. All preoperative protocols were followed. Informed consent was obtained risks and benefits of the procedure were discussed at length. Risks including bleeding infection damage to the surrounding tissue and risk of reoperation were discussed with the patient. Risk of anesthesia up to and including was a discussed with the patient. These are outlined in the risk reviewed. They were willing to accept these risks and all of the risks of surgery. The patient was given a weight- based dose of antibiotics in the form of Ancef from the floor. The patient was seen and evaluated by the anesthesia team who deemed them fit for surgery. The site was marked, the patient was willing to proceed with the procedure. The patient was transferred to the operative suite by the Department of anesthesia. There were then drifted off to sleep by the department of anesthesia and local with Mac anesthesia anesthesia was used. Once adequate anesthesia had been obtained the patient was carefully transferred to the operative bed. All bony prominences were padded accordingly. SCDs were placed on the nonoperative lower extremities. Arms were well padded. Left upper extremity exposed placed on a arm board Preoperative briefing was done with the operative team and everyone was ready for the procedure to start. The patients left arm and hand was then prepped and draped in the normal sterile fashion. Timeout was then performed and all parties in agreement with the procedure to be performed. Lower skin incision was made over the middle phalanx as this was the area of abscess and likely flexure [place] dissection bluntly taken down to the flexor tendon fascia which was identified we have investigated this some purulence coming from this area and tracking around dorsally this was then incised dorsally and a large amount of purulent material was excised from this area along with necrotic tissue. 2 cultures were taken. We irrigated and debrided this area with curette around her skin knife. There was an excisional debridement for removal of necrotic tissue. Once this was accomplished in good debridement and irrigation been done we loosely closed the wound with nylon stitches in place Silastic drains for drainage. The wound was then dressed with Adaptic 4 x 4 ABDs and Kerlix and overwrapped with an Brett wrap. The patient was then transferred back to their hospital bed. There were awakened by department of anesthesia having tolerated the procedure very well with no complications. The patient was then transported to the postoperative care unit in stable condition.
--- NOTE | 2024-07-12 06:52 | P.PN ---
Subjective History of present illness: 33-year-old male patient with past medical history significant for GERD, history of peptic ulcer disease, history of tremors, who was recently released from [facility] on 07/04/2024, presented with pain swelling and edema of left third digit and also infection and wound of right second digit, denied any fever chills or known injuries. Patient is a poor historian, patient reported that he noticed right hand pain and swelling for 2 days, left third digit pain and swelling for 4 days. Patient denied any bug bite or animal bite. Patient is afebrile, heart rate 81, respiratory rate 18, blood pressure 125/77, saturating 99% on room air. WBCs 12.1 with absolute neutrophils 9.5, hemoglobin 15, platelet 205. BMP is unremarkable. X-ray of both hands negative for any acute fracture or dislocation. 07/11 Patient has infection swelling and tenderness of the left middle finger and to lesser x-ray right index finger No other new complaint Patient is going for I&D today with orthopedic team by 4 PM Continue with antibiotic as per ID team, currently on ceftriaxone and IV vancomycin and normal saline 75 mL/h Patient with no chest pain or dyspnea Patient is an acceptable risk to proceed with this procedure today 07/12 Patient s/p I&D of his left middle finger abscess and tenosynovitis. Today's postop day #1. He has heavy dressing in his left hand. Pain controlled Denies any specific complaint Wound culture send is pending Blood culture growing MRSA Currently covered with IV vancomycin with monitoring creatinine and trough Objective - Vital Signs Vital signs: Vital Signs Temp 98.5 F 07/12/24 02:00 Pulse 65 07/12/24 02:00 Resp 16 07/12/24 02:00 BP 97/60 07/12/24 02:00 Pulse Ox 97 07/12/24 02:00 FiO2 Intake & Output 07/11/24 07/11/24 07/12/24 06:59 18:59 06:59 Intake Total 1860 1300 Output Total 5 Balance 1860 1295 Weight 90.718 kg Intake: IV 800 Intake, IV Titration 900 500 Amount Vancomycin 1,500 mg In 500 Sodium Chloride 0.9% 500 ml 500 ml @ 167 mls/hr IVPB ON[facility] Rx#: [id number] Vancomycin 1,500 mg In 400 500 Sodium Chloride 0.9% 500 ml 500 ml @ 167 mls/hr IVPB Q8HR [facility] Rx#: [id number] Oral 960 0 Output: Estimated Blood Loss 5 Other: Voiding Method Toilet Toilet Toilet # Voids 1 2 - Exam GENERAL: The patient is alert and oriented x3, not in any acute distress. Well developed, well nourished. HEENT: Pupils are round and equally reacting to light. EOMI. No scleral icterus. No conjunctival pallor. Normocephalic, atraumatic. No pharyngeal erythema. No thyromegaly. CARDIOVASCULAR: S1 and S2 present. No murmurs, rubs, or gallops. PULMONARY: Chest is clear to auscultation, no wheezing , no crackles. ABDOMEN: Soft, nontender, nondistended, normoactive bowel sounds. No palpable organomegaly. -MUSCULOSKELETAL: No joint swelling or deformity. Surgical wound of the left middle finger with a dressing in place and to lesser extent swelling and tenderness of the right index finger EXTREMITIES: No cyanosis, clubbing, or pedal edema. NEUROLOGICAL: Gross neurological examination did not reveal any focal deficits. SKIN: No rashes. no petechiae. - Labs CBC & Chem 7: 07/11/24 05:57 07/11/24 05:57 Labs: Microbiology - Last 24 Hours (Table) 07/10/24 12:06 Blood Culture Gram Stain - Preliminary Blood Blood Culture - Preliminary Molecular ID Assessment and Plan Assessment: Finger infection with abscess involving the left middle finger and to lesser degree right index finger. S/p I&D on 07/11 MRSA bacteremia Elevated white cell count, leukocytosis Plan: Continue with antibiotic as per ID team, currently IV vancomycin Follow-up culture results ID team and orthopedic team on the case GI and DVT prophylaxis Further recommendation based on clinical course Prognosis is guarded
[2024-07-12] MEDS: VANCOMYCIN TROUGH DUE 1 EACH MISC MISCELLANE ONE (08:28)
[2024-07-12 10:08] LABS: African American GFR (CKD) >90 (>60 ml/min/1.73 sqM); Non-African American GFR(CKD) >90 (>60 ml/min/1.73 sqM)
--- NOTE | 2024-07-12 11:21 | P.PN ---
Subjective Progress Note Date: 07/12/24 Principal diagnosis: left middle finger abscess, right second digit abscess Patient examined today at bedside, he is resting in his hospital bed. Dressing remains intact on the left upper extremity. I&D was not done of the right second digit abscess, symptoms seem to be improving with the IV antibiotics. Awaiting cultures that were taken at surgery. Patient denies any headaches, headedness, chest pain or shortness of breath Objective - Vital Signs Vital signs: Vital Signs Temp 98.1 F 07/12/24 07:00 Pulse 73 07/12/24 10:10 Resp 16 07/12/24 10:10 BP 112/72 07/12/24 07:00 Pulse Ox 98 07/12/24 07:00 FiO2 Intake & Output 07/11/24 07/12/24 07/12/24 18:59 06:59 18:59 Intake Total 1300 Output Total 5 Balance 1295 Intake: IV 800 Intake, IV Titration 500 Amount Vancomycin 1,500 mg In 500 Sodium Chloride 0.9% 500 ml 500 ml @ 167 mls/hr IVPB Q8HR [facility] Rx#: [id number] Oral 0 Output: Estimated Blood Loss 5 Other: Voiding Method Toilet Toilet Toilet # Voids 2 - Exam Left upper extremity: Postoperative dressing is in good position and condition. Patient is able to wiggle all the fingers with no difficulty. His sensory exam to light touch both proximal and distal to the dressing are intact Right upper extremity: Abscess on the dorsal aspect of the second digit is improving, there is no purulent drainage noted, the swelling and redness seem to be improving. There are no other areas of swelling, redness or fluctuance appreciated in the hand. He is able to wiggle all the fingers with no difficulty. Radial and ulnar pulse are 2+. Sensory exam to light touch in that extremity is intact - Labs CBC & Chem 7: 07/11/24 05:57 07/12/24 06:17 Labs: Abnormal Lab Results - Last 24 Hours (Table) 07/12/24 Range/Units 06:17 Creatinine 0.57 L (0.66-1.25) mg/dL Microbiology - Last 24 Hours (Table) 07/11/24 16:33 Gram Stain - Preliminary Finger - Left Third 07/10/24 12:06 Blood Culture Gram Stain - Preliminary Blood Blood Culture - Preliminary Presumptive MRSA Molecular ID Assessment and Plan Assessment: Right hand second digit abscess Left hand third digit abscess Left hand third digit flexor tenosynovitis Other medical comorbidities Plan: Hibiclens soaks for the right hand, once a day Monitor surgical dressing to the left upper extremity, plan for dressing change on 07/13/2024 GI DVT prophylaxis, REMY hose/compression stockings while in hospital Internal medicine recommendations appreciated Infectious disease recommendations appreciated Further recommendations to follow Time with Patient: Less than 30
--- NOTE | 2024-07-12 15:16 | P.PN ---
Subjective Progress Note Date: 07/12/24 Principal diagnosis: Reason for follow-up is right index and left middle finger abscess with MRSA bacteremia Patient is a 33-year-old male past medical his significant for reflux peptic ulcer disease anxiety schizophrenia current everyday smoker the patient has been brought into the hospital concerning for left middle and right index finger infection, patient be diagnosed with bilateral finger abscess, blood cultures came back positive with MRSA. Patient is status post drainage of the left middle finger abscess completed by orthopedics on 07/11/2024. On today's evaluation that is 07/12/2024, the patient continues to be afebrile, the patient is on room air and breathing comfortably, the Pt denies having any chest pain or cough, the patient denies having any abdominal pain no vomiting or any diarrhea has been complaining of pain to the left hand wants more pain medication. Patient did have a creatinine 0.57 Objective - Vital Signs Vital signs: Vital Signs Temp 98.1 F 07/12/24 07:00 Pulse 73 07/12/24 10:10 Resp 16 07/12/24 10:10 BP 112/72 07/12/24 07:00 Pulse Ox 98 07/12/24 07:00 FiO2 Intake & Output 07/11/24 07/12/24 07/12/24 18:59 06:59 18:59 Intake Total 1300 Output Total 5 Balance 1295 Intake: IV 800 Intake, IV Titration 500 Amount Vancomycin 1,500 mg In 500 Sodium Chloride 0.9% 500 ml 500 ml @ 167 mls/hr IVPB Q8HR [facility] Rx#: [id number] Oral 0 Output: Estimated Blood Loss 5 Other: Voiding Method Toilet Toilet Toilet # Voids 2 - Exam GENERAL DESCRIPTION: Middle-age male lying in bed in no distress RESPIRATORY SYSTEM: Unlabored breathing , decreased breath sounds at bases HEART: S1 S2 regular rate and rhythm , ABDOMEN: Soft , no tenderness EXTREMITIES: Left hand is currently dressed in OR dressing - Labs CBC & Chem 7: 07/11/24 05:57 07/12/24 06:17 Labs: Abnormal Lab Results - Last 24 Hours (Table) 07/12/24 Range/Units 06:17 Creatinine 0.57 L (0.66-1.25) mg/dL Microbiology - Last 24 Hours (Table) 07/11/24 16:33 Gram Stain - Preliminary Finger - Left Third 07/11/24 16:33 Gram Stain - Preliminary Finger - Left Third 07/10/24 12:06 Blood Culture Gram Stain - Preliminary Blood Blood Culture - Preliminary Presumptive MRSA Molecular ID Assessment and Plan (1) Abscess of finger, left Current Visit: Yes Status: Acute Code(s): L02.512 - CUTANEOUS ABSCESS OF LEFT HAND SNOMED Code(s): 27938349385501075 (2) Abscess of finger, right Current Visit: Yes Status: Acute Code(s): L02.511 - CUTANEOUS ABSCESS OF RIGHT HAND SNOMED Code(s): 36027150656290202 (3) MRSA bacteremia Current Visit: Yes Status: Acute Code(s): R78.81 - BACTEREMIA; B95.62 - METHICILLIN RESIS STAPH INFCT CAUSING DISEASES [facility]SD [facility] SNOMED Code(s): 18785546903139651 Plan: 1patient presenting to the hospital with extensive swelling and redness to the left middle and right index finger likely representing an abscess and will need to cover for the gram-positive skin pamela to be the likely pathogen possibly staph/MRSA 2-patient is status post surgical drainage and deep culture of the left middle finger abscess completed 07/11/2024 3-patient with MRSA bacteremia source is likely bilateral finger abscess blood cultures has been repeated to document clearance of bacteremia 4patient to continue with vancomycin pharmacy to dose will likely need a PICC line when he clears his bacteremia for outpatient IV antibiotics Dictation was produced using [employer] dictation software. please excuse any grammatical, word or spelling errors. Time with Patient: Less than 30
--- NOTE | 2024-07-13 08:43 | P.PN ---
Subjective History of present illness: 33-year-old male patient with past medical history significant for GERD, history of peptic ulcer disease, history of tremors, who was recently released from [facility] on 07/04/2024, presented with pain swelling and edema of left third digit and also infection and wound of right second digit, denied any fever chills or known injuries. Patient is a poor historian, patient reported that he noticed right hand pain and swelling for 2 days, left third digit pain and swelling for 4 days. Patient denied any bug bite or animal bite. Patient is afebrile, heart rate 81, respiratory rate 18, blood pressure 125/77, saturating 99% on room air. WBCs 12.1 with absolute neutrophils 9.5, hemoglobin 15, platelet 205. BMP is unremarkable. X-ray of both hands negative for any acute fracture or dislocation. 07/11 Patient has infection swelling and tenderness of the left middle finger and to lesser x-ray right index finger No other new complaint Patient is going for I&D today with orthopedic team by 4 PM Continue with antibiotic as per ID team, currently on ceftriaxone and IV vancomycin and normal saline 75 mL/h Patient with no chest pain or dyspnea Patient is an acceptable risk to proceed with this procedure today 07/12 Patient s/p I&D of his left middle finger abscess and tenosynovitis. Today's postop day #1. He has heavy dressing in his left hand. Pain controlled Denies any specific complaint Wound culture send is pending Blood culture growing MRSA Currently covered with IV vancomycin with monitoring creatinine and trough 07/13/2024 Patient s/p I&D for his left finger wound, wound is slightly open, dressing in place, no significant surrounding cellulitis which is improving, no significant purulent discharge but there is purulent base of the ulcer or wound Pain looks controlled No diarrhea No other new complaint Wound culture and blood culture are growing presumptive MRSA Currently he is covered with antibiotics per ID team including IV vancomycin Also he is on normal saline 75 mL/h. Labs reviewed including creatinine Objective - Vital Signs Vital signs: Vital Signs Temp 98.2 F 07/13/24 01:42 Pulse 57 L 07/13/24 01:42 Resp 17 07/13/24 01:42 BP 100/64 07/13/24 01:42 Pulse Ox 94 L 07/13/24 01:42 FiO2 Intake & Output 07/12/24 07/13/24 07/13/24 18:59 06:59 18:59 Intake Total 100 Output Total 800 Balance 100 -800 Intake: Intake, IV Titration 100 Amount Vancomycin 1,500 mg In 100 Sodium Chloride 0.9% 500 ml 500 ml @ 167 mls/hr IVPB Q8HR [facility] Rx#: [id number] Output: Urine 800 Other: Voiding Method Toilet Urinal # Voids 1 - Exam GENERAL: The patient is alert and oriented x3, not in any acute distress. Well developed, well nourished. HEENT: Pupils are round and equally reacting to light. EOMI. No scleral icterus. No conjunctival pallor. Normocephalic, atraumatic. No pharyngeal erythema. No thyromegaly. CARDIOVASCULAR: S1 and S2 present. No murmurs, rubs, or gallops. PULMONARY: Chest is clear to auscultation, no wheezing , no crackles. ABDOMEN: Soft, nontender, nondistended, normoactive bowel sounds. No palpable organomegaly. -MUSCULOSKELETAL: No joint swelling or deformity. Surgical wound of the left middle finger with a dressing in place and to lesser extent swelling and tenderness of the right index finger EXTREMITIES: No cyanosis, clubbing, or pedal edema. NEUROLOGICAL: Gross neurological examination did not reveal any focal deficits. SKIN: No rashes. no petechiae. - Labs CBC & Chem 7: 07/11/24 05:57 07/12/24 06:17 Labs: Abnormal Lab Results - Last 24 Hours (Table) 07/12/24 Range/Units 06:17 Creatinine 0.57 L (0.66-1.25) mg/dL Microbiology - Last 24 Hours (Table) 07/11/24 16:33 Gram Stain - Preliminary Finger - Left Third Wound Culture - Preliminary Presumptive MRSA 07/11/24 16:33 Gram Stain - Preliminary Finger - Left Third Wound Culture - Preliminary Presumptive MRSA 07/10/24 12:06 Blood Culture Gram Stain - Preliminary Blood Blood Culture - Preliminary Presumptive MRSA Molecular ID Assessment and Plan Assessment: Finger infection with abscess involving the left middle finger and to lesser degree right index finger. S/p I&D on 07/11. Cultures growing presumptive MRSA MRSA bacteremia Elevated white cell count, leukocytosis Plan: Continue with antibiotic as per ID team, currently IV vancomycin Follow-up culture results final results ID team and orthopedic team on the case GI and DVT prophylaxis Further recommendation based on clinical course Prognosis is guarded
[2024-07-13 11:02] LABS: Blood Urea Nitrogen 11.4 mg/dL (9.0-27.0); Calcium 7.9 mg/dL (8.7-10.3); Carbon Dioxide 22.6 mmol/L (21.6-31.8); Chloride 114 mmol/L (96-109); Glucose 113 mg/dL (70-110); Potassium 4.2 mmol/L (3.5-5.5); Sodium 146 mmol/L (135-145)
[2024-07-13 11:08] LABS: Basophils # (A) 0.04 X 10*3/uL (0.00-0.10); Basophils % (A) 0.6 %; Eosinophils # (A) 0.29 X 10*3/uL (0.04-0.35); Eosinophils % (A) 4.7 %; HCT 40.3 % (39.6-50.0); HGB 12.9 g/dL (13.0-17.0); Lymphocytes # (A) 2.58 X 10*3/uL (0.90-5.00); Lymphocytes % (A) 41.4 %; MCH 30.3 pg (27.0-32.0); MCV 94.6 FL (80.0-97.0); Mean Platelet Volume 10.7 FL (9.5-12.2); Monocytes # (A) 0.39 X 10*3/uL (0.20-1.00); Monocytes % (A) 6.3 %; NRBC Per 100 WBC 0 X 10*3/uL (0.00-0.01); Neutrophils % (A) 46.5 %; Platelet Count 205 X 10*3/uL (140-440); RBC 4.26 X 10*6/uL (4.40-5.60); RDW 15.2 % (11.5-14.5); WBC 6.23 X 10*3/uL (4.50-10.00)
--- NOTE | 2024-07-13 15:38 | P.PN ---
Subjective Progress Note Date: 07/13/24 Principal diagnosis: Reason for follow-up is right index and left middle finger abscess with MRSA bacteremia Patient is a 33-year-old male past medical his significant for reflux peptic ulcer disease anxiety schizophrenia current everyday smoker the patient has been brought into the hospital concerning for left middle and right index finger infection, patient be diagnosed with bilateral finger abscess, blood cultures came back positive with MRSA. Patient is status post drainage of the left middle finger abscess completed by orthopedics on 07/11/2024. On today's evaluation that is 07/13/2024, Patient is afebrile patient is currently on room air and denies having any shortness of breath, the patient denies any chest pain or cough, the patient denies any nausea vomiting did not have any abdominal pain and no diarrhea pain to the left middle finger slightly decreased intensity. Patient did have white count of 6.23, creatinine 0.6 blood local culture with MRSA Objective - Vital Signs Vital signs: Vital Signs Temp 98.8 F 07/13/24 08:00 Pulse 70 07/13/24 08:00 Resp 18 07/13/24 08:00 BP 130/74 07/13/24 08:00 Pulse Ox 97 07/13/24 08:00 FiO2 Intake & Output 07/12/24 07/13/24 07/13/24 18:59 06:59 18:59 Intake Total 100 Output Total 800 450 Balance 100 -800 -450 Intake: Intake, IV Titration 100 Amount Vancomycin 1,500 mg In 100 Sodium Chloride 0.9% 500 ml 500 ml @ 167 mls/hr IVPB Q8HR [facility] Rx#: [id number] Output: Urine 800 450 Other: Voiding Method Toilet Urinal # Voids 1 # Bowel Movements 1 - Exam GENERAL DESCRIPTION: Middle-age male lying in bed in no distress RESPIRATORY SYSTEM: Unlabored breathing , decreased breath sounds at bases HEART: S1 S2 regular rate and rhythm , ABDOMEN: Soft , no tenderness EXTREMITIES: Left hand is currently dressed in OR dressing - Labs CBC & Chem 7: 07/13/24 06:37 07/13/24 06:37 Labs: Abnormal Lab Results - Last 24 Hours (Table) 07/13/24 07/13/24 Range/Units 06:37 06:37 RBC 4.26 L (4.40-5.60) X 10*6/uL Hgb 12.9 L (13.0-17.0) g/dL RDW 15.2 H (11.5-14.5) % Sodium 146 H (135-145) mmol/L Chloride 114 H (96-109) mmol/L Glucose 113 H (70-110) mg/dL Calcium 7.9 L (8.7-10.3) mg/dL Microbiology - Last 24 Hours (Table) 07/12/24 06:17 Blood Culture - Preliminary Blood 07/10/24 12:06 Blood Culture Gram Stain - Final Blood Blood Culture - Final Methicillin resist S. aureus Molecular ID 07/11/24 16:33 Gram Stain - Preliminary Finger - Left Third Wound Culture - Preliminary Presumptive MRSA 07/11/24 16:33 Gram Stain - Preliminary Finger - Left Third Wound Culture - Preliminary Presumptive MRSA Assessment and Plan (1) Abscess of finger, left Current Visit: Yes Status: Acute Code(s): L02.512 - CUTANEOUS ABSCESS OF LEFT HAND SNOMED Code(s): 67301114790198970 (2) Abscess of finger, right Current Visit: Yes Status: Acute Code(s): L02.511 - CUTANEOUS ABSCESS OF RIGHT HAND SNOMED Code(s): 68332656029373904 (3) MRSA bacteremia Current Visit: Yes Status: Acute Code(s): R78.81 - BACTEREMIA; B95.62 - METHICILLIN RESIS STAPH INFCT [facility] SN[facility] Code(s): 88190520146857376 Plan: 1patient presenting to the hospital with extensive swelling and redness to the left middle and right index finger likely representing an abscess and will need to cover for the gram-positive skin pamela to be the likely pathogen possibly staph/MRSA 2-patient is status post surgical drainage and deep culture of the left middle finger abscess completed 07/11/2024 3-patient with MRSA bacteremia source is likely bilateral finger abscess blood cultures has been repeated to document clearance of bacteremia 4patient to continue with vancomycin pharmacy to dose we will place PICC line once his follow-up blood culture negative for outpatient IV antibiotic therapy Dictation was produced using [employer] dictation software. please excuse any grammatical, word or spelling errors. Time with Patient: Less than 30
--- NOTE | 2024-07-13 17:21 | P.PN ---
Subjective Progress Note Date: 07/13/24 Principal diagnosis: left middle finger abscess, right second digit abscess Patient examined today at bedside, he is resting in his hospital bed. Internal medicine and infectious disease continue to follow patient. Patient will need PICC line placed after negative blood culture is obtained. Patient denies any headaches, headedness, chest pain or shortness of breath Objective - Vital Signs Vital signs: Vital Signs Temp 98.8 F 07/13/24 08:00 Pulse 70 07/13/24 08:00 Resp 18 07/13/24 08:00 BP 130/74 07/13/24 08:00 Pulse Ox 97 07/13/24 08:00 FiO2 Intake & Output 07/12/24 07/13/24 07/13/24 18:59 06:59 18:59 Intake Total 100 Output Total 800 450 Balance 100 -800 -450 Intake: Intake, IV Titration 100 Amount Vancomycin 1,500 mg In 100 Sodium Chloride 0.9% 500 ml 500 ml @ 167 mls/hr IVPB Q8HR [facility] Rx#: [id number] Output: Urine 800 450 Other: Voiding Method Toilet Urinal # Voids 1 # Bowel Movements 1 - Exam Left upper extremity: Postoperative dressing was removed today at bedside. Stitches are all in good position. There is improvement in overall erythema and soft tissue swelling. There is some granulation tissue present along the wound. No purulent drainage is noted. Sensation light touch throughout the extremity is intact. Right upper extremity: Abscess on the dorsal aspect of the second digit is improving, there is no purulent drainage noted, the swelling and redness seem to be improving. There are no other areas of swelling, redness or fluctuance appreciated in the hand. He is able to wiggle all the fingers with no difficulty. Radial and ulnar pulse are 2+. Sensory exam to light touch in that extremity is intact - Labs CBC & Chem 7: 07/13/24 06:37 07/13/24 06:37 Labs: Abnormal Lab Results - Last 24 Hours (Table) 07/13/24 07/13/24 Range/Units 06:37 06:37 RBC 4.26 L (4.40-5.60) X 10*6/uL Hgb 12.9 L (13.0-17.0) g/dL RDW 15.2 H (11.5-14.5) % Sodium 146 H (135-145) mmol/L Chloride 114 H (96-109) mmol/L Glucose 113 H (70-110) mg/dL Calcium 7.9 L (8.7-10.3) mg/dL Microbiology - Last 24 Hours (Table) 07/12/24 06:17 Blood Culture - Preliminary Blood 07/10/24 12:06 Blood Culture Gram Stain - Final Blood Blood Culture - Final Methicillin resist S. aureus Molecular ID 07/11/24 16:33 Gram Stain - Preliminary Finger - Left Third Wound Culture - Preliminary Presumptive MRSA 07/11/24 16:33 Gram Stain - Preliminary Finger - Left Third Wound Culture - Preliminary Presumptive MRSA Assessment and Plan Assessment: Right hand second digit abscess Left hand third digit abscess Left hand third digit flexor tenosynovitis Other medical comorbidities Plan: Hibiclens soaks both hands once a day Basic dressing over both hands, avoid excess use of the hands at this time GI DVT prophylaxis, REMY hose/compression stockings while in hospital Internal medicine recommendations appreciated Infectious disease recommendations appreciated Discharge planning: On orthopedic standpoint patient is stable for discharge. Recommend wound care visits to be set up for postoperative monitoring. Please contact our service with any further questions regarding this patient Time with Patient: Less than 30
--- NOTE | 2024-07-14 17:14 | P.PN ---
Subjective Progress Note Date: 07/14/24 Principal diagnosis: Reason for follow-up is right index and left middle finger abscess with MRSA bacteremia Patient is a 33-year-old male past medical his significant for reflux peptic ulcer disease anxiety schizophrenia current everyday smoker the patient has been brought into the hospital concerning for left middle and right index finger infection, patient be diagnosed with bilateral finger abscess, blood cultures came back positive with MRSA. Patient is status post drainage of the left middle finger abscess completed by orthopedics on 07/11/2024. On today's evaluation that is 07/14/2024, patient has been afebrile, patient is breathing comfortably and is currently on room air, patient denies having any significant cough no chest pain pain to the left middle finger has improved no nausea vomiting or diarrhea. Patient did not have a lab draw today blood culture repeat has been negative so far Objective - Vital Signs Vital signs: Vital Signs Temp 98.1 F 07/14/24 14:00 Pulse 61 07/14/24 14:00 Resp 17 07/14/24 14:00 BP 117/67 07/14/24 14:00 Pulse Ox 99 07/14/24 14:00 FiO2 Intake & Output 07/13/24 07/14/24 07/14/24 18:59 06:59 18:59 Output Total 450 Balance -450 Output: Urine 450 Other: Voiding Method Urinal # Voids 2 2 # Bowel Movements 1 - Exam GENERAL DESCRIPTION: Middle-age male lying in bed in no distress RESPIRATORY SYSTEM: Unlabored breathing , decreased breath sounds at bases HEART: S1 S2 regular rate and rhythm , ABDOMEN: Soft , no tenderness EXTREMITIES: Left hand is currently dressed in OR dressing - Labs CBC & Chem 7: 07/13/24 06:37 07/13/24 06:37 Labs: Microbiology - Last 24 Hours (Table) 07/12/24 06:17 Blood Culture - Preliminary Blood 07/11/24 16:33 Gram Stain - Final Finger - Left Third Wound Culture - Final Methicillin resist S. aureus 07/11/24 16:33 Gram Stain - Final Finger - Left Third Wound Culture - Final Methicillin resist S. aureus 07/11/24 16:33 Anaerobic Culture - Preliminary Finger - Left Third 07/11/24 16:33 Anaerobic Culture - Preliminary Finger - Left Third Assessment and Plan (1) Abscess of finger, left Current Visit: Yes Status: Acute Code(s): L02.512 - CUTANEOUS ABSCESS OF LEFT HAND SNOMED Code(s): 42332685778123768 (2) Abscess of finger, right Current Visit: Yes Status: Acute Code(s): L02.511 - CUTANEOUS ABSCESS OF RIGHT HAND SNOMED Code(s): 86991181505122668 (3) MRSA bacteremia Current Visit: Yes Status: Acute Code(s): R78.81 - BACTEREMIA; B95.62 - METHICILLIN RESIS STAPH INFCT CAUSING DISEASES [facility] SNOMED Code(s): 97850703281789376 Plan: 1patient presenting to the hospital with extensive swelling and redness to the left middle and right index finger likely representing an abscess and will need to cover for the gram-positive skin pamela to be the likely pathogen possibly staph/MRSA 2-patient is status post surgical drainage and deep culture of the left middle finger abscess completed 07/11/2024 3-patient with MRSA bacteremia source is likely bilateral finger abscess blood cultures has been repeated which are negative so far 4patient to continue with vancomycin pharmacy to dose while watching his kidney function closely hopefully will be able to get a PICC line on Tuesday Dictation was produced using [employer] software. please excuse any grammatical, word or spelling errors. Time with Patient: Less than 30
--- NOTE | 2024-07-14 23:47 | P.PN ---
Subjective History of present illness: 33-year-old male patient with past medical history significant for GERD, history of peptic ulcer disease, history of tremors, who was recently released from [facility] on 07/04/2024, presented with pain swelling and edema of left third digit and also infection and wound of right second digit, denied any fever chills or known injuries. Patient is a poor historian, patient reported that he noticed right hand pain and swelling for 2 days, left third digit pain and swelling for 4 days. Patient denied any bug bite or animal bite. Patient is afebrile, heart rate 81, respiratory rate 18, blood pressure 125/77, saturating 99% on room air. WBCs 12.1 with absolute neutrophils 9.5, hemoglobin 15, platelet 205. BMP is unremarkable. X-ray of both hands negative for any acute fracture or dislocation. 07/11 Patient has infection swelling and tenderness of the left middle finger and to lesser x-ray right index finger No other new complaint Patient is going for I&D today with orthopedic team by 4 PM Continue with antibiotic as per ID team, currently on ceftriaxone and IV vancomycin and normal saline 75 mL/h Patient with no chest pain or dyspnea Patient is an acceptable risk to proceed with this procedure today 07/12 Patient s/p I&D of his left middle finger abscess and tenosynovitis. Today's postop day #1. He has heavy dressing in his left hand. Pain controlled Denies any specific complaint Wound culture send is pending Blood culture growing MRSA Currently covered with IV vancomycin with monitoring creatinine and trough 07/13/2024 Patient s/p I&D for his left finger wound, wound is slightly open, dressing in place, no significant surrounding cellulitis which is improving, no significant purulent discharge but there is purulent base of the ulcer or wound Pain looks controlled No diarrhea No other new complaint Wound culture and blood culture are growing presumptive MRSA Currently he is covered with antibiotics per ID team including IV vancomycin Also he is on normal saline 75 mL/h. Labs reviewed including creatinine 07/14 Patient is a status post I&D for his finger infection. Wound culture is growing MRSA He has MRSA bacteremia as well Currently covered with IV vancomycin Patient will require PICC line on Tuesday Objective - Vital Signs Vital signs: Vital Signs Temp 98.1 F 07/14/24 07:30 Pulse 68 09/28/24 07:30 Resp 16 07/14/24 07:30 BP 121/76 07/14/24 07:30 Pulse Ox 98 07/14/24 07:30 FiO2 Intake & Output 07/13/24 07/14/24 07/14/24 18:59 06:59 18:59 Output Total 450 Balance -450 Output: Urine 450 Other: Voiding Method Urinal # Voids 2 2 # Bowel Movements 1 - Exam GENERAL: The patient is alert and oriented x3, not in any acute distress. Well developed, well nourished. HEENT: Pupils are round and equally reacting to light. EOMI. No scleral icterus. No conjunctival pallor. Normocephalic, atraumatic. No pharyngeal erythema. No thyromegaly. CARDIOVASCULAR: S1 and S2 present. No murmurs, rubs, or gallops. PULMONARY: Chest is clear to auscultation, no wheezing , no crackles. ABDOMEN: Soft, nontender, nondistended, normoactive bowel sounds. No palpable organomegaly. -MUSCULOSKELETAL: No joint swelling or deformity. Surgical wound of the left middle finger with a dressing in place and to lesser extent swelling and tenderness of the right index finger EXTREMITIES: No cyanosis, clubbing, or pedal edema. NEUROLOGICAL: Gross neurological examination did not reveal any focal deficits. SKIN: No rashes. no petechiae. - Labs CBC & Chem 7: 07/13/24 06:37 07/13/24 06:37 Labs: Microbiology - Last 24 Hours (Table) 07/11/24 16:33 Gram Stain - Final Finger - Left Third Wound Culture - Final Methicillin resist S. aureus 07/11/24 16:33 Gram Stain - Final Finger - Left Third Wound Culture - Final Methicillin resist S. aureus 07/11/24 16:33 Anaerobic Culture - Preliminary Finger - Left Third 07/11/24 16:33 Anaerobic Culture - Preliminary Finger - Left Third 07/12/24 06:17 Blood Culture - Preliminary Blood 07/10/24 12:06 Blood Culture Gram Stain - Final Blood Blood Culture - Final Methicillin resist S. aureus Molecular ID Assessment and Plan Assessment: Finger infection with abscess involving the left middle finger and to lesser degree right index finger. S/p I&D on 07/11. Cultures growing MRSA in both wound and blood cultures MRSA bacteremia Elevated white cell count, leukocytosis Plan: Continue with antibiotic as per ID team, currently IV vancomycin PICC line on Tuesday ID team and orthopedic team on the case GI and DVT prophylaxis Further recommendation based on clinical course Prognosis is guarded
[2024-07-15] MEDS: VANCOMYCIN TROUGH DUE 1 EACH MISC MISCELLANE ONE (06:54)
[2024-07-15 07:15] LABS: African American GFR (CKD) >90 (>60 ml/min/1.73 sqM); Non-African American GFR(CKD) >90 (>60 ml/min/1.73 sqM)
--- NOTE | 2024-07-15 11:05 | P.PN ---
Subjective History of present illness: 33-year-old male patient with past medical history significant for GERD, history of peptic ulcer disease, history of tremors, who was recently released from [facility] on 07/04/2024, presented with pain swelling and edema of left third digit and also infection and wound of right second digit, denied any fever chills or known injuries. Patient is a poor historian, patient reported that he noticed right hand pain and swelling for 2 days, left third digit pain and swelling for 4 days. Patient denied any bug bite or animal bite. Patient is afebrile, heart rate 81, respiratory rate 18, blood pressure 125/77, saturating 99% on room air. WBCs 12.1 with absolute neutrophils 9.5, hemoglobin 15, platelet 205. BMP is unremarkable. X-ray of both hands negative for any acute fracture or dislocation. 07/11 Patient has infection swelling and tenderness of the left middle finger and to lesser x-ray right index finger No other new complaint Patient is going for I&D today with orthopedic team by 4 PM Continue with antibiotic as per ID team, currently on ceftriaxone and IV vancomycin and normal saline 75 mL/h Patient with no chest pain or dyspnea Patient is an acceptable risk to proceed with this procedure today 07/12 Patient s/p I&D of his left middle finger abscess and tenosynovitis. Today's postop day #1. He has heavy dressing in his left hand. Pain controlled Denies any specific complaint Wound culture send is pending Blood culture growing MRSA Currently covered with IV vancomycin with monitoring creatinine and trough 07/13/2024 Patient s/p I&D for his left finger wound, wound is slightly open, dressing in place, no significant surrounding cellulitis which is improving, no significant purulent discharge but there is purulent base of the ulcer or wound Pain looks controlled No diarrhea No other new complaint Wound culture and blood culture are growing presumptive MRSA Currently he is covered with antibiotics per ID team including IV vancomycin Also he is on normal saline 75 mL/h. Labs reviewed including creatinine 07/14 Patient is a status post I&D for his finger infection. Wound culture is growing MRSA He has MRSA bacteremia as well Currently covered with IV vancomycin Patient will require PICC line on Sunday 07/15 Finger wound and infection is improving He is on IV vancomycin He will require PICC line probably tomorrow Possible discharge 24 to 48 hours Objective - Vital Signs Vital signs: Vital Signs Temp 97.6 F 07/15/24 06:55 Pulse 65 07/15/24 06:55 Resp 16 07/15/24 06:55 BP 116/73 07/15/24 06:55 Pulse Ox 98 07/15/24 06:55 FiO2 Intake & Output 07/14/24 07/15/24 07/15/24 18:59 06:59 18:59 Intake Total 200 Balance 200 Intake: Oral 200 Other: Voiding Method Urinal # Voids 4 2 - Exam GENERAL: The patient is alert and oriented x3, not in any acute distress. Well developed, well nourished. HEENT: Pupils are round and equally reacting to light. EOMI. No scleral icterus. No conjunctival pallor. Normocephalic, atraumatic. No pharyngeal erythema. No thyromegaly. CARDIOVASCULAR: S1 and S2 present. No murmurs, rubs, or gallops. PULMONARY: Chest is clear to auscultation, no wheezing , no crackles. ABDOMEN: Soft, nontender, nondistended, normoactive bowel sounds. No palpable organomegaly. -MUSCULOSKELETAL: No joint swelling or deformity. Surgical wound of the left middle finger with a dressing in place and to lesser extent swelling and tenderness of the right index finger EXTREMITIES: No cyanosis, clubbing, or pedal edema. NEUROLOGICAL: Gross neurological examination did not reveal any focal deficits. SKIN: No rashes. no petechiae. - Labs CBC & Chem 7: 07/13/24 06:37 07/15/24 06:30 Labs: Microbiology - Last 24 Hours (Table) 07/12/24 06:17 Blood Culture - Preliminary Blood Assessment and Plan Assessment: Finger infection with abscess involving the left middle finger and to lesser degree right index finger. S/p I&D on 07/11. Cultures growing MRSA in both wound and blood cultures MRSA bacteremia Elevated white cell count, leukocytosis Plan: Continue with antibiotic as per ID team, currently IV vancomycin PICC line on Tuesday ID team and orthopedic team on the case GI and DVT prophylaxis Further recommendation based on clinical course Prognosis is guarded
--- NOTE | 2024-07-15 15:07 | P.PN ---
Subjective Progress Note Date: 07/15/24 Principal diagnosis: Reason for follow-up is right index and left middle finger abscess with MRSA bacteremia Patient is a 33-year-old male past medical his significant for reflux peptic ulcer disease anxiety schizophrenia current everyday smoker the patient has been brought into the hospital concerning for left middle and right index finger infection, patient be diagnosed with bilateral finger abscess, blood cultures came back positive with MRSA. Patient is status post drainage of the left middle finger abscess completed by orthopedics on 07/11/2024. On today's evaluation that is 07/15/2024, Patient is afebrile this morning patient denies having any chest pain shortness of breath or cough, the patient is breathing comfortably on room air, patient denies any abdominal pain no diarrhea no nausea no vomiting denies pain to the left middle finger. Patient did have creatinine 0.68 Vanco trough is low 7.9 blood culture repeat has been negative Objective - Vital Signs Vital signs: Vital Signs Temp 98.2 F 07/15/24 14:00 Pulse 68 07/15/24 14:00 Resp 16 07/15/24 14:00 BP 114/66 07/15/24 14:00 Pulse Ox 98 07/15/24 14:00 FiO2 Intake & Output 07/14/24 07/15/24 07/15/24 18:59 06:59 18:59 Intake Total 400 Balance 400 Intake: Oral 400 Other: Voiding Method Urinal # Voids 4 2 - Exam GENERAL DESCRIPTION: Middle-age male lying in bed in no distress RESPIRATORY SYSTEM: Unlabored breathing , decreased breath sounds at bases HEART: S1 S2 regular rate and rhythm , ABDOMEN: Soft , no tenderness EXTREMITIES: Left hand is currently dressed in OR dressing - Labs CBC & Chem 7: 07/13/24 06:37 07/15/24 06:30 Labs: Microbiology - Last 24 Hours (Table) 07/12/24 06:17 Blood Culture - Preliminary Blood Assessment and Plan (1) Abscess of finger, left Current Visit: Yes Status: Acute Code(s): L02.512 - CUTANEOUS ABSCESS OF LEFT HAND SNOMED Code(s): 92399357999563729 (2) Abscess of finger, right Current Visit: Yes Status: Acute Code(s): L02.511 - CUTANEOUS ABSCESS OF RIGHT HAND SNOMED Code(s): 59493530209202662 (3) MRSA bacteremia Current Visit: Yes Status: Acute Code(s): R78.81 - BACTEREMIA; B95.62 - METHICILLIN RESIS STAPH INFCT CAUSING DISEASES CLASSD ELSWHR SNOMED Code(s): 47530527554804919 Plan: 1patient presenting to the hospital with extensive swelling and redness to the left middle and right index finger likely representing an abscess and will need to cover for the gram-positive skin pamela to be the likely pathogen possibly staph/MRSA 2-patient is status post surgical drainage and deep culture of the left middle finger abscess completed 07/11/2024 3-patient with MRSA bacteremia source is likely bilateral finger abscess blood cultures has been repeated which are negative so far 4patient to continue with vancomycin pharmacy need to adjust the dose to keep the trough around [address] a PICC line in a.m. for outpatient IV antibiotics Dictation was produced using [employer] dictation software. please excuse any grammatical, word or spelling errors. Time with Patient: Less than 30
[2024-07-16] MEDS: VANCOMYCIN TROUGH DUE 1 EACH MISC MISCELLANE ONE (08:12)
--- NOTE | 2024-07-16 10:55 | P.PN ---
Subjective History of present illness: 33-year-old male patient with past medical history significant for GERD, history of peptic ulcer disease, history of tremors, who was recently released from [facility] on 07/04/2024, presented with pain swelling and edema of left third digit and also infection and wound of right second digit, denied any fever chills or known injuries. Patient is a poor historian, patient reported that he noticed right hand pain and swelling for 2 days, left third digit pain and swelling for 4 days. Patient denied any bug bite or animal bite. Patient is afebrile, heart rate 81, respiratory rate 18, blood pressure 125/77, saturating 99% on room air. WBCs 12.1 with absolute neutrophils 9.5, hemoglobin 15, platelet 205. BMP is unremarkable. X-ray of both hands negative for any acute fracture or dislocation. 07/11 Patient has infection swelling and tenderness of the left middle finger and to lesser x-ray right index finger No other new complaint Patient is going for I&D today with orthopedic team by 4 PM Continue with antibiotic as per ID team, currently on ceftriaxone and IV vancomycin and normal saline 75 mL/h Patient with no chest pain or dyspnea Patient is an acceptable risk to proceed with this procedure today 07/12 Patient s/p I&D of his left middle finger abscess and tenosynovitis. Today's postop day #1. He has heavy dressing in his left hand. Pain controlled Denies any specific complaint Wound culture send is pending Blood culture growing MRSA Currently covered with IV vancomycin with monitoring creatinine and trough 07/13/2024 Patient s/p I&D for his left finger wound, wound is slightly open, dressing in place, no significant surrounding cellulitis which is improving, no significant purulent discharge but there is purulent base of the ulcer or wound Pain looks controlled No diarrhea No other new complaint Wound culture and blood culture are growing presumptive MRSA Currently he is covered with antibiotics per ID team including IV vancomycin Also he is on normal saline 75 mL/h. Labs reviewed including creatinine 07/14 Patient is a status post I&D for his finger infection. Wound culture is growing MRSA He has MRSA bacteremia as well Currently covered with IV vancomycin Patient will require PICC line on Sunday 07/15 Finger wound and infection is improving He is on IV vancomycin He will require PICC line probably tomorrow Possible discharge 24 to 48 hours 07/16 Patient has PICC line placed in his right arm He remains on IV vancomycin I talked to the patient to follow-up with his PCP and Dr. Ennis in 1 week after discharge and he agrees. Risk of nephrotoxicity with IV vancomycin explained for him and he agrees Also patient was instructed to pull out his PICC line after he finished with IV course of antibiotic and he agrees Patient has a public guardian. Patient family cannot help with the infusion therefore patient needs to go to subacute rehab Discussed with outpatient case manager, prior authorization is pending Objective - Vital Signs Vital signs: Vital Signs Temp 98.1 F 07/16/24 07:23 Pulse 64 07/16/24 07:23 Resp 18 07/16/24 07:23 BP 107/72 07/16/24 07:23 Pulse Ox 97 07/16/24 07:23 FiO2 Intake & Output 07/15/24 07/16/24 07/16/24 18:59 06:59 18:59 Intake Total 600 Output Total 800 500 Balance -200 -500 Intake: Oral 600 Output: Urine 800 500 Other: Voiding Method Urinal Urinal - Exam GENERAL: The patient is alert and oriented x3, not in any acute distress. Well developed, well nourished. HEENT: Pupils are round and equally reacting to light. EOMI. No scleral icterus. No conjunctival pallor. Normocephalic, atraumatic. No pharyngeal erythema. No thyromegaly. CARDIOVASCULAR: S1 and S2 present. No murmurs, rubs, or gallops. PULMONARY: Chest is clear to auscultation, no wheezing , no crackles. ABDOMEN: Soft, nontender, nondistended, normoactive bowel sounds. No palpable organomegaly. -MUSCULOSKELETAL: No joint swelling or deformity. Surgical wound of the left middle finger with a dressing in place and to lesser extent swelling and tenderness of the right index finger -EXTREMITIES: No cyanosis, clubbing, or pedal edema. PICC line placed in right arm NEUROLOGICAL: Gross neurological examination did not reveal any focal deficits. SKIN: No rashes. no petechiae. - Labs CBC & Chem 7: 07/13/24 06:37 07/15/24 06:30 Labs: Microbiology - Last 24 Hours (Table) 07/11/24 16:33 Anaerobic Culture - Final Finger - Left Third 07/11/24 16:33 Anaerobic Culture - Final Finger - Left Third 07/12/24 06:17 Blood Culture - Preliminary Blood Assessment and Plan Assessment: Finger infection with abscess involving the left middle finger and to lesser degree right index finger. S/p I&D on 07/11. Cultures growing MRSA in both wound and blood cultures MRSA bacteremia Elevated white cell count, leukocytosis Plan: Continue with antibiotic as per ID team, currently IV vancomycin PICC line placed in right arm ID team and orthopedic team on the case requiring prior authorization To go to subacute rehab GI and DVT prophylaxis Further recommendation based on clinical course Prognosis is guarded
--- NOTE | 2024-07-16 12:41 | P.PN ---
Subjective Progress Note Date: 07/16/24 Principal diagnosis: Reason for follow-up is right index and left middle finger abscess with MRSA bacteremia Patient is a 33-year-old male past medical his significant for reflux peptic ulcer disease anxiety schizophrenia current everyday smoker the patient has been brought into the hospital concerning for left middle and right index finger infection, patient be diagnosed with bilateral finger abscess, blood cultures came back positive with MRSA. Patient is status post drainage of the left middle finger abscess completed by orthopedics on 07/11/2024. On today's evaluation that is 07/16/2024,the patient denies any fever or any chills, patient is breathing comfortably on room air, the patient denies chest pain shortness of breath and no significant cough, patient denies abdominal pain, no nausea vomiting or diarrhea. Pain to the left middle finger has decrea sed intensity. Patient did have a vancomycin trough of 20.5 blood culture repeat has been negative and blood cultures were negative Objective - Vital Signs Vital signs: Vital Signs Temp 98.1 F 07/16/24 07:23 Pulse 64 07/16/24 07:23 Resp 18 07/16/24 07:23 BP 107/72 07/16/24 07:23 Pulse Ox 97 07/16/24 07:23 FiO2 Intake & Output 07/15/24 07/16/24 07/16/24 18:59 06:59 18:59 Intake Total 600 Output Total 800 500 Balance -200 -500 Intake: Oral 600 Output: Urine 800 500 Other: Voiding Method Urinal Urinal - Exam GENERAL DESCRIPTION: Middle-age male lying in bed in no distress RESPIRATORY SYSTEM: Unlabored breathing , decreased breath sounds at bases HEART: S1 S2 regular rate and rhythm , ABDOMEN: Soft , no tenderness EXTREMITIES: Left hand is currently dressed in OR dressing - Labs CBC & Chem 7: 07/13/24 06:37 07/15/24 06:30 Labs: Microbiology - Last 24 Hours (Table) 07/11/24 16:33 Anaerobic Culture - Final Finger - Left Third 07/11/24 16:33 Anaerobic Culture - Final Finger - Left Third 07/12/24 06:17 Blood Culture - Preliminary Blood Assessment and Plan (1) Abscess of finger, left Current Visit: Yes Status: Acute Code(s): L02.512 - CUTANEOUS ABSCESS OF LEFT HAND SNOMED Code(s): 62227026802803341 (2) Abscess of finger, right Current Visit: Yes Status: Acute Code(s): L02.511 - CUTANEOUS ABSCESS OF RIGHT HAND SNOMED Code(s): 47145945366498936 (3) MRSA bacteremia Current Visit: Yes Status: Acute Code(s): R78.81 - BACTEREMIA; B95.62 - METHICILLIN RESIS STAPH INFCT CAUSING DISEASES CLASSD ELSR SNOMED Code(s): 98900172430802375 Plan: 1patient presenting to the hospital with extensive swelling and redness to the left middle and right index finger likely representing an abscess and will need to cover for the gram-positive skin pamela to be the likely pathogen possibly staph/MRSA 2-patient is status post surgical drainage and deep culture of the left middle finger abscess completed 07/11/2024 3-patient with MRSA bacteremia source is likely bilateral finger abscess blood cultures has been repeated which are negative so far 4patient to continue with vancomycin pharmacy, he did get a PICC line plan is for another 10-day course of IV vancomycin on discharge and close outpatient follow-up prescription was provided to the leather case finisher Dictation was produced using [employer] dictation software. please excuse any grammatical, word or spelling errors. Time with Patient: Less than 30
[2024-07-17 03:50] LABS: African American GFR (CKD) >90 (>60 ml/min/1.73 sqM); Non-African American GFR(CKD) >90 (>60 ml/min/1.73 sqM)
--- NOTE | 2024-07-17 14:29 | P.PN ---
Subjective Progress Note Date: 07/17/24 Principal diagnosis: Reason for follow-up is right index and left middle finger abscess with MRSA bacteremia Patient is a 33-year-old male past medical his significant for reflux peptic ulcer disease anxiety schizophrenia current everyday smoker the patient has been brought into the hospital concerning for left middle and right index finger infection, patient be diagnosed with bilateral finger abscess, blood cultures came back positive with MRSA. Patient is status post drainage of the left middle finger abscess completed by orthopedics on 07/11/2024. On today's evaluation that is 07/17/2024,the patient remains to be afebrile, patient is on room air not requiring supplemental oxygen and denies any shortness of breath no chest pain or cough.Patient denies having any nausea or vomiting, no abdominal pain and no diarrhea, denies pain to the left middle finger. Patient did have a creatinine of 0.64 Objective - Vital Signs Vital signs: Vital Signs Temp 97.6 F 07/17/24 01:38 Pulse 68 07/17/24 01:38 Resp 18 07/17/24 01:38 BP 120/76 07/17/24 01:38 Pulse Ox 98 07/17/24 01:38 FiO2 Intake & Output 07/16/24 07/17/24 07/17/24 18:59 06:59 18:59 Intake Total 200 Balance 200 Intake: Oral 200 Other: Voiding Method Urinal # Voids 3 1 - Exam GENERAL DESCRIPTION: Middle-age male lying in bed in no distress RESPIRATORY SYSTEM: Unlabored breathing , decreased breath sounds at bases HEART: S1 S2 regular rate and rhythm , ABDOMEN: Soft , no tenderness EXTREMITIES: Left middle finger wound is open no drainage - Labs CBC & Chem 7: 07/13/24 06:37 07/17/24 03:25 Labs: Abnormal Lab Results - Last 24 Hours (Table) 07/17/24 Range/Units 03:25 Creatinine 0.64 L (0.66-1.25) mg/dL Assessment and Plan (1) Abscess of finger, left Current Visit: Yes Status: Acute Code(s): L02.512 - CUTANEOUS ABSCESS OF L EFT HAND SNOMED Code(s): 48446577446515860 (2) Abscess of finger, right Current Visit: Yes Status: Acute Code(s): L02.511 - CUTANEOUS ABSCESS OF RIGHT HAND SNOMED Code(s): 61510491752348663 (3) MRSA bacteremia Current Visit: Yes Status: Acute Code(s): R78.81 - BACTEREMIA; B95.62 - METHICILLIN RESIS STAPH INFCT CAUSING DISEASES CLASSD ELSWHR SNOMED Code(s): 13853055436653176 Plan: 1patient presenting to the hospital with extensive swelling and redness to the left middle and right index finger likely representing an abscess and will need to cover for the gram-positive skin pamela to be the likely pathogen possibly staph/MRSA 2-patient is status post surgical drainage and deep culture of the left middle finger abscess completed 07/11/2024 3-patient with MRSA bacteremia source is likely bilateral finger abscess blood cultures has been repeated which are negative so far 4patient to continue with vancomycin pharmacy, currently waiting for patient antibiotic arrangement nursing staff is advised to apply dry Aquacel silver dressing to the left middle finger and keep it covered Dictation was produced using [employer] dictation software. please excuse any grammatical, word or spelling errors. Time with Patient: Less than 30
[2024-07-17 16:42] VITALS: BMI 29.5
[2024-07-18 03:19] VITALS: RESP 16
[2024-07-18 08:09] VITALS: BP 110/74; PULSE 60; TEMP 97.6
[2024-07-18] MEDS: VANCOMYCIN TROUGH DUE 1 EACH MISC MISCELLANE ONE (09:26)
--- NOTE | 2024-07-18 10:55 | P.PN ---
Subjective Progress Note Date: 07/17/24 History of present illness: 33-year-old male patient with past medical history significant for GERD, history of peptic ulcer disease, history of tremors, who was recently released from [facility] on 07/04/2024, presented with pain swelling and edema of left third digit and also infection and wound of right second digit, denied any fever chills or known injuries. Patient is a poor historian, patient reported that he noticed right hand pain and swelling for 2 days, left third digit pain and swel ling for 4 days. Patient denied any bug bite or animal bite. Patient is afebrile, heart rate 81, respiratory rate 18, blood pressure 125/77, saturating 99% on room air. WBCs 12.1 with absolute neutrophils 9.5, hemoglobin 15, platelet 205. BMP is unremarkable. X-ray of both hands negative for any acute fracture or dislocation. 07/11 Patient has infection swelling and tenderness of the left middle finger and to lesser x-ray right index finger No other new complaint Patient is going for I&D today with orthopedic team by 4 PM Continue with antibiotic as per ID team, currently on ceftriaxone and IV vancomycin and normal saline 75 mL/h Patient with no chest pain or dyspnea Patient is an acceptable risk to proceed with this procedure today 07/12 Patient s/p I&D of his left middle finger abscess and tenosynovitis. Today's postop day #1. He has heavy dressing in his left hand. Pain controlled Denies any specific complaint Wound culture send is pending Blood culture growing MRSA Currently covered with IV vancomycin with monitoring creatinine and trough 07/13/2024 Patient s/p I&D for his left finger wound, wound is slightly open, dressing in place, no significant surrounding cellulitis which is improving, no significant purulent discharge but there is purulent base of the ulcer or wound Pain looks controlled No diarrhea No other new complaint Wound culture and blood culture are growing presumptive MRSA Currently he is covered with antibiotics per ID team including IV vancomycin Also he is on normal saline 75 mL/h. Labs reviewed including creatinine 07/14 Patient is a status post I&D for his finger infection. Wound culture is growing MRSA He has MRSA bacteremia as well Currently covered with IV vancomycin Patient will require PICC line on Sunday 07/15 Finger wound and infection is improving He is on IV vancomycin He will require PICC line probably tomorrow Possible discharge to 48 hours 07/16 Patient has PICC line placed in his right arm He remains on IV vancomycin I talked to the patient to follow-up with his PCP and Dr. Ennis in 1 week after discharge and he agrees. Risk of nephrotoxicity with IV vancomycin explained for him and he agrees Also patient was instructed to pull out his PICC line after he finished with IV course of antibiotic and he agrees Patient has a public guardian. Patient family cannot help with the infusion therefore patient needs to go to subacute rehab Discussed with case management associate, prior authorization is pending 07/17/2024 Patient is currently sitting in the chair. Awake alert and oriented x 3. Afebrile. Currently on room air. No complaints of chest pain or shortness breath. No nausea vomiting abdominal pain or diarrhea. Laboratory data showed creatinine 0.64 and GFR greater than 90. Vancomycin trough level 20.5. Patient is on IV hydration with normal saline 75 6/h. ID is on board. Current medications reviewed. Patient is awaiting for finalization for IV antibiotics. PICC line in place. Objective - Vital Signs Vital signs: Vital Signs Temp 98.0 F 07/17/24 14:00 Pulse 64 07/17/24 14:00 Resp 16 07/17/24 14:00 BP 103/65 07/17/24 14:00 Pulse Ox 98 07/17/24 14:00 FiO2 Intake & Output 07/17/24 07/17/24 07/18/24 06:59 18:59 06:59 Weight 90.718 kg Other: Voiding Method Urinal Urinal # Voids 1 3 - Exam - Exam GENERAL: The patient is alert and oriented x3, not in any acute distress. Well developed, well nourished. HEENT: Pupils are round and equally reacting to light. EOMI. No scleral icterus. No conjunctival pallor. Normocephalic, atraumatic. No pharyngeal erythema. No thyromegaly. CARDIOVASCULAR: S1 and S2 present. No murmurs, rubs, or gallops. PULMONARY: Chest is clear to auscultation, no wheezing , no crackles. ABDOMEN: Soft, nontender, nondistended, normoactive bowel sounds. No palpable organomegaly. -MUSCULOSKELETAL: No joint swelling or deformity. Surgical wound of the left middle finger with a dressing in place and to lesser extent swelling and tenderness of the right index finger -EXTREMITIES: No cyanosis, clubbing, or pedal edema. PICC line placed in right arm NEUROLOGICAL: Gross neurological examination did not reveal any focal deficits. SKIN: No rashes. no petechiae. - Labs CBC & Chem 7: 07/13/24 06:37 07/17/24 03:25 Labs: Abnormal Lab Results - Last 24 Hours (Table) 07/17/24 Range/Units 03:25 Creatinine 0.64 L (0.66-1.25) mg/dL Microbiology - Last 24 Hours (Table) 07/12/24 06:17 Blood Culture - Final Blood Assessment and Plan Assessment: Finger infection with abscess involving the left middle finger and to lesser degree right index finger. S/p I&D on 07/11. Cultures growing MRSA in both wound and blood cultures MRSA bacteremia Elevated white cell count, leukocytosis Plan: Continue with antibiotic as per ID team, currently IV vancomycin PICC line placed in right arm ID team and orthopedic team on the case requiring prior authorization To go to subacute rehab GI and DVT prophylaxis Further recommendation based on clinical course Prognosis is guarded
--- NOTE | 2024-07-18 11:26 | P.PN ---
Subjective Progress Note Date: 07/18/24 Principal diagnosis: Reason for follow-up is right index and left middle finger abscess with MRSA bacteremia Patient is a 33-year-old male past medical his significant for reflux peptic ulcer disease anxiety schizophrenia current everyday smoker the patient has been brought into the hospital concerning for left middle and right index finger infection, patient be diagnosed with bilateral finger abscess, blood cultures came back positive with MRSA. Patient is status post drainage of the left middle finger abscess completed by orthopedics on 07/11/2024. On today's evaluation that is 07/18/2024, the patient continues to be afebrile, the patient is on room air and breathing comfortably, the Pt denies having any chest pain or cough, the patient denies having any abdominal pain no vomiting or any diarrhea has been reported by the nursing staff, the patient pain to the left middle finger has decreased and wants to go home. Patient did have a vancomycin trough of 14.5 no CBC has been done today blood culture repeated 926 has been negative Objective - Vital Signs Vital signs: Vital Signs Temp 97.6 F 07/18/24 07:19 Pulse 60 07/18/24 07:19 Resp 16 07/18/24 07:19 BP 110/74 07/18/24 07:19 Pulse Ox 99 07/18/24 07:19 FiO2 Intake & Output 07/17/24 07/18/24 07/18/24 18:59 06:59 18:59 Weight 90.718 kg Other: Voiding Method Urinal Urinal # Voids 3 3 - Exam GENERAL DESCRIPTION: Middle-age male lying in bed in no distress RESPIRATORY SYSTEM: Unlabored breathing , decreased breath sounds at bases HEART: S1 S2 regular rate and rhythm , ABDOMEN: Soft , no tenderness EXTREMITIES: Left middle finger wound is open no drainage - Labs CBC & Chem 7: 07/13/24 06:37 07/17/24 03:25 Labs: Microbiology - Last 24 Hours (Table) 07/12/24 06:17 Blood Culture - Final Blood Assessment and Plan (1) Abscess of finger, left Current Visit: Yes Status: Acute Code(s): L02.512 - CUTANEOUS ABSCESS OF LEFT HAND SNOMED Code(s): 69933892476328376 (2) Abscess of finger, right Current Visit: Yes Status: Acute Code(s): L02.511 - CUTANEOUS ABSCESS OF RIGHT HAND SNOMED Code(s): 39442514804439240 (3) MRSA bacteremia Current Visit: Yes Status: Acute Code(s): R78.81 - BACTEREMIA; B95.62 - METH ICILLIN RESIS STAPH INFCT CAUSING DISEASES CLASSD ELSWHR SNOMED Code(s): 64771453541592333 Plan: 1patient presenting to the hospital with extensive swelling and redness to the left middle and right index finger likely representing an abscess and will need to cover for the gram-positive skin pamela to be the likely pathogen possibly staph/MRSA 2-patient is status post surgical drainage and deep culture of the left middle finger abscess completed 07/11/2024 3-patient with MRSA bacteremia source is likely bilateral finger abscess blood cultures has been repeated 07/12/2024 which are negative so far 4patient to continue with vancomycin pharmacy, patient has received about a week of IV vancomycin from the negative blood culture and will now require only 1 week of IV vancomycin on discharge to complete his 2-week course from the negative blood culture Dictation was produced using [employer] dictation software. please excuse any grammatical, word or spelling errors.
[2024-07-18] MEDS: SODIUM CHLORIDE 0.9% 1,000 ML IV SCH (11:30)
--- NOTE | 2024-07-18 11:35 | P.DS ---
Providers Date of admission: 07/10/24 14:14 Expected date of discharge: 07/18/24 Attending physician: Howard Benson MD Consults: 07/10/24 14:30 Consult Physician Urgent Consulting Provider: Gildardo Weems Consult Reason/Comments: finger infection/abscess Do you want consulting provider notified?: Yes Consult Physician Urgent Consulting Provider: Junior Ennis Consult Reason/Comments: finger abscess Do you want consulting provider notified?: Yes Primary care physician: [facility] Course: Discharge diagnosis Finger infection with abscess involving the left middle finger and to lesser degree right index finger. S/p I&D on 07/11. Cultures growing MRSA in both wound and blood cultures MRSA bacteremia Leukocytosis resolved. GI and DVT prophylaxis. Hospital course 33-year-old male patient with past medical history significant for GERD, history of peptic ulcer disease, history of tremors, who was recently released from [facility] on 07/04/2024, presented with pain swelling and edema of left third digit and also infection and wound of right second digit, denied any fever chills or known injuries. Patient is a poor historian, patient reported that he noticed right hand pain and swelling for 2 days, left third digit pain and swelling for 4 days. Patient denied any bug bite or animal bite. Patient is afebrile, heart rate 81, respiratory rate 18, blood pressure 125/77, saturating 99% on room air. WBCs 12.1 with absolute neutrophils 9.5, hemoglobin 15, platelet 205. BMP is unremarkable. X-ray of both hands negative for any acute fracture or dislocation. 07/11 Patient has infection swelling and tenderness of the left middle finger and to lesser x-ray right index finger No other new complaint Patient is going for I&D today with orthopedic team by 4 PM Continue with antibiotic as per ID team, currently on ceftriaxone and IV vancomycin and normal saline 75 mL/h Patient with no chest pain or dyspnea Patient is an acceptable risk to proceed with this procedure today 07/12 Patient s/p I&D of his left middle finger abscess and tenosynovitis. Today's postop day #1. He has heavy dressing in his left hand. Pain controlled Denies any specific complaint Wound culture send is pending Blood culture growing MRSA Currently covered with IV vancomycin with monitoring creatinine and trough 07/13/2024 Patient s/p I&D for his left finger wound, wound is slightly open, dressing in place, no significant surrounding cellulitis which is improving, no significant purulent discharge but there is purulent base of the ulcer or wound Pain looks controlled No diarrhea No other new complaint Wound culture and blood culture are growing presumptive MRSA Currently he is covered with antibiotics per ID team including IV vancomycin Also he is on normal saline 75 mL/h. Labs reviewed including creatinine 07/14 Patient is a status post I&D for his finger infection. Wound culture is growing MRSA He has MRSA bacteremia as well Currently covered with IV vancomycin Patient will require PICC line on Sunday 07/15 Finger wound and infection is improving He is on IV vancomycin He will require PICC line probably tomorrow Possible discharge 24 to 48 hours 07/16 Patient has PICC line placed in his right arm He remains on IV vancomycin I talked to the patient to follow-up with his PCP and Dr. Ennis in 1 week after discharge and he agrees. Risk of nephrotoxicity with IV vancomycin explained for him and he agrees Also patient was instructed to pull out his PICC line after he finished with IV course of antibiotic and he agrees Patient has a public guardian. Patient family cannot help with the infusion therefore patient needs to go to subacute rehab Discussed with case management social worker, prior authorization is pending 07/17/2024 Patient is currently sitting in the chair. Awake alert and oriented x 3. Afebrile. Currently on room air. No complaints of chest pain or shortness breath. No nausea vomiting abdominal pain or diarrhea. Laboratory data showed creatinine 0.64 and GFR greater than 90. Vancomycin trough level 20.5. Patient is on IV hydration with normal saline 75 6/h. ID is on board. Current medications reviewed. Patient is awaiting for finalization for IV antibiotics. PICC line in place. 07/18/2024 Patient is currently sitting in a chair. Awake alert and oriented x 3. On room air. No complaints of chest pain or shortness of breath. Patient has been afebrile. Tolerating oral diet. No headache or dizziness or lightheadedness. Patient will need another 7 days of IV vancomycin for MRSA bacteremia. Patient has authorization for placement today. Being discharged today. Physical exam GENERAL: The patient is alert and oriented x3, not in any acute distress. Well developed, well nourished. HEENT: Pupils are round and equally reacting to light. EOMI. No scleral icterus. No conjunctival pallor. Normocephalic, atraumatic. No pharyngeal erythema. No thyromegaly. CARDIOVASCULAR: S1 and S2 present. No murmurs, rubs, or gallops. PULMONARY: Chest is clear to auscultation, no wheezing , no crackles. ABDOMEN: Soft, nontender, nondistended, normoactive bowel sounds. No palpable organomegaly. -MUSCULOSKELETAL: No joint swelling or deformity. Surgical wound of the left middle finger with a dressing in place and to lesser extent swelling and tenderness of the right index finger -EXTREMITIES: No cyanosis, clubbing, or pedal edema. PICC line placed in right arm NEUROLOGICAL: Gross neurological examination did not reveal any focal deficits. SKIN: No rashes. no petechiae. Vital Signs 07/18/24 07:19 Temperature 97.6 F Pulse Rate [ 60 Pulse Oximetery ] Respiratory 16 Rate Blood Pressure 110/74 [Left Arm] O2 Sat by Pulse 99 Oximetry Total time taken greater than 35 minutes including 18 minutes for counseling and coordination of care. Patient Condition at Discharge: Stable Plan - Discharge Summary Discharge Rx Participant: No New Discharge Prescriptions: New Vancomycin 1,500 mg IVPB Q8HR 7 Days each Continue ARIPiprazole [Abilify Maintena] 400 mg IM Q28D Valproic Acid (As Sodium Salt) [Valproic Acid] 500 mg PO BID OLANZapine [ZyPREXA] 15 mg PO HS Discharge Medication List ARIPiprazole [Abilify Maintena] 400 mg IM Q28D 07/10/24 [History] OLANZapine [ZyPREXA] 15 mg PO HS 07/10/24 [History] Valproic Acid (As Sodium Salt) [Valproic Acid] 500 mg PO BID 07/10/24 [History] Vancomycin 1,500 mg IVPB Q8HR 7 Days each 07/18/24 [Rx] Follow up Appointment(s)/Referral(s): Megan Bishop MD [Primary Care Provider] - 1-2 days Gildardo Weems DO [Doctor of Osteopathic Medicine] - As Needed Activity/Diet/Wound Care/Special Instructions: Vancomycin IV Pharmacy to dose for 10 days. Currently on 1500mg IV q8 hours. Discharge Disposition: TRANSFER TO SNF/ECF
[2024-07-18] MEDS ORDERED: HEPARIN SODIUM,PORCINE 5,000 UNIT/ML 1 ML VIAL SQ SCH (16:00)
== END 2024-07-18 13:30 | DRG 580 ==
LOC: EC 11:45 → 6NMEDSUR 14:13 → OBSVTOIN 14:14 → 1SOBS 15:50 → 4SSUR 07-12 16:44
PROVIDERS: ADMIT Internal Medicine; ATTEND Internal Medicine
PROC: 0JBK0ZZ Excision of Left Hand Subcutaneous Tissue and Fascia, Open Approach (ICD-10-PCS; principal; 2024-07-11 07:30)
DX: L02.512 Cutaneous abscess of left hand (principal); R78.81 Bacteremia; L02.511 Cutaneous abscess of right hand; B95.62 Methicillin resistant Staphylococcus aureus infection as the cause of diseases classified elsewhere; F17.200 Nicotine dependence, unspecified, uncomplicated; F20.9 Schizophrenia, unspecified; F41.9 Anxiety disorder, unspecified; K21.9 Gastro-esophageal reflux disease without esophagitis; M65.842 Other synovitis and tenosynovitis, left hand; Z79.899 Other long term (current) drug therapy
CPT/HCPCS: 36415; 36573; 80048; 80053; 80202; 82565; 83605; 85025; 87040; 87070; 87075; 87077; 87186; 87205; 96361; 96365; 99285

== ENCOUNTER 2024-10-15 12:57 | Inpatient (IN) | payer MEDICARE, MEDICAID ==
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
[2024-10-15 14:24] LABS: Appearance,Urine Clear (Clear); Bilirubin,Urine Negative (Negative); Blood,Urine Negative (Negative); Color,Urine Yellow; Glucose,Urine (UA) Negative (Negative); Ketones,Urine Negative (Negative); Leukocyte Esterase,Urine Trace (Negative); Mucus,Urine Many /hpf; Nitrite,Urine Negative (Negative); Protein,Urine Negative (Negative); RBC,Urine 3 /hpf (0-5); Specific Gravity,Urine 1.018 (1.001-1.035); Squamous Epithelial Cell,Urine <1 /hpf (0-4); WBC,Urine 5 /hpf (0-5)
[2024-10-15 14:45] LABS: Amphetamine Screen,Urine Not Detected (NotDetected); Barbiturate Screen,Urine Not Detected (NotDetected); Benzodiazepines Screen,Urine Not Detected (NotDetected); Cocaine Screen,Urine Not Detected (NotDetected); Methadone Screen, Urine Not Detected (NotDetected); Opiate Screen,Urine Not Detected (NotDetected); Oxycodone Screen, Urine Not Detected (NotDetected); Phencyclidine Screen,Urine Not Detected (NotDetected); Tricyclic Antidepressant,Urine Not Detected (NotDetected); Urn Cannabinoid Scrn Not Detected (NotDetected)
[2024-10-15] MEDS ORDERED: IBUPROFEN 600 MG TAB PO PRN (19:08)
[2024-10-15] MEDS ORDERED: MAGNESIUM HYDROXIDE 2,400 MG/30 ML CUP PO PRN (19:08)
[2024-10-15] MEDS ORDERED: LORazepam 2 MG/ML INJ IM PRN (19:08)
[2024-10-15] MEDS ORDERED: MAG HYDROX/AL HYDROX/SIMETH 355 ML BOTTLE PO PRN (19:08)
[2024-10-15] MEDS ORDERED: LORazepam 1 MG TAB PO PRN (19:08)
[2024-10-15] MEDS ORDERED: HALOPERIDOL LACTATE 5 MG/ML 1 ML VIAL IM PRN (19:08)
[2024-10-15] MEDS ORDERED: haloperidoL 5 MG TAB PO PRN (19:08)
[2024-10-15] MEDS ORDERED: ACETAMINOPHEN TAB 325 MG TAB PO PRN (19:08)
[2024-10-15] MEDS: OLANZapine 5 MG TAB PO SCH (22:39)
[2024-10-15] MEDS: NICOTINE 14MG/24HR PATCH TRANSDERM SCH (23:24)
[2024-10-16] MEDS: VALPROIC ACID ORAL SOLN 250 MG/5 ML CUP PO SCH (08:01)
[2024-10-16 09:47] LABS: Basophils % (A) 1 %; Eosinophils # (A) 0.3 k/uL (0-0.7); Eosinophils % (A) 5 %; HCT 50.8 % (39.0-53.0); HGB 16.4 gm/dL (13.0-17.5); Lymphocytes # (A) 1.8 k/uL (1.0-4.8); Lymphocytes % (A) 25 %; MCHC 32.3 g/dL (31.0-37.0); MCV 96.2 fL (80.0-100.0); Mean Platelet Volume 7.1; Monocytes # (A) 0.4 k/uL (0-1.0); Monocytes % (A) 6 %; Neutrophils # (A) 4.3 k/uL (1.3-7.7); Neutrophils % (A) 62 %; Platelet Count 236 k/uL (150-450); RBC 5.28 m/uL (4.30-5.90); RDW 12.8 % (11.5-15.5); WBC 6.9 k/uL (3.8-10.6)
[2024-10-16 09:56] LABS: Glucose 83 mg/dL (74-99); Potassium 4.4 mmol/L (3.5-5.1); Sodium 145 mmol/L (137-145); Total Protein 6.7 g/dL (6.3-8.2)
[2024-10-16 09:59] LABS: ALT 23 U/L (4-49); AST 19 U/L (17-59); African American GFR (CKD) >90 (>60 ml/min/1.73 sqM); Alkaline Phosphatase 83 U/L (38-126); Blood Urea Nitrogen 13 mg/dL (9-20); Calcium 9.3 mg/dL (8.4-10.2); Carbon Dioxide 28 mmol/L (22-30); Non-African American GFR(CKD) >90 (>60 ml/min/1.73 sqM); Total Bilirubin 0.3 mg/dL (0.2-1.3)
[2024-10-16 10:49] LABS: Anion Gap 6 mmol/L; Chloride 111 mmol/L (98-107)
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
[2024-10-16 15:15] LABS: Chol/HDL Ratio 3.62 Ratio; LDL Cholesterol,Calculated 97.2 mg/dL (0.0-131.0); VLDL Calculation 14.32 mg/dL (5.00-40.00)
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
[2024-10-16] MEDS: OLANZapine 10 MG TAB PO SCH (21:10)
[2024-10-17] MEDS: PROPRANOLOL 20 MG TAB PO SCH (08:00)
--- NOTE | 2024-10-17 09:42 | P.PN ---
Progress Note - Text Progress Note Date: 10/17/24 Interval History: Patient was seen today for psychiatric follow up. Patient was sitting in the lounge, watching television. He continues to be fairly focused on discharge. He was fairly superficial with teletypewriter installer today, mildly irritable. Claims that he slept fairly last night, no significant complaints however according to nursing note he slept about 2 or 3 hours. Patient has been mainly keeping himself, hygiene and grooming mildly improving since yesterday. Continues to have very poor insight and judgment. Denying any depression or anxiety. Denying any auditory or visual hallucinations. Denying any suicidal homicidal ideations intent or plan. MENTAL STATUS EXAM: General Appearance: Patient appears to be stated age, has short hair, fair hygiene and grooming. Behavior: Patient is seated without any agitated behavior. Guarded, vague and evasive. Suspicious appears to be restless Speech: Patient's speech is fluent and non-pressured. [place], improving mildly Mood/Affect: Patient reports their mood is "ok", affect is congruent and constricted. Proving mildly Suicidality/Homicidality: Patient denies having any homicidal ideation intent or plan. Denies any suicidal ideation, intent or plan. Perceptions: Patient denies any visual hallucinations and denies any auditory hallucinations. Though content/process: [place], evasive. Superficial. Proving mildly Memory and concentration: Alert and oriented to person, hospital, year Judgment and insight: poor chronically, improving mildly IMPRESSIONS: Schizophrenia Nicotine dependence non compliance with medication regimen PLAN: -Patient is admitted under involuntary status to MHU for stabilization of psychiatric symptoms and safety. Patient has not signed adult voluntary form and medication consent -Medications: Zyprexa 20 mg nightly for mood stabilization/psychosis adjunct. trazodone 50 mg qhs for sleep/mood. Patient received Abilify Maintena 400 mg IM on 10/11, next dose will be due on 11/08. change Depakene 750 mg daily for mood stabilization/aggression. Inderal 20 mg daily for akathisia/restlessness -Ativan and Haldol PRN for agitation/aggression -NRT - nicotine patch -SW on board for discharge planning. Encourage patient to participate in groups to work on coping skills. Gun Numberer completed a second certificate, currently awaiting deferral and hearing date.
[2024-10-17] MEDS: VALPROIC ACID ORAL SOLN 250 MG/5 ML CUP PO SCH (20:43)
--- NOTE | 2024-10-18 11:26 | P.PN ---
Progress Note - Text Progress Note Date: 10/18/24 Interval History: Patient was seen today for psychiatric follow up. Patient was pacing the [address] ways. He continues to be fairly disorganized in his thought content, continues to be fairly focused on discharge. Was somewhat superficial with copy writer. He was noted by staff to be more disorganized today, more delusional during groups. He was mildly irritable. Claims that he slept fairly last night. Patient has been mainly keeping himself, hygiene and grooming mildly improving since yesterday. Continues to have very poor insight and judgment. Denying any depression or anxiety. Denying any auditory or visual hallucinations. Denying any suicidal homicidal ideations intent or plan. We spoke about transitioning his medication to Prolixin, patient was agreeable to this. MENTAL STATUS EXAM: General Appearance: Patient appears to be stated age, has short hair, fair hygiene and grooming. Behavior: Patient is seated without any agitated behavior. Guarded, vague and evasive. Suspicious appears to be less restless Speech: Patient's speech is fluent and non-pressured. [place], improving mildly Mood/Affect: Patient reports their mood is "fine", affect is congruent and constricted. Proving mildly Suicidality/Homicidality: Patient denies having any homicidal ideation intent or plan. Denies any suicidal ideation, intent or plan. Perceptions: Patient denies any visual hallucinations and denies any auditory hallucinations. Though content/process: [place], evasive. Superficial. Proving mildly Memory and concentration: Alert and oriented to person, hospital, year Judgment and insight: poor chronically IMPRESSIONS: Schizophrenia Nicotine dependence non compliance with medication regimen PLAN: -Patient is admitted under involuntary status to MHU for stabilization of psychiatric symptoms and safety. Patient has not signed adult voluntary form and medication consent -Medications: Cross titrate Zyprexa p.o. with Prolixin 3 mg twice daily for mood stabilization/psychosis adjunct. trazodone 50 mg qhs for sleep/mood. Patient received Abilify Maintena 400 mg IM on 10/11.continue Depakene 750 mg daily for mood stabilization/aggression. Increase Inderal 20 mg bid for akathisia/restlessness -Ativan and Haldol PRN for agitation/aggression -NRT - nicotine patch -SW on board for discharge planning. Encourage patient to participate in groups to work on coping skills. Patient will have his deferral today with claim attorney and currently awaiting hearing date.
[2024-10-18] MEDS: PROPRANOLOL 20 MG TAB PO SCH (20:41)
[2024-10-18] MEDS: OLANZapine 7.5 MG TAB PO SCH (20:42)
[2024-10-19] MEDS ORDERED: traZODone HCL 100 MG TAB PO PRN (11:22)
--- NOTE | 2024-10-19 11:32 | P.PN ---
Progress Note - Text Progress Note Date: 10/19/24 Interval History: Patient was seen today for psychiatric follow up. He has been taking his medi cations as prescribed. Not reporting any changes or problems with the medications at this time. He continues to be fairly concrete, disorganized thoughts. He spoke about not signing anything with his lead nurse and wanting to speak to the release manager. Continues to have very poor insight and judgment. Denying any depression or anxiety. Aims that he slept fairly last night. Denying any auditory or visual hallucinations. Denying any suicidal homicidal ideations intent or plan. MENTAL STATUS EXAM: General Appearance: Patient appears to be stated age, has short hair, fair hygiene and grooming. Improving Behavior: Patient is seated without any agitated behavior. Guarded, vague and evasive. Less suspicious today Speech: Patient's speech is fluent and non-pressured. [place] Mood/Affect: Patient reports their mood is "ok", affect is congruent and constricted. Suicidality/Homicidality: Patient denies having any homicidal ideation intent or plan. Denies any suicidal ideation, intent or plan. Perceptions: Patient denies any visual hallucinations and denies any auditory hallucinations. Though content/process: [place], evasive. Superficial. Memory and concentration: Alert and oriented to person, hospital, year, fair attention span Judgment and insight: poor chronically IMPRESSIONS: Schizophrenia Nicotine dependence non compliance with medication regimen PLAN: -Patient is admitted under involuntary status to MHU for stabilization of psychiatric symptoms and safety. Patient has not signed adult voluntary form and medication consent -Medications: Cross titrate Zyprexa p.o. with Prolixin. Increasing prolixin to 5 mg twice daily for mood stabilization/psychosis adjunct. trazodone 100 mg qhs prn for sleep/mood. Patient received Abilify Maintena 400 mg IM on 10/11, this will be d/c due to ineffectiveness. continue Depakene 750 mg daily for mood stabilization/aggression. Inderal 20 mg bid for akathisia/restlessness -Ativan and Haldol PRN for agitation/aggression -NRT - nicotine patch -SW on board for discharge planning. Encourage patient to participate in groups to work on coping skills. Patient did not defer with lead nurse and currently awaiting hearing date scheduled for 10/24
[2024-10-19] MEDS: OLANZapine 10 MG TAB PO SCH (22:28)
--- NOTE | 2024-10-20 12:55 | P.PN ---
Progress Note - Text Progress Note Date: 10/20/24 Dictation was produced using [employer] dictation software. Please excuse any grammatical, word or spelling errors. Interval history: Patient was seen in the hallway and was directable and agreeable to speak with the communications writer in his room for psychiatric follow-up. The patient was sitting at the side of the bed, to be paranoid and suspicious about the communications writer. He answered all the question by saying "no." He states that his mood today is "okay" denied any current depression, anxiety, suicidal, homicidal thoughts or behavior, intention or plan. He denied any auditory or visual hallucinations. He reported that he has been taking his medication, denied any side effects, denied any muscle stiffness, rigidity, abnormal movement, or drooling. He claims that he slept well overnight however it is reported 3 hours of sleep at night and he claims good appetite. He has poor insight into his current mental illness and seem to be paranoid. Mental status exam: General Appearance: Patient appears to be stated age, has short hair, fair hygiene and grooming. Improving Behavior: Patient is seated without any agitated behavior. Guarded, vague and evasive. Seem to be suspicious and paranoid Speech: Patient's speech is fluent and non-pressured. [place] Mood/Affect: Patient reports their mood is "ok", affect is congruent and constricted. Suicidality/Homicidality: Patient denies having any homicidal ideation intent or plan. Denies any suicidal ideation, intent or plan. Perceptions: Patient denies any visual hallucinations and denies any auditory hallucinations. Though content/process: [place], evasive. Superficial. Memory and concentration: Alert and oriented to person, hospital, year, fair attention span Judgment and insight: poor chronically Impression: Schizophrenia Nicotine dependence non compliance with medication regimen Assessment/Plan: Continue with current diagnosis. Patient continues to meet criteria for inpatient psychiatric admission for symptom stabilization and safety. Patient will be maintained on current psychotropic medication regimen. Monitor for medication compliance and for any psychotropic medication side effects. Will continue to monitor ongoing response to treatment. Encouraged participation in milieu.
--- NOTE | 2024-10-21 14:02 | P.PN ---
Progress Note - Text Progress Note Date: 10/21/24 Dictation was produced using [employer] dictation software. Please excuse any grammatical, word or spelling errors. Interval history: Patient was seen in his room and was directable and agreeable to speak with the mortgage loan underwriter for psychiatric follow-up. The pt was in his room, laying in bed, agreed to speak with mortgage loan underwriter, he sat at the side of his bed during the interview. The pt reported that he is feeling "fine" today. Reported that his mood is "fine." He denied any depression or anxiety, denied any suicidal, self-harm or homicidal thoughts or behavior, intention or plan. He denied any current auditory or visual hallucination, appeared to be less paranoid than previous day. He was trying to explain why he came to the hospital then was paranoid and reported that he does not want to share at this time. He was encouraged to share more with his psychiatrist tomorrow. He reported good sleep overnight, admitted to good appetite. Reported that he is getting along well with everyone in the unit however per report he is isolated to his room most of the day. Patient was encouraged to participate in the milieu. He is compliant with his medication, denied any current side effects, denied any muscle stiffness, rigidity, abnormal movement, or drooling. No PRN given or requested. Mental status exam: General Appearance: Patient appears to be stated age, has short hair, fair hygiene and grooming. Improving Behavior: Patient is seated without any agitated behavior. Guarded, vague and evasive. Seem to be suspicious and paranoid Speech: Patient's speech is fluent and non-pressured. [place] Mood/Affect: Patient reports their mood is "fine", affect is congruent and constricted, and paranoid at time. Suicidality/Homicidality: Patient denies having any homicidal ideation intent or plan. Denies any suicidal ideation, intent or plan. Perceptions: Patient denies any visual hallucinations and denies any auditory hallucinations. Though content/process: [place], evasive. Superficial. Memory and concentration: Alert and oriented to person, hospital, year, fair attention span Judgment and insight: poor chronically Impression: Schizophrenia Nicotine dependence non compliance with medication regimen Assessment/Plan: Continue with current diagnosis. Patient continues to meet cr iteria for inpatient psychiatric admission for symptom stabilization and safety. Patient will be maintained on current psychotropic medication regimen. Monitor for medication compliance and for any psychotropic medication side effects. Will continue to monitor ongoing response to treatment. Encouraged participation in milieu.
[2024-10-22 09:41] VITALS: RESP 17
--- NOTE | 2024-10-22 11:29 | P.PN ---
Progress Note - Text Progress Note Date: 10/22/24 Interval History: Patient was seen today for psychiatric follow up. He was sitting in his room today. He was agreeable to speak to senior medical writer. Continues to be fairly concrete. He has been taking his medications as prescribed, not reporting any side effects or problems. He continues to be fairly concrete, more organized today and his thoughts. He spoke about not signing anything with his assistant attorney general and wanting to speak to the pathology manager, he was reminded of his court date on Tuesday. Continues to have very poor insight and judgment. Denying any depression or anxiety. clAims that he slept fairly last night. Denying any auditory or visual hallucinations. Denying any suicidal homicidal ideations intent or plan. MENTAL STATUS EXAM: General Appearance: Patient appears to be stated age, has short hair, fair hygiene and grooming. Improving Behavior: Patient is seated without any agitated behavior. Guarded, vague, Less suspicious today Speech: Patient's speech is fluent and non-pressured. [place] Mood/Affect: Patient reports their mood is "fine", affect is congruent and constricted. Suicidality/Homicidality: Patient denies having any homicidal ideation intent or plan. Denies any suicidal ideation, intent or plan. Perceptions: Patient denies any visual hallucinations and denies any auditory hallucinations. Though content/process: [place], evasive. Superficial. Poverty of content Memory and concentration: Alert and oriented to person, hospital, year, fair attention span Judgment and insight: poor chronically IMPRESSIONS: Schizophrenia Nicotine dependence non compliance with medication regimen PLAN: -Patient is admitted under involuntary status to [facility] for stabilization of psychiatric symptoms and safety. Patient has not signed adult voluntary form and medication consent -Medications: Cross titrate Zyprexa p.o. with Prolixin. prolixin to 5 mg twice daily for mood stabilization/psychosis adjunct. trazodone 100 mg qhs prn for sleep/mood. Patient received Abilify Maintena 400 mg IM on 10/11, this will be d/c due to ineffectiveness. continue Depakene 750 mg daily for mood stabilization/aggression. Inderal 20 mg bid for akathisia/restlessness -Ativan and Haldol PRN for agitation/aggression -NRT - nicotine patch -SW on board for discharge planning. Encourage patient to participate in groups to work on coping skills. Patient did not defer with assistant attorney general and currently awaiting hearing date scheduled for 10/24
--- NOTE | 2024-10-23 11:08 | P.PN ---
Progress Note - Text Progress Note Date: 10/23/24 Interval History: Patient was seen today for psychiatric follow up. He was sitting in his room today. He was agreeable to speak to sql report writer. Patient appears to be somewhat irritable today with sql report writer. He swore at times during the conversation. He continues to state that nothing is going on. Continues to be focused on discharge, demonstrating poor impulse control. He has been taking his medications as prescribed, not reporting any side effects or problems. He continues to be fairly concrete. Spoke about the court hearing tomorrow. Continues to have very poor insight and judgment. Denying any depression or anxiety. clAims that he slept fairly last night. Denying any auditory or vi sual hallucinations. Denying any suicidal homicidal ideations intent or plan. MENTAL STATUS EXAM: General Appearance: Patient appears to be stated age, has short hair, fair hygiene and grooming. Improving Behavior: Patient is seated without any agitated behavior. Guarded, vague, notable Speech: Patient's speech is fluent and non-pressured. [place] Mood/Affect: Patient reports their mood is "ok", affect is congruent and irritable today Suicidality/Homicidality: Patient denies having any homicidal ideation intent or plan. Denies any suicidal ideation, intent or plan. Perceptions: Patient denies any visual hallucinations and denies any auditory hallucinations. Though content/process: [place], evasive. Superficial. Poverty of content Memory and concentration: Alert and oriented to person, hospital, year, fair attention span Judgment and insight: poor chronically IMPRESSIONS: Schizophrenia Nicotine dependence non compliance with medication regimen PLAN: -Patient is admitted under involuntary status to [facility]HU for stabilization of psychiatric symptoms and safety. Patient has not signed adult voluntary form and medication consent -Medications: Cross titrate Zyprexa p.o. with Prolixin. increase prolixin to 5 mg TID for mood stabilization/psychosis adjunct. trazodone 100 mg qhs prn for sleep/mood. Patient received Abilify Maintena 400 mg IM on 10/11, this will be d/c due to ineffectiveness. increase Depakene 1000 mg daily for mood stabilization/aggression. Inderal 20 mg bid for akathisia/restlessness -Ativan and Haldol PRN for agitation/aggression -NRT - nicotine patch -SW on board for discharge planning. Encourage patient to participate in groups to work on coping skills. Patient did not defer with jewelry mechanic and currently awaiting hearing date scheduled for 10/24
[2024-10-23] MEDS: VALPROIC ACID ORAL SOLN 250 MG/5 ML CUP PO SCH (20:41)
[2024-10-23] MEDS: OLANZapine 5 MG TAB PO ONE (20:42)
[2024-10-24 09:31] VITALS: TEMP 97.6
--- NOTE | 2024-10-24 10:26 | P.PN ---
Progress Note - Text Progress Note Date: 10/24/24 Interval History: Patient was seen today for psychiatric follow up. He was standing in the [address] today waiting for the hearing to start. He was agreeable to speak to racebook writer. He continues to be fairly concrete. Less irritable today with racebook writer. Answered most questions with yes or no answers. He continues to state that nothing is going on continues to demonstrate poor insight and judgment. He has been taking his medications as prescribed, not reporting any side effects or problems. Denying any depression or anxiety. clAims that he slept fairly last night. Denying any auditory or visual hallucinations. Denying any suicidal homicidal ideations intent or plan. MENTAL STATUS EXAM: General Appearance: Patient appears to be stated age, has short hair, fair hygiene and grooming. Improving Behavior: Patient is seated without any agitated behavior. Guarded, vague Speech: Patient's speech is fluent and non-pressured. [place] Mood/Affect: Patient reports their mood is "fine", affect is congruent and less irritable today Suicidality/Homicidality: Patient denies having any homicidal ideation intent or plan. Denies any suicidal ideation, intent or plan. Perceptions: Patient denies any visual hallucinations and denies any auditory hallucinations. Though content/process: [place], evasive. Superficial. Poverty of content Memory and concentration: Alert and oriented to person, hospital, year, fair attention span Judgment and insight: poor chronically IMPRESSIONS: Schizophrenia Nicotine dependence non compliance with medication regimen PLAN: -Patient is admitted under involuntary status to [facility] for stabilization of psychiatric symptoms and safety. Patient has not signed adult voluntary form and medication consent -Medications: continue prolixin 5 mg TID for mood stabilization/psychosis adjunct, plan to give BELLE to help ensure compliance once patient is stabilized. trazodone 100 mg qhs for sleep/mood. Patient received Abilify Maintena 400 mg IM on 10/11, this will be d/c due to ineffectiveness. Depakene 1000 mg daily for mood stabilization/aggression. Inderal 20 mg bid for akathisia/restlessness -Ativan and Haldol PRN for agitation/aggression -NRT - nicotine patch -SW on board for discharge planning. Encourage patient to participate in groups to work on coping skills. Patient did not defer with litigation attorney associate and currently awaiting hearing date scheduled for 10/24, patient will need to be transitioned onto a long-acting injection prior to discharge hopeful for discharge Tuesday versus Tuesday.
[2024-10-24] MEDS: traZODone HCL 100 MG TAB PO SCH (20:52)
--- NOTE | 2024-10-25 11:25 | P.PN ---
Progress Note - Text Progress Note Date: 10/25/24 Interval History: Patient was seen today for psychiatric follow up. He was previously in group today. He claims that he does not remember what they were talking about, claims that he arrived to group late. He appeared to be a bit more pleasant today with mortgage loan underwriter, less irritability. Claims that he is taking his medications not reporting any side effects. Denies any muscle stiffness. He continues to be fairly concrete. Answered most questions with yes or no answers. He continues to have fairly limited insight and judgment which is chronic. He has been taking his medications as prescribed. Asking about potential discharge. Denying any depression or anxiety. clAims that he slept fairly last night. Eating fairly. Denying any auditory or visual hallucinations. Denying any suicidal homicidal ideations intent or plan. MENTAL STATUS EXAM: General Appearance: Patient appears to be stated age, has short hair, fair hygiene and grooming. Improving Behavior: Patient is seated without any agitated behavior. Guarded, improving today Speech: Patient's speech is fluent and non-pressured. [place] Mood/Affect: Patient reports their mood is "ok", affect is congruent and not irritable Suicidality/Homicidality: Patient denies having any homicidal ideation intent or plan. Denies any suicidal ideation, intent or plan. Perceptions: Patient denies any visual hallucinations and denies any auditory hallucinations. Though content/process: [place], Poverty of content. No delusions or paranoia Memory and concentration: Alert and oriented to person, hospital, year, fair attention span Judgment and insight: Limited chronically, improving mildly IMPRESSIONS: Schizophrenia Nicotine dependence non compliance with medication regimen PLAN: -Patient is admitted under involuntary status to MHU for stabilization of psychiatric symptoms and safety. Patient has not signed adult voluntary form and medication consent -Medications: Decrease with plan to taper off prolixin PO 3 mg TID for mood stabilization/psychosis adjunct, plan to give BELLE today. Prolixin D 37.5 mg IM on 10/25, next dose will be due in every 10 days on 08/04 and this dose can be adjusted further as an outpatient based on tolerance and if any side effects. trazodone 100 mg qhs for sleep/mood. Discontinue Abilify Maintena due to ineffectiveness. Switched Depakene to Depakote ER 1000 mg daily for mood stabilization/aggression. Inderal 20 mg bid for akathisia/restlessness -Ativan and Haldol PRN for agitation/aggression -NRT - nicotine patch - on board for discharge planning. Encourage patient to participate in groups to work on coping skills. Patient consented to court order for mental health treatment on 10/24. patient will need to be transitioned onto a long-acting injection prior to discharge hopeful for discharge tomorrow back to [facility]. apparently [facility] CM looking at a better option for placement in the near future in [facility].
[2024-10-25] MEDS: fluPHENAZine DECANOATE 25 MG/ML 5ML MDV IM SCH (12:13)
[2024-10-25 12:15] VITALS: BP 126/81; PULSE 74
[2024-10-25 13:13] VITALS: BMI 30.3
[2024-10-25] MEDS: DIVALPROEX ER 500 MG TAB.ER.24H PO SCH (21:07)
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
== END 2024-10-26 13:00 | disposition home or self-care (01) | DRG 885 ==
LOC: EC 12:57 → 3MHU 19:03
PROVIDERS: ADMIT Psychiatry & Neurology Psychiatry; ATTEND Psychiatry & Neurology Psychiatry
DX: F20.9 Schizophrenia, unspecified (principal); R45.851 Suicidal ideations; F41.9 Anxiety disorder, unspecified; G47.00 Insomnia, unspecified; Z11.52 Encounter for screening for COVID-19; F17.210 Nicotine dependence, cigarettes, uncomplicated; Z91.148 Patient's other noncompliance with medication regimen for other reason; Z79.899 Other long term (current) drug therapy; Z87.11 Personal history of peptic ulcer disease; Z63.4 Disappearance and death of family member; Z71.6 Tobacco abuse counseling
CPT/HCPCS: 80053; 80061; 80306; 81001; 82075; 83036; 84443; 85025; 87635; 99285

== ENCOUNTER 2024-12-31 14:44 | Inpatient (IN) | payer MEDICARE, MEDICAID ==
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
[2024-12-31 16:01] LABS: Amphetamine Screen,Urine Not Detected (NotDetected); Barbiturate Screen,Urine Not Detected (NotDetected); Benzodiazepines Screen,Urine Not Detected (NotDetected); Cocaine Screen,Urine Not Detected (NotDetected); Methadone Screen, Urine Not Detected (NotDetected); Opiate Screen,Urine Not Detected (NotDetected); Oxycodone Screen, Urine Not Detected (NotDetected); Phencyclidine Screen,Urine Not Detected (NotDetected); Tricyclic Antidepressant,Urine Not Detected (NotDetected); Urn Cannabinoid Scrn Not Detected (NotDetected)
[2024-12-31 19:30] LABS: Influenza A Not Detected (Not Detectd); Influenza B Not Detected (Not Detectd); RSV Not Detected (Not Detectd)
[2024-12-31] MEDS ORDERED: HALOPERIDOL LACTATE 5 MG/ML 1 ML VIAL IM PRN (20:58)
[2024-12-31] MEDS ORDERED: MAGNESIUM HYDROXIDE 2,400 MG/30 ML CUP PO PRN (20:58)
[2024-12-31] MEDS ORDERED: IBUPROFEN 600 MG TAB PO PRN (20:58)
[2024-12-31] MEDS ORDERED: LORazepam 2 MG/ML INJ IM PRN (20:58)
[2024-12-31] MEDS ORDERED: ACETAMINOPHEN TAB 325 MG TAB PO PRN (20:58)
[2024-12-31] MEDS ORDERED: MAG HYDROX/AL HYDROX/SIMETH 355 ML BOTTLE PO PRN (20:58)
[2024-12-31] MEDS: DIVALPROEX ER 500 MG TAB.ER.24H PO SCH (21:26)
[2024-12-31] MEDS: PROPRANOLOL 20 MG TAB PO SCH (21:26)
[2024-12-31] MEDS: traZODone HCL 100 MG TAB PO SCH (21:26)
[2025-01-01] MEDS: NICOTINE 14MG/24HR PATCH TRANSDERM SCH (08:14)
[2025-01-01 09:02] LABS: Appearance,Urine Clear (Clear); Bilirubin,Urine Negative (Negative); Blood,Urine Negative (Negative); Color,Urine Light Yellow; Glucose,Urine (UA) Negative (Negative); Ketones,Urine Negative (Negative); Leukocyte Esterase,Urine Negative (Negative); Nitrite,Urine Negative (Negative); Protein,Urine Negative (Negative); Specific Gravity,Urine 1.014 (1.001-1.035); Urobilinogen,Urine <2.0 mg/dL (<2.0)
[2025-01-01 11:55] LABS: Basophils % (A) 0 %; Eosinophils # (A) 0.2 k/uL (0-0.7); Eosinophils % (A) 3 %; HCT 52.9 % (39.0-53.0); HGB 16.1 gm/dL (13.0-17.5); Lymphocytes # (A) 2.2 k/uL (1.0-4.8); Lymphocytes % (A) 25 %; MCH 30.1 pg (25.0-35.0); MCHC 30.5 g/dL (31.0-37.0); MCV 98.7 fL (80.0-100.0); Mean Platelet Volume 7.4; Monocytes # (A) 0.5 k/uL (0-1.0); Monocytes % (A) 5 %; Neutrophils # (A) 5.7 k/uL (1.3-7.7); Neutrophils % (A) 65 %; Platelet Count 250 k/uL (150-450); RBC 5.36 m/uL (4.30-5.90); RDW 13.3 % (11.5-15.5); WBC 8.8 k/uL (3.8-10.6)
[2025-01-01 12:44] LABS: ALT 19 U/L (4-49); AST 19 U/L (17-59); African American GFR (CKD) >90 (>60 ml/min/1.73 sqM); Albumin 4.1 g/dL (3.5-5.0); Alkaline Phosphatase 72 U/L (38-126); Anion Gap 7 mmol/L; Blood Urea Nitrogen 15 mg/dL (9-20); Calcium 9.3 mg/dL (8.4-10.2); Carbon Dioxide 24 mmol/L (22-30); Chloride 110 mmol/L (98-107); Glucose 80 mg/dL (74-99); Non-African American GFR(CKD) >90 (>60 ml/min/1.73 sqM); Potassium 4.5 mmol/L (3.5-5.1); Sodium 141 mmol/L (137-145); Total Bilirubin 0.7 mg/dL (0.2-1.3); Total Protein 6.8 g/dL (6.3-8.2)
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
[2025-01-01 19:53] LABS: LDL Cholesterol,Calculated 98.7 mg/dL (0.0-131.0)
--- NOTE | 2025-01-02 11:06 | P.PN ---
Progress Note - Text Progress Note Date: 01/02/25 Interval history: Patient was seen today in his room. As automobile service writer approached patient's room, the door was almost completely shut however automobile service writer was able to hear patient yelling and having a conversation nonsensically with himself. When automobile service writer entered the room patient appeared to be somewhat irritable, demanding discharge. He did not acknowledge that he was talking to someone. Continues to have very poor insight poor judgment. Has been taking his medications however. Denied any issues ove rnight. Has been fairly concrete keeping to himself. Claims that he slept fairly through the night has been eating well. Not going to groups. Denies any auditory or visual hallucinations denies any suicidal homicidal ideations intent or plan. MENTAL STATUS EXAM: General Appearance: Patient appears to be mildly overweight, short hair, unshaven, stated age, has short hair, fair hygiene and grooming. Behavior: Patient is seated without any agitated behavior. Guarded, vague\\. Suspicious appears to be restless. Poor eye contact, improving mildly Speech: Patient's speech is fluent and non-pressured. [place] demanding tone Mood/Affect: Patient reports their mood is "fine", affect is congruent and irritable Suicidality/Homicidality: Patient denies having any homicidal ideation intent or plan. Denies any suicidal ideation, intent or plan. Perceptions: Patient denies any visual hallucinations and denies any auditory hallucinations. Though content/process: [place], evasive. Superficial. Poor historian. demanding discharge Memory and concentration: Alert and oriented to person, hospital, year Judgment and insight: poor chronically IMPRESSIONS: Schizophrenia Nicotine dependence PLAN: -Patient is admitted under involuntary status (patient is currently on a active mental health order which expires on 04/22/2025) to [facility]HU for stabilization of psychiatric symptoms and safety. -Medications: Depakote 1000 mg qhs for mood stabilization/aggression. Inderal 20 mg daily for akathisia/restlessness. Prolixin D 37.5 mg every 10 days, next dose will be due on 01/07, will likely need to increase dose to 50 mg q10d. added prolixin 3 mg bid po until patient is able to recieve BELLE. Trazodone 100 mg nightly for insomnia/mood. -Ativan and Haldol PRN for agitation/aggression -NRT - nicotine patch -SW on board for discharge planning. Encourage patient to participate in groups to work on coping skills. Continuing to work with [facility] and guardian and social work professor about different options for placement as patient is not allowed back to [facility] house.
--- NOTE | 2025-01-03 10:09 | P.PN ---
Progress Note - Text Progress Note Date: 01/03/25 Interval history: Patient was seen today in his room. He was laying in bed, awoken by teletypewriter operator. He continues to be fairly focused on discharge, continues to ask teletypewriter operator "get me the fuck outa here". Answered questions very superficially, fairly concrete. Continues to be responding to internal stimuli. Claims that he slept fairly has been eating well. Mainly keeping himself on the unit. Denied any issues overnight. Taking his medications not reporting any side effects. Denies any auditory or visual hallucinations denies any suicidal homicidal ideations intent or plan. MENTAL STATUS EXAM: General Appearance: Patient appears to be mildly overweight, short hair, unshaven, stated age, has short hair, fair hygiene and grooming. Poor eye contact, improving mildly Behavior: Patient is seated without any agitated behavior. Guarded, vague. Suspicious appears. Demanding discharge Speech: Patient's speech is fluent and non-pressured. [place] demanding tone Mood/Affect: Patient reports their mood is "fine", affect is congruent and irritable Suicidality/Homicidality: Patient denies having any homicidal ideation intent or plan. Denies any suicidal ideation, intent or plan. Perceptions: Patient denies any visual hallucinations and denies any auditory hallucinations. Though content/process: [place], evasive. Superficial. demanding discharge Memory and concentration: Alert and oriented to person, hospital, year Judgment and insight: poor chronically IMPRESSIONS: Schizophrenia Nicotine dependence PLAN: -Patient is admitted under involuntary status (patient is currently on a active mental health order which expires on 04/22/2025) to [facility] for stabilization of psychiatric symptoms and safety. -Medications: Increase Depakote 1500 mg qhs for mood stabilization/aggression. Inderal 20 mg daily for akathisia/restlessness. Prolixin D 37.5 mg every 10 days, next dose will be due on 01/07, will likely need to increase dose to 50 mg q10d, will order the injection for tuesday. increase prolixin 4 mg bid po until patient is able to recieve BELLE. Trazodone 100 mg nightly for insomnia/mood. -Ativan and Haldol PRN for agitation/aggression -NRT - nicotine patch -SW on board for discharge planning. Encourage patient to participate in groups to work on coping skills. Continuing to work with [facility] and guardian and social science manager about different options for placement as patient is not allowed back to mothers house.
[2025-01-03] MEDS: DIVALPROEX ER 500 MG TAB.ER.24H PO SCH (21:54)
[2025-01-03] MEDS: LORazepam 1 MG TAB PO PRN (21:56)
--- NOTE | 2025-01-04 12:03 | P.PN ---
Progress Note - Text Progress Note Date: 01/04/25 Interval history: Patient was seen today in his room. He was seen sitting at the side of his bed today. He continues to be fairly focused on discharge. He continues to demand that commercial loan underwriter discharged him immediately. Continues to have very poor insight poor judgment. Answered questions very superficially, fairly concrete. Continues to be responding to internal stimuli, this is improved. Patient was fairly irritable today. He has reportedly been going to some groups. Claims that he slept fairly has been eating well. Mainly keeping himself on the unit. Denied any issues overnight. Taking his medications not reporting any side effects. Denies any auditory or visual hallucinations denies any suicidal homicidal ideations intent or plan. MENTAL STATUS EXAM: General Appearance: Patient appears to be mildly overweight, short hair, unshaven, stated age, has short hair, fair hygiene and grooming. Poor eye contact, improving mildly Behavior: Patient is seated without any agitated behavior. Guarded, vague. Suspicious appears. Demanding discharge Speech: Patient's speech is fluent and non-pressured. [place] demanding tone Mood/Affect: Patient reports their mood is "ok", affect is congruent and irritable Suicidality/Homicidality: Patient denies having any homicidal ideation intent or plan. Denies any suicidal ideation, intent or plan. Perceptions: Patient denies any visual hallucinations and denies any auditory hallucinations. Though content/process: [place], evasive. Superficial. demanding discharge Memory and concentration: Alert and oriented to person, hospital, year Judgment and insight: poor chronically IMPRESSIONS: Schizophrenia Nicotine dependence PLAN: -Patient is admitted under involuntary status (patient is currently on a active mental health order which expires on 04/22/2025) to [facility] for stabilization of psychiatric symptoms and safety. -Medications: Depakote 1500 mg qhs for mood stabilization/aggression. Inderal 20 mg daily for akathisia/restlessness. Prolixin D 37.5 mg every 10 days, next dose will be due on 01/07, will likely need to increase dose to 50 mg q10d, will order the injection for tuesday. increase prolixin 5 mg bid po until patient is able to recieve BELLE. Trazodone 100 mg nightly for insomnia/mood. -Ativan and Haldol PRN for agitation/aggression -NRT - nicotine patch -SW on board for discharge planning. Encourage patient to participate in groups to work on coping skills. Continuing to work with [facility] and guardian and public health social worker about different options for placement as patient is not allowed back to mothers house.
[2025-01-04] MEDS: haloperidoL 5 MG TAB PO PRN (16:26)
--- NOTE | 2025-01-05 16:48 | P.PN ---
Progress Note - Text Progress Note Date: 01/05/25 Interval history: Patient was seen bedside and was directable and agreeable to speak with scenario writer. He appeared somewhat irritable but said that his mood is "fine ". He had concrete responses to all questions and would not expand further when asked. There was also prolonged latency in response. He denied issues with medications. He reported sleeping well and eating well. At this time patient denies any suicidal or homicidal ideations intent or plan. Denies any Auditory or visual hallucinations. Patient denies any side effects from the medications and has been compliant with meds. Mental status exam: General Appearance: Patient appears to be stated age is alert, directable, and somewhat cooperative. Behavior: No agitated behavior. Patient is calm and directable Speech: Patient's speech is fluent and nonpressured. Mood/Affect: Mood is improving mildly, affect is congruent and constricted. Suicidality/Homicidality: Patient denies having any suicidal or homicidal ideation intent or plan. Perceptions: Patient denies any auditory or visual hallucinations. Though content/process: There is no evidence of any delusional thought content and thought process is linear and goal-directed. Discharge focus. [place] Memory and concentration: AOX3, grossly intact for the purposes of this session Judgment and insight: poor Assessment/Plan: Continue with current diagnosis. Patient continues to meet criteria for inpatient psychiatric admission for symptom stabilization and saf ety. Patient will be maintained on current psychotropic medication regimen. Monitor for medication compliance and for any psychotropic medication side effects. Will continue to monitor ongoing response to treatment. Encouraged participation in milieu.
--- NOTE | 2025-01-06 12:12 | P.PN ---
Progress Note - Text Progress Note Date: 01/06/25 Interval history: Patient was seen bedside and was directable and agreeable to speak with keno writer. Patient continues to latency in response and smiles inappropriately at times prior to answering questions. He also displays some disorganization in thought. He states that he is overall "fine ". Patient is noted to be responding to internal stimuli and states that "it is for knowledge "when asked about medication tolerance. He does not expand further when asked. He reports sleeping well and eating well. At this time patient denies any suicidal or homicidal ideations intent or plan. Patient enies any overt Auditory or visual hallucinations but noted to be responding to internal stimuli. Patient denies any side effects from the medications and has been compliant with meds. Mental status exam: General Appearance: Patient appears to be stated age is alert, directable, and somewhat cooperative. Behavior: No agitated behavior. Patient is calm and directable Speech: Patient's speech is fluent and nonpressured. Mood/Affect: Mood is improving mildly, affect is congruent and constricted. Suicidality/Homicidality: Patient denies having any suicidal or homicidal ideation intent or plan. Perceptions: Patient denies any visual hallucinations. Patient is seen responding to internal stimuli Though content/process: [place] at times. Memory and concentration: AOX3, grossly intact for the purposes of this session Judgment and insight: poor Assessment/Plan: Continue with current diagnosis. Patient continues to meet criteria for inpatient psychiatric admission for symptom stabilization and safety. Patient will be maintained on current psychotropic medication regimen. Agree with increase in Prolixin Decanoate q10d tomorrow to 50 mg. Monitor for medication compliance and for any psychotropic medication side effects. Will continue to monitor ongoing response to treatment. Encouraged participation in milieu.
--- NOTE | 2025-01-07 12:48 | P.PN ---
Progress Note - Text Progress Note Date: 01/07/25 Interval history: Patient was seen today sitting in the lounge. Patient was agreeable to speak to repairer typewriter today. He was less focused today on discharge. Continues to be fairly concrete has chronically poor insight poor judgment. Continues to answer questions superficially. Denied any issues over the weekend, not reporting any delusions or paranoia. Claims that he is sleeping fairly. Tolerating meds well. He appears to be less irritable today with repairer typewriter. He has reportedly been going to some groups. Claims that he slept fairly has been eating well. Denies any auditory or visual hallucinations denies any suicidal homicidal ideations intent or plan. MENTAL STATUS EXAM: General Appearance: Patient appears to be mildly overweight, short hair, unshaven, stated age, has short hair, fair hygiene and grooming. Improving mildly eye contact, improving mildly Behavior: Patient is seated without any agitated behavior. Guarded, less Demanding today Speech: Patient's speech is fluent and non-pressured. [place] demanding tone Mood/Affect: Patient reports their mood is "ok", affect is congruent and less irritable Suicidality/Homicidality: Patient denies having any homicidal ideation intent or plan. Denies any suicidal ideation, intent or plan. Perceptions: Patient denies any visual hallucinations and denies any auditory hallucinations. Though content/process: [place], evasive. Superficial. Less demanding Memory and concentration: Alert and oriented to person, hospital, year Judgment and insight: poor chronically, improving mildly IMPRESSIONS: Schizophrenia Nicotine dependence PLAN: -Patient is admitted under involuntary status (patient is currently on a active mental health order which expires on 04/22/2025) to [facility] for stabilization of psychiatric symptoms and safety. -Medications: Depakote 1500 mg qhs for mood stabilization/aggression. Inderal 20 mg daily for akathisia/restlessness. Will give Prolixin D 50 mg today and will be every 14 days, next dose will be due on 7taper off po prolixin. Trazodone 100 mg nightly for insomnia/mood. -Ativan and Haldol PRN for agitation/aggression -NRT - nicotine patch -SW on board for discharge planning. Encourage patient to participate in groups to work on coping skills. Continuing to work with [facility] and guardian and social work therapist about different options for placement. kennel worker will reach out to guardian's today and also mother to determine if patient is able to return back home with mother and have ACT team to close follow-up.
[2025-01-07] MEDS: fluPHENAZine DECANOATE 25 MG/ML 5ML MDV IM SCH (14:01)
[2025-01-07] MEDS ORDERED: fluPHENAZine DECANOATE 25 MG/ML 5ML MDV IM SCH (21:00)
--- NOTE | 2025-01-08 10:27 | P.PN ---
Progress Note - Text Progress Note Date: 01/08/25 Interval history: Patient was seen today laying in his bed. Patient was agreeable to speak to kendal pablo today. Patient needed to be fairly concrete. He claims that he received the injection yesterday tolerated well. Not reporting any side effects at this time. He appears to be less focused with discharge, less irritable today with life insurance underwriter. Continues to have very poor insight poor judgment, superficial. Claims that he ate fairly today. Claims that he is sleeping fairly. He has reportedly been going to some groups. Claims that he slept fairly has been eating well. Denies any auditory or visual hallucinations denies any suicidal homicidal ideations intent or plan. MENTAL STATUS EXAM: General Appearance: Patient appears to be mildly overweight, short hair, unshaven, stated age, has short hair, fair hygiene and grooming. Improving mildly eye contact, improving mildly Behavior: Patient is seated without any agitated behavior. Guarded, superficial today, improved Speech: Patient's speech is fluent and non-pressured. [place] Mood/Affect: Patient reports their mood is "alright", affect is congruent and less irritable Suicidality/Homicidality: Patient denies having any homicidal ideation intent or plan. Denies any suicidal ideation, intent or plan. Perceptions: Patient denies any visual hallucinations and denies any auditory hallucinations. Though content/process: [place], evasive. Superficial. Poverty of content Memory and concentration: Alert and oriented to person, hospital, year Judgment and insight: poor chronically, improving mildly IMPRESSIONS: Schizophrenia Nicotine dependence PLAN: -Patient is admitted under involuntary status (patient is currently on a active mental health order which expires on 04/22/2025) to [facility] for stabilization of psychiatric symptoms and safety. -Medications: Depakote 1500 mg qhs for mood stabilization/aggression. Inderal 20 mg daily for akathisia/restlessness. Received Prolixin D 50 mg on 01/07 and will be every 14 days, next dose will be due on 01/21. d/c po prolixin. Trazodone 100 mg nightly for insomnia/mood. -Ativan and Haldol PRN for agitation/aggression -NRT - nicotine patch -SW on board for discharge planning. Encourage patient to participate in groups to work on coping skills. Continuing to work with [facility] and guardian and certified social workers in health care about different options for placement. machine clothing worker will reach out to guardian's today and also mother to determine if patient is able to return back home with mother and have ACT team to close follow-up.
[2025-01-09 10:02] VITALS: RESP 16
--- NOTE | 2025-01-09 10:52 | P.PN ---
Progress Note - Text Progress Note Date: 01/09/25 Interval history: Patient was seen today laying in his bed. He claims that he is doing fair tod ay. Tolerating medications well not reporting any side effects. Patient was fairly concrete. Denies any depression or anxiety. He appears to be less focused with discharge, less irritable today with web content writer. Continues to have very poor insight poor judgment, superficial. Claims that he ate fairly today. Claims that he is sleeping fairly. He has reportedly been going to some groups. Denies any auditory or visual hallucinations denies any suicidal homicidal ideations intent or plan. MENTAL STATUS EXAM: General Appearance: Patient appears to be mildly overweight, short hair, unshaven, stated age, has short hair, fair hygiene and grooming. Improving mildly eye contact, improving mildly Behavior: Patient is seated without any agitated behavior. superficial today, improved Speech: Patient's speech is fluent and non-pressured. [place] Mood/Affect: Patient reports their mood is "ok", affect is congruent constricted Suicidality/Homicidality: Patient denies having any homicidal ideation intent or plan. Denies any suicidal ideation, intent or plan. Perceptions: Patient denies any visual hallucinations and denies any auditory hallucinations. Though content/process: [place], Superficial. Poverty of content Memory and concentration: Alert and oriented to person, hospital, year Judgment and insight: poor chronically, improving mildly IMPRESSIONS: Schizophrenia Nicotine dependence PLAN: -Patient is admitted under involuntary status (patient is currently on a active mental health order which expires on 04/22/2025) to [facility] for stabilization of psychiatric symptoms and safety. -Medications: Depakote 1500 mg qhs for mood stabilization/aggression. Inderal 20 mg daily for akathisia/restlessness. Received Prolixin D 50 mg on 01/07 and will be every 14 days, next dose will be due on 01/21. d/c po prolixin. Trazodone 100 mg nightly for insomnia/mood. -Ativan and Haldol PRN for agitation/aggression -NRT - nicotine patch - on board for discharge planning. Encourage patient to participate in groups to work on coping skills. Continuing to work with [facility] and guardian and social work program coordinator about different options for placement. social worker health services will reach out to guardian's today and also mother to determine if patient is able to return back home with mother and have ACT team to close follow-up. hopeful for dishcarge in 1-2 days
[2025-01-09 21:40] VITALS: BP 110/66; PULSE 66; TEMP 98
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
== END 2025-01-10 12:45 | disposition home or self-care (01) | DRG 885 ==
LOC: EC 14:44 → 3MHU 20:47
PROVIDERS: ADMIT Psychiatry & Neurology Psychiatry; ATTEND Psychiatry & Neurology Psychiatry
DX: F20.9 Schizophrenia, unspecified (principal); F17.200 Nicotine dependence, unspecified, uncomplicated; F41.9 Anxiety disorder, unspecified; G47.00 Insomnia, unspecified; Z79.899 Other long term (current) drug therapy; Z81.8 Family history of other mental and behavioral disorders; Z82.5 Family history of asthma and other chronic lower respiratory diseases; Z87.11 Personal history of peptic ulcer disease
CPT/HCPCS: 80053; 80061; 80306; 81003; 82075; 83036; 84443; 85025; 87636; 99285

== ENCOUNTER 2025-04-12 18:16 | Emergency (ER) | payer MEDICARE, OTHER ==
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
[2025-04-12 22:18] LABS: Amphetamine Screen,Urine Not Detected (NotDetected); Benzodiazepines Screen,Urine Not Detected (NotDetected); Cocaine Screen,Urine Not Detected (NotDetected); Opiate Screen,Urine Not Detected (NotDetected); Phencyclidine Screen,Urine Not Detected (NotDetected); Tricyclic Antidepressant,Urine Not Detected (NotDetected); Urn Cannabinoid Scrn Not Detected (NotDetected)
[2025-04-12 22:19] LABS: Barbiturate Screen,Urine Not Detected (NotDetected); Methadone Screen, Urine Not Detected (NotDetected); Oxycodone Screen, Urine Not Detected (NotDetected)
[2025-04-13 02:02] VITALS: BP 124/82; PULSE 68; RESP 19; TEMP 98.1
== END 2025-04-13 02:26 | disposition home or self-care (01) ==
LOC: EC 18:16
DX: Z00.8 Encounter for other general examination (principal); F17.200 Nicotine dependence, unspecified, uncomplicated
CPT/HCPCS: 80306; 82075

== ENCOUNTER 2025-04-15 10:58 | Inpatient (IN) | payer MEDICARE, MEDICAID ==
[2025-04-15 11:51] LABS: Barbiturate Screen,Urine Not Detected (NotDetected); Benzodiazepines Screen,Urine Not Detected (NotDetected); Opiate Screen,Urine Not Detected (NotDetected); Oxycodone Screen, Urine Not Detected (NotDetected); Phencyclidine Screen,Urine Not Detected (NotDetected); Tricyclic Antidepressant,Urine Not Detected (NotDetected); Urn Cannabinoid Scrn Not Detected (NotDetected)
[2025-04-15] MEDS ORDERED: ACETAMINOPHEN TAB 325 MG TAB PO PRN (14:40)
[2025-04-15] MEDS ORDERED: IBUPROFEN 600 MG TAB PO PRN (14:40)
[2025-04-15] MEDS ORDERED: MAG HYDROX/AL HYDROX/SIMETH 355 ML BOTTLE PO PRN (14:40)
[2025-04-15] MEDS ORDERED: LORazepam 1 MG TAB PO PRN (14:40)
[2025-04-15] MEDS ORDERED: HALOPERIDOL LACTATE 5 MG/ML 1 ML VIAL IM PRN (14:40)
[2025-04-15] MEDS ORDERED: MAGNESIUM HYDROXIDE 2,400 MG/30 ML CUP PO PRN (14:40)
--- NOTE | 2025-04-15 14:42 | ED ---
General Adult HPI - General Chief complaint: Psychiatric Symptoms Stated complaint: Mental Health Eval. Time Seen by Provider: 04/15/25 11:03 Source: patient, RN notes reviewed Mode of arrival: ambulatory Limitations: no limitations - History of Present Illness Initial comments: 34-year-old male presents emergency department with mother for psychiatric v aluation. Patient had increasing aggression. Patient himself has no complaints denies any suicidal homicidal he states he supposed be on psychiatric medication's. Denies drug alcohol abuse - Related Data Previous Rx's Medication Instructions Recorded Divalproex ER [Depakote ER] 1,500 mg PO HS 30 Days #90 tab 01/10/25 Propranolol [Inderal] 20 mg PO BID 30 Days #60 tab 01/10/25 fluPHENAZine decanoate [Prolixin 50 mg IM Q14D #1 ml 01/10/25 Decanoate] traZODone HCL [Desyrel] 100 mg PO HS 30 Days #30 tab 01/10/25 Allergies Allergy/AdvReac Type Severity Reaction Status Date / Time No Known Allergies Allergy Verified 04/15/25 13:09 Review of Systems ROS Statement: Those systems with pertinent positive or pertinent negative responses have been documented in the HPI. ROS Other: All systems not noted in ROS Statement are negative. Past Medical History Past Medical History: GERD/Reflux Additional Past Medical History / Comment(s): healing stomach ulcer, takes propr anolol for tremors related to side effects from some of his meds History of Any Multi-Drug Resistant Organisms: None Reported Date of last positivie culture/infection: 07/11/24 MDRO Source:: blood, L3 Finger Past Surgical History: No Surgical Hx Reported Additional Past Surgical History / Comment(s): EGD in Nov. Past Anesthesia/Blood Transfusion Reactions: No Reported Reaction Past Psychological History: Anxiety, Schizophrenia Smoking Status: Current every day smoker Past Alcohol Use History: None Reported Past Drug Use History: None Reported - Past Family History Father Additional Family Medical History / Comment(s): Father at age 53 from emphysema. Mother Additional Family Medical History / Comment(s): Mother is alive in her 50s with no major medical problems. Brother(s) Family Medical History: No Reported History Additional Family Medical History / Comment(s): Patient has 1 brother and 1 sister with no major medical problems. General Exam Limitations: no limitations General appearance: alert, in no apparent distress Head exam: Present: atraumatic, normocephalic, normal inspection Eye exam: Present: normal appearance, PERRL, EOMI. Absent: scleral icterus, conjunctival injection, periorbital swelling ENT exam: Present: normal exam, normal oropharynx, mucous membranes moist Neck exam: Present: normal inspection, full ROM. Absent: tenderness, meningismus, lymphadenopathy Respiratory exam: Present: normal lung sounds bilaterally. Absent: respiratory distress, wheezes, rales, rhonchi, stridor Cardiovascular Exam: Present: regular rate, normal rhythm, normal heart sounds. Absent: systolic murmur, diastolic murmur, rubs, gallop, clicks GI/Abdominal exam: Present: soft, normal bowel sounds. Absent: distended, tenderness, guarding, rebound, rigid Course Vital Signs 04/15/25 11:08 Temperature 97.1 F L Pulse Rate 75 Respiratory 16 Rate Blood Pressure 119/84 O2 Sat by Pulse 94 L Oximetry Medical Decision Making - Medical Decision Making Was pt. sent in by a medical professional or institution (JESSA Al, ROTATING FIELD ASSEMBLER, urgent care, hospital, or correction...) When possible be specific @ -[No] Did you speak to anyone other than the patient for history (EMS, parent, family, police, friend...)? What history was obtained from this source @ -[No] Did you review nursing and triage notes (agree or disagree)? Why? @ -[I reviewed and agree with nursing and triage notes] Were old charts reviewed (outside hosp., previous admission, EMS record, old EKG, old radiological studies, urgent care reports/EKG's, correction records)? Report findings @ -[No old charts were reviewed] Differential Diagnosis (chest pain, altered mental status, abdominal pain women, abdominal pain men, vaginal bleeding, weakness, fever, dyspnea, syncope, headache, dizziness, GI bleed, back pain, seizure, CVA, palpatations, mental he alth, musculoskeletal)? @ -Differential Mental Health Depression, anxiety, bipolar, psychosis, schizophrenia, borderline personality, situational depression, adjustment disorder, behavioral disorder, brain tumor, malingering, substance abuse, encephalopathy, medication reaction, dementia, hypothyroidism, degenerative neurologic disorder, lupus.... This is not meant to be all-inclusive list EKG interpreted by me (3pts min.). @ -None X-rays interpreted by me (1pt min.). @ -[None done] CT interpreted by me (1pt min.). @ -[None done] U/S interpreted by me (1pt. min.). @ -[None done] What testing was considered but not performed or refused? (CT, X-rays, U/S, labs)? Why? @ -[None] What meds were considered but not given or refused? Why? @ -[None] Did you discuss the management of the patient with other professionals (professionals i.e. , PA, ROTATING FIELD ASSEMBLER, lab, RT, psych nurse, social science analyst, chairperson anesthesiology, teacher, boating safety officer, director of casework department)? Give summary @ -EPS has evaluated patient and recommended psychiatric treatment inpatient Was smoking cessation discussed for >3mins.? @ -[No] Was critical care preformed (if so, how long)? @ -[No] Were there social determinants of health that impacted care today? How? (Homelessness, low income, unemployed, alcoholism, drug addiction, transportation, low edu. Level, literacy, decrease access to med. care, shelter, rehab)? @ -[No] Was there de-escalation of care discussed even if they declined (Discuss DNR or withdrawal of care, Hospice)? DNR status @ -[No] What co-morbidities impacted this encounter? (DM, HTN, Smoking, COPD, CAD, Cancer, CVA, ARF, Chemo, Hep., AIDS, mental health diagnosis, sleep apnea, morbid obesity)? @ -[None] Was patient admitted / discharged? Hospital course, mention meds given and route, prescriptions, significant lab abnormalities, going to OR and other pertinent info. @ -Admit to 3 W. Undiagnosed new problem with uncertain prognosis? @ -[No] Drug Therapy requiring intensive monitoring for toxicity (Heparin, Nitro, Insulin, Cardizem)? @ -[No] Were any procedures done? @ -[No] Diagnosis/symptom? @ -[default] Acute, or Chronic, or Acute on Chronic? @ -[default] Uncomplicated (without systemic symptoms) or Complicated (systemic symptoms)? @ -[default] Side effects of treatment? @ -[No] Exacerbation, Progression, or Severe Exacerbation? @ -[No] Poses a threat to life or bodily function? How? (Chest pain, [place], [place], pneumonia, PE, COPD, DKA, ARF, appy, cholecystitis, CVA, Diverticulitis, Homicidal, Suicidal, threat to staff... and all critical care pts) @ -[No] - Lab Data Lab Results 04/15/25 04/15/25 Range/Units 11:24 11:24 Urine Opiates Screen Not Detected (NotDetected) Ur Oxycodone Screen Not Detected (NotDetected) Urine Methadone Screen Not Detected (NotDetected) Ur Barbiturates Screen Not Detected (NotDetected) U Tricyclic Antidepress Not Detected (NotDetected) Ur Phencyclidine Scrn Not Detected (NotDetected) Ur Amphetamines Screen Not Detected (NotDetected) U Methamphetamines Scrn Not Detected (NotDetected) U Benzodiazepines Scrn Not Detected (NotDetected) Urine Cocaine Screen Not Detected (NotDetected) U Marijuana (THC) Screen Not Detected (NotDetected) SARS-CoV-2 (PCR) Not Detected (Not Detectd) Disposition Clinical Impression: Acute psychosis, Schizophrenia Disposition: TRANSFER TO PSYCH HOSP/UNIT Time of Disposition: 14:42
[2025-04-15] MEDS: NICOTINE 14MG/24HR PATCH TRANSDERM SCH (17:09)
[2025-04-15] MEDS: DIVALPROEX ER 500 MG TAB.ER.24H PO SCH (22:25)
[2025-04-15] MEDS: PROPRANOLOL 20 MG TAB PO SCH (22:26)
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
[2025-04-16 08:32] LABS: Basophils # (A) 0.03 10*3/uL (0.00-0.10); Basophils % (A) 0.5 %; Eosinophils # (A) 0.22 10*3/uL (0.04-0.35); Eosinophils % (A) 3.6 %; HCT 50.7 % (39.6-50.0); HGB 16.7 g/dL (13.0-17.0); Lymphocytes # (A) 1.73 10*3/uL (0.90-5.00); Lymphocytes % (A) 28.2 %; MCH 31.6 pg (27.0-32.0); MCHC 32.9 g/dL (32.0-37.0); MCV 96.0 fL (80.0-97.0); Monocytes # (A) 0.51 10*3/uL (0.20-1.00); Monocytes % (A) 8.3 %; Neutrophils # (A) 3.62 10*3/uL (1.80-7.70); Neutrophils % (A) 59.1 %; Platelet Count 208 10*3/uL (140-440); RBC 5.28 10*6/uL (4.40-5.60); RDW 13.4 % (11.5-14.5); WBC 6.13 10*3/uL (4.50-10.00)
[2025-04-16 08:54] LABS: ALT 14 U/L (4-49); AST 18 U/L (17-59); African American GFR (CKD) >90 (>60 ml/min/1.73 sqM); Albumin 3.7 g/dL (3.5-5.0); Alkaline Phosphatase 70 U/L (38-126); Anion Gap 8 mmol/L; Blood Urea Nitrogen 14 mg/dL (9-20); Calcium 8.9 mg/dL (8.4-10.2); Carbon Dioxide 24 mmol/L (22-30); Chloride 113 mmol/L (98-107); Glucose 96 mg/dL (74-99); Non-African American GFR(CKD) >90 (>60 ml/min/1.73 sqM); Potassium 4.5 mmol/L (3.5-5.1); Sodium 145 mmol/L (137-145); Total Protein 6.5 g/dL (6.3-8.2)
[2025-04-16 15:20] LABS: Cholesterol 156.00 mg/dL (0.00-200.00); HDL Cholesterol 31.80 mg/dL (40.00-60.00); LDL Cholesterol,Calculated 104.0 mg/dL (0.0-131.0); Triglycerides 101.00 mg/dL (0.00-149.00); VLDL Calculation 20.20 mg/dL (5.00-40.00)
[2025-04-16 20:43] LABS: Amorphous Sediment,Urine Few /hpf; Bilirubin,Urine Negative (Negative); Blood,Urine Negative (Negative); Color,Urine Light Brown; Glucose,Urine (UA) Negative (Negative); Ketones,Urine Negative (Negative); Leukocyte Esterase,Urine Negative (Negative); Mucus,Urine Many /hpf; Nitrite,Urine Negative (Negative); PH, Urine 6.0 (5.0-8.0); Protein,Urine Trace (Negative); Specific Gravity,Urine 1.032 (1.001-1.035); Urobilinogen,Urine 2.0 mg/dL (<2.0)
--- NOTE | 2025-04-16 23:15 | CONS ---
CONSULTATION REASON FOR CONSULTATION: Advice regarding GERD and other medical issues, requested by Psychiatry. HISTORY OF PRESENT ILLNESS: 34-year-old gentleman with a past medical history of GERD, schizophrenia, was admitted with psychosis. There is no history of any fever or rigors. No headache or loss of consciousness. The patient has some vague faint skin rashes. PAST MEDICAL HISTORY: Reviewed. Includes schizophrenia, anxiety, and GERD. Rest of history and rest of the chart are also reviewed. HOME MEDICATION: Trazodone. Dose and rest of medications reviewed. ALLERGIES: None. FAMILY HISTORY: History of emphysema. SOCIAL HISTORY: Current smoking. REVIEW OF SYSTEMS: 14-point review of systems is negative, except as mentioned earlier. PHYSICAL EXAMINATION: VITAL SIGNS: Pulse is 86, blood pressure 112/76, and respirations 14. HEENT: Conjunctivae normal. NECK: No jugular venous distention. CARDIOVASCULAR: S1, S2. ABDOMEN: Soft. NERVOUS SYSTEM: Nonfocal. SKIN: Faint maculopapular rash in the skin present. LABORATORY DATA: Reviewed. ASSESSMENT: 1. Acute psychosis. 2. Gastroesophageal reflux disease. 3. Stomach ulcer history. 4. Anxiety disorder. 5. History of nicotine dependence. RECOMMENDATION: 34-year-old gentleman presented with psychiatric evaluation. Medically stable at this time. I would recommend to continue the current medications. Continue symptomatic treatment. Resume the home medications. We will be happy to review if there is any new problem. Otherwise, recommend to close followup with the primary physician. Smoking cessation. Further recommendation is to follow. MMODL / IJN: [id number] /
[2025-04-17] MEDS: fluPHENAZine DECANOATE 25 MG/ML 5ML MDV IM SCH (10:14)
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
--- NOTE | 2025-04-18 11:59 | P.PN ---
Progress Note - Text Progress Note Date: 04/18/25 Interval History: Patient was seen lying in bed today, agreeable to speak to repairer typewriter. He has been taking his medications not reporting any issues. Patient who is fairly concrete, very limited insight and judgment. He has been mainly keeping himself while on the unit. He is denying any depression or anxiety at this time. Has been going to some groups, mainly cooperative with other peers. States that he slept fairly have been eating fairly. Not reporting any paranoia today. Claims that he took the injection yesterday. Denies any auditory or visual hallucinations denies any suicidal or homicidal ideations intent or plan. Mental Status Exam: General Appearance: The patient presented his stated age he was dressed appropriately, laying in bed, wearing street clothing Behavior: The patient was guarded and appeared to be responding to internal stimuli less. Speech: Patient's speech is fluent and nonpressured. Mood/Affect: Mood is improving mildly, affect is congruent and constricted. Suicidality/Homicidality: Patient denies having any suicidal or homicidal ideation intent or plan. Perceptions: Patient denies any visual hallucinations and denies any auditory hallucinations Though content/process: The patient presents less paranoid, fairly concrete and poverty of content Memory and concentration: AOX3, grossly intact for the purposes of this session Judgment and insight: Poor Diagnoses: Schizophrenia PLAN: -Patient is admitted under involuntary status to [facility] for stabilization of psychiatric symptoms and safety. Patient has not signed adult voluntary form and medication consent and is placed in patient's chart. -Medications : Prolixin Decanoate 50 mg IM every 2 last injection given on 04/17 for schizophrenia/psychosis Propranolol 20 mg take 1 tablet by mouth twice daily for agitation Trazodone 100 mg take 1 tablet by mouth at bedtime for insomnia Depakote 500 mg take 3 tablets by mouth at bedtime for mood/agitation Prozac 20 mg take 1 tablet by mouth once daily for depression -Ativan and Haldol PRN for agitation/aggression -NRT -nicotine patch - on board for discharge planning. Encourage patient to participate in groups to work on coping skills. Will await deferral and court date. working with [facility] and guardian to coordinate discharge planning. Hopeful for discharge next week.
--- NOTE | 2025-04-19 11:05 | P.PN ---
Progress Note - Text Progress Note Date: 04/19/25 Interval History: Patient was seen lying in bed today, agreeable to speak to creative services writer. Patient co ntinues to keep himself on the unit continues to be fairly concrete. His insight and judgment is fairly superficial. Today he was more focused on discharge, we spoke about having to coordinate with his guardian and also [facility] to decide where he will be going. Unsure if he is allowed back at home with his mother. He is denying any depression or anxiety at this time. Has been going to some groups, mainly cooperative with other peers. States that he slept fairly have been eating fairly. Not reporting any paranoia today. Claims that he took the injection yesterday. Denies any auditory or visual hallucinations denies any suicidal or homicidal ideations intent or plan. Mental Status Exam: General Appearance: The patient presented his stated age he was dressed appropriately, laying in bed, wearing street clothing Behavior: The patient was guarded and superficially cooperative Speech: Patient's speech is fluent and nonpressured. Mood/Affect: Mood is improving mildly, affect is congruent and constricted. Suicidality/Homicidality: Patient denies having any suicidal or homicidal ideation intent or plan. Perceptions: Patient denies any visual hallucinations and denies any auditory hallucinations Though content/process: The patient presents less paranoid, fairly concrete and poverty of content Memory and concentration: AOX3, grossly intact for the purposes of this session Judgment and insight: Chronically poor Diagnoses: Schizophrenia PLAN: -Patient is admitted under involuntary status to [facility] for stabilization of psychiatric symptoms and safety. Patient has not signed adult voluntary form and medication consent and is placed in patient's chart. -Medications : Prolixin Decanoate 50 mg IM every 2 last injection given on 04/17 for schizophrenia/psychosis Propranolol 20 mg take 1 tablet by mouth twice daily for agitation Trazodone 100 mg take 1 tablet by mouth at bedtime for insomnia Depakote 500 mg take 3 tablets by mouth at bedtime for mood/agitation Prozac 20 mg take 1 tablet by mouth once daily for depression -Ativan and Haldol PRN for agitation/aggression -NRT -nicotine patch - on board for discharge planning. Encourage patient to participate in groups to work on coping skills. working with [facility] and guardian to coordinate discharge planning. Hopeful for discharge early next week.
--- NOTE | 2025-04-20 13:42 | P.PN ---
Progress Note - Text Progress Note Date: 04/20/25 Chief complaint: Aggressive behavior Interval History: Patient was seen in his room laying down patient preferred to stay in his room at this time and the interview was conducted there. The patient notes that he has not been having any suicidal or homicidal thoughts. He notes that he is not having any auditory or visual hallucinations. He does not feel depressed or anxious. He notes that his sleep, energy, appetite and concentration are normal. He denies any side effects with the medication. The patient is not aware if he is allowed home at this point.. Mental Status Exam: General Appearance: Patient presented his stated age he was slightly disheveled. Behavior: Patient was relaxed and calm he was cooperative throughout the interview Speech: Patient's speech is fluent and nonpressured. Mood/Affect: Mood is improving mildly, affect is congruent and constricted. Suicidality/Homicidality: Patient denies having any suicidal or homicidal ideation intent or plan. Perceptions: Patient denies any visual hallucinations and denies any auditory hallucinations Though content/process: There is no evidence of any delusional thought content and thought process is linear and goal-directed. Memory and concentration: AOX3, grossly intact for the purposes of this session Judgment and insight: Improving mildly Diagnoses: Schizophrenia Assessment: The patient presents most likely baseline at this point is essential to find placement due to unaware of patient being able to return to his mother's house. PLAN: -Patient is admitted under involuntary status to [facility] for stabilization of psychiatric symptoms and safety. Patient has not signed adult voluntary form and medication consent and is placed in patient's chart. -Medications : Prolixin Decanoate 50 mg IM every 2 last injection given on 04/17 for schizophrenia/psychosis Propranolol 20 mg take 1 tablet by mouth twice daily for agitation Trazodone 100 mg take 1 tablet by mouth at bedtime for insomnia Depakote 500 mg take 3 tablets by mouth at bedtime for mood/agitation Prozac 20 mg take 1 tablet by mouth once daily for depression -Ativan and Haldol PRN for agitation/aggression -NRT -nicotine patch - on board for discharge planning. Encourage patient to participate in groups to work on coping skills. working with [facility] and guardian to coordinate discharge planning. Hopeful for discharge early next week.
--- NOTE | 2025-04-21 08:30 | P.PN ---
Progress Note - Text Progress Note Date: 04/21/25 Chief complaint: Aggressive behavior Interval History: Patient was seen in his room laying down patient preferred to stay in his room at this time and the interview was conducted there. The patient notes that he is feeling "all right". He notes that he is not having any side effects with the current medications. He notes that his sleep, energy, appetite and concentration are normal. He denies any ongoing depression or anxiety. He denies any suicidal or homicidal thoughts. He denies any auditory, visual or paranoia. When asking what he likes to do for fun while here he was limited in his response. It was suggested whether he was reading or coloring and he notes that he does not like to do this. Collateral: The patient was present and gave me permission to speak to his mother on speaker phone [phone]. She had noted that he is welcome back home. She asked about his throat and then went on a lecture about him needing to quit smoking. She notes every time he takes a puff he coughs. She continually mention this towards the end of the interview and inform me to tell him to quit smoking. Mental Status Exam: General Appearance: Patient presented his stated age he was slightly disheveled. Behavior: Patient was relaxed and calm he was cooperative throughout the inter view Speech: Patient's speech is fluent and nonpressured. Mood/Affect: Mood is improving mildly, affect is congruent and flat. Suicidality/Homicidality: Patient denies having any suicidal or homicidal ideation intent or plan. Perceptions: Patient denies any visual hallucinations and denies any auditory hallucinations Though content/process: There is no evidence of any delusional thought content and thought process is linear and goal-directed. Memory and concentration: AOX3, grossly intact for the purposes of this session Judgment and insight: Improving mildly Diagnoses: Schizophrenia Assessment: The patient appears to be doing well and possibly is baseline. Per conversation with the mother on the phone it is obvious why morning likely there is some friction between the two. However, he is welcome to return home. PLAN: -Patient is admitted under involuntary status to [facility] for stabilization of psychiatric symptoms and safety. Patient has not signed adult voluntary form and medication consent and is placed in patient's chart. -Medications : Prolixin Decanoate 50 mg IM every 2 last injection given on 7/2 for schizophrenia/psychosis Propranolol 20 mg take 1 tablet by mouth twice daily for agitation Trazodone 100 mg take 1 tablet by mouth at bedtime for insomnia Depakote 500 mg take 3 tablets by mouth at bedtime for mood/agitation Prozac 20 mg take 1 tablet by mouth once daily for depression -Ativan and Haldol PRN for agitation/aggression -NRT -nicotine patch -SW on board for discharge planning. Encourage patient to participate in groups to work on coping skills. working with [facility] and guardian to coordinate discharge planning. Hopeful for discharge early next week.
[2025-04-21 09:52] VITALS: RESP 16
--- NOTE | 2025-04-22 11:28 | P.PN ---
Progress Note - Text Progress Note Date: 04/22/25 Interval History: Patient was seen in his room. Patient was wandering always earlier after taking a shower. Claims that he is doing "okay" denies any issues over the weekend. He was fairly focused on discharge. He appears to be less irritable today during conversation and more directable. Answer questions appropriately. States that his mood has been improving. Claims he is sleeping fairly eating apparently. Not going to groups mainly keeping himself on the unit. He states that he is okay with going to a retirement/crisis bed tomorrow after [facility] arrange this. He denies any suicidal or homicidal thoughts. He denies any auditory, visual or paranoia. Not reporting any side effects at this time. Mental Status Exam: General Appearance: Patient presented his stated age he was slightly disheveled. Behavior: Patient was relaxed and calm he was cooperative throughout the interview Speech: Patient's speech is fluent and nonpressured. Mood/Affect: Mood is improving mildly, affect is congruent and flat. Suicidality/Homicidality: Patient denies having any suicidal or homicidal id eation intent or plan. Perceptions: Patient denies any visual hallucinations and denies any auditory hallucinations Though content/process: There is no evidence of any delusional thought content and thought process is linear and goal-directed. Fairly concrete, poverty of content Memory and concentration: AOX3, grossly intact for the purposes of this session Judgment and insight: Chronically poor, Improving mildly Diagnoses: Schizophrenia Assessment: The patient appears to be doing well and possibly is baseline. Per conversation with the mother on the phone it is obvious why morning likely there is some friction between the two. However, he is welcome to return home. PLAN: -Patient is admitted under involuntary status to [facility] for stabilization of psychiatric symptoms and safety. Patient has not signed adult voluntary form and medication consent and is placed in patient's chart. -Medications : Prolixin Decanoate 50 mg IM every 2 last injection given on 04/17 for schizophrenia/psychosis, next dose will be due on 05/01 Propranolol 20 mg take 1 tablet by mouth twice daily for agitation Trazodone 100 mg take 1 tablet by mouth at bedtime for insomnia Depakote 500 mg take 3 tablets by mouth at bedtime for mood/agitation Prozac 20 mg take 1 tablet by mouth once daily for depression -Ativan and Haldol PRN for agitation/aggression -NRT -nicotine patch - on board for discharge planning. Encourage patient to participate in groups to work on coping skills. working with [facility] and guardian to coordinate discharge planning. [facility] is looking into getting patient into crisis bed at retirement likely for tomorrow. Discharge tomorrow.
[2025-04-23 09:11] VITALS: BP 97/71; PULSE 57; TEMP 97.6
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
== END 2025-04-23 13:36 | disposition home or self-care (01) | DRG 885 ==
LOC: EC 10:58 → 3MHU 14:34
PROVIDERS: ADMIT Psychiatry & Neurology Psychiatry; ATTEND Psychiatry & Neurology Psychiatry
DX: F20.9 Schizophrenia, unspecified (principal); F17.210 Nicotine dependence, cigarettes, uncomplicated; F41.9 Anxiety disorder, unspecified; G47.00 Insomnia, unspecified; R25.1 Tremor, unspecified; Z79.899 Other long term (current) drug therapy
CPT/HCPCS: 80053; 80061; 80164; 80306; 81001; 82075; 83036; 84443; 85025; 87635; 99285